=== PATIENT | male | born 1975 ===

== ENCOUNTER → 2020-08-04 13:47 | Outpatient (BNVA) | payer MEDICAID, SELFPAY | PROVIDERS: PCP Emergency Medicine; Visit Provider Student in an Organized Health Care Education/Training Program | DX: M17.11 Unilateral primary osteoarthritis, right knee (principal); M25.562 Pain in left knee; I25.10 Atherosclerotic heart disease of native coronary artery without angina pectoris; I10 Essential (primary) hypertension; Z87.891 Personal history of nicotine dependence; Z91.013 Allergy to seafood | CPT/HCPCS: 20610; 99212 ==

== ENCOUNTER 2020-08-11 16:37 | Inpatient (IN) | payer MEDICAID, SELFPAY ==
[2020-08-11] VITALS (7 sets, daily range): BP systolic 112–140; BP diastolic 76–87; PULSE 79–110; RESP 14–18; TEMP 37.4–39.6; O2SAT 90–96; BMI 29.6; BMI 28.7
--- NOTE | 2020-08-11 16:52 | ECG_ITS ---
Test Reason : CP Blood Pressure : / mmHG Vent. Rate : 108 BPM Atrial Rate : 108 BPM P-R Int : 128 ms QRS Dur : 090 ms QT Int : 304 ms P-R-T Axes : 038 080 012 degrees QTc Int : 407 ms Sinus tachycardia Otherwise normal ECG When compared with ECG of 29-OCT-2019 16:05, No significant change was found Referred By: Marina Angel Electronically Signed By:TERRENCE DAIGLE MD
--- NOTE | 2020-08-11 17:03 | XR_ITS ---
EXAMINATION: XR CHEST CLINICAL INFORMATION: Chest pain COMPARISON: 10/29/2019 TECHNIQUE: Frontal view of the chest was obtained. FINDINGS: No convincing significant abnormality is noted involving the heart, lungs, mediastinum, bony thorax or soft tissues. There is a slight prominence of lung markings seen but I believe this is secondary to technique and positioning. No convincing consolidation is seen. XR/XR chest 1V IMPRESSION: No acute intrathoracic disease
--- NOTE | 2020-08-11 17:09 | ED_ITS ---
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 Chest pain is localized in the left chest wall, no radiation, associated with shortness of breath, pain described as intermittent, when patient have pain pain is moderate /10 and described as pressure on the chest. Related Data Home Medications Medication Instructions Recorded Confirmed amlodipine 2.5 mg tablet 2.5 mg PO DAILY 08/04/20 aspirin 81 mg tablet,delayed 81 mg PO DAILY 08/04/20 release atorvastatin 40 mg tablet 40 mg PO DAILY 08/04/20 fenofibrate micronized 134 mg 134 mg PO DAILY 08/04/20 capsule fenofibrate micronized 67 mg 67 mg PO DAILY 08/04/20 capsule insulin glargine 100 unit/mL (3 10 unit SUBCUT QPM 08/04/20 mL) subcutaneous pen lisinopril 10 mg tablet 10 mg PO DAILY 08/04/20 loratadine 10 mg tablet 10 mg PO DAILY 08/04/20 metformin 500 mg tablet 500 mg PO BID 08/04/20 omega-3 fatty acids 1,000 mg 1,000 mg PO DAILY 08/04/20 capsule omeprazole 40 mg capsule,delayed 40 mg PO DAILY 08/04/20 release Allergies Allergy/AdvReac Type Severity Reaction Status Date / Time Sea Food Allergy Severe Anaphylaxis Uncoded 08/04/20 13:50 SEAFOOD Allergy Severe ANGIOEDEMA Uncoded 08/04/20 13:50 Review of Systems Review of Systems: All other systems are reviewed and are negative Constitutional: Reports as per HPI and Reports no additional constitutional complaints Eyes: Reports as per HPI and Reports no additional eye complaints Reports system reviewed and no additional complaints, except as documented Cardiovascular: Reports as per HPI and Reports no additional cardiovascular complaints Respiratory: Reports as per HPI and Reports no additional respiratory complaints Gastrointestinal: Reports as per HPI and Reports no additional gastrointestinal complaints Genitourinary: Reports no additional female genitourinary complaints Musculoskeletal: Reports no additional musculoskeletal complaints Skin/Breast: Reports system reviewed and no additional complaints, except as docu Psychiatric: Reports no additional psychiatric complaints Endocrine: Reports no additional endocrine complaints Hematologic/Lymphatic: Reports no additional hematologic/lymphatic complaints Allergic/Immunologic: Reports no additional allergic/immunologic complaints Reports system reviewed and no additional complaints, except as documented and Reports Abnormal speech present [facility] Past Medical History Medical History CAD (coronary artery disease) Diabetes HTN (hypertension) Patellofemoral arthralgia of left knee Patellofemoral arthritis of right knee Surgical History History of back surgery History of hand surgery Social History Social History Alcohol intake: current Smoking Status: Former smoker Advance Directives: No Advance Directives Information Provided: Yes Physical Exam Vital Signs: Vital Signs: Last Vital Signs Temp 99.3 F 08/11/20 19:29 Pulse 81 08/11/20 19:29 Resp 18 08/11/20 19:29 BP 116/76 08/11/20 19:29 Pulse Ox 93 08/11/20 19:29 Body Mass Index 29.6 Vital signs have been reviewed as normal and appeared to be correct. Blood pressure normal. Tachycardic. Respiration rate normal. Febrile, Oxygen saturation normal. Appearance: Alert. Oriented X3. No acute distress. Diaphoretic Head: Normal external exam. Normocephalic. Atraumatic. No Bravo signs noted. No raccoon eyes noted Eyes: PERRLA. EOMI. Conjunctiva and sclera normal. Eyelids normal. ENT: EAC normal. TM's Normal. Pharynx normal. Uvula midline. Moist mucous membranes. No trismus noted. No drooling noted. No muffled voice noted. Neck: Normal inspection. Neck supple. FROM. No adenopathy. Thyroid Normal. No meningeal signs. No neck mass noted. CVS: Normal heart rate and rhythm. Heart sound normal. No murmurs noted. Pulses normal throughout. Respiratory: No respiratory distress. Painless inspiration. Breath sounds normal. No wheezes/rales/rhonchi noted. Chest nontender. No accessory muscle usage noted or decreased air movement noted. Abdomen: Soft and nontender. Bowel sounds normal in all 4 quadrants. No distention noted. No organomegaly noted. No visible injury noted. Back: No CVA tenderness. Full range of motion noted. Skin: Skin warm and dry. Normal skin color. Normal skin turgor. No rashes/lesions/lacerations noted. Extremities: No lower extremity edema. Extremities exhibit normal range of motion. Extremities nontender. Neuro: Oriented X 3. No motor deficit. No sensory deficit. Reflexes normal. Course Course Course Narrative: 45-year-old male presented with dry cough, fever, sweating, chest pain. Patient so far is meeting criteria for sepsis but also patient has been having symptoms of viral upper respiratory infection. Will workup for chest pain, workup for sepsis. MDM - Chest Pain MDM Narrative Medical decision making narrative: Assessment and plan. 45 years old male presented with 2 days of flu-like symptoms, fever, chills, left-sided chest pain. Patient initially presented to the emergency department diaphoretic, febrile, tachycardic, slightly hypoxic on room air 89%. 1. Severe hypocalcemia will replete calcium. 2. Acute COVID pneumonia. 3. Chest pain with unremarkable troponin and EKG. Will admit the patient for IV hydration, hypocalcemia, COVID pneumonia supportive treatment. Lab Data Attestation: I reviewed the patient's lab results. Result diagrams: 08/11/20 17:42 08/11/20 17:41 Labs: Lab Results 08/11/20 08/11/20 08/11/20 Range/Units 17:14 17:14 17:14 WBC (4.8-10.8) X10*3/uL RBC (4.60-5.80) X10*6/uL Hgb (14.0-18.0) g/dl Hct (42-52) % MCV (80-98) fL MCH (27.0-33.0) pg MCHC (31.0-36.0) g/dl RDW (11.0-16.0) % Plt Count (160-400) X10*3/uL MPV (9.4-12.4) fL Immature Gran % (Auto) (0.0-0.4) % Neut % (Auto) (45-73) % Lymph % (Auto) (20-40) % [place] % (Auto) (2-11) % Eos % (Auto) (0-4) % Baso % (Auto) (0-2) % Lymph # (Auto) (1.2-4.9) X10*3/uL [place] # (Auto) (0.1-1.2) X10*3/uL Eos # (Auto) (0.0-0.4) X10*3/uL Baso # (Auto) (0.0-0.2) X10*3/uL Abs Immat Gran (auto) (0.00-0.03) X10*3/uL Absolute Neuts (auto) (2.0-8.3) X10*3/uL Absolute Nucleated RBC (0.0-0.012) X10*3/uL Nucleated RBC % (auto) (0.0-0.2) /100WBC Smear Tech's Comments PT (10.8-13.0) SEC INR (0.9-1.1) APTT (24.1-38.0) SEC Hold Blue Top SEE NOTE Sodium (135-145) mmol/L Potassium (3.3-5.1) mmol/l Chloride (96-108) mmol/L Carbon Dioxide (22-29) mmol/L Anion Gap (12-20) BUN (9-16) mg/dL Creatinine (0.5-1.4) mg/dL Estim Creat Clear Calc Estimated GFR Random Glucose (60-115) mg/dL Lactic Acid 3.6 H* (0.5-2.0) mmol/L Calcium (8.4-10.2) mg/dL Total Bilirubin (0.0-1.0) mg/dL Troponin I High Sens (<3.5-35.0) ng/L COVID-19 (JEANNE) Positive A (Negative) COVID-19 Clin Com See Note 08/11/20 08/11/20 08/11/20 Range/Units 17:22 17:41 17:41 WBC (4.8-10.8) X10*3/uL RBC (4.60-5.80) X10*6/uL Hgb (14.0-18.0) g/dl Hct (42-52) % MCV (80-98) fL MCH (27.0-33.0) pg MCHC (31.0-36.0) g/dl RDW (11.0-16.0) % Plt Count (160-400) X10*3/uL MPV (9.4-12.4) fL Immature Gran % (Auto) (0.0-0.4) % Neut % (Auto) (45-73) % Lymph % (Auto) (20-40) % [place] % (Auto) (2-11) % Eos % (Auto) (0-4) % Baso % (Auto) (0-2) % Lymph # (Auto) (1.2-4.9) X10*3/uL [place] # (Auto) (0.1-1.2) X10*3/uL Eos # (Auto) (0.0-0.4) X10*3/uL Baso # (Auto) (0.0-0.2) X10*3/uL Abs Immat Gran (auto) (0.00-0.03) X10*3/uL Absolute Neuts (auto) (2.0-8.3) X10*3/uL Absolute Nucleated RBC (0.0-0.012) X10*3/uL Nucleated RBC % (auto) (0.0-0.2) /100WBC Smear Tech's Comments PT 12.3 (10.8-13.0) SEC INR 1.0 (0.9-1.1) APTT 34.6 (24.1-38.0) SEC Hold Blue Top Sodium 136 (135-145) mmol/L Potassium 3.9 (3.3-5.1) mmol/l Chloride 110 H (96-108) mmol/L Carbon Dioxide 19 L (22-29) mmol/L Anion Gap 11 L (12-20) BUN 13 (9-16) mg/dL Creatinine 0.79 (0.5-1.4) mg/dL Estim Creat Clear Calc 140.8 Estimated GFR > 60 Random Glucose 195 H (60-115) mg/dL Lactic Acid (0.5-2.0) mmol/L Calcium 5.9 L* (8.4-10.2) mg/dL Total Bilirubin 0.4 (0.0-1.0) mg/dL Troponin I High Sens < 3.5 (<3.5-35.0) ng/L COVID-19 (JEANNE) (Negative) COVID-19 Clin Com 08/11/20 08/11/20 08/11/20 Range/Units 17:42 17:42 17:42 WBC 3.2 L (4.8-10.8) X10*3/uL RBC 4.41 L (4.60-5.80) X10*6/uL Hgb 13.4 L (14.0-18.0) g/dl Hct 37.5 L (42-52) % MCV 85.0 (80-98) fL MCH 30.4 (27.0-33.0) pg MCHC 35.7 (31.0-36.0) g/dl RDW 11.9 (11.0-16.0) % Plt Count 138 L (160-400) X10*3/uL MPV 11.0 (9.4-12.4) fL Immature Gran % (Auto) 0.3 (0.0-0.4) % Neut % (Auto) 72.6 (45-73) % Lymph % (Auto) 18.8 L (20-40) % [place] % (Auto) 8.3 (2-11) % Eos % (Auto) 0.0 (0-4) % Baso % (Auto) 0.0 (0-2) % Lymph # (Auto) 0.6 L (1.2-4.9) X10*3/uL [place] # (Auto) 0.3 (0.1-1.2) X10*3/uL Eos # (Auto) 0.0 (0.0-0.4) X10*3/uL Baso # (Auto) 0.0 (0.0-0.2) X10*3/uL Abs Immat Gran (auto) 0.01 (0.00-0.03) X10*3/uL Absolute Neuts (auto) 2.4 (2.0-8.3) X10*3/uL Absolute Nucleated RBC 0.000 (0.0-0.012) X10*3/uL Nucleated RBC % (auto) 0.0 (0.0-0.2) /100WBC Smear Tech's Comments VERIFIED PT (10.8-13.0) SEC INR (0.9-1.1) APTT (24.1-38.0) SEC Hold Blue Top SEE NOTE Sodium (135-145) mmol/L Potassium (3.3-5.1) mmol/l Chloride (96-108) mmol/L Carbon Dioxide (22-29) mmol/L Anion Gap (12-20) BUN (9-16) mg/dL Creatinine (0.5-1.4) mg/dL Estim Creat Clear Calc Estimated GFR Random Glucose (60-115) mg/dL Lactic Acid (0.5-2.0) mmol/L Calcium (8.4-10.2) mg/dL Total Bilirubin (0.0-1.0) mg/dL Troponin I High Sens < 3.5 (<3.5-35.0) ng/L COVID-19 (JEANNE) (Negative) COVID-19 Clin Com Discharge Plan Discharge Clinical Impression: Hypocalcemia, COVID-19 virus infection, Chest pain Patient Disposition: Admitted As Inpatient Prescriptions: No Action omeprazole 40 mg capsule,delayed release(DR/EC) 40 mg PO DAILY RF: 0 aspirin 81 mg tablet,delayed release (DR/EC) 81 mg PO DAILY RF: 0 Basaglfritz Canseco U-100 Insulin 100 unit/mL (3 mL) insulin pen 10 unit subcut QPM RF: 0 metformin 500 mg tablet 500 mg PO BID RF: 0 lisinopril 10 mg tablet 10 mg PO DAILY RF: 0 amlodipine [Norvasc] 2.5 mg tablet 2.5 mg PO DAILY RF: 0 fenofibrate micronized 67 mg capsule 67 mg PO DAILY RF: 0 loratadine 10 mg tablet 10 mg PO DAILY RF: 0 atorvastatin 40 mg tablet 40 mg PO DAILY RF: 0 fenofibrate micronized 134 mg capsule 134 mg PO DAILY RF: 0 omega-3 fatty acids [Fish Oil Concentrate] 1,000 mg capsule 1,000 mg PO DAILY RF: 0
[2020-08-11] MEDS: Acetaminophen 325 MG TABLET 650 MG PO ×2 (17:29→23:19)
[2020-08-11 17:38] LABS: Prothrombin Time 12.3 SEC (10.8-13.0)
[2020-08-11 17:41] LABS: Partial Thromboplastin Time 34.6 SEC (24.1-38.0)
--- NOTE | 2020-08-11 17:44 | PC.NURSE ---
pt complaining of feeling freezing, temp rechecked 101.9 oral. will remove cooling blanket, tolerating po. took ordered tylenol.
[2020-08-11 17:49] LABS: COVID-19 Test Positive (Negative)
[2020-08-11 17:52] LABS: Lactic Acid 3.6 mmol/L (0.5-2.0)
[2020-08-11 18:00] LABS: Hematocrit 37.5 % (42-52); Hemoglobin 13.4 g/dl (14.0-18.0); Imm Gran Abs Auto 0.01 X10*3/uL (0.00-0.03); Imm Gran Pct Auto 0.3 % (0.0-0.4); Lymphocytes Absolute Auto 0.6 X10*3/uL (1.2-4.9); Lymphocytes Percent Auto 18.8 % (20-40); MANUAL DIFF FLAG SCAN; Mean Corpuscular HGB Conc 35.7 g/dl (31.0-36.0); Mean Corpuscular Hemoglobin 30.4 pg (27.0-33.0); Monocytes Absolute Auto 0.3 X10*3/uL (0.1-1.2); Monocytes Percent Auto 8.3 % (2-11); Neutrophils Absolute Auto 2.4 X10*3/uL (2.0-8.3); Neutrophils Percent Auto 72.6 % (45-73); Platelet Count 138 X10*3/uL (160-400); Red Blood Count 4.41 X10*6/uL (4.60-5.80); Red Cell Distribution Width 11.9 % (11.0-16.0); SCAN SMEAR FLAG 1; White Blood Count 3.2 X10*3/uL (4.8-10.8)
[2020-08-11 18:19] LABS: SLIDE REVIEW VERIFIED
[2020-08-11 18:21] LABS: Troponin-I High Sensitivity < 3.5 ng/L (<3.5-35.0)
[2020-08-11 18:21] LABS: Troponin-I High Sensitivity < 3.5 ng/L (<3.5-35.0)
[2020-08-11 18:43] LABS: Anion Gap 11 (12-20); Bilirubin Total 0.4 mg/dL (0.0-1.0); Blood Urea Nitrogen 13 mg/dL (9-16); Calcium 5.9 mg/dL (8.4-10.2); Carbon Dioxide 19 mmol/L (22-29); Chloride 110 mmol/L (96-108); Creatinine Clr Calc Pharmacy 140.8; Estimated Glomerular Filt Rate > 60; Glucose Random 195 mg/dL (60-115); Potassium 3.9 mmol/l (3.3-5.1); Sodium 136 mmol/L (135-145)
[2020-08-11 19:20] LABS: Reflex Lactate? Lactic Acid Added
--- NOTE | 2020-08-11 19:44 | P.HPHOSP_ITS ---
History of Present Illness Date of Service: 08/11/20 Chief Complaint: Chest pain 45-year-old man presenting with complaints of left-sided chest pressure that started today, not relieved with rest or activity, that comes and goes with no radiation or other associated symptoms. He does have a history of coronary ar ayo disease. He denied any shortness of breath, nausea, vomiting, diarrhea. He actually reported that he has had a poor appetite over the last several days. He has also had some body aches. He reported that one of his nephews was positive for coronavirus. chest x-ray was negative for consolidation however , he did have a positive coronavirus PCR. he was also noted to have a fever of 103.2, heart rate 109 and lactic acid of 3.6. His troponin was 3.5 x 2. he he was noted to have calcium of 5.9 and was given a dose of calcium carbonate and calcium gluconate in the ER. It does not appear that in point the patient was hypoxic however due to his history of coronary artery disease and his general feeling of malaise will admit for further management and treatment of COVID-19. Review of Systems Review of Systems: Denies any recent fever chills or decrease in appetite respiratory mild dry cough cardiovascular see HPI gastrointestinal denies any dysphagia abdominal pain nausea vomiting or brandon rrhea genitourinary denies any dysuria frequency or hematuria musculoskeletal denies any joint pain or swelling neuropsych denies any weakness or seizures all other systems reviewed are negative [facility] Medical History CAD (coronary artery disease) Diabetes HTN (hypertension) Patellofemoral arthralgia of left knee Patellofemoral arthritis of right knee Surgical History History of back surgery History of hand surgery Social History Household Members: Family Household Members Other:: , kids Housing: House Do you presently have visiting nurse or other home services: No Alcohol intake: current Smoking Status: Never smoker Use of substances other than those prescribed or required for medical reasons: No Currently Displaying Signs/Symptoms of Drug Intoxication Withdrawal: No Have you been hit, kicked, punched, or otherwise hurt by someone within the past year? If so, by whom?: No Do you feel safe in your current relationship?: Yes Is there a partner from a previous relationship who is making you feel unsafe now?: No Are you made to feel afraid or neglected: No Advance Directives: No Advance Directives Information Provided: Yes Do you have thoughts of harming others: None Do you have a plan to hurt others: No Plan Recently lost weight without trying: No service: No Current occupational status: employed Meds Allergies Allergy/AdvReac Type Severity Reaction Status Date / Time Sea Food Allergy Severe Anaphylaxis Uncoded 08/12/20 00:00 Home Medications Medication Instructions Recorded Confirmed Type amlodipine 2.5 mg tablet 2.5 mg PO DAILY 08/04/20 08/11/20 History aspirin 81 mg tablet,delayed 81 mg PO DAILY 08/04/20 08/11/20 History release atorvastatin 40 mg tablet 40 mg PO DAILY 08/04/20 08/11/20 History fenofibrate micronized 134 mg 134 mg PO DAILY 08/04/20 08/11/20 History capsule insulin glargine 100 unit/mL (3 10 unit SUBCUT QPM 08/04/20 08/11/20 History mL) subcutaneous pen lisinopril 10 mg tablet 10 mg PO DAILY 08/04/20 08/11/20 History loratadine 10 mg tablet 10 mg PO DAILY 08/04/20 08/11/20 History metformin 500 mg tablet 500 mg PO BID 08/04/20 08/11/20 History omega-3 fatty acids 1,000 mg 1,000 mg PO DAILY 08/04/20 08/11/20 History capsule omeprazole 40 mg capsule,delayed 40 mg PO DAILY 08/04/20 08/11/20 History release Physical Exam Vital Signs and Narrative: Vital Signs: Last Vital Signs Temp 99.3 F 08/11/20 19:29 Pulse 81 08/11/20 19:29 Resp 18 08/11/20 19:29 BP 116/76 08/11/20 19:29 Pulse Ox 93 08/11/20 19:29 Body Mass Index 29.6 Appearing in no acute distress head is normocephalic atraumatic eyes pupils are PERRLA sclera is anicteric mouth throat mucous membranes are intact and moist neck is supple no lymphadenopathy, no JVD noted Normal lung expansion heart regular rate rhythm, clear S1, S2 positive bowel sounds, abdomen is soft, nontender neuro patient is alert x3, no focal deficits Results Labs CBC and Chem 7: 08/13/20 05:59 08/13/20 05:59 Labs: Laboratory Results - last 24 hr 08/11/20 08/11/20 08/11/20 17:14 17:14 17:14 MCV MCH MCHC RDW Plt Count MPV Immature Gran % (Auto) Neut % (Auto) Lymph % (Auto) [place] % (Auto) Eos % (Auto) Baso % (Auto) Lymph # (Auto) [place] # (Auto) Eos # (Auto) Baso # (Auto) Abs Immat Gran (auto) Absolute Neuts (auto) Absolute Nucleated RBC Nucleated RBC % (auto) Smear Tech's Comments PT INR APTT Hold Blue Top SEE NOTE Anion Gap Estim Creat Clear Calc Estimated GFR Random Glucose Lactic Acid 3.6 H* Calcium Total Bilirubin Troponin I High Sens COVID-19 (JEANNE) Positive A COVID-19 Clin Com See Note 08/11/20 08/11/20 08/11/20 17:22 17:41 17:41 MCV MCH MCHC RDW Plt Count MPV Immature Gran % (Auto) Neut % (Auto) Lymph % (Auto) [place] % (Auto) Eos % (Auto) Baso % (Auto) Lymph # (Auto) [place] # (Auto) Eos # (Auto) Baso # (Auto) Abs Immat Gran (auto) Absolute Neuts (auto) Absolute Nucleated RBC Nucleated RBC % (auto) Smear Tech's Comments PT 12.3 INR 1.0 APTT 34.6 Hold Blue Top Anion Gap 11 L Estim Creat Clear Calc 140.8 Estimated GFR > 60 Random Glucose 195 H Lactic Acid Calcium 5.9 L* Total Bilirubin 0.4 Troponin I High Sens < 3.5 COVID-19 (JEANNE) COVID-19 Clin Com 08/11/20 08/11/20 08/11/20 17:42 17:42 17:42 MCV 85.0 MCH 30.4 MCHC 35.7 RDW 11.9 Plt Count 138 L MPV 11.0 Immature Gran % (Auto) 0.3 Neut % (Auto) 72.6 Lymph % (Auto) 18.8 L [place] % (Auto) 8.3 Eos % (Auto) 0.0 Baso % (Auto) 0.0 Lymph # (Auto) 0.6 L [place] # (Auto) 0.3 Eos # (Auto) 0.0 Baso # (Auto) 0.0 Abs Immat Gran (auto) 0.01 Absolute Neuts (auto) 2.4 Absolute Nucleated RBC 0.000 Nucleated RBC % (auto) 0.0 Smear Tech's Comments VERIFIED PT INR APTT Hold Blue Top SEE NOTE Anion Gap Estim Creat Clear Calc Estimated GFR Random Glucose Lactic Acid Calcium Total Bilirubin Troponin I High Sens < 3.5 COVID-19 (JEANNE) COVID-19 Clin Com Imaging Radiologist's Impressions: Impressions Chest X-Ray 08/11/20 17:03 IMPRESSION: No acute intrathoracic disease Assessment and Plan (1) COVID-19 virus infection: Problem details: He has minimal if any oxygen requirements Cant get cycle threshold on ID Now Status: Acute (2) Chest pain: Status: Acute 45 year old man admitted with covid-19 and chest pain. Severe sepsis due to viral covid infection. Fever, tachycardia, lactic acidosis. Follow blood cultures. Covid-[address] for pneumonia, id consult, IV Decadron, supplemental oxygen as needed. Chest pain With history of CAD . 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 Hypocalcemia. Repleted in the ER. Follow BMP. Diabetes . Sliding scale, ADA diet, continue Lantus, metformin. Hypertension . Continue amlodipine and lisinopril. GERD . Ppi. Smoker . Nicotine replacement, discussed smoking cessation. DVT prophylaxis with Heparin. Discussed with Dr. Wilson Full code
--- NOTE | 2020-08-11 20:15 | CT_ITS ---
EXAMINATION: CT CHEST WITHOUT CONTRAST CLINICAL INFORMATION: Pneumonia COMPARISON: Chest x-ray 08/11/2020 TECHNIQUE: Multidetector volumetric CT imaging of the chest was done. Axial MIP volume rendering provided. Sagittal and coronal reformatted images were obtained. This CT examination was performed using dose optimization techniques as appropriate, variously including the following: *Automated exposure control *Adjustment of mA and/or kV according to patient size (this includes techniques or standardized protocols for targeted exams where dose is matched to indication/reason for exam; i.e. extremities or head) *Use of iterative reconstruction technique DLP: 348 mGy-cm FINDINGS: LUNGS: Multifocal patchy airspace opacities in the lung bilaterally. All lobes involved. Findings consistent with atypical pneumonia such as Covid 19. MEDIASTINUM: No significant lymphadenopathy. There are a few subcentimeter lymph nodes in the pretracheal retrovascular space, subcarina and AP window. There is no pericardial effusion. PLEURA: There is no pleural effusion. No pleural mass or thickening. AXILLA: No lymphadenopathy. UPPER ABDOMEN: Unremarkable. OSSEOUS STRUCTURES: Unremarkable. CT/CT chest wo con IMPRESSION: Multifocal airspace disease consistent with atypical pneumonia such as Covid 19.
[2020-08-11] MEDS: Calcium + Vitamin D 250 MG TABLET 500 MG PO (20:57)
[2020-08-11] MEDS: Calcium Gluconate/NaCl,Iso-Osm 2 GM/100 ML PLAST..BAG IV (20:57)
[2020-08-11] MEDS: 0.9 % Sodium Chloride 500 ML 1000 ML IV (20:59)
[2020-08-11 22:39] LABS: Glucose, Whole Blood 242 mg/dL (60-115)
[2020-08-11] MEDS: Insulin Lispro 100 UNIT/ML 3 ML VIAL SUBCUT (23:07)
[2020-08-11] MEDS: Heparin Sodium,Porcine 5,000 UNIT/ML VIAL 5000 UNIT SUBCUT (23:08)
[2020-08-11] MEDS: 0.9 % Sodium Chloride Flush 3 ML SYRINGE IVFLUSH (23:08)
[2020-08-11 23:54] LABS: D Dimer 217 NG/ML
[2020-08-12] VITALS (12 sets, daily range): BP systolic 107–149; BP diastolic 66–77; PULSE 84–108; RESP 14–20; TEMP 36.9–39.4; O2SAT 91–95
--- NOTE | 2020-08-12 | US_ITS ---
EXAMINATION: US ABDOMEN LIMITED CLINICAL INFORMATION: Acute right upper quadrant pain.. COMPARISON: None TECHNIQUE: Real-time imaging of the right upper quadrant abdominal viscera. Color Doppler exam used. FINDINGS: PANCREAS: Normal. LIVER: Limited visualization due to overlying bowel gas. There is increased echogenicity of liver parenchyma due to fatty change. The liver contour is normal. No focal hepatic lesion. There is no intrahepatic biliary duct dilatation seen. GALLBLADDER: Normal. The gallbladder is physiologically distended without evidence of stones, sludge, polyps, wall thickening or pericholecystic fluid. COMMON BILE DUCT: Normal in caliber measuring 0.3 cm in diameter. RIGHT KIDNEY: Normal. No hydronephrosis. No renal calculi or suspicious focal parenchymal lesions. The kidney measures 12.6 cm in maximum dimension. There is a cyst in the midpole measuring 4 mm and another measuring 9 mm. FREE FLUID: None. US/US abdomen limited IMPRESSION: 1. No acute abnormality. No gallstone, gallbladder wall thickening or pericholecystic fluid. No bile duct dilatation. 2. Diffuse fatty change of liver.
[2020-08-12 00:08] LABS: ~Lactic Acid-LAB USE ONLY 1.3 mmol/L (0.5-2.0)
[2020-08-12 00:11] LABS: Lactate Dehydrogenase 229 U/L (118-273)
[2020-08-12 00:35] LABS: Ferritin 416 ng/mL (20-250)
[2020-08-12 00:53] LABS: Procalcitonin 0.08 ng/mL
[2020-08-12] MEDS: Acetaminophen 325 MG TABLET 650 MG PO ×3 (05:45→19:39)
[2020-08-12] MEDS: Omeprazole 40 MG CAPSULE.DR PO (05:45)
[2020-08-12 06:31] LABS: MANUAL DIFF FLAG NO
[2020-08-12 06:51] LABS: Basophils Percent Auto 0.3 % (0-2); Hematocrit 42.7 % (42-52); Hemoglobin 15.5 g/dl (14.0-18.0); Imm Gran Abs Auto 0.01 X10*3/uL (0.00-0.03); Imm Gran Pct Auto 0.3 % (0.0-0.4); Lymphocytes Absolute Auto 0.8 X10*3/uL (1.2-4.9); Lymphocytes Percent Auto 22.8 % (20-40); Mean Corpuscular HGB Conc 36.3 g/dl (31.0-36.0); Mean Corpuscular Hemoglobin 30.3 pg (27.0-33.0); Mean Corpuscular Volume 83.6 fL (80-98); Monocytes Absolute Auto 0.2 X10*3/uL (0.1-1.2); Monocytes Percent Auto 5.7 % (2-11); Neutrophils Absolute Auto 2.4 X10*3/uL (2.0-8.3); Neutrophils Percent Auto 70.9 % (45-73); Platelet Count 168 X10*3/uL (160-400); Red Blood Count 5.11 X10*6/uL (4.60-5.80); Red Cell Distribution Width 11.8 % (11.0-16.0); White Blood Count 3.3 X10*3/uL (4.8-10.8)
[2020-08-12 07:18] LABS: Anion Gap 13 (12-20); Blood Urea Nitrogen 12 mg/dL (9-16); Carbon Dioxide 28 mmol/L (22-29); Chloride 96 mmol/L (96-108); Creatinine Clr Calc Pharmacy 97.1; Estimated Glomerular Filt Rate > 60; Glucose Random 210 mg/dL (60-115); Potassium 4.2 mmol/l (3.3-5.1); Sodium 133 mmol/L (135-145)
[2020-08-12 07:50] LABS: Glucose, Whole Blood 279 mg/dL (60-115)
--- NOTE | 2020-08-12 08:39 | MHC.CM.PN ---
Male 45 DX covid + chest pain. HCP on file. 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 He lives with his Family. He is independent all functional mobility. DP home no services, and will provide transportation.
[2020-08-12] MEDS: Insulin Lispro 100 UNIT/ML 3 ML VIAL SUBCUT ×4 (08:52→21:06)
[2020-08-12] MEDS: metFORMIN HCl 500 MG TABLET PO (08:52)
[2020-08-12] MEDS: lisinopriL 10 MG TABLET PO (08:52)
[2020-08-12] MEDS: 0.9 % Sodium Chloride Flush 3 ML SYRINGE IVFLUSH ×3 (08:52→21:06)
[2020-08-12] MEDS: Fenofibrate,Micronized 134 MG CAPSULE PO (08:53)
[2020-08-12] MEDS: amLODIPine Besylate 2.5 MG TABLET PO (08:53)
[2020-08-12] MEDS: Loratadine 10 MG TABLET PO (08:53)
[2020-08-12] MEDS: Atorvastatin Calcium 40 MG TABLET PO (08:53)
[2020-08-12] MEDS: Heparin Sodium,Porcine 5,000 UNIT/ML VIAL 5000 UNIT SUBCUT (08:54)
[2020-08-12] MEDS: Nicotine 7 MG PATCH.TD24 TRANSDERMA (08:54)
[2020-08-12 09:28] LABS: Calcium 8.5 mg/dL (8.4-10.2)
[2020-08-12 09:55] LABS: Alanine Aminotransferase 32 U/L (0-40); Albumin Level 4.1 g/dL (3.5-5.0); Alkaline Phosphatase 65 U/L (39-117); Aspartate Amino Transferase 23 U/L (5-37); Bilirubin Direct 0.3 mg/dL (0.0-0.5); Bilirubin Total 0.6 mg/dL (0.0-1.0); Magnesium 1.6 mg/dL (1.6-2.6); Total Protein 6.7 g/dL (6.5-8.0)
[2020-08-12] MEDS: Aspirin Enteric Coated 81 MG TABLET.DR PO (10:04)
[2020-08-12 11:23] LABS: Glucose, Whole Blood 296 mg/dL (60-115)
[2020-08-12 13:21] LABS: Vitamin D 25-OH Total 40.7 ng/mL (>30)
[2020-08-12] MEDS: Morphine Sulfate 2 MG/ML CARTRIDGE IVPUSH ×2 (13:54→21:05)
--- NOTE | 2020-08-12 15:00 | PC.NURSE ---
Patient reported sudden onset ruq pain. no nausea or vomiting. md notified. new orders for morphine for pain and abd ultrasound. hold dinner tray so ultrasound can be done this evening.
--- NOTE | 2020-08-12 15:07 | HO.PM.IMPN ---
Subjective Subjective Date of Service: 08/12/20 Interval History: Tmax 103.2 yesterday evening Chest pain improved but now c/o severe RUQ pain C/o cough, myalgias Not hypoxic Physical Exam Vital Signs: Vital Signs: Last Vital Signs Temp 98.9 F 08/12/20 11:10 Pulse 100 08/12/20 11:10 Resp 14 08/12/20 14:50 BP 117/74 08/12/20 11:10 Pulse Ox 91 L 08/12/20 11:10 Body Mass Index 28.7 Gen: in no acute distress HEENT: sclera anicteric, moist mucus membranes Neck: supple Lungs: Auscultation deferred due to COVID-19 Heart: regular rate and rhythm, normal peripheral pulses Abd: soft, RUQ tender, no rebound Ext: no edema Skin: warm/well-perfused Neuro: alert and oriented x3, no focal findings Psych: appropriate affect Objective Data Current Medications Generic Name Dose Route Start Last Admin Trade Name Freq PRN Reason Stop Dose Admin Acetaminophen 650 mg 08/11/20 21:55 08/12/20 12:15 Acetaminophen 325 Mg Tablet PO 650 mg Q6H PRN Administration Pain, Mild (Pain Scale 1-3) Amlodipine Besylate 2.5 mg 08/12/20 09:00 08/12/20 08:53 Amlodipine Besylate 2.5 Mg Tablet PO 2.5 mg DAILY BORIS Administration Protocol Aspirin 81 mg 08/12/20 09:00 08/12/20 10:04 Aspirin Enteric Coated 81 Mg Tablet.Dr PO 81 mg DAILY BORIS Administration Atorvastatin Calcium 40 mg 08/12/20 09:00 08/12/20 08:53 Atorvastatin Calcium 40 Mg Tablet PO 40 mg DAILY BORIS Administration Fenofibrate 134 mg 08/12/20 09:00 08/12/20 08:53 Fenofibrate,Micronized 134 Mg Capsule PO 134 mg DAILY [facility] Administration Heparin Sodium (Porcine) 5,000 unit 08/11/20 22:00 08/12/20 08:54 Heparin Sodium,Porcine 5,000 Unit/Ml Vial SUBCUT 5,000 unit Q12H [facility] Administration Insulin Glargine 10 unit 08/12/20 17:00 Insulin Glargine,Hum.Rec.Anlog 100 Unit/Ml 10 Ml Vial SUBCUT DAILY@1700 [facility] Insulin Human Lispro 0 unit 08/11/20 21:55 08/12/20 12:11 Insulin Lispro 100 Unit/Ml 3 Ml Vial SUBCUT 6 unit QIDACHS [facility] Administration Protocol Lisinopril 10 mg 08/12/20 09:00 08/12/20 08:52 Lisinopril 10 Mg Tablet PO 10 mg DAILY BORIS Administration Protocol Loratadine 10 mg 08/12/20 09:00 08/12/20 08:53 Loratadine 10 Mg Tablet PO 10 mg DAILY [facility]ORIS Administration Metformin HCl 500 mg 08/12/20 08:00 08/12/20 08:52 Metformin Hcl 500 Mg Tablet PO 500 mg BIDWM BORIS Administration Morphine Sulfate 2 mg 08/12/20 13:04 08/12/20 13:54 Morphine Sulfate 2 Mg/Ml Cartridge IVPUSH 2 mg Q6H PRN Administration pain,severe Nicotine 7 mg 08/12/20 09:00 08/12/20 08:54 Nicotine 7 Mg Patch.Td24 TRANSDERMA 7 mg DAILY [facility]ORIS Administration Omeprazole 40 mg 08/12/20 06:30 08/12/20 05:45 Omeprazole 40 Mg Capsule. PO 40 mg DAILY@0630 [facility] Administration Ondansetron HCl 4 mg 08/11/20 21:55 Ondansetron Hcl 4 Mg/2 Ml Vial IVPUSH Q8H PRN Nausea and Vomiting Pharmacy Consult 1 each 08/11/20 19:47 Consult Rx Perform Med Rec MISCELLANE ONCE PRN Consult order Sodium Chloride 3 ml 08/12/20 00:00 08/12/20 13:56 0.9 % Sodium Chloride Flush 3 Ml Syringe IVFLUSH 3 ml QSHIFT [facility] Administration Labs CBC & Chem 7: 08/12/20 05:58 08/12/20 05:58 Labs: Laboratory Results - last 24 hr 08/11/20 08/11/20 08/11/20 17:14 17:14 17:14 WBC RBC Hgb Hct MCV MCH MCHC RDW Plt Count MPV Immature Gran % (Auto) Neut % (Auto) Lymph % (Auto) [place] % (Auto) Eos % (Auto) Baso % (Auto) Lymph # (Auto) [place] # (Auto) Eos # (Auto) Baso # (Auto) Abs Immat Gran (auto) Absolute Neuts (auto) Absolute Nucleated RBC Nucleated RBC % (auto) Smear Tech's Comments PT INR APTT D-Dimer Hold Blue Top SEE NOTE Sodium Potassium Chloride Carbon Dioxide Anion Gap BUN Creatinine Estim Creat Clear Calc Estimated GFR POC Glucose Random Glucose Lactic Acid 3.6 H* Lactic Acid Fup @ 2Hr Calcium Phosphorus Magnesium Ferritin Total Bilirubin Direct Bilirubin AST ALT Alkaline Phosphatase Lactate Dehydrogenase Troponin I High Sens Total Protein Albumin 25-OH Vitamin D Total Procalcitonin COVID-19 (JEANNE) Positive A COVID-19 Clin Com See Note 08/11/20 08/11/20 08/11/20 17:22 17:41 17:41 WBC RBC Hgb Hct MCV MCH MCHC RDW Plt Count MPV Immature Gran % (Auto) Neut % (Auto) Lymph % (Auto) [place] % (Auto) Eos % (Auto) Baso % (Auto) Lymph # (Auto) [place] # (Auto) Eos # (Auto) Baso # (Auto) Abs Immat Gran (auto) Absolute Neuts (auto) Absolute Nucleated RBC Nucleated RBC % (auto) Smear Tech's Comments PT 12.3 INR 1.0 APTT 34.6 D-Dimer Hold Blue Top Sodium 136 Potassium 3.9 Chloride 110 H Carbon Dioxide 19 L Anion Gap 11 L BUN 13 Creatinine 0.79 Estim Creat Clear Calc 140.8 Estimated GFR > 60 POC Glucose Random Glucose 195 H Lactic Acid Lactic Acid Fup @ 2Hr Calcium 5.9 L* Phosphorus Magnesium Ferritin Total Bilirubin 0.4 Direct Bilirubin AST ALT Alkaline Phosphatase Lactate Dehydrogenase Troponin I High Sens < 3.5 Total Protein Albumin 25-OH Vitamin D Total Procalcitonin COVID-19 (JEANNE) COVID-19 Clin Com 08/11/20 08/11/20 08/11/20 17:42 17:42 17:42 WBC 3.2 L RBC 4.41 L Hgb 13.4 L Hct 37.5 L MCV 85.0 MCH 30.4 MCHC 35.7 RDW 11.9 Plt Count 138 L MPV 11.0 Immature Gran % (Auto) 0.3 Neut % (Auto) 72.6 Lymph % (Auto) 18.8 L [place] % (Auto) 8.3 Eos % (Auto) 0.0 Baso % (Auto) 0.0 Lymph # (Auto) 0.6 L [place] # (Auto) 0.3 Eos # (Auto) 0.0 Baso # (Auto) 0.0 Abs Immat Gran (auto) 0.01 Absolute Neuts (auto) 2.4 Absolute Nucleated RBC 0.000 Nucleated RBC % (auto) 0.0 Smear Tech's Comments VERIFIED PT INR APTT D-Dimer Hold Blue Top SEE NOTE Sodium Potassium Chloride Carbon Dioxide Anion Gap BUN Creatinine Estim Creat Clear Calc Estimated GFR POC Glucose Random Glucose Lactic Acid Lactic Acid Fup @ 2Hr Calcium Phosphorus Magnesium Ferritin Total Bilirubin Direct Bilirubin AST ALT Alkaline Phosphatase Lactate Dehydrogenase Troponin I High Sens < 3.5 Total Protein Albumin 25-OH Vitamin D Total Procalcitonin COVID-19 (JEANNE) COVID-19 Clin Com 08/11/20 08/11/20 08/11/20 22:32 23:28 23:28 WBC RBC Hgb Hct MCV MCH MCHC RDW Plt Count MPV Immature Gran % (Auto) Neut % (Auto) Lymph % (Auto) [place] % (Auto) Eos % (Auto) Baso % (Auto) Lymph # (Auto) [place] # (Auto) Eos # (Auto) Baso # (Auto) Abs Immat Gran (auto) Absolute Neuts (auto) Absolute Nucleated RBC Nucleated RBC % (auto) Smear Tech's Comments PT INR APTT D-Dimer 217 Hold Blue Top Sodium Potassium Chloride Carbon Dioxide Anion Gap BUN Creatinine Estim Creat Clear Calc Estimated GFR POC Glucose 242 H Random Glucose Lactic Acid Lactic Acid Fup @ 2Hr 1.3 Calcium Phosphorus Magnesium Ferritin Total Bilirubin Direct Bilirubin AST ALT Alkaline Phosphatase Lactate Dehydrogenase Troponin I High Sens Total Protein Albumin 25-OH Vitamin D Total Procalcitonin COVID-19 (JEANNE) COVID-19 Clin Com 08/11/20 08/11/20 08/12/20 23:28 23:28 05:58 WBC 3.3 L RBC 5.11 Hgb 15.5 Hct 42.7 MCV 83.6 MCH 30.3 MCHC 36.3 H RDW 11.8 Plt Count 168 MPV 11.0 Immature Gran % (Auto) 0.3 Neut % (Auto) 70.9 Lymph % (Auto) 22.8 [place] % (Auto) 5.7 Eos % (Auto) 0.0 Baso % (Auto) 0.3 Lymph # (Auto) 0.8 L [place] # (Auto) 0.2 Eos # (Auto) 0.0 Baso # (Auto) 0.0 Abs Immat Gran (auto) 0.01 Absolute Neuts (auto) 2.4 Absolute Nucleated RBC 0.000 Nucleated RBC % (auto) 0.0 Smear Tech's Comments PT INR APTT D-Dimer Hold Blue Top Sodium Potassium Chloride Carbon Dioxide Anion Gap BUN Creatinine Estim Creat Clear Calc Estimated GFR POC Glucose Random Glucose Lactic Acid Lactic Acid Fup @ 2Hr Calcium Phosphorus Magnesium Ferritin 416 H Total Bilirubin Direct Bilirubin AST ALT Alkaline Phosphatase Lactate Dehydrogenase 229 Troponin I High Sens Total Protein Albumin 25-OH Vitamin D Total Procalcitonin 0.08 COVID-19 (JEANNE) COVID-19 Clin Com 08/12/20 08/12/20 08/12/20 05:58 07:35 11:12 WBC RBC Hgb Hct MCV MCH MCHC RDW Plt Count MPV Immature Gran % (Auto) Neut % (Auto) Lymph % (Auto) [place] % (Auto) Eos % (Auto) Baso % (Auto) Lymph # (Auto) [place] # (Auto) Eos # (Auto) Baso # (Auto) Abs Immat Gran (auto) Absolute Neuts (auto) Absolute Nucleated RBC Nucleated RBC % (auto) Smear Tech's Comments PT INR APTT D-Dimer Hold Blue Top Sodium 133 L Potassium 4.2 Chloride 96 Carbon Dioxide 28 Anion Gap 13 BUN 12 Creatinine 1.13 Estim Creat Clear Calc 97.1 Estimated GFR > 60 POC Glucose 279 H 296 H Random Glucose 210 H Lactic Acid Lactic Acid Fup @ 2Hr Calcium 8.5 D Phosphorus 3.0 Magnesium 1.6 Ferritin Total Bilirubin 0.6 Direct Bilirubin 0.3 AST 23 ALT 32 Alkaline Phosphatase 65 Lactate Dehydrogenase Troponin I High Sens Total Protein 6.7 Albumin 4.1 25-OH Vitamin D Total 40.7 Procalcitonin COVID-19 (JEANNE) COVID-19 Clin Com Assessment and Plan (1) COVID-19 virus infection: Status: Acute (2) Hypocalcemia: Status: Acute Assessment and Plan: hospital d#2 45yo M with CAD, HTN, DM2 presented with chest pain and admitted for hypocalcemia and COVID-19 PNA without hypoxia # hypocalcemia - ?etiology. resolved after CaCO3 and Ca gluconate. 25-OH-D normal. iPTH pending. Nephro consult # COVID-19 PNA - not hypoxic- no steroids or remdisivir for now. maintain isolation. recheck inflammatory markers tomorrow. # chest pain - hs-Tn-I x2 <3.5, likely due to COVID-19 # RUQ pain - abd US # CAD - ASA, statin # HTN - amlodipine, lisinopril # DM2 - Lantus, correction-dose Humalog, A1c # GERD - PPI # tobacco abuse - NRT # VTE ppx - LMWH
[2020-08-12 15:46] LABS: Glucose, Whole Blood 194 mg/dL (60-115)
[2020-08-12] MEDS: Enoxaparin Sodium 40 MG/0.4 ML SYRINGE SUBCUT (17:20)
[2020-08-12] MEDS: Insulin Glargine,Hum.rec.anlog 100 UNIT/ML 10 ML VIAL 10 UNIT SUBCUT (17:21)
[2020-08-12 20:14] LABS: Glucose, Whole Blood 316 mg/dL (60-115)
--- NOTE | 2020-08-12 20:35 | P.CONNP_ITS ---
History of Present Illness Reason for Consult Consult date: 08/12/20 Reason for consult: hypocalcemia Chief Complaint Chief complaint: Covid-19, Chest pain History of Present Illness Narrative: COVID positvie patient presented with CP andnted hypoCawhich responded to iV CA. Noted fever and exposure to COVID and now testing positive for COVID. CP resolved. Denies numbing/tngling No H/O low Ca Sero w/u including vit D and PTH pending [facility] Past Medical History Medical History CAD (coronary artery disease) Diabetes HTN (hypertension) Patellofemoral arthralgia of left knee Patellofemoral arthritis of right knee Surgical History Surgical History History of back surgery History of hand surgery Social History Social History Household Members: Family Household Members Other:: , kids Housing: House Do you presently have visiting nurse or other home services: No Alcohol intake: current Smoking Status: Never smoker Use of substances other than those prescribed or required for medical reasons: No Currently Displaying Signs/Symptoms of Drug Intoxication Withdrawal: No Have you been hit, kicked, punched, or otherwise hurt by someone within the past year? If so, by whom?: No Do you feel safe in your current relationship?: Yes Is there a partner from a previous relationship who is making you feel unsafe now?: No Are you made to feel afraid or neglected: No Advance Directives: No Advance Directives Information Provided: Yes Do you have thoughts of harming others: None Do you have a plan to hurt others: No Plan Recently lost weight without trying: No service: No Current occupational status: employed Meds Allergies Allergy/AdvReac Type Severity Reaction Status Date / Time Sea [employer] Allergy Severe Anaphylaxis Uncoded 08/12/20 00:00 Home Medications Medication Instructions Recorded Confirmed Type amlodipine 2.5 mg tablet 2.5 mg PO DAILY 08/04/20 08/11/20 History aspirin 81 mg tablet,delayed 81 mg PO DAILY 08/04/20 08/11/20 History release atorvastatin 40 mg tablet 40 mg PO DAILY 08/04/20 08/11/20 History fenofibrate micronized 134 mg 134 mg PO DAILY 08/04/20 08/11/20 History capsule insulin glargine 100 unit/mL (3 10 unit SUBCUT QPM 08/04/20 08/11/20 History mL) subcutaneous pen lisinopril 10 mg tablet 10 mg PO DAILY 08/04/20 08/11/20 History loratadine 10 mg tablet 10 mg PO DAILY 08/04/20 08/11/20 History metformin 500 mg tablet 500 mg PO BID 08/04/20 08/11/20 History omega-3 fatty acids 1,000 mg 1,000 mg PO DAILY 08/04/20 08/11/20 History capsule omeprazole 40 mg capsule,delayed 40 mg PO DAILY 08/04/20 08/11/20 History release Physical Exam Vital Signs: Last Vital Signs Temp 102.9 F H 08/12/20 19:24 Pulse 108 H 08/12/20 19:24 Resp 20 08/12/20 19:24 BP 118/74 08/12/20 19:24 Pulse Ox 92 08/12/20 19:24 Body Mass Index 28.7 Appearing in no acute distress head is normocephalic atraumatic eyes pupils are PERRLA sclera is anicteric mouth throat mucous membranes are intact and moist neck is supple no lymphadenopathy, no JVD noted Normal lung expansion heart regular rate rhythm, clear S1, S2 positive bowel sounds, abdomen is soft, nontender neuro patient is alert x3, no focal deficits Results Lab Results Result Diagrams: 08/12/20 05:58 08/12/20 05:58 Lab results: Chemistry 08/11/20 08/12/20 17:41 05:58 Sodium 136 133 L Potassium 3.9 4.2 Carbon Dioxide 19 L 28 BUN 13 12 Creatinine 0.79 1.13 Calcium 5.9 L* 8.5 D Phosphorus 3.0 Hematology 08/11/20 08/12/20 17:42 05:58 WBC 3.2 L 3.3 L Hgb 13.4 L 15.5 Plt Count 138 L 168 Assessment and Plan (1) COVID-19 virus infection: Status: Acute (2) Hypocalcemia: Status: Acute Unexpalined HypoCa: ques labs error vs other: r/o pancreatiti which seems unlikely given lack of abd pain; vit D deficieney as well as primay hypopara; no signif hypoMg COVID positive CP espidoe REC: repeat divalents and check amylase/lipase and awaitthe vit D and PTH results Will follow with med team
[2020-08-12 21:32] LABS: Albumin Level 3.9 g/dL (3.5-5.0); Magnesium 1.6 mg/dL (1.6-2.6); Phosphorus 3.1 mg/dL (2.7-4.5)
[2020-08-12 21:34] LABS: Amylase 38 U/L (28-100); Lipase 55 U/L (8-78)
[2020-08-13] VITALS (8 sets, daily range): BP systolic 110–153; BP diastolic 70–80; PULSE 85–112; RESP 18–19; TEMP 35.6–37.1; O2SAT 90–95
[2020-08-13] MEDS: Omeprazole 40 MG CAPSULE.DR PO (06:45)
[2020-08-13 06:59] LABS: MANUAL DIFF FLAG NO
[2020-08-13 07:13] LABS: Hematocrit 41.2 % (42-52); Imm Gran Abs Auto 0.02 X10*3/uL (0.00-0.03); Imm Gran Pct Auto 0.6 % (0.0-0.4); Lymphocytes Percent Auto 28.4 % (20-40); Mean Corpuscular HGB Conc 36.4 g/dl (31.0-36.0); Mean Corpuscular Hemoglobin 30.1 pg (27.0-33.0); Mean Corpuscular Volume 82.7 fL (80-98); Mean Platelet Volume 11.3 fL (9.4-12.4); Monocytes Absolute Auto 0.3 X10*3/uL (0.1-1.2); Monocytes Percent Auto 7.7 % (2-11); Neutrophils Absolute Auto 2.2 X10*3/uL (2.0-8.3); Neutrophils Percent Auto 63.3 % (45-73); Platelet Count 163 X10*3/uL (160-400); Red Blood Count 4.98 X10*6/uL (4.60-5.80); Red Cell Distribution Width 11.9 % (11.0-16.0); White Blood Count 3.5 X10*3/uL (4.8-10.8)
[2020-08-13 07:43] LABS: Albumin Level 4.1 g/dL (3.5-5.0); Anion Gap 14 (12-20); Blood Urea Nitrogen 15 mg/dL (9-16); C Reactive Protein 8.78 mg/dL (< or = 0.50); Calcium 8.4 mg/dL (8.4-10.2); Carbon Dioxide 29 mmol/L (22-29); Chloride 94 mmol/L (96-108); Creatinine Clr Calc Pharmacy 91.4; Estimated Glomerular Filt Rate > 60; Glucose Random 235 mg/dL (60-115); Lactate Dehydrogenase 251 U/L (118-273); Potassium 4.2 mmol/l (3.3-5.1); Sodium 133 mmol/L (135-145)
[2020-08-13 07:49] LABS: Glucose, Whole Blood 227 mg/dL (60-115)
[2020-08-13] MEDS: Loratadine 10 MG TABLET PO (07:54)
[2020-08-13] MEDS: Fenofibrate,Micronized 134 MG CAPSULE PO (07:54)
[2020-08-13] MEDS: 0.9 % Sodium Chloride Flush 3 ML SYRINGE IVFLUSH ×3 (07:54→20:19)
[2020-08-13] MEDS: Insulin Lispro 100 UNIT/ML 3 ML VIAL SUBCUT ×4 (07:54→20:19)
[2020-08-13] MEDS: Aspirin Enteric Coated 81 MG TABLET.DR PO (07:55)
[2020-08-13] MEDS: Atorvastatin Calcium 40 MG TABLET PO (07:55)
[2020-08-13] MEDS: lisinopriL 10 MG TABLET PO (07:55)
[2020-08-13] MEDS: Nicotine 7 MG PATCH.TD24 TRANSDERMA (07:55)
[2020-08-13] MEDS: amLODIPine Besylate 2.5 MG TABLET PO (07:55)
[2020-08-13] MEDS: dexAMETHasone 6 MG TABLET PO (10:35)
[2020-08-13 11:45] LABS: Glucose, Whole Blood 316 mg/dL (60-115)
--- NOTE | 2020-08-13 11:56 | P.PNIM_ITS ---
Subjective Subjective Date of Service: 08/13/20 Interval History: Febrile to 102.9 overnight. RUQ pain + chest pain improved. Continued cough/dyspnea. SaO2 90-92%, placed on 1L O2 via NC. Physical Exam Vital Signs: Vital Signs: Last Vital Signs Temp 98.2 F 08/13/20 07:52 Pulse 99 08/13/20 07:55 Resp 18 08/13/20 07:52 BP 116/76 08/13/20 07:55 Pulse Ox 92 08/13/20 07:52 Body Mass Index 28.7 Gen: in no acute distress HEENT: sclera anicteric, moist mucus membranes Neck: supple Lungs: no respiratory distress, auscultation deferred due to COVID-19 Heart: normal peripheral pulses Abd: soft, non-tender, non-distended Ext: no cyanosis, clubbing, or edema Skin: warm/well-perfused Neuro: alert and oriented x3, no focal findings Psych: appropriate affect Objective Data Current Medications Generic Name Dose Route Start Last Admin Trade Name Adelaida PRN Reason Stop Dose Admin Acetaminophen 650 mg 08/11/20 21:55 08/12/20 19:39 Acetaminophen 325 Mg Tablet PO 650 mg Q6H PRN Administration Pain, Mild (Pain Scale 1-3) Amlodipine Besylate 2.5 mg 08/12/20 09:00 08/13/20 07:55 Amlodipine Besylate 2.5 Mg Tablet PO 2.5 mg DAILY BORIS Administration Protocol Aspirin 81 mg 08/12/20 09:00 08/13/20 07:55 Aspirin Enteric Coated 81 Mg Tablet.Dr PO 81 mg DAILY BORIS Administration Atorvastatin Calcium 40 mg 08/12/20 09:00 08/13/20 07:55 Atorvastatin Calcium 40 Mg Tablet PO 40 mg DAILY BORIS Administration Dexamethasone 6 mg 08/13/20 10:20 08/13/20 10:35 Dexamethasone 6 Mg Tablet PO 08/22/20 09:01 6 mg DAILY BORIS Administration Enoxaparin Sodium 40 mg 08/12/20 16:00 08/12/20 17:20 Enoxaparin Sodium 40 Mg/0.4 Ml Syringe SUBCUT 40 mg Q24H BORIS Administration Fenofibrate 134 mg 08/12/20 09:00 08/13/20 07:54 Fenofibrate,Micronized 134 Mg Capsule PO 134 mg DAILY BORIS Administration Insulin Glargine 10 unit 08/12/20 17:00 08/12/20 17:21 Insulin Glargine,Hum.Rec.Anlog 100 Unit/Ml 10 Ml Vial SUBCUT 10 unit DAILY@1700 [facility] Administration Insulin Human Lispro 0 unit 08/11/20 21:55 08/13/20 11:51 Insulin Lispro 100 Unit/Ml 3 Ml Vial SUBCUT 8 unit QIDACHS [facility] Administration Protocol Lisinopril 10 mg 08/12/20 09:00 08/13/20 07:55 Lisinopril 10 Mg Tablet PO 10 mg DAILY [facility] Administration Protocol Loratadine 10 mg 08/12/20 09:00 08/13/20 07:54 Loratadine 10 Mg Tablet PO 10 mg DAILY [facility] Administration Morphine Sulfate 2 mg 08/12/20 13:04 08/12/20 21:05 Morphine Sulfate 2 Mg/Ml Cartridge IVPUSH 2 mg Q6H PRN Administration pain,severe Nicotine 7 mg 08/12/20 09:00 08/13/20 07:55 Nicotine 7 Mg Patch.Td24 TRANSDERMA 7 mg DAILY [facility] Administration Omeprazole 40 mg 08/12/20 06:30 08/13/20 06:45 Omeprazole 40 Mg Capsule. PO 40 mg DAILY@0630 [facility] Administration Ondansetron HCl 4 mg 08/11/20 21:55 Ondansetron Hcl 4 Mg/2 Ml Vial IVPUSH Q8H PRN Nausea and Vomiting Pharmacy Consult 1 each 08/11/20 19:47 Consult Rx Perform Med Rec MISCELLANE ONCE PRN Consult order Sodium Chloride 3 ml 08/12/20 00:00 08/13/20 07:54 0.9 % Sodium Chloride Flush 3 Ml Syringe IVFLUSH 3 ml QSHIFT [facility] Administration Labs CBC & Chem 7: 08/13/20 05:59 08/13/20 05:59 Labs: Laboratory Results - last 24 hr 08/12/20 08/12/20 08/12/20 05:58 15:39 20:02 WBC RBC Hgb Hct MCV MCH MCHC RDW Plt Count MPV Immature Gran % (Auto) Neut % (Auto) Lymph % (Auto) [place] % (Auto) Eos % (Auto) Baso % (Auto) Lymph # (Auto) [place] # (Auto) Eos # (Auto) Baso # (Auto) Abs Immat Gran (auto) Absolute Neuts (auto) Absolute Nucleated RBC Nucleated RBC % (auto) Sodium Potassium Chloride Carbon Dioxide Anion Gap BUN Creatinine Estim Creat Clear Calc Estimated GFR POC Glucose 194 H 316 H Random Glucose Calcium Phosphorus Magnesium Lactate Dehydrogenase C-Reactive Protein Albumin Amylase Lipase 25-OH Vitamin D Total 40.7 Procalcitonin 08/12/20 08/12/20 08/13/20 20:43 20:43 05:59 WBC 3.5 L RBC 4.98 Hgb 15.0 Hct 41.2 L MCV 82.7 MCH 30.1 MCHC 36.4 H RDW 11.9 Plt Count 163 MPV 11.3 Immature Gran % (Auto) 0.6 H Neut % (Auto) 63.3 Lymph % (Auto) 28.4 [place] % (Auto) 7.7 Eos % (Auto) 0.0 Baso % (Auto) 0.0 Lymph # (Auto) 1.0 L [place] # (Auto) 0.3 Eos # (Auto) 0.0 Baso # (Auto) 0.0 Abs Immat Gran (auto) 0.02 Absolute Neuts (auto) 2.2 Absolute Nucleated RBC 0.000 Nucleated RBC % (auto) 0.0 Sodium Potassium Chloride Carbon Dioxide Anion Gap BUN Creatinine Estim Creat Clear Calc Estimated GFR POC Glucose Random Glucose Calcium 8.0 L Phosphorus 3.1 Magnesium 1.6 Lactate Dehydrogenase C-Reactive Protein Albumin 3.9 Amylase 38 Lipase 55 25-OH Vitamin D Total Procalcitonin 08/13/20 08/13/20 08/13/20 05:59 05:59 07:41 WBC RBC Hgb Hct MCV MCH MCHC RDW Plt Count MPV Immature Gran % (Auto) Neut % (Auto) Lymph % (Auto) [place] % (Auto) Eos % (Auto) Baso % (Auto) Lymph # (Auto) [place] # (Auto) Eos # (Auto) Baso # (Auto) Abs Immat Gran (auto) Absolute Neuts (auto) Absolute Nucleated RBC Nucleated RBC % (auto) Sodium 133 L Potassium 4.2 Chloride 94 L Carbon Dioxide 29 Anion Gap 14 BUN 15 Creatinine 1.20 Estim Creat Clear Calc 91.4 Estimated GFR > 60 POC Glucose 227 H Random Glucose 235 H Calcium 8.4 Phosphorus Magnesium Lactate Dehydrogenase 251 C-Reactive Protein 8.78 H Albumin 4.1 Amylase Lipase 25-OH Vitamin D Total Procalcitonin 0.10 08/13/20 11:29 WBC RBC Hgb Hct MCV MCH MCHC RDW Plt Count MPV Immature Gran % (Auto) Neut % (Auto) Lymph % (Auto) [place] % (Auto) Eos % (Auto) Baso % (Auto) Lymph # (Auto) [place] # (Auto) Eos # (Auto) Baso # (Auto) Abs Immat Gran (auto) Absolute Neuts (auto) Absolute Nucleated RBC Nucleated RBC % (auto) Sodium Potassium Chloride Carbon Dioxide Anion Gap BUN Creatinine Estim Creat Clear Calc Estimated GFR POC Glucose 316 H Random Glucose Calcium Phosphorus Magnesium Lactate Dehydrogenase C-Reactive Protein Albumin Amylase Lipase 25-OH Vitamin D Total Procalcitonin Microbiology Microbiology Results: Microbiology 08/12/20 01:47 Urine clean catch - Clean Catch Midstream Urine Culture - Final No growth. 08/11/20 17:13 Blood - Venous Blood Culture - Preliminary No growth after 24 hours. 08/11/20 17:41 Blood - Venous Blood Culture - Preliminary No growth after 24 hours. Assessment and Plan (1) COVID-19 virus infection: Status: Acute (2) Hypocalcemia: Status: Acute Assessment and Plan: hospital d#3 45yo M with CAD, HTN, DM2 presented with chest pain and admitted for hypocalcemia and COVID-19 PNA with hypoxia # hypocalcemia - ?etiology. ?lab error. resolved after CaCO3 and Ca gluconate. 25-OH-D normal. iPTH pending. Nephro consulted # COVID-19 PNA - start dexamethasone d#10/11. consult ID re remdesivir. trend inflammatory markers. maintain isolation # acute hypoxic respiratory failure - supplemental O2, wean as toerated, encourage self-proning # chest pain - hs-Tn-I x2 <3.5, unlikely ACS, likely due to COVID-19 # RUQ pain - abd US no pathology, suspect due to COVID-19 # CAD - ASA, statin # HTN - amlodipine, lisinopril # DM2 with steroid-associated hyperglycemia - increase Lantus and correction-dose Humalog; A1c pending # GERD - PPI # tobacco abuse - NRT # VTE ppx - LMWH
--- NOTE | 2020-08-13 11:57 | W.PM.IDCN ---
History of Present Illness Data of Consult Service Date: 08/13/20 Requesting physician: Derrek Oconnor Primary Care Provider: Unknown Physician HPI Reason for consult: COVID pneumonia,mild-moderate He present with chest discomfort for 3 hours SSCP radiate to back,04/10 He has no nausea ,vomiting or diarrhea ID Now COVID positive Review of Systems Cardiovascular: Cardiovascular: Reports dyspnea Respiratory: Respiratory: Reports dyspnea PMFSH Past Medical History Medical History CAD (coronary artery disease) Diabetes HTN (hypertension) Patellofemoral arthralgia of left knee Patellofemoral arthritis of right knee Surgical History Surgical History History of back surgery History of hand surgery Social History Social History Household Members: Family Household Members Other:: , kids Housing: House Do you presently have visiting nurse or other home services: No Alcohol intake: current Smoking Status: Never smoker Use of substances other than those prescribed or required for medical reasons: No Currently Displaying Signs/Symptoms of Drug Intoxication Withdrawal: No Have you been hit, kicked, punched, or otherwise hurt by someone within the past year? If so, by whom?: No Do you feel safe in your current relationship?: Yes Is there a partner from a previous relationship who is making you feel unsafe now?: No Are you made to feel afraid or neglected: No Advance Directives: No Advance Directives Information Provided: Yes Do you have thoughts of harming others: None Do you have a plan to hurt others: No Plan Recently lost weight without trying: No service: No Current occupational status: employed Meds Allergies Allergy/AdvReac Type Severity Reaction Status Date / Time Sea [employer] Allergy Severe Anaphylaxis Uncoded 08/12/20 00:00 Home Medications Medication Instructions Recorded Confirmed Type amlodipine 2.5 mg tablet 2.5 mg PO DAILY 08/04/20 08/11/20 History aspirin 81 mg tablet,delayed 81 mg PO DAILY 08/04/20 08/11/20 History release atorvastatin 40 mg tablet 40 mg PO DAILY 08/04/20 08/11/20 History fenofibrate micronized 134 mg 134 mg PO DAILY 08/04/20 08/11/20 History capsule insulin glargine 100 unit/mL (3 10 unit SUBCUT QPM 08/04/20 08/11/20 History mL) subcutaneous pen lisinopril 10 mg tablet 10 mg PO DAILY 08/04/20 08/11/20 History loratadine 10 mg tablet 10 mg PO DAILY 08/04/20 08/11/20 History metformin 500 mg tablet 500 mg PO BID 08/04/20 08/11/20 History omega-3 fatty acids 1,000 mg 1,000 mg PO DAILY 08/04/20 08/11/20 History capsule omeprazole 40 mg capsule,delayed 40 mg PO DAILY 08/04/20 08/11/20 History release Physical Exam Vital Signs: Vital Signs: Last Vital Signs Temp 98.2 F 08/13/20 07:52 Pulse 99 08/13/20 07:55 Resp 18 08/13/20 07:52 BP 116/76 08/13/20 07:55 Pulse Ox 92 08/13/20 07:52 Body Mass Index 28.7 Const: Other: one liter ,sat 93 Resp: Effort & Inspection: normal respiratory effort Cardio: Rate: regular rate Rhythm: regular rhythm GI: Palpation (GI): nontender Skin: General skin exam: no rashes or lesions noted Assessment and Plan (1) COVID-19 virus infection: Status: Acute Nothing further Po Dexamethasone for 10 days Oxygen only if needs (2) Chest pain: Status: Acute Results Labs CBC & Chem 7: 08/14/20 05:59 08/14/20 05:59 Labs: Short CBC 08/13/20 Range/Units 05:59 WBC 3.5 L (4.8-10.8) X10*3/uL Hgb 15.0 (14.0-18.0) g/dl Hct 41.2 L (42-52) % Plt Count 163 (160-400) X10*3/uL BMP 08/12/20 08/13/20 20:43 05:59 Sodium 133 L Potassium 4.2 Chloride 94 L Carbon Dioxide 29 BUN 15 Creatinine 1.20 Calcium 8.0 L 8.4 Liver Function 08/12/20 08/13/20 Range/Units 20:43 05:59 Albumin 3.9 4.1 (3.5-5.0) g/dL Microbiology Microbiology Results: Microbiology 08/12/20 01:47 Urine clean catch - Clean Catch Midstream Urine Culture - Final No growth. 08/11/20 17:13 Blood - Venous Blood Culture - Preliminary No growth after 24 hours. 08/11/20 17:41 Blood - Venous Blood Culture - Preliminary No growth after 24 hours.
[2020-08-13] MEDS: Enoxaparin Sodium 40 MG/0.4 ML SYRINGE SUBCUT (15:14)
[2020-08-13 16:33] LABS: Glucose, Whole Blood 314 mg/dL (60-115)
[2020-08-13] MEDS: Insulin Glargine,Hum.rec.anlog 100 UNIT/ML 10 ML VIAL 12 UNIT SUBCUT (16:40)
[2020-08-13 20:09] LABS: Glucose, Whole Blood 300 mg/dL (60-115)
[2020-08-13] MEDS: Morphine Sulfate 2 MG/ML CARTRIDGE IVPUSH (20:19)
[2020-08-14] VITALS (7 sets, daily range): BP systolic 115–128; BP diastolic 72–81; PULSE 82–100; RESP 18–20; TEMP 36.4–37.4; O2SAT 91–94
[2020-08-14] MEDS: guaiFENesin DM 100/10/5 ML 5 ML SYRUP PO ×3 (05:17→16:43)
[2020-08-14] MEDS: Omeprazole 40 MG CAPSULE.DR PO (05:18)
[2020-08-14 06:39] LABS: MANUAL DIFF FLAG NO
[2020-08-14 06:54] LABS: Basophils Percent Auto 0.2 % (0-2); Hematocrit 41.2 % (42-52); Imm Gran Abs Auto 0.01 X10*3/uL (0.00-0.03); Imm Gran Pct Auto 0.2 % (0.0-0.4); Lymphocytes Absolute Auto 0.9 X10*3/uL (1.2-4.9); Lymphocytes Percent Auto 17.1 % (20-40); Mean Corpuscular HGB Conc 36.4 g/dl (31.0-36.0); Mean Corpuscular Hemoglobin 30.5 pg (27.0-33.0); Mean Corpuscular Volume 83.9 fL (80-98); Mean Platelet Volume 10.9 fL (9.4-12.4); Monocytes Absolute Auto 0.3 X10*3/uL (0.1-1.2); Monocytes Percent Auto 6.4 % (2-11); Neutrophils Absolute Auto 4.1 X10*3/uL (2.0-8.3); Neutrophils Percent Auto 76.1 % (45-73); Platelet Count 198 X10*3/uL (160-400); Red Blood Count 4.91 X10*6/uL (4.60-5.80); Red Cell Distribution Width 11.8 % (11.0-16.0); White Blood Count 5.3 X10*3/uL (4.8-10.8)
[2020-08-14 06:55] LABS: D Dimer 238 NG/ML
[2020-08-14 07:01] LABS: Estimated Average Glucose 243 mg/dL; Hemoglobin A1c % 10.1 %
[2020-08-14 07:13] LABS: Troponin-I High Sensitivity < 3.5 ng/L (<3.5-35.0)
[2020-08-14 07:22] LABS: Alanine Aminotransferase 29 U/L (0-40); Albumin Level 4.2 g/dL (3.5-5.0); Alkaline Phosphatase 57 U/L (39-117); Anion Gap 13 (12-20); Aspartate Amino Transferase 25 U/L (5-37); Bilirubin Total 0.5 mg/dL (0.0-1.0); Blood Urea Nitrogen 18 mg/dL (9-16); Calcium 8.5 mg/dL (8.4-10.2); Carbon Dioxide 29 mmol/L (22-29); Chloride 95 mmol/L (96-108); Estimated Glomerular Filt Rate > 60; Glucose Random 207 mg/dL (60-115); Lactate Dehydrogenase 313 U/L (118-273); Potassium 4.3 mmol/l (3.3-5.1); Sodium 133 mmol/L (135-145); Total Protein 6.8 g/dL (6.5-8.0)
[2020-08-14 07:28] LABS: Ferritin 849 ng/mL (20-250)
[2020-08-14 07:50] LABS: Glucose, Whole Blood 196 mg/dL (60-115)
[2020-08-14] MEDS: Atorvastatin Calcium 40 MG TABLET PO (08:06)
[2020-08-14] MEDS: amLODIPine Besylate 2.5 MG TABLET PO (08:06)
[2020-08-14] MEDS: lisinopriL 10 MG TABLET PO (08:06)
[2020-08-14] MEDS: Loratadine 10 MG TABLET PO (08:06)
[2020-08-14] MEDS: Aspirin Enteric Coated 81 MG TABLET.DR PO (08:06)
[2020-08-14] MEDS: 0.9 % Sodium Chloride Flush 3 ML SYRINGE IVFLUSH ×3 (08:06→21:07)
[2020-08-14] MEDS: Fenofibrate,Micronized 134 MG CAPSULE PO (08:06)
[2020-08-14] MEDS: Insulin Lispro 100 UNIT/ML 3 ML VIAL SUBCUT ×4 (08:06→21:06)
[2020-08-14] MEDS: Nicotine 7 MG PATCH.TD24 TRANSDERMA (08:07)
[2020-08-14] MEDS: Acetaminophen 325 MG TABLET 650 MG PO (08:13)
[2020-08-14] MEDS: dexAMETHasone 6 MG TABLET PO (08:55)
--- NOTE | 2020-08-14 11:07 | P.CDIC_ITS ---
CDI Concurrent Query Service Date: 08/14/20 Documentation Clarification: Please clarify if you are treating a proba ble/suspected/likely or confirmed: Consistency of documentation within the medical record: Severe sepsis due to Covid-19 with acute hypoxic respiratory failure Covid-19 with acute hypoxic respiratory failure Please specify if known Viral sepsis Provider Response: Other Other Diagnosis: viral sepsis PLEASE DO NOT DELETE/MODIFY EXISTING CONTENT Additional information is needed in order to code to the highest accuracy and appropriate Severity of Illness (SOI). Please clarify the information noted below in your progress notes and discharge summary. Risk Factors/Clinical Indicators/Treatments ED: 08/11 - meeting criteria for Sepsis but also pt has been having symptoms of viral upper respiratory infection. H&P: 08/11 - Severe sepsis due to covid infection w temp 103.2 HR 109 LA 3.6 PN: 08/12 - Severe sepsis due to Covid 19, acute hypoxic respiratory failure PN: 08/13 - Covid-19 viral infection ID: 08/[id number] - Covid-19 infection CDS: Yodit Bates CCS, CDIS Contact Number: [phone] Please Review the information above and exercise your independent professional judgment in responding to the query. If you concur, pleas document in the PROGRESS NOTES and DISCHARGE SUMMARY. If you do not agree with the query, please document in the query above. THIS QUERY IS PART OF THE PERMANENT MEDICAL RECORD
--- NOTE | 2020-08-14 11:10 | P.PNIM_ITS ---
Subjective Subjective Date of Service: 08/14/20 Interval History: Feels better though still requiring 1-2L O2 via NC. Chest pain and RUQ pain improved. No further fever. Physical Exam Vital Signs: Vital Signs: Last Vital Signs Temp 99.3 F 08/14/20 08:00 Pulse 96 08/14/20 08:06 Resp 18 08/14/20 08:00 BP 128/75 08/14/20 08:06 Pulse Ox 92 08/14/20 08:00 Body Mass Index 28.7 Gen: in no acute distress HEENT: sclera anicteric, moist mucus membranes Neck: supple Lungs: no respiratory distress, auscultation deferred due to COVID-19 Heart: normal peripheral pulses Abd: soft, non-tender, non-distended Ext: no cyanosis, clubbing, or edema Skin: warm/well-perfused Neuro: alert and oriented x3, no focal findings Psych: appropriate affect Objective Data Current Medications Generic Name Dose Route Start Last Admin Trade Name Freq PRN Reason Stop Dose Admin Acetaminophen 650 mg 08/11/20 21:55 08/14/20 08:13 Acetaminophen 325 Mg Tablet PO 650 mg Q6H PRN Administration Pain, Mild (Pain Scale 1-3) Amlodipine Besylate 2.5 mg 08/12/20 09:00 08/14/20 08:06 Amlodipine Besylate 2.5 Mg Tablet PO 2.5 mg DAILY BORIS Administration Protocol Aspirin 81 mg 08/12/20 09:00 08/14/20 08:06 Aspirin Enteric Coated 81 Mg Tablet.Dr PO 81 mg DAILY BORIS Administration Atorvastatin Calcium 40 mg 08/12/20 09:00 08/14/20 08:06 Atorvastatin Calcium 40 Mg Tablet PO 40 mg DAILY BOR[facility] Administration Dexamethasone 6 mg 08/13/20 10:20 08/14/20 08:55 Dexamethasone 6 Mg Tablet PO 08/22/20 09:01 6 mg DAILY BORIS Administration Enoxaparin Sodium 40 mg 08/12/20 16:00 08/13/20 15:14 Enoxaparin Sodium 40 Mg/0.4 Ml Syringe SUBCUT 40 mg Q24H [facility]ORIS Administration Fenofibrate 134 mg 08/12/20 09:00 08/14/20 08:06 Fenofibrate,Micronized 134 Mg Capsule PO 134 mg DAILY BORIS Administration Guaifenesin/Dextromethorphan 5 ml 08/14/20 05:15 08/14/20 05:17 Guaifenesin Dm 100/10/5 Ml 5 Ml Syrup PO 5 ml Q6H [facility] Administration Insulin Glargine 15 unit 08/14/20 17:00 Insulin Glargine,Hum.Rec.Anlog 100 Unit/Ml 10 Ml Vial SUBCUT DAILY@1700 [facility] Insulin Human Lispro 0 unit 08/11/20 21:55 08/14/20 08:06 Insulin Lispro 100 Unit/Ml 3 Ml Vial SUBCUT 4 unit QIDACHS [facility] Administration Protocol Lisinopril 10 mg 08/12/20 09:00 08/14/20 08:06 Lisinopril 10 Mg Tablet PO 10 mg DAILY [facility] Administration Protocol Loratadine 10 mg 08/12/20 09:00 08/14/20 08:06 Loratadine 10 Mg Tablet PO 10 mg DAILY [facility] Administration Morphine Sulfate 2 mg 08/12/20 13:04 08/13/20 20:19 Morphine Sulfate 2 Mg/Ml Cartridge IVPUSH 2 mg Q6H PRN Administration pain,severe Nicotine 7 mg 08/12/20 09:00 08/14/20 08:07 Nicotine 7 Mg Patch.Td24 TRANSDERMA 7 mg DAILY [facility] Administration Omeprazole 40 mg 08/12/20 06:30 08/14/20 05:18 Omeprazole 40 Mg Capsule.Dr PO 40 mg DAILY@0630 [facility] Administration Ondansetron HCl 4 mg 08/11/20 21:55 Ondansetron Hcl 4 Mg/2 Ml Vial IVPUSH Q8H PRN Nausea and Vomiting Pharmacy Consult 1 each 08/11/20 19:47 Consult Rx Perform Med Rec MISCELLANE ONCE PRN Consult order Sodium Chloride 3 ml 08/12/20 00:00 08/14/20 08:06 0.9 % Sodium Chloride Flush 3 Ml Syringe IVFLUSH 3 ml QSHIFT [facility] Administration Labs CBC & Chem 7: 08/14/20 05:59 08/14/20 05:59 Labs: Laboratory Results - last 24 hr 08/13/20 08/13/20 08/13/20 11:29 16:20 20:02 WBC RBC Hgb Hct MCV MCH MCHC RDW Plt Count MPV Immature Gran % (Auto) Neut % (Auto) Lymph % (Auto) [place] % (Auto) Eos % (Auto) Baso % (Auto) Lymph # (Auto) [place] # (Auto) Eos # (Auto) Baso # (Auto) Abs Immat Gran (auto) Absolute Neuts (auto) Absolute Nucleated RBC Nucleated RBC % (auto) D-Dimer Sodium Potassium Chloride Carbon Dioxide Anion Gap BUN Creatinine Estim Creat Clear Calc Estimated GFR POC Glucose 316 H 314 H 300 H Random Glucose Estimat Average Glucose Hemoglobin A1c % Calcium Ferritin Total Bilirubin AST ALT Alkaline Phosphatase Lactate Dehydrogenase Troponin I High Sens Total Protein Albumin 08/14/20 08/14/20 08/14/20 05:59 05:59 05:59 WBC 5.3 RBC 4.91 Hgb 15.0 Hct 41.2 L MCV 83.9 MCH 30.5 MCHC 36.4 H RDW 11.8 Plt Count 198 MPV 10.9 Immature Gran % (Auto) 0.2 Neut % (Auto) 76.1 H Lymph % (Auto) 17.1 L [place] % (Auto) 6.4 Eos % (Auto) 0.0 Baso % (Auto) 0.2 Lymph # (Auto) 0.9 L [place] # (Auto) 0.3 Eos # (Auto) 0.0 Baso # (Auto) 0.0 Abs Immat Gran (auto) 0.01 Absolute Neuts (auto) 4.1 Absolute Nucleated RBC 0.000 Nucleated RBC % (auto) 0.0 D-Dimer 238 Sodium Potassium Chloride Carbon Dioxide Anion Gap BUN Creatinine Estim Creat Clear Calc Estimated GFR POC Glucose Random Glucose Estimat Average Glucose Hemoglobin A1c % Calcium Ferritin Total Bilirubin AST ALT Alkaline Phosphatase Lactate Dehydrogenase Troponin I High Sens < 3.5 Total Protein Albumin 08/14/20 08/14/20 08/14/20 05:59 05:59 07:34 WBC RBC Hgb Hct MCV MCH MCHC RDW Plt Count MPV Immature Gran % (Auto) Neut % (Auto) Lymph % (Auto) [place] % (Auto) Eos % (Auto) Baso % (Auto) Lymph # (Auto) [place] # (Auto) Eos # (Auto) Baso # (Auto) Abs Immat Gran (auto) Absolute Neuts (auto) Absolute Nucleated RBC Nucleated RBC % (auto) D-Dimer Sodium 133 L Potassium 4.3 Chloride 95 L Carbon Dioxide 29 Anion Gap 13 BUN 18 H Creatinine 1.12 Estim Creat Clear Calc 98.0 Estimated GFR > 60 POC Glucose 196 H Random Glucose 207 H Estimat Average Glucose 243 Hemoglobin A1c % 10.1 Calcium 8.5 Ferritin 849 H Total Bilirubin 0.5 AST 25 ALT 29 Alkaline Phosphatase 57 Lactate Dehydrogenase 313 H Troponin I High Sens Total Protein 6.8 Albumin 4.2 ITS Impressions Chest X-Ray 08/11/20 17:03 IMPRESSION: No acute intrathoracic disease Chest CT 08/11/20 20:15 IMPRESSION: Multifocal airspace disease consistent with atypical pneumonia such as Covid 19. Abdomen Ultrasound 08/12/20 00:00 IMPRESSION: 1. No acute abnormality. No gallstone, gallbladder wall thickening or pericholecystic fluid. No bile duct dilatation. 2. Diffuse fatty change of liver. Microbiology Microbiology Results: Microbiology 08/11/20 17:13 Blood - Venous Blood Culture - Preliminary No growth after 48 hours. 08/11/20 17:41 Blood - Venous Blood Culture - Preliminary No growth after 48 hours. 08/12/20 01:47 Urine clean catch - Clean Catch Midstream Urine Culture - Final No growth. Assessment and Plan (1) COVID-19 virus infection: Status: Acute (2) Hypocalcemia: Status: Acute Assessment and Plan: hospital d#4 45yo M with CAD, HTN, DM2 presented with chest pain admitted for hypocalcemia and COVID-19 PNA with mild hypoxia # hypocalcemia - ?etiology. ?lab error. resolved after CaCO3 and Ca gluconate. 25-OH-D normal. iPTH pending. appreciate Nephro consult # COVID-19 PNA - dexamethasone d#11/11. trend inflammatory markers. maintain isolation # acute hypoxic respiratory failure - supplemental O2, wean as tolerated, encourage self-proning # chest pain - hs-Tn-I x2 <3.5, unlikely ACS, likely due to COVID-19 # RUQ pain - abd US no pathology, suspect due to COVID-19 # CAD - ASA, statin # HTN - amlodipine, lisinopril # DM2 with steroid-associated hyperglycemia, A1c 10.1 - increase Lantus and continue correction-dose Humalog # GERD - PPI # tobacco abuse - NRT # VTE ppx - high risk; continue LMWH
[2020-08-14 11:41] LABS: Glucose, Whole Blood 291 mg/dL (60-115)
[2020-08-14 12:02] LABS: Calcium (PTHI) 8.8 mg/dL (8.6-10.3); PTHI 15 pg/mL (14-64)
--- NOTE | 2020-08-14 12:06 | MHC.CM.PN ---
DP home no services family transport. Anticipate DC 2-3 days.
[2020-08-14] MEDS: Enoxaparin Sodium 40 MG/0.4 ML SYRINGE SUBCUT (16:03)
[2020-08-14 16:32] LABS: Glucose, Whole Blood 316 mg/dL (60-115)
[2020-08-14] MEDS: Insulin Glargine,Hum.rec.anlog 100 UNIT/ML 10 ML VIAL 15 UNIT SUBCUT (16:43)
[2020-08-14 20:40] LABS: Glucose, Whole Blood 339 mg/dL (60-115)
[2020-08-14] MEDS: Zolpidem Tartrate 5 MG TABLET PO (22:10)
[2020-08-15] VITALS (8 sets, daily range): BP systolic 102–132; BP diastolic 56–83; PULSE 60–89; RESP 18; TEMP 36.4–37.3; O2SAT 88–98
[2020-08-15] MEDS: guaiFENesin DM 100/10/5 ML 5 ML SYRUP PO ×5 (00:05→21:45)
[2020-08-15] MEDS: Morphine Sulfate 2 MG/ML CARTRIDGE IVPUSH (00:09)
[2020-08-15] MEDS: Omeprazole 40 MG CAPSULE.DR PO (05:28)
[2020-08-15 07:03] LABS: MANUAL DIFF FLAG NO
[2020-08-15 07:20] LABS: Basophils Percent Auto 0.1 % (0-2); Hematocrit 40.6 % (42-52); Hemoglobin 14.7 g/dl (14.0-18.0); Imm Gran Abs Auto 0.03 X10*3/uL (0.00-0.03); Imm Gran Pct Auto 0.4 % (0.0-0.4); Lymphocytes Absolute Auto 0.8 X10*3/uL (1.2-4.9); Lymphocytes Percent Auto 11.6 % (20-40); Mean Corpuscular HGB Conc 36.2 g/dl (31.0-36.0); Mean Corpuscular Hemoglobin 30.1 pg (27.0-33.0); Mean Corpuscular Volume 83.2 fL (80-98); Mean Platelet Volume 10.9 fL (9.4-12.4); Monocytes Absolute Auto 0.5 X10*3/uL (0.1-1.2); Monocytes Percent Auto 7.3 % (2-11); Neutrophils Absolute Auto 5.5 X10*3/uL (2.0-8.3); Neutrophils Percent Auto 80.6 % (45-73); Platelet Count 247 X10*3/uL (160-400); Red Blood Count 4.88 X10*6/uL (4.60-5.80); Red Cell Distribution Width 11.7 % (11.0-16.0); White Blood Count 6.8 X10*3/uL (4.8-10.8)
[2020-08-15 07:36] LABS: Anion Gap 15 (12-20); Blood Urea Nitrogen 20 mg/dL (9-16); Calcium 8.4 mg/dL (8.4-10.2); Carbon Dioxide 28 mmol/L (22-29); Chloride 93 mmol/L (96-108); Creatinine Clr Calc Pharmacy 96.3; Estimated Glomerular Filt Rate > 60; Glucose Random 198 mg/dL (60-115); Potassium 4.5 mmol/l (3.3-5.1); Sodium 131 mmol/L (135-145)
[2020-08-15 08:09] LABS: Glucose, Whole Blood 229 mg/dL (60-115)
[2020-08-15] MEDS: Fenofibrate,Micronized 134 MG CAPSULE PO (08:49)
[2020-08-15] MEDS: dexAMETHasone 6 MG TABLET PO (08:49)
[2020-08-15] MEDS: Aspirin Enteric Coated 81 MG TABLET.DR PO (08:49)
[2020-08-15] MEDS: 0.9 % Sodium Chloride Flush 3 ML SYRINGE IVFLUSH ×3 (08:49→21:46)
[2020-08-15] MEDS: Insulin Lispro 100 UNIT/ML 3 ML VIAL SUBCUT ×4 (08:49→21:45)
[2020-08-15] MEDS: Loratadine 10 MG TABLET PO (08:50)
[2020-08-15] MEDS: Atorvastatin Calcium 40 MG TABLET PO (08:50)
[2020-08-15] MEDS: amLODIPine Besylate 2.5 MG TABLET PO (08:50)
[2020-08-15] MEDS: lisinopriL 10 MG TABLET PO (08:50)
[2020-08-15 12:11] LABS: Glucose, Whole Blood 319 mg/dL (60-115)
--- NOTE | 2020-08-15 13:13 | P.PNIM_ITS ---
Subjective Subjective Date of Service: 08/15/20 Interval History: Requiring more suppl O2. More short of breath. Denies chest pain. No fever. Physical Exam Vital Signs: Vital Signs: Last Vital Signs Temp 97.5 F 08/15/20 11:37 Pulse 85 08/15/20 11:37 Resp 18 08/15/20 11:37 BP 114/68 08/15/20 11:37 Pulse Ox 88 L 08/15/20 11:37 Body Mass Index 28.7 Gen: in no acute distress HEENT: sclera anicteric, moist mucus membranes Neck: supple Lungs: no respiratory distress, auscultation deferred due to COVID-19 Heart: normal peripheral pulses Abd: soft, non-tender, non-distended Ext: no cyanosis, clubbing, or edema Skin: warm/well-perfused Neuro: alert and oriented x3, no focal findings Psych: appropriate affect Objective Data Current Medications Generic Name Dose Route Start Last Admin Trade Name Freq PRN Reason Stop Dose Admin Acetaminophen 650 mg 08/11/20 21:55 08/14/20 08:13 Acetaminophen 325 Mg Tablet PO 650 mg Q6H PRN Administration Pain, Mild (Pain Scale 1-3) Amlodipine Besylate 2.5 mg 08/12/20 09:00 08/15/20 08:50 Amlodipine Besylate 2.5 Mg Tablet PO 2.5 mg DAILY BORIS Administration Protocol Aspirin 81 mg 08/12/20 09:00 08/15/20 08:49 Aspirin Enteric Coated 81 Mg Tablet.Dr PO 81 mg DAILY [facility]ORIS Administration Atorvastatin Calcium 40 mg 08/12/20 09:00 08/15/20 08:50 Atorvastatin Calcium 40 Mg Tablet PO 40 mg DAILY [facility] Administration Dexamethasone 6 mg 08/13/20 10:20 08/15/20 08:49 Dexamethasone 6 Mg Tablet PO 08/22/20 09:01 6 mg DAILY [facility]ORIS Administration Enoxaparin Sodium 40 mg 08/12/20 16:00 08/14/20 16:03 Enoxaparin Sodium 40 Mg/0.4 Ml Syringe SUBCUT 40 mg Q24H [facility] Administration Fenofibrate 134 mg 08/12/20 09:00 08/15/20 08:49 Fenofibrate,Micronized 134 Mg Capsule PO 134 mg DAILY [facility] Administration Guaifenesin/Dextromethorphan 5 ml 08/14/20 05:15 08/15/20 12:31 Guaifenesin Dm 100/10/5 Ml 5 Ml Syrup PO 5 ml Q6H [facility] Administration Insulin Glargine 15 unit 08/14/20 17:00 08/14/20 16:43 Insulin Glargine,Hum.Rec.Anlog 100 Unit/Ml 10 Ml Vial SUBCUT 15 unit DAILY@1700 [facility] Administration Insulin Human Lispro 0 unit 08/11/20 21:55 08/15/20 12:31 Insulin Lispro 100 Unit/Ml 3 Ml Vial SUBCUT 10 unit QIDACHS [facility] Administration Protocol Lisinopril 10 mg 08/12/20 09:00 08/15/20 08:50 Lisinopril 10 Mg Tablet PO 10 mg DAILY [facility] Administration Protocol Loratadine 10 mg 08/12/20 09:00 08/15/20 08:50 Loratadine 10 Mg Tablet PO 10 mg DAILY [facility] Administration Morphine Sulfate 2 mg 08/12/20 13:04 08/15/20 00:09 Morphine Sulfate 2 Mg/Ml Cartridge IVPUSH 2 mg Q6H PRN Administration pain,severe Nicotine 7 mg 08/12/20 09:00 08/15/20 09:00 Nicotine 7 Mg Patch.Td24 TRANSDERMA Not Given DAILY [facility] Omeprazole 40 mg 08/12/20 06:30 08/15/20 05:28 Omeprazole 40 Mg Capsule.Dr PO 40 mg DAILY@0630 [facility] Administration Ondansetron HCl 4 mg 08/11/20 21:55 Ondansetron Hcl 4 Mg/2 Ml Vial IVPUSH Q8H PRN Nausea and Vomiting Pharmacy Consult 1 each 08/11/20 19:47 Consult Rx Perform Med Rec MISCELLANE ONCE PRN Consult order Sodium Chloride 3 ml 08/12/20 00:00 08/15/20 08:49 0.9 % Sodium Chloride Flush 3 Ml Syringe IVFLUSH 3 ml QSHIFT [facility] Administration Zolpidem Tartrate 5 mg 08/14/20 21:39 08/14/20 22:10 Zolpidem Tartrate 5 Mg Tablet PO 5 mg BEDTIME PRN Administration Insomnia Labs CBC & Chem 7: 08/15/20 06:40 08/15/20 06:40 Labs: Laboratory Results - last 24 hr 08/14/20 08/14/20 08/15/20 16:27 20:31 06:40 WBC 6.8 RBC 4.88 Hgb 14.7 Hct 40.6 L MCV 83.2 MCH 30.1 MCHC 36.2 H RDW 11.7 Plt Count 247 MPV 10.9 Immature Gran % (Auto) 0.4 Neut % (Auto) 80.6 H Lymph % (Auto) 11.6 L [place] % (Auto) 7.3 Eos % (Auto) 0.0 Baso % (Auto) 0.1 Lymph # (Auto) 0.8 L [place] # (Auto) 0.5 Eos # (Auto) 0.0 Baso # (Auto) 0.0 Abs Immat Gran (auto) 0.03 Absolute Neuts (auto) 5.5 Absolute Nucleated RBC 0.000 Nucleated RBC % (auto) 0.0 Sodium Potassium Chloride Carbon Dioxide Anion Gap BUN Creatinine Estim Creat Clear Calc Estimated GFR POC Glucose 316 H 339 H Random Glucose Calcium 08/15/20 08/15/20 08/15/20 06:40 08:02 11:39 WBC RBC Hgb Hct MCV MCH MCHC RDW Plt Count MPV Immature Gran % (Auto) Neut % (Auto) Lymph % (Auto) [place] % (Auto) Eos % (Auto) Baso % (Auto) Lymph # (Auto) [place] # (Auto) Eos # (Auto) Baso # (Auto) Abs Immat Gran (auto) Absolute Neuts (auto) Absolute Nucleated RBC Nucleated RBC % (auto) Sodium 131 L Potassium 4.5 Chloride 93 L Carbon Dioxide 28 Anion Gap 15 BUN 20 H Creatinine 1.14 Estim Creat Clear Calc 96.3 Estimated GFR > 60 POC Glucose 229 H 319 H Random Glucose 198 H Calcium 8.4 Microbiology Microbiology Results: Microbiology 08/11/20 17:13 Blood - Venous Blood Culture - Preliminary No growth after 48 hours. 08/11/20 17:41 Blood - Venous Blood Culture - Preliminary No growth after 48 hours. 08/12/20 01:47 Urine clean catch - Clean Catch Midstream Urine Culture - Final No growth. Assessment and Plan (1) COVID-19 virus infection: Status: Acute (2) Hypocalcemia: Status: Acute Assessment and Plan: hospital d#5 45yo M with CAD, HTN, DM2 presented with chest pain admitted for hypocalcemia and COVID-19 PNA with mild hypoxia # hypocalcemia - ?etiology. ?lab error. resolved after CaCO3 and Ca gluconate. 25-OH-D + iPTH normal; appreciate Nephro consult # COVID-19 PNA - dexamethasone d#12/09. trend inflammatory markers. maintain isolation # acute hypoxic respiratory failure - supplemental O2, wean as tolerated, encourage self-proning # chest pain - hs-Tn-I x2 <3.5, unlikely ACS, likely due to COVID-19 # RUQ pain - abd US no pathology, suspect due to COVID-19 # CAD - ASA, statin # HTN - amlodipine, lisinopril # DM2 with steroid-associated hyperglycemia, A1c 10.1 - increase Lantus and continue correction-dose Humalog # GERD - PPI # tobacco abuse - NRT # VTE ppx - high risk; continue LMWH
[2020-08-15 16:35] LABS: Glucose, Whole Blood 307 mg/dL (60-115)
[2020-08-15] MEDS: Enoxaparin Sodium 40 MG/0.4 ML SYRINGE SUBCUT (17:58)
[2020-08-15] MEDS: Insulin Glargine,Hum.rec.anlog 100 UNIT/ML 10 ML VIAL 18 UNIT SUBCUT (17:58)
[2020-08-15 21:35] LABS: Glucose, Whole Blood 411 mg/dL (60-115)
[2020-08-15] MEDS: Acetaminophen 325 MG TABLET 650 MG PO (21:45)
[2020-08-15] MEDS: Zolpidem Tartrate 5 MG TABLET PO (21:46)
[2020-08-15 22:17] LABS: Glucose, Whole Blood 400 mg/dL (60-115)
[2020-08-16] VITALS (9 sets, daily range): BP systolic 112–128; BP diastolic 70–84; PULSE 65–98; RESP 18–19; TEMP 35.6–36.9; O2SAT 87–97
[2020-08-16] MEDS: guaiFENesin DM 100/10/5 ML 5 ML SYRUP PO ×4 (05:38→23:10)
[2020-08-16] MEDS: Omeprazole 40 MG CAPSULE.DR PO (05:38)
[2020-08-16 07:23] LABS: MANUAL DIFF FLAG NO
[2020-08-16 07:36] LABS: Glucose, Whole Blood 208 mg/dL (60-115)
[2020-08-16 07:38] LABS: D Dimer 285 NG/ML
[2020-08-16 07:40] LABS: Basophils Percent Auto 0.2 % (0-2); Eosinophils Percent Auto 0.2 % (0-4); Hemoglobin 14.1 g/dl (14.0-18.0); Imm Gran Abs Auto 0.04 X10*3/uL (0.00-0.03); Imm Gran Pct Auto 0.6 % (0.0-0.4); Lymphocytes Absolute Auto 0.8 X10*3/uL (1.2-4.9); Mean Corpuscular HGB Conc 36.2 g/dl (31.0-36.0); Mean Corpuscular Hemoglobin 30.1 pg (27.0-33.0); Mean Corpuscular Volume 83.2 fL (80-98); Mean Platelet Volume 10.4 fL (9.4-12.4); Monocytes Absolute Auto 0.5 X10*3/uL (0.1-1.2); Monocytes Percent Auto 8.2 % (2-11); Neutrophils Absolute Auto 4.9 X10*3/uL (2.0-8.3); Neutrophils Percent Auto 77.8 % (45-73); Platelet Count 286 X10*3/uL (160-400); Red Blood Count 4.69 X10*6/uL (4.60-5.80); Red Cell Distribution Width 11.8 % (11.0-16.0); White Blood Count 6.3 X10*3/uL (4.8-10.8)
[2020-08-16 08:11] LABS: Alanine Aminotransferase 35 U/L (0-40); Albumin Level 3.8 g/dL (3.5-5.0); Alkaline Phosphatase 61 U/L (39-117); Anion Gap 12 (12-20); Aspartate Amino Transferase 18 U/L (5-37); Bilirubin Total 0.7 mg/dL (0.0-1.0); Blood Urea Nitrogen 21 mg/dL (9-16); C Reactive Protein 6.83 mg/dL (< or = 0.50); Calcium 8.5 mg/dL (8.4-10.2); Carbon Dioxide 31 mmol/L (22-29); Chloride 95 mmol/L (96-108); Creatinine Clr Calc Pharmacy 99.8; Estimated Glomerular Filt Rate > 60; Glucose Random 223 mg/dL (60-115); Lactate Dehydrogenase 271 U/L (118-273); Potassium 4.8 mmol/l (3.3-5.1); Sodium 133 mmol/L (135-145); Total Protein 6.3 g/dL (6.5-8.0)
[2020-08-16 08:18] LABS: Ferritin 576 ng/mL (20-250)
[2020-08-16] MEDS: Aspirin Enteric Coated 81 MG TABLET.DR PO (08:50)
[2020-08-16] MEDS: Insulin Lispro 100 UNIT/ML 3 ML VIAL SUBCUT ×4 (08:50→20:16)
[2020-08-16] MEDS: Loratadine 10 MG TABLET PO (08:51)
[2020-08-16] MEDS: Fenofibrate,Micronized 134 MG CAPSULE PO (08:51)
[2020-08-16] MEDS: lisinopriL 10 MG TABLET PO (08:51)
[2020-08-16] MEDS: amLODIPine Besylate 2.5 MG TABLET PO (08:51)
[2020-08-16] MEDS: Atorvastatin Calcium 40 MG TABLET PO (08:51)
[2020-08-16] MEDS: dexAMETHasone 6 MG TABLET PO (08:51)
[2020-08-16] MEDS: 0.9 % Sodium Chloride Flush 3 ML SYRINGE IVFLUSH ×3 (08:52→20:15)
[2020-08-16 11:53] LABS: Glucose, Whole Blood 267 mg/dL (60-115)
--- NOTE | 2020-08-16 12:02 | P.PNIM_ITS ---
Subjective Subjective Date of Service: 08/16/20 Interval History: Yesterday required more O2 up to 6 Lpm but now maintaining normal SaO2 on 2L NC. Chest pain + LUQ pain resolved and no further fevers. Physical Exam Vital Signs: Vital Signs: Last Vital Signs Temp 98.5 F 08/16/20 08:00 Pulse 73 08/16/20 08:51 Resp 18 08/16/20 08:00 BP 120/79 08/16/20 08:51 Pulse Ox 97 08/16/20 08:00 Body Mass Index 28.7 Gen: in no acute distress HEENT: sclera anicteric, moist mucus membranes Neck: supple Lungs: no respiratory distress, auscultation deferred due to COVID-19 Heart: normal peripheral pulses Abd: soft, non-tender, non-distended Ext: no cyanosis, clubbing, or edema Skin: warm/well-perfused Neuro: alert and oriented x3, no focal findings Psych: appropriate affect Objective Data Current Medications Generic Name Dose Route Start Last Admin Trade Name Shivamq PRN Reason Stop Dose Admin Acetaminophen 650 mg 08/11/20 21:55 08/15/20 21:45 Acetaminophen 325 Mg Tablet PO 650 mg Q6H PRN Administration Pain, Mild (Pain Scale 1-3) Amlodipine Besylate 2.5 mg 08/12/20 09:00 08/16/20 08:51 Amlodipine Besylate 2.5 Mg Tablet PO 2.5 mg DAILY BORIS Administration Protocol Aspirin 81 mg 08/12/20 09:00 08/16/20 08:50 Aspirin Enteric Coated 81 Mg Tablet.Dr PO 81 mg DAILY BORIS Administration Atorvastatin Calcium 40 mg 08/12/20 09:00 08/16/20 08:51 Atorvastatin Calcium 40 Mg Tablet PO 40 mg DAILY BORIS Administration Dexamethasone 6 mg 08/13/20 10:20 08/16/20 08:51 Dexamethasone 6 Mg Tablet PO 08/22/20 09:01 6 mg DAILY BORIS Administration Enoxaparin Sodium 40 mg 08/12/20 16:00 08/15/20 17:58 Enoxaparin Sodium 40 Mg/0.4 Ml Syringe SUBCUT 40 mg Q24H BORIS Administration Fenofibrate 134 mg 08/12/20 09:00 08/16/20 08:51 Fenofibrate,Micronized 134 Mg Capsule PO 134 mg DAILY BORIS Administration Guaifenesin/Dextromethorphan 5 ml 08/14/20 05:15 08/16/20 05:38 Guaifenesin Dm 100/10/5 Ml 5 Ml Syrup PO 5 ml Q6H [facility] Administration Insulin Glargine 20 unit 08/16/20 17:00 Insulin Glargine,Hum.Rec.Anlog 100 Unit/Ml 10 Ml Vial SUBCUT DAILY@1700 [facility] Insulin Human Lispro 0 unit 08/11/20 21:55 08/16/20 08:50 Insulin Lispro 100 Unit/Ml 3 Ml Vial SUBCUT 7 unit QIDACHS [facility] [place] Administration Protocol Lisinopril 10 mg 08/12/20 09:00 08/16/20 08:51 Lisinopril 10 Mg Tablet PO 10 mg DAILY [facility] [place] Administration Protocol Loratadine 10 mg 08/12/20 09:00 08/16/20 08:51 Loratadine 10 Mg Tablet PO 10 mg DAILY [facility] [place] Administration Morphine Sulfate 2 mg 08/12/20 13:04 08/15/20 00:09 Morphine Sulfate 2 Mg/Ml Cartridge IVPUSH 2 mg Q6H PRN Administration pain,severe Omeprazole 40 mg 08/12/20 06:30 08/16/20 05:38 Omeprazole 40 Mg Capsule.Dr PO 40 mg DAILY@0630 [facility] [place] Administration Ondansetron HCl 4 mg 08/11/20 21:55 Ondansetron Hcl 4 Mg/2 Ml Vial IVPUSH Q8H PRN Nausea and Vomiting Pharmacy Consult 1 each 08/11/20 19:47 Consult Rx Perform Med Rec MISCELLANE ONCE PRN Consult order Sodium Chloride 3 ml 08/12/20 00:00 08/16/20 08:52 0.9 % Sodium Chloride Flush 3 Ml Syringe IVFLUSH 3 ml QSHIFT [facility] Administration Zolpidem Tartrate 5 mg 08/14/20 21:39 08/15/20 21:46 Zolpidem Tartrate 5 Mg Tablet PO 5 mg BEDTIME PRN Administration Insomnia Labs CBC & Chem 7: 08/16/20 06:47 08/16/20 06:47 Labs: Laboratory Results - last 24 hr 08/15/20 08/15/20 08/15/20 11:39 16:28 21:28 WBC RBC Hgb Hct MCV MCH MCHC RDW Plt Count MPV Immature Gran % (Auto) Neut % (Auto) Lymph % (Auto) [place] % (Auto) Eos % (Auto) Baso % (Auto) Lymph # (Auto) [place] # (Auto) Eos # (Auto) Baso # (Auto) Abs Immat Gran (auto) Absolute Neuts (auto) Absolute Nucleated RBC Nucleated RBC % (auto) D-Dimer Sodium Potassium Chloride Carbon Dioxide Anion Gap BUN Creatinine Estim Creat Clear Calc Estimated GFR POC Glucose 319 H 307 H 411 H* Random Glucose Calcium Ferritin Total Bilirubin AST ALT Alkaline Phosphatase Lactate Dehydrogenase C-Reactive Protein Total Protein Albumin 08/15/20 08/16/20 08/16/20 22:13 06:47 06:47 WBC 6.3 RBC 4.69 Hgb 14.1 Hct 39.0 L MCV 83.2 MCH 30.1 MCHC 36.2 H RDW 11.8 Plt Count 286 MPV 10.4 Immature Gran % (Auto) 0.6 H Neut % (Auto) 77.8 H Lymph % (Auto) 13.0 L [place] % (Auto) 8.2 Eos % (Auto) 0.2 Baso % (Auto) 0.2 Lymph # (Auto) 0.8 L [place] # (Auto) 0.5 Eos # (Auto) 0.0 Baso # (Auto) 0.0 Abs Immat Gran (auto) 0.04 H Absolute Neuts (auto) 4.9 Absolute Nucleated RBC 0.000 Nucleated RBC % (auto) 0.0 D-Dimer 285 Sodium Potassium Chloride Carbon Dioxide Anion Gap BUN Creatinine Estim Creat Clear Calc Estimated GFR POC Glucose 400 H* Random Glucose Calcium Ferritin Total Bilirubin AST ALT Alkaline Phosphatase Lactate Dehydrogenase C-Reactive Protein Total Protein Albumin 08/16/20 08/16/20 08/16/20 06:47 07:30 11:44 WBC RBC Hgb Hct MCV MCH MCHC RDW Plt Count MPV Immature Gran % (Auto) Neut % (Auto) Lymph % (Auto) [place] % (Auto) Eos % (Auto) Baso % (Auto) Lymph # (Auto) [place] # (Auto) Eos # (Auto) Baso # (Auto) Abs Immat Gran (auto) Absolute Neuts (auto) Absolute Nucleated RBC Nucleated RBC % (auto) D-Dimer Sodium 133 L Potassium 4.8 Chloride 95 L Carbon Dioxide 31 H Anion Gap 12 BUN 21 H Creatinine 1.10 Estim Creat Clear Calc 99.8 Estimated GFR > 60 POC Glucose 208 H 267 H Random Glucose 223 H Calcium 8.5 Ferritin 576 H Total Bilirubin 0.7 AST 18 ALT 35 Alkaline Phosphatase 61 Lactate Dehydrogenase 271 C-Reactive Protein 6.83 H Total Protein 6.3 L Albumin 3.8 Microbiology Microbiology Results: Microbiology 08/11/20 17:13 Blood - Venous Blood Culture - Preliminary No growth after 48 hours. 08/11/20 17:41 Blood - Venous Blood Culture - Preliminary No growth after 48 hours. 08/12/20 01:47 Urine clean catch - Clean Catch Midstream Urine Culture - Final No growth. Assessment and Plan (1) COVID-19 virus infection: Status: Acute (2) Hypocalcemia: Status: Acute Assessment and Plan: hospital d#6 45yo M with CAD, HTN, DM2 presented with chest pain admitted for hypocalcemia and COVID-19 PNA with hypoxia # acute hypoxic respiratory failure - supplemental O2, wean as tolerated, encourage self-proning - may require home O2 # COVID-19 PNA - dexamethasone d#01/09. inflammatory markers reassuring. maintain isolation # hypocalcemia - ?etiology. ?lab error. resolved after CaCO3 and Ca gluconate. 25-OH-D + iPTH normal; appreciate Nephro consult # chest pain - hs-Tn-I x2 <3.5, unlikely ACS, likely due to COVID-19 # RUQ pain - abd US no pathology, suspect due to COVID-19 # CAD - ASA, statin # HTN - amlodipine, lisinopril # DM2 with steroid-associated hyperglycemia, A1c 10.1 - increase Lantus + Humalog doses further # GERD - PPI # VTE ppx - high risk; continue LMWH # dispo - possibly home tomorrow and may require home O2
[2020-08-16] MEDS: Morphine Sulfate 2 MG/ML CARTRIDGE IVPUSH (16:00)
[2020-08-16] MEDS: Enoxaparin Sodium 40 MG/0.4 ML SYRINGE SUBCUT (16:01)
[2020-08-16] MEDS: Throat Lozenge, Medicated LOZENGE 1 LOZENGE MUCOUS MEM (16:01)
[2020-08-16 16:08] LABS: Glucose, Whole Blood 282 mg/dL (60-115)
[2020-08-16] MEDS: Insulin Glargine,Hum.rec.anlog 100 UNIT/ML 10 ML VIAL 20 UNIT SUBCUT (17:18)
[2020-08-16 19:56] LABS: Glucose, Whole Blood 277 mg/dL (60-115)
[2020-08-17 04:04] VITALS: BP 142/56; PULSE 67; RESP 18; TEMP 36.4; O2SAT 96
[2020-08-17] MEDS: Omeprazole 40 MG CAPSULE.DR PO (05:21)
[2020-08-17] MEDS: guaiFENesin DM 100/10/5 ML 5 ML SYRUP PO ×2 (05:21→12:32)
[2020-08-17 07:48] LABS: Glucose, Whole Blood 171 mg/dL (60-115)
[2020-08-17 07:53] VITALS: BP 110/76; PULSE 68; RESP 18; TEMP 37.1; O2SAT 93
[2020-08-17] MEDS: dexAMETHasone 6 MG TABLET PO (08:54)
[2020-08-17] MEDS: amLODIPine Besylate 2.5 MG TABLET PO (08:54)
[2020-08-17] MEDS: lisinopriL 10 MG TABLET PO (08:54)
[2020-08-17] MEDS: Aspirin Enteric Coated 81 MG TABLET.DR PO (08:54)
[2020-08-17] MEDS: Fenofibrate,Micronized 134 MG CAPSULE PO (08:54)
[2020-08-17] MEDS: Loratadine 10 MG TABLET PO (08:54)
[2020-08-17] MEDS: Atorvastatin Calcium 40 MG TABLET PO (08:54)
[2020-08-17] MEDS: 0.9 % Sodium Chloride Flush 3 ML SYRINGE IVFLUSH ×2 (08:55→12:33)
[2020-08-17] MEDS: Insulin Lispro 100 UNIT/ML 3 ML VIAL SUBCUT ×2 (08:55→12:32)
--- NOTE | 2020-08-17 10:02 | MHC.CM.PN ---
DP home no services family transport. Possible home o2 eval and DC per md note.
[2020-08-17 11:22] VITALS: BP 113/71; PULSE 72; RESP 18; TEMP 36.8; O2SAT 95
[2020-08-17 11:28] LABS: Glucose, Whole Blood 285 mg/dL (60-115)
[2020-08-17 13:30] VITALS: PULSE 90; O2SAT 92
--- NOTE | 2020-08-17 13:46 | P.DS_ITS ---
DS: Providers Provider Date of admission: 08/11/20 20:09 Primary care physician: Unknown Physician Consults: 08/12/20 08:45 Consult to Nephrology Routine Consulting Provider: Tito Angulo Reason for consultation: hypoCa ?etiology, labs pending 08/13/20 09:10 Consult to Infectious Diseases Routine Consulting Provider: Sandy Serrano Reason for consultation: COVID-19, persistently febrile, borderline hypoxia - > steroid/remdesivr? DS: Diagnosis Discharge Diagnosis (1) COVID-19 virus infection: Status: Acute (2) Hypocalcemia: Status: Acute DS: Medications Discharge Medications Home Medications: Home Medications Medication Instructions Recorded Confirmed amlodipine 2.5 mg tablet 2.5 mg PO DAILY 08/04/20 08/11/20 aspirin 81 mg tablet,delayed 81 mg PO DAILY 08/04/20 08/11/20 release atorvastatin 40 mg tablet 40 mg PO DAILY 08/04/20 08/11/20 fenofibrate micronized 134 mg 134 mg PO DAILY 08/04/20 08/11/20 capsule insulin glargine 100 unit/mL (3 10 unit SUBCUT QPM 08/04/20 08/11/20 mL) subcutaneous pen lisinopril 10 mg tablet 10 mg PO DAILY 08/04/20 08/11/20 loratadine 10 mg tablet 10 mg PO DAILY 08/04/20 08/11/20 metformin 500 mg tablet 500 mg PO BID 08/04/20 08/11/20 omega-3 fatty acids 1,000 mg 1,000 mg PO DAILY 08/04/20 08/11/20 capsule omeprazole 40 mg capsule,delayed 40 mg PO DAILY 08/04/20 08/11/20 release Previous Rx's Medication Instructions Recorded dexamethasone 6 mg PO DAILY #5 tab 08/17/20 DS: Summary Hospital Course Hospital Course: 45-year-old male admitted with COVID pneumonia and acute hypoxic respiratory failure, patient was started on oxygen supplementation and IV antibiotic, blood cultures remain negative, patient received remedesivir and dexamethasone, hypoxia resolved, patient was evaluated for home oxygen, patient did not qu alify for home oxygen, patient was stable discharged home with p.o. dexamethasone for 5 more days, patient will follow-up with primary doctor as outpatient, Time Spent with Patient Time attestation: Total time spent providing and/or coordinating discharge services: Physical Exam Vital Signs: Vital Signs: Last Vital Signs Temp 98.2 F 08/17/20 11:22 Pulse 72 08/17/20 11:22 Resp 18 08/17/20 11:22 BP 113/71 08/17/20 11:22 Pulse Ox 95 08/17/20 11:22 Body Mass Index 28.7 DS: Data Data Completed and Pending Labs on day of discharge: 08/11/20 Breakfast Diabetic Diet 08/11/20 16:52 ECG 12 lead EKG Stat IV insert/maintain ONCE 08/11/20 16:53 EKG Documentation DIRECTED 08/11/20 17:03 Vital Signs Q30M XR chest 1V Stat 0.9 % Sodium Chloride [Ns] 2,970 ml IVCONT 2,970 mls/hr Urine Culture Stat 08/11/20 17:13 Blood Culture X2 [BC] Stat 08/11/20 17:14 COVID-19 ID NOW ([place]) Stat Hold Lt Blue - Possible Coag Stat Lactic Acid Stat 08/11/20 17:16 Acetaminophen [Tylenol] 650 mg PO ONCE ONE 08/11/20 17:22 Partial Thromboplastin Time Stat Prothrombin Time INR Stat 08/11/20 17:41 Basic Metabolic Panel Stat Bilirubin Total Stat Troponin-I High Sensitivity Stat 08/11/20 17:42 Complete Blood Count Auto Diff Stat Hold Lt Blue - Possible Coag Stat SLIDE REVIEW Stat Troponin-I High Sensitivity Stat 08/11/20 19:19 Calcium + Vitamin D [[place] Ca 250 mg-Vit D 125] 500 mg PO ONCE ONE Calcium Gluconate/NaCl,Iso-Osm [Calcium Gluconate] 2 gm in 100 ml IV ONCE 08/11/20 19:30 0.9 % Sodium Chloride [Ns] 500 ml IV 1,000 mls/hr 08/11/20 20:04 Transfer Order Routine 08/11/20 20:15 CT chest wo con Stat 08/11/20 21:55 Intake and Output QSHIFTE 08/11/20 22:00 Heparin Sodium,Porcine 5,000 unit SUBCUT Q12H 08/11/20 22:32 Glucose, Whole Blood Routine 08/11/20 23:28 D Dimer Stat Ferritin Stat Lactate Dehydrogenase Stat Procalcitonin Stat ~Lactic Acid-LAB USE ONLY Stat 08/12/20 US abdomen limited Routine 08/12/20 05:58 Basic Metabolic Panel DAILY@0600 Complete Blood Count Auto Diff DAILY@0600 Liver Panel Routine Magnesium Routine Phosphorus Routine Vitamin D 25-OH Total Routine 08/12/20 07:35 Glucose, Whole Blood Routine 08/12/20 08:00 metFORMIN HCl [Glucophage] 500 mg PO BIDWM 08/12/20 09:00 Nicotine [Nicoderm] 7 mg TRANSDERMA DAILY dexAMETHasone sod phosphate [Decadron] 6 mg 0.9 % Sodium Chloride [Ns] 50 ml IV DAILY omega-3 fatty acids [Fish Oil Concentrate] 1,000 mg PO DAILY 08/12/20 09:40 Add Laboratory Test Routine 08/12/20 10:14 PTHI Routine 08/12/20 11:12 Glucose, Whole Blood Routine 08/12/20 13:04 Morphine Sulfate 2 mg IVPUSH Q6H PRN 08/12/20 15:39 Glucose, Whole Blood Routine 08/12/20 17:00 Insulin Glargine,Hum.rec.anlog [Lantus] 10 unit SUBCUT DAILY@1700 08/12/20 20:02 Glucose, Whole Blood Routine 08/12/20 20:43 Albumin Level Stat Amylase Stat Calcium Stat Lipase Stat Magnesium Stat Phosphorus Stat 08/13/20 05:59 Albumin Level Routine Basic Metabolic Panel Routine C Reactive Protein Routine Complete Blood Count Auto Diff Routine Lactate Dehydrogenase Routine Procalcitonin Routine 08/13/20 07:41 Glucose, Whole Blood Routine 08/13/20 11:29 Glucose, Whole Blood Routine 08/13/20 16:20 Glucose, Whole Blood Routine 08/13/20 17:00 Insulin Glargine,Hum.rec.anlog [Lantus] 12 unit SUBCUT DAILY@1700 08/13/20 20:02 Glucose, Whole Blood Routine 08/14/20 05:59 Complete Blood Count Auto Diff Routine Comprehensive Met. Panel Routine D Dimer Routine Ferritin Routine Hemoglobin A1c Routine Lactate Dehydrogenase Routine Troponin-I High Sensitivity Routine 08/14/20 07:34 Glucose, Whole Blood Routine 08/14/20 11:35 Glucose, Whole Blood Routine 08/14/20 16:27 Glucose, Whole Blood Routine 08/14/20 17:00 Insulin Glargine,Hum.rec.anlog [Lantus] 15 unit SUBCUT DAILY@1700 08/14/20 20:31 Glucose, Whole Blood Routine 08/15/20 06:40 Basic Metabolic Panel Routine Complete Blood Count Auto Diff Routine 08/15/20 08:02 Glucose, Whole Blood Routine 08/15/20 11:39 Glucose, Whole Blood Routine 08/15/20 16:28 Glucose, Whole Blood Routine 08/15/20 17:00 Insulin Glargine,Hum.rec.anlog [Lantus] 18 unit SUBCUT DAILY@1700 08/15/20 21:28 Glucose, Whole Blood Routine 08/15/20 22:13 Glucose, Whole Blood Routine 08/16/20 06:47 C Reactive Protein Routine Complete Blood Count Auto Diff Routine Comprehensive Met. Panel Routine D Dimer Routine Ferritin Routine Lactate Dehydrogenase Routine 08/16/20 07:30 Glucose, Whole Blood Routine 08/16/20 11:44 Glucose, Whole Blood Routine 08/16/20 16:03 Glucose, Whole Blood Routine 08/16/20 19:50 Glucose, Whole Blood Routine 08/17/20 07:45 Glucose, Whole Blood Routine 08/17/20 11:24 Glucose, Whole Blood Routine Laboratory Last Values WBC 6.3 X10*3/uL (4.8-10.8) 08/16/20 06:47 RBC 4.69 X10*6/uL (4.60-5.80) 08/16/20 06:47 Hgb 14.1 g/dl (14.0-18.0) 08/16/20 06:47 Hct 39.0 % (42-52) L 08/16/20 06:47 MCV 83.2 fL (80-98) 08/16/20 06:47 MCH 30.1 pg (27.0-33.0) 08/16/20 06:47 MCHC 36.2 g/dl (31.0-36.0) H 08/16/20 06:47 RDW 11.8 % (11.0-16.0) 08/16/20 06:47 Plt Count 286 X10*3/uL (160-400) 08/16/20 06:47 MPV 10.4 fL (9.4-12.4) 08/16/20 06:47 Immature Gran % (Auto) 0.6 % (0.0-0.4) H 08/16/20 06:47 Neut % (Auto) 77.8 % (45-73) H 08/16/20 06:47 Lymph % (Auto) 13.0 % (20-40) L 08/16/20 06:47 [place] % (Auto) 8.2 % (2-11) 08/16/20 06:47 Eos % (Auto) 0.2 % (0-4) 08/16/20 06:47 Baso % (Auto) 0.2 % (0-2) 08/16/20 06:47 Lymph # (Auto) 0.8 X10*3/uL (1.2-4.9) L 08/16/20 06:47 [place] # (Auto) 0.5 X10*3/uL (0.1-1.2) 08/16/20 06:47 Eos # (Auto) 0.0 X10*3/uL (0.0-0.4) 08/16/20 06:47 Baso # (Auto) 0.0 X10*3/uL (0.0-0.2) 08/16/20 06:47 Abs Immat Gran (auto) 0.04 X10*3/uL (0.00-0.03) H 08/16/20 06:47 Absolute Neuts (auto) 4.9 X10*3/uL (2.0-8.3) 08/16/20 06:47 Absolute Nucleated RBC 0.000 X10*3/uL (0.0-0.012) 08/16/20 06:47 Nucleated RBC % (auto) 0.0 /100WBC (0.0-0.2) 08/16/20 06:47 Smear Tech's Comments VERIFIED 08/11/20 17:42 PT 12.3 SEC (10.8-13.0) 08/11/20 17:22 INR 1.0 (0.9-1.1) 08/11/20 17:22 APTT 34.6 SEC (24.1-38.0) 08/11/20 17:22 D-Dimer 285 NG/ML 08/16/20 06:47 Hold Blue Top SEE NOTE 08/11/20 17:42 Sodium 133 mmol/L (135-145) L 08/16/20 06:47 Potassium 4.8 mmol/l (3.3-5.1) 08/16/20 06:47 Chloride 95 mmol/L (96-108) L 08/16/20 06:47 Carbon Dioxide 31 mmol/L (22-29) H 08/16/20 06:47 Anion Gap 12 (12-20) 08/16/20 06:47 BUN 21 mg/dL (9-16) H 08/16/20 06:47 Creatinine 1.10 mg/dL (0.5-1.4) 08/16/20 06:47 Estim Creat Clear Calc 99.8 08/16/20 06:47 Estimated GFR > 60 08/16/20 06:47 POC Glucose 285 mg/dL (60-115) H 08/17/20 11:24 Random Glucose 223 mg/dL (60-115) H 08/16/20 06:47 Estimat Average Glucose 243 mg/dL 08/14/20 05:59 Hemoglobin A1c % 10.1 % 08/14/20 05:59 Lactic Acid 3.6 mmol/L (0.5-2.0) H* 08/11/20 17:14 Lactic Acid Fup @ 2Hr 1.3 mmol/L (0.5-2.0) 08/11/20 23:28 Calcium 8.5 mg/dL (8.4-10.2) 08/16/20 06:47 Phosphorus 3.1 mg/dL (2.7-4.5) 08/12/20 20:43 Magnesium 1.6 mg/dL (1.6-2.6) 08/12/20 20:43 Ferritin 576 ng/mL (20-250) H 08/16/20 06:47 Total Bilirubin 0.7 mg/dL (0.0-1.0) 08/16/20 06:47 Direct Bilirubin 0.3 mg/dL (0.0-0.5) 08/12/20 05:58 AST 18 U/L (5-37) 08/16/20 06:47 ALT 35 U/L (0-40) 08/16/20 06:47 Alkaline Phosphatase 61 U/L (39-117) 08/16/20 06:47 Lactate Dehydrogenase 271 U/L (118-273) 08/16/20 06:47 Troponin I High Sens < 3.5 ng/L (<3.5-35.0) 08/14/20 05:59 C-Reactive Protein 6.83 mg/dL (< or = 0.50) H 08/16/20 06:47 Total Protein 6.3 g/dL (6.5-8.0) L 08/16/20 06:47 Albumin 3.8 g/dL (3.5-5.0) 08/16/20 06:47 Amylase 38 U/L (28-100) 08/12/20 20:43 Lipase 55 U/L (8-78) 08/12/20 20:43 25-OH Vitamin D Total 40.7 ng/mL (>30) 08/12/20 05:58 Procalcitonin 0.10 ng/mL 08/13/20 05:59 PTH Intact 15 pg/mL (14-64) 08/12/20 10:14 Calcium (PTH Intact) 8.8 mg/dL (8.6-10.3) 08/12/20 10:14 COVID-19 (JEANNE) Positive (Negative) A 08/11/20 17:14 COVID-19 Clin Com See Note 08/11/20 17:14 Discharge Plan Discharge Anticipated Discharge Date/Time: 08/17/20 13:33 Patient Disposition: Home, Self-Care Referrals: Physician,Unknown [Primary Care Provider] - Discharge Medications: New dexamethasone 6 mg tablet 6 mg PO DAILY Qty: 5 RF: 0 Continued omeprazole 40 mg capsule,delayed release(DR/EC) 40 mg PO DAILY RF: 0 aspirin 81 mg tablet,delayed release (DR/EC) 81 mg PO DAILY RF: 0 Basaglar KwikPen U-100 Insulin 100 unit/mL (3 mL) insulin pen 10 unit subcut QPM RF: 0 metformin 500 mg tablet 500 mg PO BID RF: 0 lisinopril 10 mg tablet 10 mg PO DAILY RF: 0 amlodipine [Norvasc] 2.5 mg tablet 2.5 mg PO DAILY RF: 0 loratadine 10 mg tablet 10 mg PO DAILY RF: 0 atorvastatin 40 mg tablet 40 mg PO DAILY RF: 0 fenofibrate micronized 134 mg capsule 134 mg PO DAILY RF: 0 omega-3 fatty acids [Fish Oil Concentrate] 1,000 mg capsule 1,000 mg PO DAILY RF: 0 Discharge Orders: Discharge Order (Routine); Ordered 08/17/20 Ordered By: Jose Murillo Activity on Discharge: As tolerated Discharge Date/Time: 08/17/20 16:29 Visit Report Forms: Patient Portal Discharge page Care Plan Goals: treat covid Health Concerns: covid pneumonia
--- NOTE | 2020-08-17 14:59 | MHC.CM.PN ---
DC to home. No Home O2 required. Resp Home O2 eval completed. Result of Eval no need for Home Oxygen. Family transportation.
== END 2020-08-17 16:29 | disposition home or self-care (01) | DRG 720 ==
LOC: HO.ED 19:36 → HO.IMC 20:49
PROVIDERS: Family Medicine; Internal Medicine Nephrology; Nurse Practitioner Acute Care; Admitting Provider Internal Medicine; Emergency Provider Emergency Medicine; Visit Provider Internal Medicine
DX: A41.89 Other specified sepsis (principal); U07.1 COVID-19; J96.01 Acute respiratory failure with hypoxia; E11.65 Type 2 diabetes mellitus with hyperglycemia; J12.89 Other viral pneumonia; R65.20 Severe sepsis without septic shock; E83.51 Hypocalcemia; I25.10 Atherosclerotic heart disease of native coronary artery without angina pectoris; I10 Essential (primary) hypertension; K21.9 Gastro-esophageal reflux disease without esophagitis; T38.0X5A Adverse effect of glucocorticoids and synthetic analogues, initial encounter; Y92.239 Unspecified place in hospital as the place of occurrence of the external cause; Z79.4 Long term (current) use of insulin; Z79.82 Long term (current) use of aspirin; Z79.899 Other long term (current) drug therapy
CPT/HCPCS: 36415; 71045; 71250; 76705; 80048; 80053; 80076; 82040; 82150; 82247; 82306; 82310; 82728; 82947; 83036; 83605; 83615; 83690; 83735; 83970; 84100; 84145; 84484; 85025; 85379; 85610; 85730; 86140; 87040; 87086; 87635; 93005; 96361; 96365; 96366; 99285; J0610; J1650; J2270; J8540

== ENCOUNTER → 2020-12-17 13:48 | Outpatient (BNVA) | payer MEDICAID, SELFPAY | PROVIDERS: PCP Emergency Medicine; Visit Provider Internal Medicine Cardiovascular Disease | DX: R07.89 Other chest pain (principal); I25.10 Atherosclerotic heart disease of native coronary artery without angina pectoris; I10 Essential (primary) hypertension; Z79.899 Other long term (current) drug therapy | CPT/HCPCS: 93005; 99212 ==

== ENCOUNTER → 2020-12-30 14:14 | Outpatient (BNVA) | payer MEDICAID, SELFPAY | PROVIDERS: PCP Registered Nurse; Visit Provider Student in an Organized Health Care Education/Training Program | DX: M17.11 Unilateral primary osteoarthritis, right knee (principal); M25.562 Pain in left knee | CPT/HCPCS: 20610; 99212 ==

== ENCOUNTER → 2021-01-29 07:47 | Outpatient (REF) | payer MEDICAID, SELFPAY ==
--- NOTE | 2021-01-29 07:52 | CA_ITS ---
Acquisition Time: 2021-01-29 08:18:39 Total Exercise Time: 00:09:37 Test Indications: Screening for CAD Medications: SEE CHART Protocol: HUGH Max HR: 144 BPM 83% of Pred: 173 BPM Max BP: 148/080 mmHG Max Work Load: 11.1 METS Exercise stress test with exercise 9 min 37 sec of Hugh protocol achieving 83% of MPHR, with report of 3-4/10 Left chest discomfort and request to stop, without arrythmia, with normotensive response to exercise, without EKG changes of ischemia at acheived workload. Chest discomfort gradually improved and resolved in recovery. Test reviewed with Dr Santos. Will order exercise nuclear stress test for further evaluation. Referred By: Miguel Santos Overread By: SIMRAN MOULTON
== END ==
LOC: HO.CARD 07:47
PROVIDERS: Visit Provider Internal Medicine Cardiovascular Disease
DX: R07.89 Other chest pain (principal)
CPT/HCPCS: 93016; 93017; 93018

== ENCOUNTER 2021-04-01 09:05 | Emergency (ER) | payer MEDICAID, SELFPAY ==
--- NOTE | ~2021-04-01 | CT_ITS ---
EXAMINATION: CT angio head neck CLINICAL INFORMATION: Right-sided headache. Right upper extremity numbness and tingling. COMPARISON: CT scan of the head 10/12/2019. TECHNIQUE: Film Examiner images were obtained. A CT angiogram of the head and neck was performed in the arterial phase after the intravenous administration of 70 mL Omnipaque 350. Pre and delayed postcontrast images of the head were also obtained. MIP reconstructions were generated in multiple orientations at the acquisition workstation. Multiple three-dimensional surface rendered images and maximum intensity projection images were generated on a dedicated 3-D lab workstation. Arterial stenoses are measured in accordance with NASCET criteria or similar method if applicable. This CT examination was performed using dose optimization techniques as appropriate, including one or more of the following: Automated exposure control, iterative reconstruction, and adjustment of technique factors (mA and/or kVp) according to patient size (this includes techniques or standardized protocols for targeted exams where dose is matched to indication/reason for exam). Total exam dose-length product 2534 mGy-cm FINDINGS: Head: There is no acute intracranial hemorrhage. Delayed postcontrast images reveal no abnormal mass or enhancement within the intracranial compartment. No intracranial mass effect or midline shift. Lateral and third ventricles are normal. No hydrocephalus. Knott-white matter differentiation is preserved and there is no evidence of acute territorial infarct. The calvarium and skull base are intact. Mastoid air cells and middle ear cavities are well aerated. No active paranasal sinus disease. CT angiogram neck: The aortic arch apex is normal. Origins of the major aortic branches are widely patent. Common carotid arteries and carotid bifurcations are normal. No stenosis of the extracranial internal carotid arteries. The cervical segments of the vertebral arteries as well as their origins are patent. CT angiogram head: Intracranial internal carotid arteries are normal. The intradural vertebral artery segments and basilar artery are normal. Anterior, middle, and posterior cerebral complexes are normal. No intracranial large vessel occlusion. Other: Soft tissues of the neck including the thyroid gland are normal. Grossly no pathologically enlarged cervical lymph nodes. Lung apices are clear. No acute osseous finding. CT/CT angio head neck IMPRESSION: Normal CT angiogram of the head and neck.
--- NOTE | ~2021-04-01 | XR_ITS ---
EXAMINATION: XR CHEST CLINICAL INFORMATION: Right arm tingling COMPARISON: Chest 08/11/2020. TECHNIQUE: Frontal view of the chest was obtained. FINDINGS: The lungs are hyperexpanded but clear of acute process. Heart size and pulmonary vascularity is normal. No gross bony abnormality seen. XR/XR chest 1V IMPRESSION: Unremarkable chest exam.
[2021-04-01 09:13] VITALS: BP 154/107; PULSE 75; RESP 18; TEMP 36.8; O2SAT 99; BMI 29.8
[2021-04-01 11:05] LABS: Glucose, Whole Blood 354 mg/dL (60-115)
--- NOTE | 2021-04-01 11:59 | ECG_ITS ---
Test Reason : DIZZINESS Blood Pressure : / mmHG Vent. Rate : 074 BPM Atrial Rate : 074 BPM P-R Int : 136 ms QRS Dur : 092 ms QT Int : 364 ms P-R-T Axes : 020 056 012 degrees QTc Int : 404 ms Normal sinus rhythm Normal ECG When compared to the previous EKG of No significant changes seen Referred By: Thalia Arambula Electronically Signed By:ANDREW HUTCHISON MD
[2021-04-01 12:32] VITALS: BP 120/86; PULSE 75; RESP 17; O2SAT 95
[2021-04-01 12:35] LABS: MANUAL DIFF FLAG NO
[2021-04-01] MEDS: 0.9 % Sodium Chloride 1,000 ML 999 ML IVCONT (12:35)
[2021-04-01 12:40] LABS: Basophils Absolute Auto 0.1 X10*3/uL (0.0-0.2); Basophils Percent Auto 1.5 % (0-2); Eosinophils Absolute Auto 0.1 X10*3/uL (0.0-0.4); Eosinophils Percent Auto 1.2 % (0-4); Hematocrit 45.4 % (42-52); Hemoglobin 16.7 g/dl (14.0-18.0); Imm Gran Abs Auto 0.03 X10*3/uL (0.00-0.03); Imm Gran Pct Auto 0.5 % (0.0-0.4); Lymphocytes Absolute Auto 1.5 X10*3/uL (1.2-4.9); Lymphocytes Percent Auto 25.7 % (20-40); Mean Corpuscular HGB Conc 36.8 g/dl (31.0-36.0); Mean Corpuscular Hemoglobin 30.4 pg (27.0-33.0); Mean Corpuscular Volume 82.5 fL (80-98); Mean Platelet Volume 11.3 fL (9.4-12.4); Monocytes Absolute Auto 0.4 X10*3/uL (0.1-1.2); Monocytes Percent Auto 7.2 % (2-11); Neutrophils Absolute Auto 3.8 X10*3/uL (2.0-8.3); Neutrophils Percent Auto 63.9 % (45-73); Platelet Count 272 X10*3/uL (160-400); Red Cell Distribution Width 11.7 % (11.0-16.0)
[2021-04-01 12:46] LABS: VBG Base Excess 0.8 mmol/L; VBG HCO3 27 mmol/L (22-26); VBG pCO2 47 mmHg; VBG pH 7.35 (7.32-7.43); VBG pO2 41 mmHg
[2021-04-01 12:47] LABS: INTERNATIONAL NORM RATIO 0.9 (0.9-1.1); Prothrombin Time 11.1 SEC (10.8-13.0)
[2021-04-01 12:50] LABS: Partial Thromboplastin Time 36.6 SEC (24.1-38.0)
[2021-04-01 12:54] LABS: Acetone, serum QL Negative (Negative)
[2021-04-01 12:55] LABS: Magnesium 1.9 mg/dL (1.6-2.6)
[2021-04-01 12:57] LABS: Alanine Aminotransferase 46 U/L (0-40); Albumin Level 4.9 g/dL (3.5-5.0); Alkaline Phosphatase 112 U/L (39-117); Anion Gap 13 (12-20); Aspartate Amino Transferase 24 U/L (5-37); Bilirubin Direct 0.3 mg/dL (0.0-0.5); Bilirubin Total 0.8 mg/dL (0.0-1.0); Blood Urea Nitrogen 15 mg/dL (9-16); Calcium 10.1 mg/dL (8.4-10.2); Carbon Dioxide 28 mmol/L (22-29); Chloride 98 mmol/L (96-108); Creatinine Clr Calc Pharmacy 97.1; Estimated Glomerular Filt Rate > 60; Glucose Random 283 mg/dL (60-115); Potassium 4.9 mmol/L (3.3-5.1); Sodium 134 mmol/L (135-145); Total Protein 7.8 g/dL (6.5-8.0)
[2021-04-01 13:00] LABS: Troponin-I High Sensitivity < 3.5 ng/L (<3.5-35.0)
[2021-04-01] MEDS: diphenhydrAMINE HCL 50 MG/ML VIAL 12.5 MG IVPUSH (13:48)
[2021-04-01] MEDS: Acetaminophen 325 MG TABLET 650 MG PO (13:48)
[2021-04-01] MEDS: Metoclopramide HCl 10 MG/2 ML VIAL IVPUSH (13:48)
[2021-04-01] MEDS: iohexoL 350 MG/ML 100 ML INFUS..BTL 70 ML IV (13:51)
--- NOTE | 2021-04-01 15:18 | ED_ITS ---
HPI - Headache General Chief Complaint: Headache Stated Complaint: HEADACHE NUMBNESS Time Seen by Provider: 04/01/21 11:32 Source: patient Mode of arrival: ambulatory History of Present Illness HPI Narrative: 45-year-old male with a past medical history of CAD, diabetes, hypertension on ASA, presenting to the ED complaining of right-sided headache beginning at 9:00 a.m. with radiation down right arm with right arm tingling. Admits headache quickly increased in intensity, lasting about 1 hour and then slowly started to subside. denies weakness, visual change/loss, CP/SOB, N/V, abdominal pain MD elicited complaint: headache Related Data Home Medications Medication Instructions Recorded Confirmed aspirin 81 mg tablet,delayed 81 mg PO DAILY 08/04/20 12/30/20 release atorvastatin 40 mg tablet 40 mg PO DAILY 08/04/20 12/30/20 fenofibrate micronized 134 mg 134 mg PO DAILY 08/04/20 12/30/20 capsule insulin glargine 100 unit/mL (3 10 unit SUBCUT QPM 08/04/20 12/30/20 mL) subcutaneous pen lisinopril 10 mg tablet 10 mg PO DAILY 08/04/20 12/30/20 loratadine 10 mg tablet 10 mg PO DAILY 08/04/20 12/30/20 metformin 500 mg tablet 500 mg PO BID 08/04/20 12/30/20 omega-3 fatty acids 1,000 mg 1,000 mg PO DAILY 08/04/20 12/30/20 capsule omeprazole 40 mg capsule,delayed 40 mg PO DAILY 08/04/20 12/30/20 release Previous Rx's Medication Instructions Recorded amlodipine 2.5 mg tablet 2.5 mg PO DAILY 90 Days #90 tab 08/20/20 Allergies Allergy/AdvReac Type Severity Reaction Status Date / Time Sea Food Allergy Severe Anaphylaxis Uncoded 08/12/20 00:00 Review of Systems Review of Systems: Constitutional: No Fever, No Chills ENT/Mouth: No sore throat, No Rhinorrhea, No Swallowing Difficulty Eyes: No Eye Pain, No Vision Changes Cardiovascular: No Chest Pain, No SOB, No Palpitations Respiratory: No Cough, No Dyspnea Gastrointestinal: No Nausea, No Vomiting Genitourinary: No Dysuria, No Urinary Frequency, No Hematuria Musculoskeletal: No joint pain, No Myalgias Skin: No Skin Lesions, No rash Neuro: No Weakness, + Numbness, + Paresthesias, No Loss of Consciousness, No Dizziness, + Headache Yes all other systems are reviewed and are negative Neurologic: Denies Abnormal speech present and Denies Sensory deficit (Neuro) [facility] Past Medical History Attestation statement: The following information was validated with the patient. Medical History CAD (coronary artery disease) Diabetes HTN (hypertension) Patellofemoral arthralgia of left knee Patellofemoral arthritis of right knee Surgical History History of back surgery History of hand surgery Social History Social History Household Members: Family Household Members Other:: , kids Housing: House Do you presently have visiting nurse or other home services: No Alcohol intake: current Advance Directives: No Advance Directives Information Provided: No service: No Current occupational status: employed Physical Exam Vital Signs: Vital Signs: Last Vital Signs Temp 98.3 F 04/01/21 09:13 Pulse 75 04/01/21 12:32 Resp 17 04/01/21 12:32 BP 120/86 04/01/21 12:32 Pulse Ox 95 04/01/21 12:32 Body Mass Index 29.8 Const: General: cooperative, healthy appearing and no acute distress Orientation/consciousness: patient oriented x3 Limitations: no limitations HENMT: Head: Yes normal to inspection and Yes atraumatic Ears: hearing grossly normal bilaterally General nose exam: Normal external nose present Face and sinus: Yes normal facial exam Throat: Yes posterior oropharynx normal, Yes tonsils normal and Yes uvula midline Eyes: General: appearance normal, both eyes and all related structures Pupils: Equal, round and reactive pupils present EOM: EOMs intact bilaterally Neck: Neck: Yes normal visual inspection Resp: Effort & Inspection: normal respiratory effort and not labored Cardio: Rate: regular rate Peripheral pulses: dorsalis pedis present GI: Inspection: Yes normal to inspection Palpation (GI): Soft to palpation, nontender, no guarding and not rigid Skin: Rashes: no rashes Wounds: no wounds Neuro: General: patient oriented x3, gait normal, tone normal, moves all extremities, no focal motor deficits and CN's II-XI intact bilaterally Cranial nerves: Yes Equal, round and reactive pupils present Cognition (Neuro): normal cognition Speech: No Abnormal speech present Gait exam (Neuro): Normal gait present Motor exam (neuro): 5/5 motor strength present throughout, Pronator motor function not present and no tremor noted Sensory Exam: No Sensory deficit (Neuro) Coordination: [id number] test normal Romberg Test: Negative Extrem: General: Yes normal to inspection and Yes no pedal edema Course Course Course Narrative: - no leukocytosis, H&H stable, initial POC 354 - no anion gap, acetone negative, ALT chronically elevated, troponin negative XR chest 1V IMPRESSION: Unremarkable chest exam. - dry CT head unremarkable, no bleed CT angio head neck IMPRESSION: Normal CT angiogram of the head and neck. >> results discussed with patient, he reports symptomatic improvement in the ED. Discussed worrisome signs and symptoms and strict return precautions. He verbalized understanding and feels safe for discharge home to follow-up with PCP/neurology - repeat POC prior [facility] MDM - Headache MDM Narrative Medical decision making narrative: 45-year-old male with a past medical history of CAD, diabetes, hypertension on ASA, presenting to the ED complaining of right-sided headache beginning at 9:00 a.m. with radiation down right arm with right arm tingling. on exam initially hypertensive, NAD/ nontoxic appearing, no focal neuro deficits. Concern for SAH vs atypical migraine headache. Patients symptoms again less than 6 hours ago should see on CT head. symptoms atypical for ACS / PE. Will rule out metabolic abnormalities. Plan: EKG, labs, head CT, CTA head /neck, CXR, symptomatic treatment/reassess Differential Diagnosis Differential diagnosis: Likely migraine, subarachnoid hemorrhage and headache Medical Records Attestation: I reviewed the patient's medical records. Lab Data Attestation: I reviewed the patient's lab results. Result diagrams: 04/01/21 12:29 04/01/21 12:29 Labs: Lab Results 04/01/21 04/01/21 04/01/21 Range/Units 11:01 12:29 12:29 WBC 6.0 (4.8-10.8) X10*3/uL RBC 5.50 (4.60-5.80) X10*6/uL Hgb 16.7 (14.0-18.0) g/dl Hct 45.4 (42-52) % MCV 82.5 (80-98) fL MCH 30.4 (27.0-33.0) pg MCHC 36.8 H (31.0-36.0) g/dl RDW 11.7 (11.0-16.0) % Plt Count 272 (160-400) X10*3/uL MPV 11.3 (9.4-12.4) fL Immature Gran % (Auto) 0.5 H (0.0-0.4) % Neut % (Auto) 63.9 (45-73) % Lymph % (Auto) 25.7 (20-40) % [place] % (Auto) 7.2 (2-11) % Eos % (Auto) 1.2 (0-4) % Baso % (Auto) 1.5 (0-2) % Lymph # (Auto) 1.5 (1.2-4.9) X10*3/uL [place] # (Auto) 0.4 (0.1-1.2) X10*3/uL Eos # (Auto) 0.1 (0.0-0.4) X10*3/uL Baso # (Auto) 0.1 (0.0-0.2) X10*3/uL Abs Immat Gran (auto) 0.03 (0.00-0.03) X10*3/uL Absolute Neuts (auto) 3.8 (2.0-8.3) X10*3/uL Absolute Nucleated RBC 0.000 (0.0-0.012) X10*3/uL Nucleated RBC % (auto) 0.0 (0.0-0.2) /100WBC PT (10.8-13.0) SEC INR (0.9-1.1) APTT (24.1-38.0) SEC VBG pH (7.32-7.43) VBG pCO2 mmHg VBG pO2 mmHg VBG HCO3 (22-26) mmol/L VBG O2 Saturation % VBG Base Excess mmol/L Sodium 134 L (135-145) mmol/L Potassium 4.9 (3.3-5.1) mmol/L Chloride 98 (96-108) mmol/L Carbon Dioxide 28 (22-29) mmol/L Anion Gap 13 (12-20) BUN 15 (9-16) mg/dL Creatinine 1.15 (0.5-1.4) mg/dL Estim Creat Clear Calc 97.1 Estimated GFR > 60 POC Glucose 354 H* (60-115) mg/dL Random Glucose 283 H (60-115) mg/dL Calcium 10.1 D (8.4-10.2) mg/dL Magnesium (1.6-2.6) mg/dL Total Bilirubin 0.8 (0.0-1.0) mg/dL Direct Bilirubin 0.3 (0.0-0.5) mg/dL AST 24 (5-37) U/L ALT 46 H (0-40) U/L Alkaline Phosphatase 112 D (39-117) U/L Troponin I High Sens (<3.5-35.0) ng/L Total Protein 7.8 D (6.5-8.0) g/dL Albumin 4.9 D (3.5-5.0) g/dL Acetone, Qual Negative (Negative) 04/01/21 04/01/21 04/01/21 Range/Units 12:29 12:29 12:29 WBC (4.8-10.8) X10*3/uL RBC (4.60-5.80) X10*6/uL Hgb (14.0-18.0) g/dl Hct (42-52) % MCV (80-98) fL MCH (27.0-33.0) pg MCHC (31.0-36.0) g/dl RDW (11.0-16.0) % Plt Count (160-400) X10*3/uL MPV (9.4-12.4) fL Immature Gran % (Auto) (0.0-0.4) % Neut % (Auto) (45-73) % Lymph % (Auto) (20-40) % [place] % (Auto) (2-11) % Eos % (Auto) (0-4) % Baso % (Auto) (0-2) % Lymph # (Auto) (1.2-4.9) X10*3/uL [place] # (Auto) (0.1-1.2) X10*3/uL Eos # (Auto) (0.0-0.4) X10*3/uL Baso # (Auto) (0.0-0.2) X10*3/uL Abs Immat Gran (auto) (0.00-0.03) X10*3/uL Absolute Neuts (auto) (2.0-8.3) X10*3/uL Absolute Nucleated RBC (0.0-0.012) X10*3/uL Nucleated RBC % (auto) (0.0-0.2) /100WBC PT 11.1 (10.8-13.0) SEC INR 0.9 (0.9-1.1) APTT 36.6 (24.1-38.0) SEC VBG pH (7.32-7.43) VBG pCO2 mmHg VBG pO2 mmHg VBG HCO3 (22-26) mmol/L VBG O2 Saturation % VBG Base Excess mmol/L Sodium (135-145) mmol/L Potassium (3.3-5.1) mmol/L Chloride (96-108) mmol/L Carbon Dioxide (22-29) mmol/L Anion Gap (12-20) BUN (9-16) mg/dL Creatinine (0.5-1.4) mg/dL Estim Creat Clear Calc Estimated GFR POC Glucose (60-115) mg/dL Random Glucose (60-115) mg/dL Calcium (8.4-10.2) mg/dL Magnesium 1.9 (1.6-2.6) mg/dL Total Bilirubin (0.0-1.0) mg/dL Direct Bilirubin (0.0-0.5) mg/dL AST (5-37) U/L ALT (0-40) U/L Alkaline Phosphatase (39-117) U/L Troponin I High Sens < 3.5 (<3.5-35.0) ng/L Total Protein (6.5-8.0) g/dL Albumin (3.5-5.0) g/dL Acetone, Qual (Negative) 04/01/21 04/01/21 Range/Units 12:39 15:58 WBC (4.8-10.8) X10*3/uL RBC (4.60-5.80) X10*6/uL Hgb (14.0-18.0) g/dl Hct (42-52) % MCV (80-98) fL MCH (27.0-33.0) pg MCHC (31.0-36.0) g/dl RDW (11.0-16.0) % Plt Count (160-400) X10*3/uL MPV (9.4-12.4) fL Immature Gran % (Auto) (0.0-0.4) % Neut % (Auto) (45-73) % Lymph % (Auto) (20-40) % [place] % (Auto) (2-11) % Eos % (Auto) (0-4) % Baso % (Auto) (0-2) % Lymph # (Auto) (1.2-4.9) X10*3/uL [place] # (Auto) (0.1-1.2) X10*3/uL Eos # (Auto) (0.0-0.4) X10*3/uL Baso # (Auto) (0.0-0.2) X10*3/uL Abs Immat Gran (auto) (0.00-0.03) X10*3/uL Absolute Neuts (auto) (2.0-8.3) X10*3/uL Absolute Nucleated RBC (0.0-0.012) X10*3/uL Nucleated RBC % (auto) (0.0-0.2) /100WBC PT (10.8-13.0) SEC INR (0.9-1.1) APTT (24.1-38.0) SEC VBG pH 7.35 (7.32-7.43) VBG pCO2 47 mmHg VBG pO2 41 mmHg VBG HCO3 27 H (22-26) mmol/L VBG O2 Saturation 64.0 % VBG Base Excess 0.8 mmol/L Sodium (135-145) mmol/L Potassium (3.3-5.1) mmol/L Chloride (96-108) mmol/L Carbon Dioxide (22-29) mmol/L Anion Gap (12-20) BUN (9-16) mg/dL Creatinine (0.5-1.4) mg/dL Estim Creat Clear Calc Estimated GFR POC Glucose 200 H (60-115) mg/dL Random Glucose (60-115) mg/dL Calcium (8.4-10.2) mg/dL Magnesium (1.6-2.6) mg/dL Total Bilirubin (0.0-1.0) mg/dL Direct Bilirubin (0.0-0.5) mg/dL AST (5-37) U/L ALT (0-40) U/L Alkaline Phosphatase (39-117) U/L Troponin I High Sens (<3.5-35.0) ng/L Total Protein (6.5-8.0) g/dL Albumin (3.5-5.0) g/dL Acetone, Qual (Negative) Discharge Plan Discharge Clinical Impression: Headache Patient Disposition: Home, Self-Care Instructions: Acute Headache (ED) Additional Instructions: your blood work and imaging studies were reassuring today in the emergency department. It is very important that he follow up with her primary care doctor and your neurologist. If her symptoms persist or worsen, or headache becomes mo re severe, constant persistent, you have nausea/vomiting, chest pain, or shortness of breath, develops any weakness please return to the ED immediately elizabeth an?lisis de kulwant y estudios de im?genes fueron reconfortantes hoy en el departamento de emergencias. Es muy importante que ron un seguimiento con garcia m?dico de atenci?n primaria y con garcia neur?logo. Si elizabeth s?ntomas persisten o empeoran, o el dolor de yudelka se vuelve m?s terrence, persistente y hal, tiene n?useas / v?mitos, dolor en el pecho o dificultad para respirar, desarrolla alguna debilidad, regrese al servicio de urgencias inmediatamente. Prescriptions: No Action amlodipine [Norvasc] 2.5 mg tablet 2.5 mg PO DAILY 90 Days Qty: 90 RF: 0 omeprazole 40 mg capsule,delayed release(DR/EC) 40 mg PO DAILY RF: 0 aspirin 81 mg tablet,delayed release (DR/EC) 81 mg PO DAILY RF: 0 Basaglar HannaPen U-100 Insulin 100 unit/mL (3 mL) insulin pen 10 unit subcut QPM RF: 0 metformin 500 mg tablet 500 mg PO BID RF: 0 lisinopril 10 mg tablet 10 mg PO DAILY RF: 0 loratadine 10 mg tablet 10 mg PO DAILY RF: 0 atorvastatin 40 mg tablet 40 mg PO DAILY RF: 0 fenofibrate micronized 134 mg capsule 134 mg PO DAILY RF: 0 omega-3 fatty acids [Fish Oil Concentrate] 1,000 mg capsule 1,000 mg PO DAILY RF: 0 Referrals: Izzy Nguyen NP [Primary Care Provider] - 2 days Interventions: ED Discharge Assessment Last Done: 04/01/21 16:11 Discharge Date/Time: 04/01/21 16:11 Print Language: Georgian
[2021-04-01 16:02] LABS: Glucose, Whole Blood 200 mg/dL (60-115)
== END 2021-04-01 16:11 | disposition home or self-care (01) ==
PROVIDERS: Physician Assistant; Emergency Provider Emergency Medicine Emergency Medical Services; PCP Registered Nurse
DX: R51.9 Headache, unspecified (principal); I10 Essential (primary) hypertension; E11.9 Type 2 diabetes mellitus without complications; Z79.82 Long term (current) use of aspirin; Z79.84 Long term (current) use of oral hypoglycemic drugs; Z79.899 Other long term (current) drug therapy
CPT/HCPCS: 36415; 70496; 70498; 71045; 80048; 80076; 82009; 82947; 83735; 84484; 85025; 85610; 85730; 93005; 96361; 96374; 96375; 99284; 99285; J1200; J2765; Q9967

== ENCOUNTER 2021-07-16 12:39 | Outpatient (REF) | payer MEDICAID, SELFPAY ==
--- NOTE | ~2021-07-16 | XR_ITS ---
EXAMINATION: XR BOTH KNEES AP STANDING XR RIGHT KNEE, 2 VIEWS XR LEFT KNEE, 2 VIEWS CLINICAL INFORMATION: Right and left knee pain. COMPARISON: Bilateral knee radiographs dated 09/20/2018. TECHNIQUE: Standing AP view of both knees and lateral and sunrise views of the right and left knee. FINDINGS: Right Knee: No acute fracture or dislocation. No significant joint space narrowing. Tiny patellofemoral marginal osteophytes. Minimal lateral compartment chondrocalcinosis. No joint effusion. Left Knee: No acute fracture or dislocation. No significant joint space narrowing or marginal osteophytes. Minimal lateral compartment chondrocalcinosis. No joint effusion. XR/XR knee RT 2V IMPRESSION: Right Knee: Minimal patellofemoral arthrosis. Lateral compartment chondrocalcinosis, new when compared to prior examination. Left Knee: Lateral compartment chondrocalcinosis, new when compared to the prior examination.
--- NOTE | ~2021-07-16 | XR_ITS ---
EXAMINATION: XR BOTH KNEES AP STANDING XR RIGHT KNEE, 2 VIEWS XR LEFT KNEE, 2 VIEWS CLINICAL INFORMATION: Right and left knee pain. COMPARISON: Bilateral knee radiographs dated 09/20/2018. TECHNIQUE: Standing AP view of both knees and lateral and sunrise views of the right and left knee. FINDINGS: Right Knee: No acute fracture or dislocation. No significant joint space narrowing. Tiny patellofemoral marginal osteophytes. Minimal lateral compartment chondrocalcinosis. No joint effusion. Left Knee: No acute fracture or dislocation. No significant joint space narrowing or marginal osteophytes. Minimal lateral compartment chondrocalcinosis. No joint effusion. XR/XR knee standing BI IMPRESSION: Right Knee: Minimal patellofemoral arthrosis. Lateral compartment chondrocalcinosis, new when compared to prior examination. Left Knee: Lateral compartment chondrocalcinosis, new when compared to the prior examination.
--- NOTE | ~2021-07-16 | XR_ITS ---
EXAMINATION: XR BOTH KNEES AP STANDING XR RIGHT KNEE, 2 VIEWS XR LEFT KNEE, 2 VIEWS CLINICAL INFORMATION: Right and left knee pain. COMPARISON: Bilateral knee radiographs dated 09/20/2018. TECHNIQUE: Standing AP view of both knees and lateral and sunrise views of the right and left knee. FINDINGS: Right Knee: No acute fracture or dislocation. No significant joint space narrowing. Tiny patellofemoral marginal osteophytes. Minimal lateral compartment chondrocalcinosis. No joint effusion. Left Knee: No acute fracture or dislocation. No significant joint space narrowing or marginal osteophytes. Minimal lateral compartment chondrocalcinosis. No joint effusion. XR/XR knee LT 2V IMPRESSION: Right Knee: Minimal patellofemoral arthrosis. Lateral compartment chondrocalcinosis, new when compared to prior examination. Left Knee: Lateral compartment chondrocalcinosis, new when compared to the prior examination.
== END 2021-07-16 12:40 | disposition home or self-care (01) ==
LOC: HO.HOSX 12:39
PROVIDERS: Visit Provider Physician Assistant
DX: M25.561 Pain in right knee (principal); M17.12 Unilateral primary osteoarthritis, left knee
CPT/HCPCS: 20610; 73560; 73565; 99202; J1020

== ENCOUNTER 2021-08-13 10:02 | Emergency (ER) | payer MEDICAID, SELFPAY ==
[2021-08-13 10:07] VITALS: BP 132/95; PULSE 97; RESP 16; TEMP 36.7; O2SAT 99; BMI 29.8
--- NOTE | 2021-08-13 10:32 | ED.WOUNDLAC ---
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 Reports that he is up-to-date with tetanus vaccine received it 3 years ago. Denies any thoughts of foreign bodies. Denies any paresthesias. Denies any other injury complaints or concerns at this time. Denies any paresthesias. Onset (ago): minute(s) (Prior to arrival) Extremity Location: left: hand (Index finger at the distal aspect of the nail) Place: home Patient tetanus UTD: Yes (Received 3 years ago) Context: accidental Associated symptoms: pain Treatments prior to arrival: tourniquet Related Data Home Medications Medication Instructions Recorded Confirmed aspirin 81 mg tablet,delayed 81 mg PO DAILY 08/04/20 12/30/20 release atorvastatin 40 mg tablet 40 mg PO DAILY 08/04/20 12/30/20 fenofibrate micronized 134 mg 134 mg PO DAILY 08/04/20 12/30/20 capsule insulin glargine 100 unit/mL (3 10 unit SUBCUT QPM 08/04/20 12/30/20 mL) subcutaneous pen (Basaglar KwikPen U-100 Insulin) lisinopril 10 mg tablet 10 mg PO DAILY 08/04/20 12/30/20 loratadine 10 mg tablet 10 mg PO DAILY 08/04/20 12/30/20 metformin 500 mg tablet 500 mg PO BID 08/04/20 12/30/20 omega-3 fatty acids 1,000 mg 1,000 mg PO DAILY 08/04/20 12/30/20 capsule (Fish Oil Concentrate) omeprazole 40 mg capsule,delayed 40 mg PO DAILY 08/04/20 12/30/20 release Previous Rx's Medication Instructions Recorded amlodipine 2.5 mg tablet (Norvasc) 2.5 mg PO DAILY 90 Days #90 tab 08/20/20 cephalexin 500 mg capsule 500 mg PO Q6H 10 Days #40 cap 08/13/21 ibuprofen 800 mg tablet 800 mg PO Q8H PRN #14 tab 08/13/21 Allergies Allergy/AdvReac Type Severity Reaction Status Date / Time Sea Food Allergy Mild Anaphylaxis Uncoded 07/16/21 13:03 Review of Systems Review of Systems: Constitutional : No Fever, No Chills, Cardiovascular : No Chest Pain, No SOB Respiratory : No Dyspnea Gastrointestinal : No abdominal pain Musculoskeletal : No Joint Swelling Skin : positive skin laceration, No Foreign bodies, No rash, No surrounding erythema Neuro : No Weakness, No Numbness/tingling Psych : No SI/HI/thoughts of self injury Yes all other systems are reviewed and are negative [facility] Past Medical History Attestation statement: The following information was validated with the patient. Medical History CAD (coronary artery disease) Diabetes HTN (hypertension) Patellofemoral arthralgia of left knee Patellofemoral arthritis of right knee Surgical History History of back surgery History of hand surgery Social History Social History Household Members: Family Household Members Other:: , kids Housing: House Do you presently have visiting nurse or other home services: No Alcohol intake: current Advance Directives: No service: No Current occupational status: employed Current occupation: rt handed/[employer] Physical Exam Vital Signs: Vital Signs: Last Vital Signs Temp 98.0 F 08/13/21 10:07 Pulse 97 08/13/21 10:07 Resp 16 08/13/21 10:07 BP 132/95 H 08/13/21 10:07 Pulse Ox 99 08/13/21 10:07 Body Mass Index 29.8 vital signs have been reviewed as normal and appeared to be correct. Blood pressure normal Heart rate normal. Respiration rate normal. Temperature normal. Oxygen saturation normal. Appearance: Alert. Oriented X3. No acute distress. Head: Normal external exam. Normocephalic. Atraumatic. Eyes: PERRLA. EOMI. Conjunctiva and sclera normal. Eyelids normal. ENT: Pharynx normal. Uvula midline. Moist mucous membranes. Neck: Normal inspection. Neck supple. FROM. CVS: Normal heart rate and rhythm. Respiratory: No respiratory distress. Painless inspiration. Skin: Skin warm and dry. Normal skin color. Normal skin turgor. No rashes/lesions/lacerations noted. Extremities: To the left hand index finger at the distal aspect of the nail radial aspect patient has superficial laceration that does not involve the nail bed and the nail has not avulsed. No active bleeding noted. No foreign bodies noted. Patient has full range of motion no obvious ligamentous or tendon injury. No signs of infection or purulent drainage noted. Patient has full range of motion of the left hand/wrist/fingers. Otherwise all other Extremities exhibit normal range of motion nontender. Neuro: Oriented X 3. No motor deficit. No sensory deficit. Reflexes normal. Normal steady gait. No focal neuro deficits noted. Vascular: + radial pulses/+ 2 distal pedal pulses/+2 dorsalis pedis b/l. Normal cap refill. No cyanosis noted to upper extremity nails and lower extremity toes nails. Course Course Course Narrative: Patient has a superficial laceration will not place any stitches I used Dermabond will DC home with symptomatic treatment instructions return if any new or worsening symptoms and a 10 day course of Keflex and instructions to follow-up with primary care provider. I did offer an x-ray although patient denies any bony tenderness and has full range of motion he declined the x-ray. Patient and family at bedside understand and agree this plan. MDM - Wound/Laceration Medical Records Attestation: I reviewed the patient's medical records. Discharge Plan Discharge Clinical Impression: Laceration Patient Disposition: Home, Self-Care Instructions: Skin Adhesive Care (ED), Laceration Without Closure (ED) Prescriptions: New cephalexin 500 mg capsule 500 mg PO Q6H 10 Days Qty: 40 RF: 0 ibuprofen 800 mg tablet 800 mg PO Q8H PRN (Reason: pain) Qty: 14 RF: 0 No Action amlodipine [Norvasc] 2.5 mg tablet 2.5 mg PO DAILY 90 Days Qty: 90 RF: 0 omeprazole 40 mg capsule,delayed release(DR/EC) 40 mg PO DAILY RF: 0 aspirin 81 mg tablet,delayed release (DR/EC) 81 mg PO DAILY RF: 0 Basaglfritz Canseco U-100 Insulin 100 unit/mL (3 mL) insulin pen 10 unit subcut QPM RF: 0 metformin 500 mg tablet 500 mg PO BID RF: 0 lisinopril 10 mg tablet 10 mg PO DAILY RF: 0 loratadine 10 mg tablet 10 mg PO DAILY RF: 0 atorvastatin 40 mg tablet 40 mg PO DAILY RF: 0 fenofibrate micronized 134 mg capsule 134 mg PO DAILY RF: 0 omega-3 fatty acids [Fish Oil Concentrate] 1,000 mg capsule 1,000 mg PO DAILY RF: 0 Referrals: Odilia Cota NP [Primary Care Provider] - 2 days Print Language: Kazakh
== END 2021-08-13 10:55 | disposition home or self-care (01) ==
PROVIDERS: Emergency Provider Emergency Medicine; PCP Nurse Practitioner Primary Care
DX: S61.311A Laceration without foreign body of left index finger with damage to nail, initial encounter (principal); I10 Essential (primary) hypertension; E11.9 Type 2 diabetes mellitus without complications; I25.10 Atherosclerotic heart disease of native coronary artery without angina pectoris; W26.8XXA Contact with other sharp object(s), not elsewhere classified, initial encounter; Y93.9 Activity, unspecified; Y92.009 Unspecified place in unspecified non-institutional (private) residence as the place of occurrence of the external cause; Y99.9 Unspecified external cause status
CPT/HCPCS: 12001; 99283

== ENCOUNTER 2023-07-13 09:18 | Emergency (ER) | payer MEDICAID, SELFPAY ==
[2023-07-13 09:56] VITALS: BP 160/100; PULSE 100; RESP 18; TEMP 36.1; O2SAT 97; BMI 28.5
--- NOTE | 2023-07-13 10:03 | ED.GENADULT ---
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 Reports pain radiates to left leg. Denies any numbness or tingling to lower extremities. Denies any fall or other trauma. States that this is the 1st time his pain has worsened since receiving his injections several years ago. 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 Denies any fevers. Denies any saddle anesthesia or bowel or bladder incontinence. MD complaint: back pain Onset (ago): day(s) Location: back Radiation: distal Severity: severe Quality: aching Pain Consistency: constant Relieving factors: rest Exacerbating factors: movement Associated symptoms: denies other symptoms Treatments prior to arrival: NSAID Related Data Home Medications Medication Instructions Recorded Confirmed aspirin 81 mg tablet,delayed 81 mg PO DAILY 08/04/20 12/30/20 release atorvastatin 40 mg tablet 40 mg PO DAILY 08/04/20 12/30/20 fenofibrate micronized 134 mg 134 mg PO DAILY 08/04/20 12/30/20 capsule insulin glargine 100 unit/mL (3 10 unit subcut QPM 08/04/20 12/30/20 mL) subcutaneous pen (Basaglar KwikPen U-100 Insulin) lisinopril 10 mg tablet 10 mg PO DAILY 08/04/20 12/30/20 loratadine 10 mg tablet 10 mg PO DAILY 08/04/20 12/30/20 metformin 500 mg tablet 500 mg PO BID 08/04/20 12/30/20 omega-3 fatty acids 1,000 mg 1,000 mg PO DAILY 08/04/20 12/30/20 capsule (Fish Oil Concentrate) omeprazole 40 mg capsule,delayed 40 mg PO DAILY 08/04/20 12/30/20 release Previous Rx's Medication Instructions Recorded amlodipine 2.5 mg tablet (Norvasc) 2.5 mg PO DAILY 90 days #90 tabs 08/20/20 cephalexin 500 mg capsule 500 mg PO Q6H 10 days #40 caps 08/13/21 ibuprofen 800 mg tablet 800 mg PO Q8H PRN pain #14 tabs 08/13/21 cyclobenzaprine 5 mg tablet 5 mg PO TID PRN muscle spasm #10 07/13/23 tabs lidocaine 5 % topical patch 1 patch topical DAILY #15 ea 07/13/23 naproxen 500 mg tablet 500 mg PO BID #14 tabs 07/13/23 Allergies Allergy/AdvReac Type Severity Reaction Status Date / Time Sea Food Allergy Mild Anaphylaxis Uncoded 07/13/23 09:58 Review of Systems Review of Systems: As per HPI Yes all other systems are reviewed and are negative Constitutional: Constitutional: Reports as per HPI PMFSH Past Medical History Medical History CAD (coronary artery disease) Diabetes HTN (hypertension) Patellofemoral arthralgia of left knee Patellofemoral arthritis of right knee Surgical History History of back surgery History of hand surgery Social History Social History Household Members: Family Household Members Other:: , kids Housing: House Do you presently have visiting nurse or other home services: No Alcohol intake: current Advance Directives: No service: No Current occupational status: employed 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 Blood pressure elevated. Heart rate normal. Respiratory rate normal. Temperature normal. Oxygen saturation normal. Const General: cooperative, healthy appearing and no acute distress Orientation/consciousness: oriented to person, oriented to place, oriented to time and patient oriented x3 Limitations: no limitations HENMT Head: Yes normocephalic and Yes atraumatic Ears: external ears normal General nose exam: Normal external nose present Face and sinus: Yes face symmetric Mouth: oropharynx normal and moist mucous membranes Throat: Yes uvula midline Eyes Pupils: Equal, round and reactive pupils present Neck Neck: Yes normal visual inspection and Yes supple Resp Effort & Inspection: normal respiratory effort and able to speak in complete sentences Auscultation: clear to auscultation bilaterally Cardio Rate: regular rate Rhythm: regular rhythm Heart sounds: S1 normal heart sound present and S2 normal heart sound present GI Palpation (GI): Soft to palpation and nontender Auscultation: normoactive bowel sounds General: Yes no CVA tenderness Back/Spine/Pelvis Back: no CVA tenderness Thoracic/Lumbar Spine: Thoracic/lumbar spine scar(s), thoraco-lumbar ROM normal, straight leg raise negative bilaterally, pain with thoraco-lumbar ROM, paraspinal muscle tenderness on the left in the upper thoracic and in the mid lumbar, thoraco-lumbar spasm on the left in the upper lumbar and in the mid lumbar, No thoracic spinal tenderness and No lumbar spinal tenderness Pelvis: no pain with anterior-posterior compression and no pain with lateral compression Skin General skin exam: elasticity normal and turgor normal Neuro General: oriented to person, oriented to place, oriented to time, patient oriented x3, gait normal, tone normal, moves all extremities, Normal light touch and pain sensation, no focal motor deficits, CN's II-XI intact bilaterally and deep tendon reflexes 2+ bilaterally Cranial nerves: Yes Equal, round and reactive pupils present Cognition (Neuro): normal cognition Motor exam (neuro): 5/5 motor strength present throughout Sensory Exam: Normal double simultaneous stimulation for sensation Extrem General: Yes full ROM, Yes no pedal edema and Yes no calf tenderness Psych Mental Status: mental status grossly normal Affect: normal affect Thought process: Normal thought process present Medications Administered Discontinued Medications Generic Name Dose Route Start Last Admin Trade Name Adelaida PRN Reason Stop Dose Admin Cyclobenzaprine HCl 10 mg 07/13/23 10:12 07/13/23 10:19 Cyclobenzaprine Hcl 10 Mg Tablet PO 07/13/23 10:13 10 mg ONCE ONE Administration Ketorolac Tromethamine 30 mg 07/13/23 10:12 07/13/23 10:20 Ketorolac Tromethamine 30 Mg/Ml Vial IM 07/13/23 10:13 30 mg ONCE ONE Administration Medical Decision Making Medical Decision Making [facility] Narrative: Patient is a 47-year-old male with history of HTN, CAD, prior back surgery and injections presenting to the emergency department with left lower back pain for 2 days. On exam patient is awake, A+Ox3, BP elevated likely secondary to pain, VS otherwise WNL, afebrile, normal neurological exam without focal deficits, physical exam findings as above. Given reported symptoms and physical exam findings, initial differential includes lumbar strain, lumbar radiculopathy. Do not suspect fracture as patient denies trauma. Discussed risk versus benefit of x-ray with patient and patient declining imaging at this time. Will medicate with Toradol and Flexeril in the emergency department as patient states he is not driving home. Will discharge home with prescriptions for Flexeril, lidocaine patches, naproxen. Instructed patient to follow-up with primary care provider. Return precautions discussed at bedside. Patient verbalized understanding of and agreement with plan. Differential Diagnosis Differential Diagnoses: The differential diagnosis associated with the presentation includes As per MDM. External Record Review External record reviewed: Inpatient record, Office record and Outpatient record Prescription Management I considered prescription management with: Pain Medication and Other Discharge Plan Discharge Clinical Impression: Lumbar strain Qualifiers: Encounter type: initial encounter Qualified Code(s): S39.012A - Strain of muscle, fascia and tendon of lower back, initial encounter Patient Disposition: Home, Self-Care Instructions: Muscle Strain (ED), Low Back Strain (ED), Acute Low Back Pain (ED) Additional Instructions: You were evaluated in the emergency department today for back pain. Your evaluation did not show signs of medical conditions requiring emergent intervention at this time. You have been prescribed a muscle relaxer which you may take every 8 hours as needed for spasms. You have been prescribed 5% topical lidocaine patches which you can wear for up to 12 hours in a 24 hour period. Do not apply heat directly over the patches. You are being prescribed naproxen which you should take twice daily as prescribed. Please schedule an appointment for follow-up with your primary care physician this week for further evaluation of your symptoms. Return to the emergency department if you experience worsening back pain, difficulty walking, fevers, numbness, tingling, incontinence, groin numbness or tingling, or any other concerning symptoms. Prescriptions: New naproxen 500 mg tablet 500 mg PO BID Qty: 14 0RF cyclobenzaprine 5 mg tablet 5 mg PO TID PRN (Reason: muscle spasm) Qty: 10 0RF lidocaine 5 % adhesive patch,medicated 1 patch topical DAILY Qty: 15 0RF Rx Instructions: leave on most painful area for up to 12 hrs No Action amlodipine [Norvasc] 2.5 mg tablet 2.5 mg PO DAILY 90 Days Qty: 90 0RF Rx Instructions: Needs cardiology appnt before more refills cephalexin 500 mg capsule 500 mg PO Q6H 10 Days Qty: 40 0RF ibuprofen 800 mg tablet 800 mg PO Q8H PRN (Reason: pain) Qty: 14 0RF omeprazole 40 mg capsule,delayed release(DR/EC) 40 mg PO DAILY aspirin 81 mg tablet,delayed release (DR/EC) 81 mg PO DAILY Deloris Canseco U-100 Insulin 100 unit/mL (3 mL) insulin pen 10 unit subcut QPM Patient Comments: 50 units metformin 500 mg tablet 500 mg PO BID lisinopril 10 mg tablet 10 mg PO DAILY loratadine 10 mg tablet 10 mg PO DAILY atorvastatin 40 mg tablet 40 mg PO DAILY fenofibrate micronized 134 mg capsule 134 mg PO DAILY omega-3 fatty acids [Fish Oil Concentrate] 1,000 mg capsule 1,000 mg PO DAILY Print Language: Iranian
[2023-07-13] MEDS: Cyclobenzaprine HCl 10 MG TABLET PO (10:19)
[2023-07-13] MEDS: Ketorolac Tromethamine 30 MG/ML VIAL IM (10:20)
--- NOTE | 2023-07-13 11:07 | PC.NURSE ---
aox4. ambulatory. n [facility]. +VS. pt left stating his ride was going to leave w/o waiting for papers. rn explained verbally.
== END 2023-07-13 11:00 | disposition home or self-care (01) ==
PROVIDERS: Emergency Provider Emergency Medicine; PCP Nurse Practitioner Primary Care
DX: S39.012A Strain of muscle, fascia and tendon of lower back, initial encounter (principal); X50.0XXA Overexertion from strenuous movement or load, initial encounter; E11.9 Type 2 diabetes mellitus without complications; I10 Essential (primary) hypertension; Z79.82 Long term (current) use of aspirin; Z79.4 Long term (current) use of insulin; Z79.899 Other long term (current) drug therapy; Y93.F9 Activity, other caregiving; Y92.9 Unspecified place or not applicable; Y99.9 Unspecified external cause status
CPT/HCPCS: 96372; 99284; J1885

== ENCOUNTER 2023-07-26 12:43 | Outpatient (AMB) | payer MEDICAID, SELFPAY ==
[2023-07-26 12:56] VITALS: BMI 28.5
--- NOTE | 2023-07-26 12:56 | A.OFFVIS_ITS ---
Intake Vital Signs 07/26/23 12:56 Height 6 ft Weight 210 lb BMI 28.5 Intake Visit Reasons: ov- Chronic pain of both knees Intake Note: Yudelka 47 year old male who presents today for a follow up for his bilateral knee pain, last left knee injection 07/16/21. Patient reports last injection to left knee provided him relief for about 5-6 months. He states left knee is the worse and is requesting to have bilateral knee injections. 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 He states he has bilateral knee pain which is worse in his left knee. He had his last left knee injection which provided him relief for about 5-6 months. He would like to repeat the injection. He has a history of diabetes. His HbA1c is 7.7 today. 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 Retropatellar tenderness present. Full ROM with crepitus. Negative Maya?s. No ligamentous laxity. NVI. Office Procedures Joint Injection/Drain Joint Injection/Drain Primary Site: right knee Secondary Site: left knee Prep: site was prepped using aseptic technique, ethochloride spray was applied and injection warnings given Injected: 80 mg of, DepoMedrol, with 8 mL of, 1% plain lidocaine and in the joint Approach Used: anterolateral Procedure: The patient tolerated the procedure well and there was some relief with the local anesthesia Coding 75576 - Glenohumeral/Tronchanteric Bursa/Intraarticular Procedure code (CPT) selection complete Results Reviewed Results Reviewed: 07/26/23 13:12 Lidocaine HCl 2 % MPF [Xylocaine 2 % MPF] 5 ml .ROUTE .STK-MED ONE methylPREDNISolone acetate [DEPO-MedroL] 40 mg .ROUTE .STK-MED ONE Xrays were obtained in the office today and personally reviewed by me of bilat knee show PF oa Assessment & Plan Assessment & Plan (1) Patellofemoral arthritis of left knee: Code(s): M17.12 - Unilateral primary osteoarthritis, left knee (2) Patellofemoral arthritis of right knee: Code(s): M17.11 - Unilateral primary osteoarthritis, right knee Plan We discussed options today which include steroid injection. They did consent to move forward with the injection, which was tolerated well. I recommended rest, ice and elevation and OTC anti-inflammatories PRN for discomfort. We also discussed their diabetes and the effect the steroid can have on their blood glucose levels; therefore, they will continue to monitor these very closely over the next 72 hours. If there are any concerns, they should report to the ED immediately. Orders: Orders XR knee standing BI Today M25.561 - Pain in right knee, M25.562 - Pain in left knee XR knee LT 2V Today M25.562 - Pain in left knee XR knee RT 2V Today M25.569 - Pain in unspecified knee Patient Instructions: Scribed for Donny Garcia PA-C, by Justice Maldonado medical office manager, on 07/26/2023 at 12:45 PM EST. Donny Miner PA-C, have personally reviewed and agree with the information entered by the scribe. Coding Level of Care Code Est Pt Level 3 (15880) Diagnoses Patellofemoral arthritis of left knee M17.12 Patellofemoral arthritis of right knee M17.11 CPT Codes Coding - Joint 7: 40841 - Glenohumeral/Tronchanteric Bursa/Intraarticular ([id number])
== END 2023-07-26 13:39 | disposition home or self-care (01) ==
PROVIDERS: PCP Nurse Practitioner Primary Care; Visit Provider Physician Assistant
DX: M17.0 Bilateral primary osteoarthritis of knee (principal)
CPT/HCPCS: 20610; 99213

== ENCOUNTER 2023-07-26 12:58 | Outpatient (REF) | payer MEDICAID, SELFPAY ==
--- NOTE | ~2023-07-26 | XR_ITS ---
EXAMINATION: XR KNEE STANDING, BILATERAL XR KNEE, RIGHT XR KNEE, LEFT CLINICAL INFORMATION: Bilateral knee pain. COMPARISON: 07/16/2021. TECHNIQUE: Single standing views of both knees with lateral and sunrise views of both the right and left knee. FINDINGS: RIGHT KNEE: Again seen is chondrocalcinosis involving the lateral meniscus. There is some minimal narrowing of the joint space medially. No joint effusion is present. No fractures or bony destructive lesions. LEFT KNEE: There is very faint chondrocalcinosis seen in the medial meniscus. There is some mild narrowing seen. No joint effusion is present. No fractures or bony destructive lesions. Overall, when comparison is made to the 07/16/2021 study, there has been no significant interval change. XR/XR knee standing BI IMPRESSION: Chondrocalcinosis involving the lateral meniscus bilaterally with mild narrowing of the joint space medially.
--- NOTE | ~2023-07-26 | XR_ITS ---
EXAMINATION: XR KNEE STANDING, BILATERAL XR KNEE, RIGHT XR KNEE, LEFT CLINICAL INFORMATION: Bilateral knee pain. COMPARISON: 07/16/2021. TECHNIQUE: Single standing views of both knees with lateral and sunrise views of both the right and left knee. FINDINGS: RIGHT KNEE: Again seen is chondrocalcinosis involving the lateral meniscus. There is some minimal narrowing of the joint space medially. No joint effusion is present. No fractures or bony destructive lesions. LEFT KNEE: There is very faint chondrocalcinosis seen in the medial meniscus. There is some mild narrowing seen. No joint effusion is present. No fractures or bony destructive lesions. Overall, when comparison is made to the 07/16/2021 study, there has been no significant interval change. XR/XR knee RT 2V IMPRESSION: Chondrocalcinosis involving the lateral meniscus bilaterally with mild narrowing of the joint space medially.
--- NOTE | ~2023-07-26 | XR_ITS ---
EXAMINATION: XR KNEE STANDING, BILATERAL XR KNEE, RIGHT XR KNEE, LEFT CLINICAL INFORMATION: Bilateral knee pain. COMPARISON: 07/16/2021. TECHNIQUE: Single standing views of both knees with lateral and sunrise views of both the right and left knee. FINDINGS: RIGHT KNEE: Again seen is chondrocalcinosis involving the lateral meniscus. There is some minimal narrowing of the joint space medially. No joint effusion is present. No fractures or bony destructive lesions. LEFT KNEE: There is very faint chondrocalcinosis seen in the medial meniscus. There is some mild narrowing seen. No joint effusion is present. No fractures or bony destructive lesions. Overall, when comparison is made to the 07/16/2021 study, there has been no significant interval change. XR/XR knee LT 2V IMPRESSION: Chondrocalcinosis involving the lateral meniscus bilaterally with mild narrowing of the joint space medially.
== END 2023-07-26 12:59 | disposition home or self-care (01) ==
LOC: HO.HOSX 12:58
PROVIDERS: Visit Provider Physician Assistant
DX: M17.0 Bilateral primary osteoarthritis of knee (principal)
CPT/HCPCS: 20610; 73560; 73565; 99212; J1020

== ENCOUNTER 2024-02-23 13:26 | Outpatient (AMB) | payer MEDICAID, SELFPAY ==
--- NOTE | 2024-02-23 13:50 | A.OFFVIS_ITS ---
Vital Signs 02/23/24 13:58 Height 6 ft Weight 210 lb BMI 28.5 Intake Visit Reasons: OV - left knee OA, last inj 07/26/23 Intake Note: Yudelka 48 year old male who presents today for a follow up of bilateral knees, last injection on 07/26/23. Patient reports last injections provided him with relief for about 4-5 months, his pain returned about 2 months ago. States his pa in increases in the mornings. Finds no relief with ibuprofen. He would like to discuss his treatment options. Allergies Sea Food Allergy (Mild, Uncoded 02/23/24 13:58) Anaphylaxis HPI HPI OV - left knee OA, last inj 07/26/23: Details: 48-year-old male who returns to the office today with an quality systems engineer for a follow-up of left knee pain. He had his last injection on 07/26/23 that provided him relief for about 5 months. He reports his pain returned about 2 months ago and he states he has pain in his left knee that is aggravated in the morning. He finds no relief with ibuprofen. He would like to discuss his treatment options. [facility] Medical History CAD (coronary artery disease) Diabetes HTN (hypertension) Patellofemoral arthralgia of left knee Patellofemoral arthritis of right knee Surgical History History of back surgery History of hand surgery Social History Household Members: Family Household Members Other:: , kids Housing: House Do you presently have visiting nurse or other home services: No Alcohol intake: current Comment: temp had come down slightly service: No Current occupational status: employed Current occupation: rt handed/[employer] Review of Systems Const All systems reviewed & are unremarkable except as noted in HPI and below Physical Exam Vital Signs: BMI result Body Mass Index 28.5 Extrem Other: Bilateral knee: Skin intact, no erythema or joint effusion. Retropatellar tenderness present. Full ROM with crepitus. Negative Maya?s. No ligamentous laxity. NVI. Office Procedures Joint Injection/Drain Joint Injection/Drain Primary Site: right knee Prep: site was prepped using aseptic technique, ethochloride spray was applied and injection warnings given Injected: 40 mg of Approach Used: anterolateral Procedure: The patient tolerated the procedure well and there was some relief with the local anesthesia Coding 63868 - Glenohumeral/Tronchanteric Bursa/Intraarticular Procedure code (CPT) selection complete Assessment & Plan Assessment & Plan (1) Patellofemoral arthritis of left knee: Code(s): M17.12 - Unilateral primary osteoarthritis, left knee Category: Medical (2) Patellofemoral arthritis of right knee: Code(s): M17.11 - Unilateral primary osteoarthritis, right knee Category: Medical Plan We discussed options today which include steroid injection. They did consent to move forward with the left knee injection, which was tolerated well. I recommended rest, ice and elevation and OTC anti-inflammatories PRN for discomfort. If symptoms persist or worsens over the next 6-8 weeks, patient will contact the office, otherwise follow-up as needed. ? Orders: Referrals Pain Management Referral M17.11 - Unilateral primary osteoarthritis, right knee, M17.12 - Unilateral primary osteoarthritis, left knee Patient Instructions: Scribed for Donny Garcia PA-C, by Justice Maldonado medical lab director, on 02/23/2024 at 1:45 PM EST.? I, Donny Garcia PA-C, have personally reviewed and agree with the information entered by the scribe. Coding Level of Care Code Est Pt Level 3 (90180) Diagnoses Patellofemoral arthritis of left knee M17.12 Patellofemoral arthritis of right knee M17.11 CPT Codes Coding - Joint 7: 45951 - Glenohumeral/Tronchanteric Bursa/Intraarticular ([id number])
[2024-02-23 13:58] VITALS: BMI 28.5
== END 2024-02-23 14:33 | disposition home or self-care (01) ==
PROVIDERS: PCP Nurse Practitioner Primary Care; Visit Provider Physician Assistant
DX: M17.0 Bilateral primary osteoarthritis of knee (principal)
CPT/HCPCS: 20610; 99213

== ENCOUNTER → 2024-02-23 13:26 | Outpatient (BNVA) | payer MEDICAID, SELFPAY | PROVIDERS: PCP Nurse Practitioner Primary Care; Visit Provider Physician Assistant | DX: M17.0 Bilateral primary osteoarthritis of knee (principal) | CPT/HCPCS: 20610; 99212; J1010 ==

== ENCOUNTER 2024-03-20 09:17 | Outpatient (AMB) | payer MEDICAID, SELFPAY ==
--- NOTE | 2024-03-20 09:25 | MHC.OFFVIS ---
Vital Signs 03/20/24 09:33 Height 6 ft Weight 210 lb BMI 28.5 Intake Visit Reasons: left knee injection (40) Intake Note: Yudelka 48 year old male who presents today for a left knee cortisone injection. Last left knee injection on 07/26/23 and a right knee injection on 02/23/24. Allergies Sea Food Allergy (Mild, Uncoded 03/20/24 09:32) Anaphylaxis HPI HPI left knee injection (40): Details: 48-year-old male who returns to the office today for a follow-up of left knee pain. He had his last left knee injection on 07/26/23 and right knee injection on 02/23/24. He would like to repeat the injection. [facility], [facility] Medical History CAD (coronary artery disease) Diabetes HTN (hypertension) Patellofemoral arthralgia of left knee Patellofemoral arthritis of right knee Surgical History History of back surgery History of hand surgery Social History Household Members: Family Household Members Other:: , kids Housing: House Do you presently have visiting nurse or other home services: No Alcohol intake: current Comment: temp had come down slightly service: No Current occupational status: employed Current occupation: rt handed/[employer] Review of Systems Const All systems reviewed & are unremarkable except as noted in HPI and below Physical Exam Vital Signs: BMI result Body Mass Index 28.5 Extrem Other: Left knee: Skin intact, no erythema or joint effusion. Retropatellar tenderness present. Full ROM with crepitus. Negative Maya?s. No ligamentous laxity. NVI. Office Procedures Joint Injection/Drain Joint Injection/Drain Primary Site: left knee Prep: site was prepped using aseptic technique, ethochloride spray was applied and injection warnings given Injected: 40 mg of, DepoMedrol, with 8 mL of, 1% plain lidocaine and in the joint Approach Used: anterolateral Procedure: The patient tolerated the procedure well and there was some relief with the local anesthesia Coding 64800 - Glenohumeral/Tronchanteric Bursa/Intraarticular Procedure code (CPT) selection complete Assessment & Plan Assessment & Plan (1) Patellofemoral arthritis of left knee: Code(s): M17.12 - Unilateral primary osteoarthritis, left knee Category: Medical (2) Patellofemoral arthritis of right knee: Code(s): M17.11 - Unilateral primary osteoarthritis, right knee Category: Medical Plan We discussed options today, which include steroid injection. The patient did consent to move forward with the left knee injection, which was tolerated well. I recommended rest, ice, and elevation and OTC anti-inflammatories as needed for discomfort. We also discussed diabetes and the effect the steroid injection can have on their blood glucose levels; therefore, they will continue to monitor these very closely over the next 72 hours. If there are concerns, they should report to the ED immediately. Patient Instructions: Scribed for Donny Garcia PA-C, by Justice Maldonado medical insurance claims processor, on 03/20/2024 at 9:30 AM EST.? I, Donny Garcia PA-C, have personally reviewed and agree with the information entered by the scribe. Coding Level of Care Code Est Pt Level 3 (00766) Diagnoses Patellofemoral arthritis of left knee M17.12 Patellofemoral arthritis of right knee M17.11 CPT Codes Coding - Joint 7: 54551 - Glenohumeral/Tronchanteric Bursa/Intraarticular ([id number])
[2024-03-20 09:33] VITALS: BMI 28.5
== END 2024-03-20 10:13 | disposition home or self-care (01) ==
PROVIDERS: PCP Nurse Practitioner Primary Care; Visit Provider Physician Assistant
DX: M17.0 Bilateral primary osteoarthritis of knee (principal)
CPT/HCPCS: 20610; 99213

== ENCOUNTER → 2024-03-20 09:17 | Outpatient (BNVA) | payer MEDICAID, SELFPAY | PROVIDERS: PCP Nurse Practitioner Primary Care; Visit Provider Physician Assistant | DX: M17.0 Bilateral primary osteoarthritis of knee (principal) | CPT/HCPCS: 20610; 99212; J1010 ==

== ENCOUNTER 2024-11-19 09:16 | Outpatient (REF) | payer MEDICAID, SELFPAY ==
--- NOTE | 2024-11-19 09:19 | EMG_ITS ---
Bilateral tibial and peroneal motor studies were performed. Bilateral superficial peroneal and sural sensory studies were performed tibial H reflexes were obtained and paraspinal muscles were tested with a needle. 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 MD PRETTY Montano/ANA / [id number]
--- OUTSIDE RECORDS SUMMARY | 2024-11-19 09:55 | XMS_ITS | Encounter Summary ---
Author Organization [employer] Address [address] [place] [address] Care Team Providers Care Aluminum Shingle Roofer Name Role Phone Odilia Cota MELISSA Primary Care Provider [phone] Jakub Cheney PharmD Unavailable [phone] Encounter Details Date Type Department Care Team (Latest Contact Info) Description 10/23/2024 Travel Social History Tobacco Use Types Packs/Day Years Used Date Smoking Tobacco: Former Cigarettes Passive Smoke Exposure: Past Smokeless Tobacco: Never Alcohol Use Standard Drinks/Week Comments Yes 0 (1 standard drink = 0.6 oz pur e alcohol) Socially Housing Stability Answer Date Recorded What is your housing situation today? I have charlette watters 07/30/[address] you li ve. Do you have problems with any of the following? None of the above 07/30/2024 Food Insecurity Answer Date Recorded Within the past 12 months, y ou worried that your food would run out before you got money to buy more: Never True 07/30/2024 Within the past 12 months,th e food you bought just didn't last and you didn't have enough money to get more: Never True Transportation Answer Date Recorded In the past 12 months, has l ack of transportation kept you from medical appts, meetings, work or from getting things needed for daily living? No 07/30/2024 Utilities Answer Date Recorded In the past 12 months, has t he electric, gas, oil or water company threatened to shut off services in your home? No 07/30/2024 Depression Answer Date Recorded Patient Health Questionnaire-2 Score 0 09/14/2023 Internet Access Answer Date Recorded Internet Access Q1 Yes 07/30/2024 Internet Access Q2 Not on file 07/30/2024 Sex and Gender Information Value Date Recorded Sex Assigned at Male 08/01/2022 10:16 AM EDT Legal Sex Male 10:16 AM EDT Gender Identity Male 08/01/2022 10:16 AM EDT Sexual Orientation Choose not to disclose 2021 10:16 AM EDT documented as of this encounter Plan of Treatment Upcoming Encounters Date Type Department Care Team (Late st Contact Info) Description 01/17/2025 10:00 AM EDT Office Visit [facility] [address] [place] [address] Audrey Hale, OD [address] [place] [address] documented as of this encounter Goals Goal Patient Goal Type Associated Problems Recent Progress Patient-Stated? Author Blood Pressure < 140/90 Blood Pressure 114/80(2024 11:20 AM EST) No Jakub Cheney PharmD Hemoglobin A1c < 7 Result Component 8.4( 11:33 AM EST) No Jakub Cheney PharmD documented as of this encounter Visit Diagnoses Not on filedocumented in this encounter Care Teams Aluminum Shingle Roofer Relationship Specialty Start Date End Date Odilia Cota ANP [address] [place] [address] PCP - General Family Medicine 05/24/21 Jakub Cheney PharmD [address] [place] [address] Pharmacist Internal Medicine 01/23/24 documented as of this encounter
--- OUTSIDE RECORDS SUMMARY | 2024-11-19 09:55 | XMS_ITS | Encounter Summary ---
Author Organization [employer] Address [address] [place] [address] Care Team Providers Care Clothing Trades Workers Name Role Phone Beata Odilia TORRES Primary Care Provider [phone] Jakub Cheney PharmD Unavailable [phone] Encounter Details Date Type Department Care Team (Late st Contact Info) Description 10/23/2024 9:00 AM EST Office Visit [facility] [address] [place] [address] Geoffrye, Megan, OD [address] [place] [address] Presbyopia of both eyes (Primary Dx) Social History Tobacco Use Types Packs/Day Years [...] AM EDT documented as of this encounter Progress Notes * Audrey Hale OD - 10/23/2024 9:00 AM EST MH glasses were dispensed. documented in this encounter Plan of Treatment Upcoming Encounters Date Type Department Care Team (Late st Contact Info) Description 01/17/2025 10:00 AM EDT Office Visit [facility] [address] [place] [address] Audrey Hale, VIET [address] [place] [address] documented as of this encounter Goals Goal Patient Goal Type Associated Problems Recent Progress Patient-Stated? Author Blood Pressure < 140/90 Blood Pressure 114/80(2024 11:20 AM EST) No Jakub Cheney PharmD Hemoglobin A1c < 7 Result Component 8.4( 11:33 AM EST) No Jakub Cheney PharmD documented as of this encounter Visit Diagnoses Diagnosis Presbyopia of both eyes- Primary documented in this encounter Care Teams Clothing Trades Workers Relationship Specialty Start Date End Date Odilia Cota ANP [address] [place] [address] PCP - General Family Medicine 05/24/21 Jakub Cheney PharmD [address] [place] [address] [phone] Pharmacist Internal Medicine 01/23/24 documented as of this encounter
--- OUTSIDE RECORDS SUMMARY | 2024-11-19 09:55 | XMS_ITS | Clinical Summary ---
Author Organization [employer] Address [address] [facility] [address] [place] [address] Care Team Providers [employer] Name Role Phone Odilia Cota MELISSA Primary Care Provider [phone] Jakub Cheney PharmD Unavailable [phone] Allergies Active Allergy Reactions Criticality Noted Date Comments Shellfish-Derived Products Unknown 3 Medications * This document contains information received from the source organization and may not represent a complete record from that organization. Alcohol Swabs (SM Alcohol Prep) 70 % pads 100 Swab by Other route in the morning, at noon, and at bedtime. Use before injecting to clean site Active Diclofenac Sodium 1 % gelIndications:Pa in of lower extremity, unspecified laterality APPLY 2 GRAMS TOPICALLY TO AFFECTED AREA(S) THREE TIMES DAILY 100 g 3 023 Active SUMAtriptan (Imitrex) 50 MG tablet TAKE 1 TABLET BY MOUTH AT ONSET OF MIGRAINE. MAY REPEAT ONCE AFTER 2 HOURS IF NEEDED. NO MORE THAN 4 TABLETS PER DAY 10 tablet 1 023 Active Blood Pressure kitIndications:Hy pertension associated with diabetes (CMS/HCC) (CMS/HCC) 1 kit in the morning. 1 kit 024 Active glucose blood (FreeStyle Precision Mihai Test) test strip Use to test blood sugar four times daily as directed 100 each 2024 Active omega-3 (Fish Oil) 1000 MG capsule TAKE 1 CAPSULE BY MOUTH TWICE DAILY IN THE MORNING AND IN THE EVENING 180 capsule 3 Active fenofibrate micronized (LoFibra) 134 MG capsule TAKE 1 CAPSULE BY MOUTH EVERY EVENING WITH FOOD 90 capsule 024 Active cholecalciferol (D3 Super Strength) 50 MCG (2000 UT) capsule Take 1 capsule (50 mcg) by mouth in the morning. 90 capsule Active lisinopril 20 MG tabletIndications :Essential (primary) hypertension Take 1 tablet (20 mg) by mouth in the morning. 90 tablet Active propranolol (Inderal) 20 MG tabletIndications :Migraine without aura, not intractable, without status migrainosus TAKE 1 TABLET BY MOUTH TWICE DAILY IN THE MORNING AND IN THE EVENING 180 tablet Active fluticasone furoate (Arnuity Ellipta) 100 MCG/ACT inhalerIndication s:Mild persistent asthma without complication INHALE 1 PUFF BY MOUTH EVERY DAY AT THE SAME TIME 1 each Active UltiCare Short Pen [place] 31G X 8 MM mis USE DIRECTED FOUR TIMES DAILY 100 each Active topiramate 50 MG tabletIndications :Migraine without aura, not refractory TAKE 1 TABLET BY MOUTH EVERY DAY 90 tablet Active TRUEplus Lancets 33G miscIndications:T ype 2 diabetes mellitus with hyperlipidemia (CMS/HCC) ([facility]) TEST BLOOD SUGAR TWICE DAILY 100 each Active metFORMIN XR (Glucophage-XR) 500 MG 24 hr tablet TAKE 2 TABLETS BY MOUTH TWICE DAILY IN THE MORNING AND EVENING WITH MEALS 360 tablet Active atorvastatin (Lipitor) 40 MG tablet TAKE 1 TABLET BY MOUTH AT BEDTIME 90 tablet Active omeprazole (PriLOSEC) [address] capsule TAKE 1 CAPSULE BY MOUTH EVERY MORNING BEFORE A MEAL 90 capsule Active aspirin (Aspirin Low Dose) 81 MG EC tablet TAKE 1 TABLET BY MOUTH AT BEDTIME 90 tablet Active amLODIPine (Norvasc) 5 MG tabletIndications :Essential hypertension TAKE 1 TABLET BY MOUTH EVERY MORNING 90 tablet Active Ventolin HFA 108 (90 Base) MCG/ACT inhalerIndication s:Mild persistent asthma without complication INHALE 2 PUFFS BY MOUTH EVERY 6 HOURS NEEDED FOR WHEEZING 18 g Active Tirzepatide (Mounjaro) 7.5 MG/0.5ML solution auto-injectorIndi cations:Type 2 diabetes mellitus with hyperlipidemia (CMS/HCC) ([facility]) Inject 7.5 mg under the skin every 7 (seven) days. 2 mL 11 024 Active tiZANidine (Zanaflex) 2 MG tabletIndications :Low back pain at multiple sites Take 2 tablets (4 mg) by mouth every 6 (six) hours if needed for muscle spasms for up to 10 days. 30 tablet 024 Active lidocaine (Lidoderm) 5 % patchIndications: Low back pain at multiple sites Apply 1 patch topically Once per day. Remove & discard patch within 12 hours or as directed by MD. 28 patch 5 024 Active acetaminophen (Tylenol 8 Hour) 650 MG ER tabletIndications :Low back pain at multiple sites 1-2 tabs as needed for pain up to TID. Do not crush, chew, or split. 180 tablet Active Tresiba FlexTouch 100 UNIT/ML injectionIndicati ons:Type 2 diabetes mellitus with hyperlipidemia (CMS/HCC) ([facility]) INJECT 60 UNITS SUBCUTANEOUSLY EVERY MORNING DIRECTED 15 mL 5 025 Active Continuous Glucose Sensor (FreeStyle Senia 3 Plus Sensor) miscIndications:T ype 2 diabetes mellitus with hyperlipidemia (CMS/HCC) ([facility]) 1 each every 14 (fourteen) days. 2 each 025 Active Continuous Glucose Relay Telegrapher (FreeStyle Senia 3 [place]) deviceIndications :Type 2 diabetes mellitus with hyperlipidemia (CMS/HCC) ([facility]) 1 each every 14 (fourteen) days. 2 each 025 Active Continuous Blood Gluc Relay Telegrapher (FreeStyle Senia 2 [place]) deviceIndications :Type 2 diabetes mellitus with hyperlipidemia (CMS/HCC) ([facility]) 1 each 5 (five) times a day. 1 each 023 2024 Discontinued Continuous Blood Gluc Sensor (FreeStyle Senia 2 Sensor) miscIndications:T ype 2 diabetes mellitus with hyperlipidemia (CMS/HCC) ([facility]) 1 each every 14 (fourteen) days. 6 each 3 023 2024 Discontinued Active Problems Problem Noted Date Diagnosed Date Chronic pain of both knees 11/08/2024 Healthcare maintenance 06/13/2023 Type 2 diabetes mellitus wit h both eyes affected by mild nonproliferative retinopathy without macular edema, without long-term current use of insulin 01/13/2023 Migraine without aura, not refractory 09/02/2022 History of fracture 09/02/2022 Overview (09/02/2022): H/O fracture of wrist per previus EHR Noncompliance with medication regimen 09/02/2022 Hypertriglyceridemia 03/07/2013 Hyperlipidemia 12/24/2012 Atherosclerosis of coronary artery 11/06/2012 Cubital tunnel syndrome 11/06/2012 Numbness and tingling of both legs 10/25/2012 Pain in lower limb 10/25/2012 Low back pain 09/18/2012 Type 2 diabetes mellitus with hyperlipidemia (CM S/HCC) 09/18/2012 Assessment & Plan (09/12/2022 12:44 PM EST): Last A1c 11/2021 10.1, today 09/12/22 improved to 9.3 Remains above goal </= 7.0% Cont lifestyle/nutrition changes DM/DM - related meds include: Tresiba 60 units daily Humalog 10 units w/ Meals Trulicity 1.5mg per wk Glipizide 10mg tabs, 2 tabs bfast & dinner (TDD 40mg, today will decrease as below d/t evidence of minimally increased efficacy >20mg/d) Metformin 1000mgER BID Atorvastatin 40mg Lisinopril 20mg ASA 81mg New machine rx'd today RN call in 1 week for BG #'s Plan will be to increase Trulicity to 3mg wkly if BGs are regularly elevated & no hypoglycemic events. Will decrease glipizide to 10mg BID d/t reason above, called pharmacy to let them know - will happen w/ next medbox as pt *just* picked up. Update routine labs RV 1 mo Hypertension 09/18/2012 Assessment & Plan (09/12/2022 12:40 PM EST): BMP & microalbumin update ordered 09/12/22 Cont amlodipine 5mg every day plus lisinopril 20mg every day Low salt diet, regular exercise Encounters * This document contains information received from the source organization and may not represent a complete record from that organization. Date Type Department Care Team Description 11/18/[address] 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, without long-term current use of insulin ([facility]) 11/15/2024 Travel 11/12/[address] [address] Odilia Cota ANP Durable Medical Equipment (Diabetic shoes) 11/11/[address] [address] Gilda Danielson RNbrusher 11/08/2024 11:15 AM EST Office Visit [address] [address] Odilia Cota ANP Type 2 diabetes mellitus with hyperlipidemia ([facility]/HCC) ([facility]) (Primary Dx); Chronic pain of both knees; Anxiety; Neuropathic pain; Numbness and tingling of both legs 11/08/2024 Travel 11/07/[address] [address] Maxine Ramirez MA chart prep 10/28/2024 Patient Outreach [address] [address] Odilia Cota ANP Pre-visit Planning (Pre visit planning unable to complete. ) 10/23/2024 9:00 AM EST Office Visit [facility] OPTOMET[facility] [address] [place] [address] Geoffrey, Audrey, OD Presbyopia of both eyes (Primary Dx) 10/23/2024 Travel 10/04/[address] [facility] [address] [place] [address] Odilia Cota ANP Type 2 diabetes mellitus with hyperlipidemia ([facility]/HCC) ([facility]/HCC) 09/26/[address] [facility] [address] [place], [place] [phone] Tyron Moya, ARRON November recall 09/02/[address] [facility] [address] [place] [address] Odilia Cota ANP from Last 3 Months Immunizations Name Administration Dates Next Due Hep A, Adult 03/01/2024,03/07/2013 Hep B, adult 10/16/2002,06/05/2002,03/15/2002 Influenza Injectable Quadriv alant Preservative Free IIV4 MDCK 07/30/2020 Influenza injectable quadriv alent IIV4 with preservative 2018,06/19/2017 Influenza injectable quadriv alent preservative free 06/13/2023,08/22/2022,06/25/2021,07/17 Influenza, IIV3, injectable 08/10/2016, 1 Influenza, Split (incl. blake fied surface antigen) 08/16/2013 Influenza, seasonal, injecta ble, preservative free 07/30/2024,08/10/2016 Moderna Covid-19 Vaccine 12+ 12/24/2021,12/12/19 21,11/13/2020 Pfizer Covid-19 Vaccine 12+ 08/12/2024 Pneumococcal Conjugate PCV 20 06/13/2023 Pneumococcal Polysaccharide PPSV23 01/09/2019,,02/26/2008 TD (adult), 2 Lf tetanus tox oid, preservative free, adsorbed 01/10/2007 Tdap 03/01/2024,03/07/2013 Zoster, Recombinant 08/12/2024,04/10/2024 Social History Tobacco Use Types Packs/Day Years Used Date Smoking Tobacco: Former Cigarettes Passive Smoke Exposure: Past Smokeless Tobacco: Never Tobacco Cessation:Counseling Given: Not Answered Alcohol Use Standard Drinks/Week Comments Yes 0 (1 standard drink = 0.6 oz pur e alcohol) Socially Depression Answer Date Recorded Patient Health Questionnaire-9 Score 0 11/08/2024 Patient Health Questionnaire-9 Score 0 11/08/2024 Last PHQ-9: Questionnaire Data Not on file 0 11/08/2024 Housing Stability Answer Date Recorded What is [...] Date Recorded Patient Health Questionnaire-2 Score 0 11/08/2024 Internet Access Answer Date Recorded Internet Access Q1 Yes 07/30/2024 Internet Access Q2 Not on file 07/30/2024 Sex and Gender Information Value Date Recorded Sex Assigned at Male 08/01/2022 10:16 AM EDT Legal Sex Male 10:16 AM EDT Gender Identity Male 08/01/2022 10:16 AM EDT Sexual Orientation Choose not to disclose 2021 10:16 AM EDT Last Filed Vital Signs Vital Sign Reading Time Taken Comments Blood Pressure 114/80 11/08/2024 11:20 AM EST Pulse 82 11/08/2024 11:15 AM EST Temperature 36.3 ??C (97.3 ??F) 11/08/2024 11:[address] Respiratory Rate 20 11/08/2024 11:15 AM EST Oxygen Saturation 98% 11/08/2024 11:15 AM EST Inhaled Oxygen Concentration - - Weight 94.4 kg (208 lb 3.2 oz) 11/08/2024 11:15 AM EST Height 182.9 cm (6') 07/30/2024 9:22 AM EDT Body Mass Index 28.24 07/30/2024 9:22 AM EDT Plan of Treatment Upcoming Encounters Date Type Department Care Team (Late st Contact Info) Description 01/17/2025 10:00 AM EDT Office Visit [facility] OPTOMET[facility] [address] [place] [address] Audrey Hale, OD [address] [place] [address] Health Maintenance Due Date Last Done Comments CT Colonography 1973 Colonoscopy 1973 Colorectal Cancer Screening 1973 FIT DNA/Cologuard 1973 FIT 1973 FOBT 1973 HIV Screening 1973 Sigmoidoscopy 1973 Family Planning (PISQ) 1988 Hepatitis C Screening 1991 Diabetes: Urine Protein Screening 06/25/2021 06/25/2020, 10/11/2019 Lipid Panel 12/04/2021 12/04/2020 Diabetes: Foot Exam 01/14/2024 01/13/2023, 01/13/2023, 01/13/2023 Eye Exam 01/16/2025 01/17/2024, 12/31, 01/17/2024, Additional history exists Diabetes: Hemoglobin A1C 02/05/2025 025, 07/30/2024, 04/23/2024, Additional history exists Alcohol/Substance Use Screening 07/30/2025 07/30/2024 SDOH Screening 07/30/2025 07/30/2024 Depression Screening 11/08/2025 11/08/2024, 11/08/19 25 Tobacco Screening 11/08/2025 11/08/2024 DTaP/Tdap/Td Vaccines (3 - Td or Tdap) 03/01/2034 03/01/2024, 03/07/2013, 01/10/2007 RSV Patients and Patients Aged 60 years or older (1 - 1-dose 75+ series) 2048 Hepatitis B Vaccines Completed 10/16/2002, 06/05/2002, 03/15/2002 Pneumococcal Vaccine: 50+ Years Completed 06/13/2023, 01/09/2019, 09/13/2011, Additional history exists Hepatitis A Vaccines Aged Out 03/01/2024, 03/07/20 13 No longer eligible based on patient's age to complete this topic Influenza Vaccine Completed 07/30/2024, , 08/22/2022, Additional history exists COVID-19 Vaccine Completed 08/12/2024, , 12/11/2020, Additional history exists Zoster Vaccines Completed 08/12/2024, 04/10/2024 HIB Vaccines Aged Out No longer eligi ble based on patient's age to complete this topic HPV Vaccines Aged Out No longer eligi ble based on patient's age to complete this topic IPV Vaccines Aged Out No longer eligi ble based on patient's age to complete this topic Meningococcal Vaccine Aged Out No walker beata eligible based on patient's age to complete this topic RSV under 20 months Aged Out No longe r eligible based on patient's age to complete this topic Rotavirus Vaccines Aged Out No longer eligible based on patient's age to complete this topic Goals Goal Patient Goal Type Associated Problems Recent Progress Patient-Stated? Author Blood Pressure < 140/90 Blood Pressure 114/80(2024 11:20 AM EST) No Jakub Cheney PharmD Hemoglobin A1c < 7 Result Component 8.4( 11:33 AM EST) No Jakub Cheney PharmD Procedures Procedure Name Priority Date/Time Associated Diagnosis Comments POCT GLYCATED HEMOGLOBIN, TOTAL Routine 11/08/2024 11:33 AM EST Type 2 diabetes mellitus with hyperlipidemia (CMS/HCC) (CMS/HCC) POCT GLUCOSE Routine 11/08/2024 11:32 AM EST Type 2 diabetes mellitus with hyperlipidemia (CMS/HCC) (CMS/HCC) LIPID PANEL, STANDARD Routine 12/04/2020 8:28 AM EST ALBUMIN, RANDOM URINE W/CREATININE Routine 06/25/2020 10:45 AM EDT from Last 3 Months or Most Recently Relevant to Health Maintenance Results * (ABNORMAL) POCT HGB A1C (11/08/2024 11:33 AM EST) Hemoglobin A1C 8.4(A) 4.0 - 6.0 % QC Media Lot # [id number] Lot# Expiration Date Blood 11/08/2024 11:3 3 AM EST [facility] POINT OF CARE TEST ENTER/EDIT OR DERABLES Final Result * (ABNORMAL) POCT Glucose (11/08/2024 11:32 AM EST) Pathologist [facility] Glucose Blood, POC 217(A) 60 - 200 mg/dL QC Media Lot # [id number] Lot# Expiration Date Blood Capillary blood specimen / Unknown 11/08/2024 11:32 AM EST [facility] POINT OF CARE TEST ENTER/EDIT OR DERABLES Final Result * (ABNORMAL) LIPID PANEL, STANDARD (12/04/2020 8:28 AM EST) Chol/HDLC Ratio 5.1(H) <5.0 (calc) [facility] Cholesterol, Total 149 <200 mg/dL [facility] HDL Cholesterol 29(L) > OR = 40 mg/dL [facility] LDL Cholesterol SEE COMMENT mg/dL (calc) [facility] Comment: ?? LDL cholesterol not calculated. Triglyceride levels greater than 400 mg/dL invalidate calculated LDL results. ?? Reference range: <100 ?? Desirable range <100 mg/dL for primary prevention; ?? <70 mg/dL for patients with CHD or diabetic patients ?? with > or = 2 CHD risk factors. ?? LDL-C is now calculated using the Nikos ?? calculation, which is a validated novel method providing ?? better accuracy than the Friedewald equation in the ?? estimation of LDL-C. ?? Duglas MCLEOD et al. KENNETH. 2013;310(19): 1843-4157 ?? (http://education.[employer]DoubleRecall/faq/CMQ330) Non-HDL Cholesterol 120 <130 mg/dL (calc) [facility] Comment: For patients with diabetes plus 1 major ASCVD risk ?? factor, treating to a non-HDL-C goal of <100 mg/dL ?? (LDL-C of <70 mg/dL) is considered a therapeutic ?? option. Triglycerides 439(H) <150 mg/dL [facility] Comment: ?? If a non-fasting specimen was collected, consider repeat triglyceride testing on a fasting specimen if clinically indicated. ?? Minal et al. J. of Clin. Lipidol. 2015;9:129-169. ?? 12/04/2020 8:28 AM EST Historical Provider MD LAB BLOOD ORDERABLES Bailee zepeda Result Performing Organization Address [facility] de Phone Number [facility] [address] * ALBUMIN, RANDOM URINE W/CREATININE (06/25/2020 10:45 AM EDT) Microalbumin Urine 0.9 See Note: mg/dL [facility] Comment: Reference Range: ?? Reference Range Not established Microalb/Creat Ratio 9 <30 mcg/mg creat [facility] Comment: ?? The ADA defines abnormalities in albumin excretion as follows: ?? Category ? Result (mcg/mg creatinine) ?? Normal ?<30 Microalbuminuria ? 30-299 ?? Clinical albuminuria ?? > OR = 300 ?? The ADA recommends that at least two of three specimens collected within a 3-6 month period be abnormal before considering a patient to be within a diagnostic category. Creatinine, Urine 96 20 - 320 mg/dL [facility] 06/25/2020 10:4 5 AM EDT Historical Provider MD LAB URINE ORDERABLES Bailee zepeda Result Performing Organization Address [facility] de Phone Number [facility] [address] from Last 3 Months or Most Recently Relevant to Health Maintenance Insurance [facility] STANDARD Care Teams Shop [employer] Relationship Specialty Start Date End Date Odilia Cota ANP [address] [place] [address] PCP - General Family Medicine 05/24/21 Jakub Cheney PharmD [address] [place] [address] Pharmacist Internal Medicine 01/23/24
--- OUTSIDE RECORDS SUMMARY | 2024-11-19 09:55 | XMS_ITS | Encounter Summary ---
Author Organization [employer] Address [address] [facility] 7[address] [place] [address] Care Team Providers Care Sequins Spooler Name Role Phone Odilia Cota MELISSA Primary Care Provider [phone] Jakub Cheney PharmD Unavailable [phone] Reason for Visit * Reason Comments CGM initial visit Encounter Details Date Type Department Care Team (Latest Contact Info) Description 11/15/2024 9:30 AM EST Clinical Support [facility] MEDICINE [address] [place] [address] Gilda Danielson RN Type 2 diabetes mellitus with both eyes affected by mild nonproliferative retinopathy without macular edema, without long-term current use of insulin ([facility]) Social History Tobacco Use Types Packs/Day Years [...] as of this encounter Progress Notes * Glida Danielson RN - 11/15/2024 9:30 AM EST SUBJECTIVE: Clem Kathleen is a 49 y.o. year old male who presented for No chief complaint on file. Preferred language for medical information: Mortar Mixer needed: Yes. Luxembourgish translation by BRIAN Casanova CGM device: CGM DEVICE: [email or web address] Senia 3 Clem Kathleen brought in CGM device to today's visit OBJECTIVE: Lab Results Component Value Date ALT 36 06/25/2020 LDLCHOL SEE COMMENT 12/04/2020 K 4.9 04/01/2021 NA 134 (L) 04/01/2021 CREATININE 1.15 04/01/2021 EGFR >60 04/01/2021 HGBA1C 8.4 (A) 11/08/2024 HGBA1C 7.8 (A) 07/30/2024 HGBA1C 7.6 04/23/2024 BP Readings from Last 4 Encounters: 11/08/24 114/80 08/12/24 128/70 07/30/24 110/90 04/23/24 (!) 147/92 Pulse Readings from Last 4 Encounters: 11/08/24 82 08/12/24 91 07/30/24 80 04/23/24 80 EDUCATION: The following was reviewed with Clem Kathleen and they confirmed understanding- Select site on back of upper arm. Do not use other sites as these are not approved and may result in inaccurate glucose readings. Note avoid scars, moles, stretch moura, lumps, and insulin injection sites. The sensor should be changed every 15 days and site rotated between applications. Advised pt to scan at least every 24 hours with Senia 3, though more frequently is recommended Clean site with alcohol wipe. Allow site to dry before proceeding. Peel lid completely off sensor pack. Unscrew cap from sensor applicator. Caution sensor codes must match on sensor pack and sensor applicator or glucose readings will be incorrect. Line up dark angelica on sensor applicator with dark angelica on sensor pack. On a hard surface, press downfirmly on sensor applicator until it comes to a stop. Lift sensor applicator out of sensor pack. Sensor applicator is ready to apply sensor. Caution sensor applicator now contains a needle. Do nottouch inside sensor applicator or put back into sensor pack. Place sensor applicator over site and push down firmly to apply sensor. Caution do not push down onsensor applicator until placed over prepared site to prevent unintended results or injury. Gently pull sensor applicator away from your body. Make sure sensor is secure. Discard used sensor applicator and sensor pack according to local regulations. Allow 60 minute warm-up time from 1st scan to get readings. If sensor falls off, do not re-apply, apply 2nd sensor. Can apply patch to help keep sensor in place Products available to help adhesion to skin: Simpatch, available on [employer], Torbat Skin Tac, Skin-Prep Protective Barrier Wipe, Tegaderm I.V. Mastisol Liquid Adhesive available over the counter. Can get wet up to 3ft of water for 30 minutes. Remove sensor for MRI, CT scan or high frequency electrical treatment- this may damage sensor and possibly injure the patient. Do not ignore low/high symptoms- if sensor readings don't match with symptoms, use BG meter to confirm readings. Use only the electrical equipment provided by the referral and information aide. Do not use if you are on dialysis or critically ill- it has not been approved. Aspirin may falsely lower readings at doses greater than 650mg. Vitamin C at doses greater than 500mg may falsely raise readings. GOALS: Clem Kathleen will utilize CGM device at least 70% of the time Clem Kathleen will recognize hypoglycemic signs and symptoms and treatment Pt will be able to wear Senia 3 for full 15 days without it falling off, discussed methods to increase device adherence ASSESSMENT/PLAN: Clem Kathleen left wearing 1st sensor Advised will reach out to Pharmacy staff to determine plan for data review. Pt verbalized understanding Gilda Danielson RN documented in this encounter Plan of Treatment Upcoming Encounters Date Type Department Care Team (Late st Contact Info) Description 01/17/2025 10:00 AM EDT Office Visit [facility] OPTOMETRY [address] [place] [address] Geoffrey, Audrey, OD [address] [place] [address] documented as of this encounter Goals Goal Patient Goal Type Associated Problems Recent Progress Patient-Stated? Author Blood Pressure < 140/90 Blood Pressure 114/80(2024 11:20 AM EST) No Jakub Cheney PharmD Hemoglobin A1c < 7 Result Component 8.4( 11:33 AM EST) No Jakub Cheney PharmD documented as of this encounter Visit Diagnoses Diagnosis Type 2 diabetes mellitus with both eyes affected by mild nonproliferative retinopathy without macular edema, without long-term current use of insulin ([facility]) documented in this encounter Additional Health Concerns Assessment Noted Time PHQ-9 Depression Total Score: 0 11/08/19 25 11:31 AM EST documented as of this encounter Care Teams Sequins Spooler Relationship Specialty Start Date End Date Odilia Cota ANP [address] [place] [address] PCP - General Family Medicine 05/24/21 Jakub Cheney PharmD [address] [place], [place] [id number] Pharmacist Internal Medicine 01/23/24 documented as of this encounter
--- OUTSIDE RECORDS SUMMARY | 2024-11-19 09:55 | XMS_ITS | Encounter Summary ---
Author Organization [employer] Address [address] [facility] 7t [place] [address] Care Team Providers Care Rn Vascular Name Role Phone Odilia Cota Primary Care Provider [phone] Jakub Cheney PharmD Unavailable [phone] Reason for Visit * Reason Comments Pre-visit Planning Pre visit planning u nable to complete. Encounter Details Date Type Department Care Team ([facility] st Contact Info) Description 10/28/2024 Patient Outreach [facility] MEDICINE [address] [place] [address] Odilia Cota ANP [address] [place] [address] Pre-visit Planning (Pre visit planning unable to complete. ) Social History Tobacco Use Types Packs/Day Years [...] as of this encounter Progress Notes * Lauri Lan - 10/28/2024 10:25 AM EST CC Lauri Flowers placed successful outbound call to patient for pre-visit planning. Patient name and confirmed. Patient confirms appt date and time, and has transportation arrangements. Biggest concern for appointment at this time is no concerns. Patient advised to bring to appointment a photo id and insurance card. Appropriate screenings completed in anticipation of appointment. documented in this encounter Plan of Treatment Upcoming Encounters Date Type Department Care Team (Late st Contact Info) Description 01/17/2025 10:00 AM EDT Office Visit [facility] OPTOMETRY [address] [place] [address] Audrey Hale, OD [address] [place] [address] documented as of this encounter Goals Goal Patient Goal Type Associated Problems Recent Progress Patient-Stated? Author Blood Pressure < 140/90 Blood Pressure 114/80(2024 11:20 AM EST) No Jakub Cheney, PharmAspen Hemoglobin A1c < 7 Result Component 8.4( 11:33 AM EST) No Jakub Cheney PharmAspen documented as of this encounter Visit Diagnoses Not on filedocumented in this encounter Care Teams Rn Vascular Relationship Specialty Start Date End Date Odilia Cota, MELISSA [address] [place] [address] PCP - General Family Medicine 05/24/21 Jakub Cheney, Maria EugeniaD [address] [place] [address] Pharmacist Internal Medicine 01/23/24 documented as of this encounter
--- OUTSIDE RECORDS SUMMARY | 2024-11-19 09:55 | XMS_ITS | Encounter Summary ---
Author Organization [employer] Address [address] [place] [address] Care Team Providers Care Fabric Cutter Name Role Phone Odilia Cota MELISSA Primary Care Provider [phone] Jakub Cheney PharmD Unavailable [phone] Encounter Details Date Type Department Care Team (Latest Contact Info) Description 11/15/2024 Travel Social History Tobacco Use Types Packs/Day [...] Description 01/17/2025 10:00 AM EDT Office Visit [facility] OPTOMETRY [address] [place], [place] [phone] Audrey Hale, OD [address] [place] [address] documented as of this encounter Goals Goal Patient Goal Type Associated Problems Recent Progress Patient-Stated? Author Blood Pressure < 140/90 Blood Pressure 114/80(2024 11:20 AM EST) No Jakub Cheney PharmD Hemoglobin A1c < 7 Result Component 8.4( 11:33 AM EST) No Jakub Cheney PharmD documented as of this encounter Visit Diagnoses Not on filedocumented in this encounter Additional Health Concerns Assessment Noted Time PHQ-9 Depression Total Score: 0 11/08/19 25 11:31 AM EST documented as of this encounter Care Teams Fabric Cutter Relationship Specialty Start Date End Date Odilia Cota ANP [address] [place] [address] PCP - General Family Medicine 05/24/21 Jaukb Cheney PharmD [address] [place], [place] [phone] Pharmacist Internal Medicine 01/23/24 documented as of this encounter
--- OUTSIDE RECORDS SUMMARY | 2024-11-19 09:56 | XMS_ITS | Encounter Summary ---
Author Organization [employer] Address [address] [facility] [address] [place] [address] Care Team Providers Care Pocket And Pulley Machine Operator Name Role Phone Odilia Cota MELISSA Primary Care Provider [phone] Jakub Cheney PharmD Unavailable [phone] Encounter Details Date Type Department Care Team ([facility] Contact Info) Description 02/28/2023 Orders Only [facility] MEDICINE [address] [place] [address] Vianney Nevarez LPN Social History Tobacco Use Types Packs/Day Years Used Date Smoking Tobacco: Former Cigarettes Passive Smoke Exposure: Never Smokeless Tobacco: Never Alcohol Use Standard Drinks/Week Comments Yes 0 (1 standard drink = 0.6 oz pur e alcohol) Socially Depression Answer Date Recorded Patient Health Questionnaire-2 Score 0 09/12/2022 Sex and Gender Information Value Date Recorded Sex Assigned at Male 08/01/2022 10:16 AM EDT Legal Sex Male 10:16 AM EDT Gender Identity Male 08/01/2022 10:16 AM EDT Sexual Orientation Choose not to disclose 2021 10:16 AM EDT COVID-19 Exposure Response Date Recorded In the last 10 days, have yo u been in contact with someone who was confirmed or suspected to have Coronavirus/COVID-19? No / Unsure 02/07/2023 1:16 PM EDT documented as of this encounter Plan of Treatment Upcoming Encounters Date Type Department Care Team ([facility] Contact Info) Description 01/17/2025 10:00 AM EDT Office Visit [facility] OPTOMETRY [address] [place] [address] Audrey Hale, OD [address] [place] [address] documented as of this encounter Visit Diagnoses Not on filedocumented in this encounter Care Teams Pocket And Pulley Machine Operator Relationship Specialty Start Date End Date Odilia Cota ANP [address] [place] [address] PCP - General Family Medicine 05/24/21 Jakub Cheney PharmD [address] [place] [address] Pharmacist Internal Medicine 01/23/24 documented as of this encounter
--- OUTSIDE RECORDS SUMMARY | 2024-11-19 09:56 | XMS_ITS | Encounter Summary ---
Author Organization [employer] Address [address] [facility] 7t [place] [address] Care Team Providers Care Engine Installer Name Role Phone Odilia Cota Primary Care Provider [phone] Jakub Cheney PharmD Unavailable [phone] Reason for Visit * Reason Onset Date Comments Durable Medical Equipment 11/12/2024 Diabet ic shoes Encounter Details Date Type Department Care Team (Late st Contact Info) Description 11/12/2024 Telephone [facility] MEDICINE [address] [place] [address] Odilia Cota ANP [address] [place] [address] Durable Medical Equipment (Diabetic shoes) Social History Tobacco Use Types Packs/Day Years [...] AM EDT documented as of this encounter Miscellaneous Notes * Telephone Encounter - Kailyn Murray - 11/19/2024 9:52 AM EST RX for diabetic shoes signed and faxed to [facility] on 11/15/2024. Confirmation received and sent to scan. If patient calls to check status on above, please advise them to contact [facility] at [phone]. * Telephone Encounter - Kailyn Murray - 11/12/2024 10:15 AM EST DME RX for diabetic shoes generated and placed on providers desk for signature. * Telephone Encounter - Kailyn Murray - 11/12/2024 10:15 AM EST ----- Message from Odilia Cota sent at 11/08/2024 4:30 PM EST ----- Please generate RX for DM shoes - will need MD or DO signature. documented in this encounter Plan of Treatment Upcoming Encounters Date Type Department Care Team (Late st Contact Info) Description 01/17/2025 10:00 AM EDT Office Visit [facility] OPTOMETRY [address] [place] [address] Audrey Hale OD [address] [place] [address] documented as of this encounter Goals Goal [...] documented as of this encounter Care Teams Engine Installer Relationship Specialty Start Date End Date Odilia Cota ANP [address] [place] [address] PCP - General Family Medicine 05/24/21 Jakub Cheney, Alan [address] [place] [address] Pharmacist Internal Medicine 01/23/24 documented as of this encounter
--- OUTSIDE RECORDS SUMMARY | 2024-11-19 09:56 | XMS_ITS | Encounter Summary ---
Author Organization [employer] Address [address] [facility] [address] [place] [address] Care Team Providers Care Clinic Nurse Name Role Phone Odilia Cota Primary Care Provider Jakub Cheney PharmD Unavailable [phone] Reason for Visit * Reason Comments Med Refill Encounter Details Date Type Department Care Team ([facility] st Contact Info) Description 11/18/2024 Refill [facility] MEDICINE [address] [place] [address] Odilia Cota ANP [address] [place] [address] Type 2 diabetes mellitus with hyperlipidemia ([facility]/HCC) ([facility]); Essential hypertension Social History Tobacco Use Types Packs/Day Years [...] Description 01/17/2025 10:00 AM EDT Office Visit [facility] OPTOMETRY [address] [place] [address] GeoffreyAudrey, OD [address] [place] [address] documented as of this encounter Goals Goal Patient Goal Type Associated Problems Recent Progress Patient-Stated? Author Blood Pressure < 140/90 Blood Pressure 114/80(2024 11:20 AM EST) No Jakub Cheney, PharmAspen Hemoglobin A1c < 7 Result Component 8.4( 11:33 AM EST) No Jakub Cheney, PharmD documented as of this encounter Visit Diagnoses Diagnosis Type 2 diabetes mellitus with hyperlipidemia (CMS/HCC) ([facility]) Essential hypertension Unspecified essential hypertension documented in this encounter Additional Health Concerns Assessment Noted Time PHQ-9 Depression Total Score: 0 11/08/19 25 11:31 AM EST documented as of this encounter Care Teams Clinic Nurse Relationship Specialty Start Date End Date Odilia Cota ANP [address] [place] [address] PCP - General Family Medicine 05/24/21 Jakub Cheney, PharmD [address] [place] [address] Pharmacist Internal Medicine 01/23/24 documented as of this encounter
--- OUTSIDE RECORDS SUMMARY | 2024-11-19 09:56 | XMS_ITS | Encounter Summary ---
Author Organization [employer] Address [address] [facility] [address]t [place] [address] Care Team Providers Care Curriculum Designer Name Role Phone Beata Odilia TORRES Primary Care Provider [phone] Jakub Cheney PharmD Unavailable [phone] Reason for Visit * Reason Onset Date Comments Prior Authorization 11/11/2024 Encounter Details Date Type Department Care Team (Late st Contact Info) Description 11/11/2024 Telephone [facility] MEDICINE [address] [place] [address] Gilda Danielson RNchainstitch pants outseamer Social History Tobacco Use Types Packs/Day Years [...] encounter Miscellaneous Notes * Telephone Encounter - Sangeeta Cartwright RN - 11/14/2024 1:18 PM EST Telephone call placed to pt. Booked for sonja 3 CGM teaching tomorrow morning. Advised to garbage pick up worker supplies from pharmacy prior to coming to appt tomorrow. Pt verbalized understanding and denied having any further questions or concerns at this time. Telephone call placed to pharmacy who states will get Sonja 3 ready for garbage pick up worker now. * Telephone Encounter - Kailyn Murray - 11/14/2024 10:23 AM EST PA approvals received for [employer] ABe 3 reader and sensor. Scanned into media. * Telephone Encounter - Sangeeta Cartwright RN - 11/11/2024 4:03 PM EST Faxed signed PA packet to as below * Telephone Encounter - MELISSA Henderson - 11/11/2024 11:25 AM EST Oh cool - thanks! * Telephone Encounter - Gilda Danielson RN - 11/11/2024 11:00 AM EST Gerneated prior authorization packet for CGM [employer] Sonja 3. Placed on PCP desk for signature. -- Odilia Cota NP Please request prior authorization for sonja 3plus sensors and sonja 3 reader. Patient is using sonja 2 and the device keeps falling off regardless of using extra adhesive on top and preparing the site well. documented in this encounter Plan of Treatment Upcoming Encounters Date Type Department Care Team (Late st Contact Info) Description 01/17/2025 10:00 AM EDT Office Visit [facility] OPTOMETRY [address] [place], [place] [phone] Geoffrey, Megan, OD [address] [place] [address] documented as of this encounter Goals Goal [...] documented as of this encounter Care Teams Curriculum Designer Relationship Specialty Start Date End Date Odilia Cota ANP [address] [place] [address] PCP - General Family Medicine 05/24/21 Jakub Cheney PharmD [address] [place] [address] Pharmacist Internal Medicine 01/23/24 documented as of this encounter
--- OUTSIDE RECORDS SUMMARY | 2024-11-19 09:56 | XMS_ITS | Encounter Summary ---
Author Organization [employer] Address [address] [place] [address] Care Team Providers Care Roving Machine Operator Name Role Phone Odilia Cota Primary Care Provider [phone] Jakub Cheney PharmD Unavailable [phone] Reason for Visit * Reason Comments Med Refill Encounter Details Date Type Department Care Team ([facility] st Contact Info) Description 11/25/2023 Refill [facility] MEDICINE [address] [place] [address] Odilia Cota ANP [address] [place] [address] Shortness of breath Social History Tobacco Use Types Packs/Day Years Used Date Smoking Tobacco: Former Cigarettes Passive Smoke Exposure: Never Smokeless Tobacco: Never Alcohol Use Standard Drinks/Week Comments Yes 0 (1 standard drink = 0.6 oz pur e alcohol) Socially Housing Stability Answer Date Recorded What is your housing situation today? I have charlette watters 07/17/[address] you li ve. Do you have problems with any of the following? None of the above 07/17/2023 Food Insecurity Answer Date Recorded Within the past 12 months, y ou worried that your food would run out before you got money to buy more: Never True 07/17/2023 Within the past 12 months,th e food you bought just didn't last and you didn't have enough money to get more: Never True Transportation Answer Date Recorded In the past 12 months, has l ack of transportation kept you from medical appts, meetings, work or from getting things needed for daily living? No 07/17/2023 Utilities Answer Date Recorded In the past 12 months, has t he electric, gas, oil or water [employer] Me threatened to shut off services in your home? No 07/17/2023 Depression Answer Date Recorded Patient Health Questionnaire-2 Score 0 09/14/2023 Sex and Gender Information Value Date Recorded [...] Description 01/17/2025 10:00 AM EDT Office Visit [facility] OPTOMETRY [address] [place] [address] Audrey Hale, VIET [address] [place] [address] documented as of this encounter Visit Diagnoses Diagnosis Shortness of breath documented in this encounter Care Teams Roving Machine Operator Relationship Specialty Start Date End Date Odilia Cota ANP [address] [place] [address] PCP - General Family Medicine 05/24/21 Jakub Cheney, Alan [address] [place] [address] Pharmacist Internal Medicine 01/23/24 documented as of this encounter
--- OUTSIDE RECORDS SUMMARY | 2024-11-19 09:56 | XMS_ITS | Clinical Summary ---
Author Organization [facility] Address [address] [place] [address] Care Team Providers Care Narrow Gauge Engineer Name Role Phone Unavailable Primary Care Provider Unavailabl e Social History Tobacco Use Types Packs/Day Years Used Date Smoking Tobacco: Never Assessed Sex and Gender Information Value Date Recorded Sex Assigned at Not on file Gender Identity Not on file Sexual Orientation Not on file Plan of Treatment Not on file
--- OUTSIDE RECORDS SUMMARY | 2024-11-19 09:56 | XMS_ITS | Encounter Summary ---
Author Organization [employer] Address [address] [facility] [address] [place] [address] Care Team Providers Care Sports Physician Name Role Phone Odilia Cota MELISSA Primary Care Provider [phone] Jakub Cheney PharmD Unavailable [phone] Encounter Details Date Type Department Care Team ([facility] Contact Info) Description 01/20/2023 Orders Only [facility]S [address] [place], [place] [phone] Melia Owen LPN Social History Tobacco Use Types Packs/Day Years Used Date Smoking Tobacco: Never Passive Smoke Exposure: Never Smokeless Tobacco: Never [...] suspected to have Coronavirus/COVID-19? No / Unsure 01/13/2023 8:39 AM EDT documented as of this encounter Plan of Treatment Upcoming Encounters Date Type Department Care Team ([facility] Contact Info) Description 01/17/2025 10:00 AM EDT Office Visit [facility] OPTOMETRY [address] [place] [address] Audrey Hale, OD [address] [place] [address] documented as of this encounter Visit Diagnoses Not on filedocumented in this encounter Care Teams Sports Physician Relationship Specialty Start Date End Date Odilia Cota ANP [address] [place] [address] PCP - General Family Medicine 05/24/21 Jakub Cheney PharmD [address] [place] [address] Pharmacist Internal Medicine 01/23/24 documented as of this encounter
--- OUTSIDE RECORDS SUMMARY | 2024-11-19 09:56 | XMS_ITS | Encounter Summary ---
Author Organization [employer] Address [address] [facility] [address] [place] [address] Care Team Providers Care Roll Operator Name Role Phone Odilia Cota Primary Care Provider [phone] Jakub Cheney PharmD Unavailable [phone] Reason for Referral * Consultation (Routine) - Authorized Specialty Diagnoses / Procedures Referred By Perlita boston Referred To Contact Podiatry Diagnoses Type 2 diabetes mellitus with hyperlipidemia (CMS/HCC) ([facility]/HCC) Neuropathic pain Odilia Cota ANP [address] [place] [address] Phone: tel: fax: Javier Desai DPM [address] [facility] [address] [place] [address] Phone: tel: fax: Referral ID Status Reason Start Date Expiration Date Visits Requested Visits Authorized [id number] Authorized Specialty Services Required 11/12/2024 11/12/2025 6 6 * Consultation (Routine) - Closed Specialty Diagnoses / Procedures Referred By Contluis t Referred To Contact Behavioral Health Diagnoses Anxiety Odilia Cota ANP [address] [place] [address] Phone: tel: fax: Referral ID Status Reason Start Date Expiration Date V isits Requested Visits Authorized [id number] Closed Specialty Services Required 11/08/2024 11/08/2025 1 1 * Neurology (Routine) - Authorized Specialty Diagnoses / Procedures Referred By Contac t Referred To Contact Diagnoses Neuropathic pain Procedures EMG Odilia Cota ANP [address] [place] [address] Phone: tel: fax: [address] Phone: tel: fax: Referral ID Status Reason Start Date Expiration Date V isits Requested Visits Authorized [id number] Authorized 11/08/2024 11/08/2025 1 1 * Consultation (Urgent) - Authorized Specialty Diagnoses / Procedures Referred By Perlita boston Referred To Contact Orthopaedic Surgery Diagnoses Chronic pain of both knees Odilia Cota ANP [address] [place] [address] Phone: tel: fax: [facility] Orth[facility] [address] [place] [address] Phone: tel: Referral ID Status Reason Start Date Expiration Date Visits Requested Visits Authorized [id number] Authorized Specialty Services Required 11/08/2024 11/08/2025 6 6 Reason for Visit * Reason Comments Follow-up A1C Encounter Details Date Type Department Care Team (Latest Contact Info) Description 11/08/2024 11:15 AM EST Office Visit [facility] MEDICINE [address] [place] [address] Odilia Cota ANP [address] [place] [phone] Type 2 diabetes mellitus with hyperlipidemia (CMS/HCC) ([facility]/HCC) (Primary Dx); Chronic pain of both knees; Anxiety; Neuropathic pain; Numbness and tingling of both legs Social History Tobacco Use Types Packs/Day Years [...] AM EDT documented as of this encounter Last Filed Vital Signs Vital Sign Reading [...] 3.2 oz) 11/08/2024 11:15 AM EST Height - - Body Mass Index 28.24 07/30/2024 9:22 AM EDT documented in this encounter Progress Notes * MELISSA Henderson - 11/08/2024 11:15 AM EST SUBJECTIVE: Clem Kathleen is a 49 y.o. year old male who presents for chronic disease management. Denies recent illness, injury, or hospitalization. PMH HTN, T2DM w/ HLD, high TG, migraine, mild nonprolif retinopathy, CAD, cubital tunnel syndrome Non-smoker [employer] utilized for Uzbek interpretation #[id number] Acute Concerns: DM - following w/ CDTM, last visit 08/12/24. He would like to see them again. A1c has gone up - he has been eating stuff he shouldn't be - he has been not working and getting very anxious. He says he often has a lot of anxiety. initially today he doesn't want to see anyone but does agree to phone call for behavioral health consultation. His knees are really hurting a lot. He has not been able to work d/t pain and disability. 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 He also has nerve pain in bilateral lower extremities worse in the lower part of the legs. He has not had a nerve conduction study done for this Lab Results Component Value Date HGBA1C 8.4 (A) 11/08/2024 HGBA1C 7.8 (A) 07/30/2024 HGBA1C 7.6 04/23/2024 HGBA1C 9.0 (A) 01/23/2024 Former-smoker Social History Social History Narrative Not on file Patient Active Problem List Diagnosis Atherosclerosis of coronary artery Low back pain Cubital tunnel syndrome Type 2 diabetes mellitus with hyperlipidemia ([facility]/HCC) ([facility]) Hyperlipidemia Hypertension Hypertriglyceridemia Migraine without aura, not refractory Numbness and tingling of both legs Pain in lower limb History of fracture Noncompliance with medication regimen Type 2 diabetes mellitus with both eyes affected by mild nonproliferative retinopathy without macular edema, without long-term current use of insulin ([facility]) Healthcare maintenance Chronic pain of both knees Past Surgical History: Procedure Laterality Date CARDIAC CATHETERIZATION Left 08/25/2010 single vessel nonobstructive (40%) LAD Disease CARPAL TUNNEL RELEASE Left 04/20/2011 ULNAR TUNNEL RELEASE Left 04/20/2011 No family history on file. Review of Systems Constitutional: Negative for fatigue, fever and unexpected weight change. HENT: Negative for sore throat. Respiratory: Negative for chest tightness, shortness of breath and wheezing. Gastrointestinal: Negative for constipation. Endocrine: Negative for polydipsia, polyphagia and polyuria. Genitourinary: Negative for difficulty urinating and dysuria. Musculoskeletal: Negative for back pain. Skin: Negative for rash. Neurological: Negative for headaches. Psychiatric/Behavioral: The patient is nervous/anxious. OBJECTIVE: Vitals: 11/08/24 1115 11/08/24 1120 BP: (!) 142/92 114/80 BP Location: Left arm Right arm Patient Position: Sitting Sitting BP Cuff Size: Adult Large adult Pulse: 82 Resp: 20 Temp: 97.3 ??F (36.3 ??C) TempSrc: Temporal SpO2: 98% Weight: 208 lb 3.2 oz (94.4 kg) Physical Exam Vitals reviewed. Constitutional: General: He is not in acute distress. Appearance: Normal appearance. He is not ill-appearing. HENT: Head: Normocephalic and atraumatic. Eyes: General: No scleral icterus. Extraocular Movements: Extraocular movements intact. Pupils: Pupils are equal, round, and reactive to light. Cardiovascular: Rate and Rhythm: Normal rate and regular rhythm. Pulmonary: Effort: Pulmonary effort is normal. No accessory muscle usage or respiratory distress. Musculoskeletal: Right lower leg: No edema. Left lower leg: No edema. Skin: General: Skin is warm and dry. Neurological: Mental Status: He is alert and oriented to person, place, and time. Comments: Mildly antalgic gait Psychiatric: Mood and Affect: Mood normal. Behavior: Behavior normal. ASSESSMENT/PLAN Clem was seen today for follow-up. Diagnoses and all orders for this visit: Type 2 diabetes mellitus with hyperlipidemia (CMS/HCC) ([facility]) (Primary) Lab Results Component Value Date HGBA1C 8.4 (A) 11/08/2024 HGBA1C 7.8 (A) 07/30/2024 HGBA1C 7.6 04/23/2024 HGBA1C 9.0 (A) 01/23/2024 Would like to resume seeing Jakub Jasso for CDTM. I have messaged Jakub to assist with follow-up. A1c above goal </= 7.0, likely due to dietary indiscretions Continue Tresiba 60 units daily, Mounjaro 7.5 weekly, metformin 1 g twice daily Patient would like to continue using continuous glucose monitor however it keeps falling off even if he uses appropriate bandages and even if he shaves the skin to prepare it, we will try to get the senia 3+ approved as this is thought to have better adhesive qualities and smaller surface area which will hopefully help stick to the skin. He also needs new diabetic shoes. Please see note below regarding medical necessity for this. - POCT Glucose - POCT HGB A1C Chronic pain of both knees - Referral to Orthopaedic Surgery; Future Anxiety - Referral to Behavioral Health; Future Neuropathic pain - EMG; Future Numbness and tingling of both legs Comments: EMG ordered 11/08/2024 Follow Up: 3 mo DM Diabetic Statement I am treating this patient under a comprehensive plan of care for his diabetes. This patient needs special shoes (depth or custom-molded shoes) because of his diabetes. Date late seen for diabetic exam: 11/08/24 he has h/o abnormal monofilament exam bilateral feet. EMG update pending. I certify that this patient has diabetes mellitus. I am the pt's PCP but [facility] an MD or DO is required to co-sign on a diabetic shoe prescription. As such, the physician below agrees with the plan of care. Statement of Certifying Physician for Therapeutic Shoes This patient has one or more of the following conditions: - history of partial or complete amputation of the foot - history of previous foot ulceration. - history of pre-ulcerative callus. X peripheral neuropathy with evidence of callus formation. - foot deformity - poor circulation. Diabetic shoes are medically necessary for this patient. MD/DO signature MD/DO name printed MD/DO NPI# Current Outpatient Medications on File Prior to Visit Medication Sig Dispense Refill acetaminophen (Tylenol 8 Hour) 650 MG ER tablet 1-2 tabs as needed for pain up to TID. Do not crush, chew, or split. 180 tablet 0 Alcohol Swabs (SM Alcohol Prep) 70 % pads 100 Swab by Other route in the morning, at noon, and at bedtime. Use before injecting to clean site amLODIPine (Norvasc) 5 MG tablet TAKE 1 TABLET BY MOUTH EVERY MORNING 90 tablet 1 aspirin (Aspirin Low Dose) 81 MG EC tablet TAKE 1 TABLET BY MOUTH AT BEDTIME 90 tablet 1 atorvastatin (Lipitor) 40 MG tablet TAKE 1 TABLET BY MOUTH AT BEDTIME 90 tablet 1 Blood Pressure kit 1 kit in the morning. 1 kit 0 cholecalciferol (D3 Super Strength) 50 MCG (2000 UT) capsule Take 1 capsule (50 mcg) by mouth in the morning. 90 capsule 3 Continuous Blood Gluc Social Media Community Manager (FreeStyle Senia 2 [place]) device 1 each 5 (five) times a day. 1 each 0 Continuous Blood Gluc Sensor (FreeStyle Senia 2 Sensor) misc 1 each every 14 (fourteen) days. 6 each 3 Diclofenac Sodium 1 % gel APPLY 2 GRAMS TOPICALLY TO AFFECTED AREA(S) THREE TIMES DAILY 100 g 3 fenofibrate micronized (LoFibra) 134 MG capsule TAKE 1 CAPSULE BY MOUTH EVERY EVENING WITH FOOD 90 capsule 3 fluticasone furoate (Arnuity Ellipta) 100 MCG/ACT inhaler INHALE 1 PUFF BY MOUTH EVERY DAY AT THE SAME TIME 1 each 11 glucose blood (FreeStyle Precision Mihai Test) test strip Use to test blood sugar four times daily asdirected 100 each 11 lidocaine (Lidoderm) 5 % patch Apply 1 patch topically Once per day. Remove & discard patch within 12 hours or as directed by . 28 patch 5 lisinopril 20 MG tablet Take 1 tablet (20 mg) by mouth in the morning. 90 tablet 3 metFORMIN XR (Glucophage-XR) 500 MG 24 hr tablet TAKE 2 TABLETS BY MOUTH TWICE DAILY IN THE MORNINGAND EVENING WITH MEALS 360 tablet 1 omega-3 (Fish Oil) 1000 MG capsule TAKE 1 CAPSULE BY MOUTH TWICE DAILY IN THE MORNING AND IN THE EVENING 180 capsule 3 omeprazole (PriLOSEC) [address] capsule TAKE 1 CAPSULE BY MOUTH EVERY MORNING BEFORE A MEAL 90 capsule 1 propranolol (Inderal) 20 MG tablet TAKE 1 TABLET BY MOUTH TWICE DAILY IN THE MORNING AND IN THE EVENING 180 tablet 3 SUMAtriptan (Imitrex) 50 MG tablet TAKE 1 TABLET BY MOUTH AT ONSET OF MIGRAINE. MAY REPEAT ONCE AFTER 2 HOURS IF NEEDED. NO MORE THAN 4 TABLETS PER DAY 10 tablet 1 Tirzepatide (Mounjaro) 7.5 MG/0.5ML solution auto-injector Inject 7.5 mg under the skin every 7 (seven) days. 2 mL 11 tiZANidine (Zanaflex) 2 MG tablet Take 2 tablets (4 mg) by mouth every 6 (six) hours if needed for muscle spasms for up to 10 days. 30 tablet 0 topiramate 50 MG tablet TAKE 1 TABLET BY MOUTH EVERY DAY 90 tablet 1 Tresiba FlexTouch 100 UNIT/ML injection INJECT 60 UNITS SUBCUTANEOUSLY EVERY MORNING DIRECTED 15mL 5 TRUEplus Lancets 33G misc TEST BLOOD SUGAR TWICE DAILY 100 each 11 UltiCare Short Pen [place] 31G X 8 MM misc USE DIRECTED FOUR TIMES DAILY 100 each 11 Ventolin HFA 108 (90 Base) MCG/ACT inhaler INHALE 2 PUFFS BY MOUTH EVERY 6 HOURS NEEDED FOR WHEEZING 18 g 1 No current facility-administered medications on file prior to visit. documented in this encounter Plan of Treatment Upcoming Encounters Date Type Department Care Team (Late st Contact Info) Description 01/17/2025 10:00 AM EDT Office Visit [facility] OPTOMETRY [address] [place] [address] Geoffrey, Audrey, OD [address] [place] [address] Scheduled Orders Name Type Priority Associated Diagnoses Orde r Schedule EMG Neurology Routine Neuropathic pain Expected: 11/08/2024, Expires: 05/08/2025 Scheduled Referrals Name Type Priority Associated Diagnoses Orde r Schedule Referral to Orthopaedic Surgery Outpatient Referral Urgent Chronic pain of both knees Expected: 11/08/2024 (Approximate), Expires: 11/08/2025 Referral to Behavioral Health Outpatient Referral Routine Anxiety Expected: 11/08/2024 (Approximate), Expires: 11/08/2025 Referral to Podiatry Outpatient Referral Routine Type 2 diabetes mellitus with hyperlipidemia (CMS/HCC) ([facility]) Neuropathic pain Expected: 11/08/2024 (Approximate), Expires: 11/08/2025 documented as of this encounter Goals Goal Patient Goal Type Associated Problems Recent Progress Patient-Stated? Author Blood Pressure < 140/90 Blood Pressure 114/80(2024 11:20 AM EST) No Jakub Cheney, Alan Hemoglobin A1c < 7 Result Component 8.4( 11:33 AM EST) No Jakub Cheney PharmD documented as of this encounter Procedures Procedure Name Priority Date/Time Associated Diagnosis Comments POCT GLYCATED HEMOGLOBIN, TOTAL Routine 11/08/2024 11:33 AM EST Type 2 diabetes mellitus with hyperlipidemia ([facility]/HCC) ([facility]) POCT GLUCOSE Routine 11/08/2024 11:32 AM EST Type 2 diabetes mellitus with hyperlipidemia ([facility]/HCC) ([facility]) documented in this encounter Results * (ABNORMAL) POCT HGB A1C (11/08/2024 11:33 AM EST) Hemoglobin A1C 8.4(A) 4.0 - 6.0 % QC Media Lot # [id number] Lot# Expiration Date Blood 11/08/2024 11:3 3 AM EST us Odilia TORRES POINT OF CARE TEST ENTER/EDIT OR DERABLES Final Result * (ABNORMAL) POCT Glucose (11/08/2024 11:32 AM EST) Glucose Blood, POC 217(A) 60 - 200 mg/dL QC Media Lot # [id number] Lot# Expiration Date [id number] Blood Capillary blood specimen / Unknown 11/08/2024 11:32 AM EST us Odilia Cota ANP POINT OF CARE TEST ENTER/EDIT OR DERABLES Final Result documented in this encounter Visit Diagnoses Diagnosis Type 2 diabetes mellitus with hyperlipidemia ([facility]/HCC) ([facility])- Primary Chronic pain of both knees Anxiety Anxiety state, unspecified Neuropathic pain Numbness and tingling of both legs Disturbance of skin sensation documented in this encounter Additional Health Concerns Assessment Noted Time PHQ-9 Depression Total Score: 0 11/08/19 25 11:31 AM EST documented as of this encounter Care Teams Roll Operator Relationship Specialty Start Date End Date Odilia Cota ANP [address] [place] [address] PCP - General Family Medicine 05/24/21 Jakub Cheney PharmD [address] [place] [address] Pharmacist Internal Medicine 01/23/24 documented as of this encounter
--- OUTSIDE RECORDS SUMMARY | 2024-11-19 09:56 | XMS_ITS | Encounter Summary ---
Author Organization [employer] Address [address] [place] [address] Care Team Providers Care Financial Recording Clerk Name Role Phone Beata Odilia TORRES Primary Care Provider [phone] Jakub Cheney PharmD Unavailable [phone] Reason for Visit * Reason Onset Date Comments chart prep 11/07/2024 Encounter Details Date Type Department Care Team (Late st Contact Info) Description 11/07/2024 Telephone [facility] MEDICINE [address] [place] [address] Maxine Ramirez MA chart prep Social History Tobacco Use Types Packs/Day Years [...] encounter Miscellaneous Notes * Telephone Encounter - Maxine Ramirez MA - 11/07/2024 2:34 PM EST Chart Prep Labs: done Images: done Vaccines due: no updates Referrals: autho Screenings: colonoscopy , Foot Exam Overdue care gaps: A1C, Glucose, PHQ-9 documented in this encounter Plan of Treatment Upcoming Encounters Date Type Department Care Team (Late st Contact Info) Description 01/17/2025 10:00 AM EDT Office Visit [facility] OPTOMETRY [address] [place] [address] Geoffrey, Audrey, OD [address] [place] [address] documented as of this encounter Goals Goal Patient Goal Type Associated Problems Recent Progress Patient-Stated? Author Blood Pressure < 140/90 Blood Pressure 114/80(2024 11:20 AM EST) No Jakub Cheney, PharmAspen Hemoglobin A1c < 7 Result Component 8.4( 11:33 AM EST) No Jakub Cheney PharmD documented as of this encounter Visit Diagnoses Not on filedocumented in this encounter Care Teams Financial Recording Clerk Relationship Specialty Start Date End Date Odilia Cota ANP [address] [place] [address] PCP - General Family Medicine 05/24/21 Jakub Cheney, PharmD [address] [place] [address] Pharmacist Internal Medicine 01/23/24 documented as of this encounter
--- OUTSIDE RECORDS SUMMARY | 2024-11-19 09:56 | XMS_ITS | Encounter Summary ---
Author Organization [employer] Address [address] [facility] [address] [facility] [address] [place] [address] Care Team Providers Care Leak Patcher Name Role Phone Odilia Cota MELISSA Primary Care Provider [phone] Jakub Cheney PharmD Unavailable [phone] Reason for Visit * Reason Comments Med Refill Encounter Details Date Type Department Care Team ([facility] Contact Info) Description 01/20/2023 Refill [facility] MEDICINE [address] [place], [place] [phone] Theresa Tony FNP [address] [place] [address] Social History Tobacco Use Types Packs/Day Years [...] Upcoming Encounters Date Type Department Care Team ([facility] Contact Info) Description 01/17/2025 10:00 AM EDT Office Visit [facility] OPTOMETRY [address] [place], [place] [phone] GeoffreyEvelion, OD [address] [place] [address] documented as of this encounter Visit Diagnoses Not on filedocumented in this encounter Care Teams Leak Patcher Relationship Specialty Start Date End Date Odilia Cota ANP [address] [place], [place] [phone] PCP - General Family Medicine 05/24/21 Jakub Cheney, Maria EugeniaD [address] [place] [address] Pharmacist Internal Medicine 01/23/24 documented as of this encounter
--- OUTSIDE RECORDS SUMMARY | 2024-11-19 09:56 | XMS_ITS | Encounter Summary ---
Author Organization [employer] Address [address] [facility] [address] [place] [address] Care Team Providers Care Surface Hydrologist Name Role Phone Odilia Cota Primary Care Provider [phone] Jakub Cheney PharmD Unavailable [phone] Encounter Details Date Type Department Care Team (Late Contact Info) Description 12/27/2022 Orders Only [facility] [address] [place] [address] Melia Owen LPN Social History Tobacco Use [...] Description 01/17/2025 10:00 AM EDT Office Visit [facility] OPTOMETRY [address] [place] [address] Audrey Hale, OD [address] [place] [address] documented as of this encounter Visit Diagnoses Not on filedocumented in this encounter Care Teams Surface Hydrologist Relationship Specialty Start Date End Date Odilia Cota ANP [address] [place] [address] PCP - General Family Medicine 05/24/21 Jakub Cheney, Alan [address] [place] [address] Pharmacist Internal Medicine 01/23/24 documented as of this encounter
--- OUTSIDE RECORDS SUMMARY | 2024-11-19 09:56 | XMS_ITS | Encounter Summary ---
Author Organization [employer] Address [address] [facility] [address] [place] [address] Care Team Providers Care Soundscriber Mechanic Name Role Phone Odilia Cota MELISSA Primary Care Provider [phone] Jakub Cheney PharmD Unavailable Reason for Visit * Reason Comments Med Refill Encounter Details Date Type Department Care Team ([facility] st Contact Info) Description 11/18/2024 Refill [facility] MED & PEDS [address] [place] [address] Twila Velez MD [address] [place] [address] Migraine without aura, not refractory Social History Tobacco Use Types Packs/Day Years [...] Description 01/17/2025 10:00 AM EDT Office Visit [facility] OPTOMETRY [address] [place] [address] Geoffrey, Megan, OD [address] [place] [address] documented as of this encounter Goals Goal Patient Goal Type Associated Problems Recent Progress Patient-Stated? Author Blood Pressure < 140/90 Blood Pressure 114/80(2024 11:20 AM EST) No Jakub Cheney PharmD Hemoglobin A1c < 7 Result Component 8.4( 11:33 AM EST) No Jakub Cheney PharmD documented as of this encounter Visit Diagnoses Diagnosis Migraine without aura, not refractory documented in this encounter Additional Health Concerns Assessment Noted Time PHQ-9 Depression Total Score: 0 11/08/19 25 11:31 AM EST documented as of this encounter Care Teams Soundscriber Mechanic Relationship Specialty Start Date End Date Odilia Cota ANP [address] [place] [address] PCP - General Family Medicine 05/24/21 Jakub Cheney PharmD [address] [place] [address] Pharmacist Internal Medicine 01/23/24 documented as of this encounter
--- OUTSIDE RECORDS SUMMARY | 2024-11-19 09:56 | XMS_ITS | Encounter Summary ---
Author Organization [employer] Address [address] [place] [address] Care Team Providers Care Financial Investment Manager Name Role Phone Odilia Cota MELISSA Primary Care Provider [phone] Jakub Cheney PharmD Unavailable [phone] Encounter Details Date Type Department Care Team (Latest Contact Info) Description 11/08/2024 Travel Social History Tobacco Use Types Packs/Day [...] Description 01/17/2025 10:00 AM EDT Office Visit [facility] OPTOMETRY [address] [place], [place] [phone] Audrey Hale, OD [address] [place] [address] documented as of this encounter Goals Goal [...] documented as of this encounter Care Teams Financial Investment Manager Relationship Specialty Start Date End Date Odilia Cota ANP [address] [place] [address] PCP - General Family Medicine 05/24/21 Jakub Cheney PharmD [address] [place], [place] [phone] Pharmacist Internal Medicine 01/23/24 documented as of this encounter
--- OUTSIDE RECORDS SUMMARY | 2024-11-19 09:56 | XMS_ITS | Encounter Summary ---
Author Organization [employer] Address [address] [facility] [address] [place] [address] Care Team Providers Care Roll Bucker Name Role Phone Odilia Cota Primary Care Provider [phone] Jakub Cheney PharmD Unavailable [phone] Encounter Details Date Type Department Care Team (Late Contact Info) Description 04/14/2023 Orders Only [facility] MED [facility]EDS [address] [place], [place] [phone] Melia Owen LPN Social History Tobacco Use [...] Encounters Date Type Department Care Team (Late Contact Info) Description 01/17/2025 10:00 AM EDT Office Visit [facility] OPTOMETRY [address] [place] [address] Audrey Hale, OD [address] [place] [address] documented as of this encounter Visit Diagnoses Not on filedocumented in this encounter Care Teams Roll Bucker Relationship Specialty Start Date End Date Odilia Cota ANP [address] [place] [address] PCP - General Family Medicine 05/24/21 Jakub Cheney, Maria EugeniaD [address] [place] [address] Pharmacist Internal Medicine 01/23/24 documented as of this encounter
--- OUTSIDE RECORDS SUMMARY | 2024-11-19 09:56 | XMS_ITS | Encounter Summary ---
Author Organization [employer] Address 75 [facility] [address] [address] Care Team Providers Care Masonry Instructor Name Role Phone Odilia Cota MELISSA Primary Care Provider [phone] Jakub Cheney PharmD Unavailable [phone] Encounter Details Date Type Department Care Team (Late Contact Info) Description 09/12/2022 Abstract [facility] MEDICINE [address] [place] [address] Provider, MD Idris Social History Tobacco Use Types Packs/Day Years [...] suspected to have Coronavirus/COVID-19? No / Unsure 09/12/2022 10:46 AM EST documented as of this encounter Plan of Treatment Upcoming Encounters Date Type Department Care Team (Late Contact Info) Description 01/17/2025 10:00 AM EDT Office Visit [facility] OPTOMETRY [address] [place] [address] Geoffrey, Audrey, OD [address] [place] [address] documented as of this encounter Visit Diagnoses Not on filedocumented in this encounter Care Teams Masonry Instructor Relationship Specialty Start Date End Date Odilia Cota ANP [address] [place] [address] PCP - General Family Medicine 05/24/21 Jakub Cheney PharmD [address] [place] [address] Pharmacist Internal Medicine 01/23/24 documented as of this encounter
--- OUTSIDE RECORDS SUMMARY | 2024-11-19 09:56 | XMS_ITS | Encounter Summary ---
Author Organization [employer] Address [address] [facility] [address] 7t [place] [address] Care Team Providers Care Clubhouse Attendant Name Role Phone Odilia Cota Primary Care Provider Jakub Cheney PharmD Unavailable [phone] Encounter Details Date Type Department Care Team (Late Contact Info) Description 09/12/2022 Orders Only [facility] CH[facility] MED & PEDS [address] [place], [place] [phone] Odilia Cota ANP 230 [place] [address] Social History Tobacco Use Types Packs/Day Years [...] Upcoming Encounters Date Type Department Care Team ([facility] Contact Info) Description 01/17/2025 10:00 AM EDT Office Visit [facility] OPTOMETRY [address] [place] [address] Audrey Hale, OD [address] [place] [address] documented as of this encounter Visit Diagnoses Not on filedocumented in this encounter Care Teams Clubhouse Attendant Relationship Specialty Start Date End Date Odilia Cota ANP 230 [place] [address] PCP - General Family Medicine 05/24/21 Jakub Cheney, Alan [address] [place] [address] Pharmacist Internal Medicine 01/23/24 documented as of this encounter
--- OUTSIDE RECORDS SUMMARY | 2024-11-19 09:56 | XMS_ITS | Encounter Summary ---
Author Organization [employer] Address 75 [facility] [address] [place] [address] Care Team Providers Care Life Enrichment Manager Name Role Phone Odilia Cota Primary Care Provider [phone] Jakub Cheney PharmD Unavailable [phone] Encounter Details Date Type Department Care Team (Late Contact Info) Description 11/22/2022 Orders Only [facility] CHC MED & PEDS [address] [place], [place] [phone] Melia Owen LPN Social History Tobacco Use [...] Description 01/17/2025 10:00 AM EDT Office Visit [facility] OPTOMETRY [address] [place] [address] Audrey Hale, OD 230 [place] [address] documented as of this encounter Visit Diagnoses Not on filedocumented in this encounter Care Teams Life Enrichment Manager Relationship Specialty Start Date End Date Odilia Cota ANP 230 [place] [address] PCP - General Family Medicine 05/24/21 Jakub Cheney, Alan [address] [place] [address] Pharmacist Internal Medicine 01/23/24 documented as of this encounter
== END 2024-11-19 09:17 | disposition home or self-care (01) ==
LOC: HO.NEURO 09:16
PROVIDERS: PCP Nurse Practitioner Primary Care; Visit Provider Nurse Practitioner Primary Care
DX: M79.2 Neuralgia and neuritis, unspecified (principal)
CPT/HCPCS: 95886; 95911

== ENCOUNTER 2024-12-02 10:23 | Outpatient (REF) | payer MEDICAID, SELFPAY ==
--- NOTE | ~2024-12-02 | XR_ITS ---
EXAMINATION: XR FINGERS LEFT HISTORY: FB? COMPARISON: Comparison is made with the prior examination of the left hand dated 09/20/2017. FINDINGS: Four views of the left thumb are submitted. Osseous mineralization is normal. There is no fracture or dislocation. The joint spaces are preserved. The soft tissues are unremarkable. No radiopaque foreign body is identified. XR/XR finger LT min 2V IMPRESSION: No radiopaque foreign body is identified. Electronically signed by: Warren Colón MD 12/02/2024 10:54 AM STU
--- OUTSIDE RECORDS SUMMARY | 2024-12-02 12:03 | XMS_ITS | Encounter Summary ---
Author Organization [employer] Address 75 [facility] 7t [place] [address] Care Team Providers Care Finger Cobbler Name Role Phone Odilia Cota Primary Care Provider [phone] Jakub Cheney PharmD Unavailable [phone] Encounter Details Date Type Department Care Team (Late Contact Info) Description 12/27/2022 Orders Only [facility] CHC MED & PEDS [address] [place], [place] [phone] Melia Owen LPN Social History Tobacco Use [...] Care Team (Late st Contact Info) Description 12/09/2024 10:00 AM EDT Medication Management [facility] MEDICINE [address] [place], [place] [phone] Jakub Cheney, PharmD 230 [place] [address] 01/17/2025 10:00 AM EDT Office Visit [facility] OPTOMETRY [address] [place], [place] [phone] Audrey Hale, OD [address] [place], [place] [phone] 02/06/2025 11:00 AM EDT Office Visit [facility] MEDICINE [address] [place], [place] [phone] Odilia Cota ANP [address] [place] [address] documented as of this encounter Visit Diagnoses Not on filedocumented in this encounter Care Teams Finger Cobbler Relationship Specialty Start Date End Date Odilia Cota ANP [address] [place] [address] [phone] PCP - General Family Medicine 05/24/21 Jakub Cheney, Maria EugeniaD [address] [place] [address] [phone] Pharmacist Internal Medicine 01/23/24 documented as of this encounter
--- OUTSIDE RECORDS SUMMARY | 2024-12-02 12:03 | XMS_ITS | Encounter Summary ---
Author Organization [employer] Address 75 [facility] 7t [place] [address] Care Team Providers Care Chief Security And Safety Officer Name Role Phone Odilia Cota MELISSA Primary Care Provider [phone] Jakub Cheney PharmD Unavailable [phone] Reason for Visit * Reason Comments Med Refill Encounter Details Date Type Department Care Team ([facility] Contact Info) Description 01/20/2023 Refill [facility] MEDICINE [address] [place], [place] [phone] Theresa Tony FNP [address] [place] [address] Social History Tobacco Use Types Packs/Day Years [...] Upcoming Encounters Date Type Department Care Team ([facility] Contact Info) Description 12/09/2024 10:00 AM EDT Medication Management [facility] MEDICINE [address] [place] [address] Jakub Cheney, PharmD [address] [place] [address] 01/17/2025 10:00 AM EDT Office Visit [facility] OPTOMETRY [address] [place] [address] Audrey Hale, OD [address] [place] [address] 02/06/2025 11:00 AM EDT Office Visit [facility] MEDICINE [address] [place] [address] Odilia Cota ANP [address] [place] [address] documented as of this encounter Visit Diagnoses Not on filedocumented in this encounter Care Teams Chief Security And Safety Officer Relationship Specialty Start Date End Date Odilia Cota ANP [address] [place] [address] PCP - General Family Medicine 05/24/21 Jakub Cheney, Maria EugeniaD [address] [place] [address] Pharmacist Internal Medicine 01/23/24 documented as of this encounter
--- OUTSIDE RECORDS SUMMARY | 2024-12-02 12:03 | XMS_ITS | Encounter Summary ---
Author Organization [employer] Address [address] [facility] [address] [place] [address] Care Team Providers Care Oceanographer Assistant Name Role Phone Odilia Cota Primary Care Provider [phone] Jakub Cheney PharmD Unavailable Reason for Visit * Reason Comments Med Refill Encounter Details Date Type Department Care Team ([facility] st Contact Info) Description 11/25/2023 Refill [facility] MEDICINE [address] [place] [address] Odilia Cota ANP [address] [place] [address] Shortness of breath Social History Tobacco Use [...] t he electric, gas, oil or water [employer] [place] threatened to shut off services in your [...] Description 12/09/2024 10:00 AM EDT Medication Management [facility] MEDICINE [address] [place] [address] Jakub Cheney, Alan [address] [place] [address] 01/17/2025 10:00 AM EDT Office Visit [facility] OPTOMETRY [address] [place] [address] GeoffreyAudrey granados, OD [address] [place] [address] 02/06/2025 11:00 AM EDT Office Visit [facility] MEDICINE [address] [place] [address] Odilia Cota ANP [address] [place] [address] documented as of this encounter Visit Diagnoses Diagnosis Shortness of breath documented in this encounter Care Teams Oceanographer Assistant Relationship Specialty Start Date End Date Odilia Cota ANP [address] [place] [address] PCP - General Family Medicine 05/24/21 Jakub Cheney, Maria EugeniaD [address] [place] [address] Pharmacist Internal Medicine 01/23/24 documented as of this encounter
--- OUTSIDE RECORDS SUMMARY | 2024-12-02 12:03 | XMS_ITS | Encounter Summary ---
Author Organization [employer] Address 75 [facility] 7t [place] [address] Care Team Providers Care Lieutenant Ballistics Name Role Phone Odilia Cota MELISSA Primary Care Provider [phone] Jakub Cheney PharmD Unavailable [phone] Reason for Visit * Reason Comments CGM initial visit Encounter Details Date Type Department Care Team (Latest Contact Info) Description 11/15/2024 9:30 AM EST Clinical Support [facility] MEDICINE [address] [place] [address] Gilda Danielson RN Type 2 diabetes mellitus with both eyes affected by mild nonproliferative retinopathy without macular edema, without long-term current use of insulin ([facility]) Social History Tobacco Use Types Packs/Day Years [...] as of this encounter Progress Notes * Gilda Danielson RN - 11/15/2024 9:30 AM EST SUBJECTIVE: Clem Kathleen is a 49 y.o. year old male who presented for No chief complaint on file. Preferred language for medical information: Cashier Office needed: Yes. Gibraltarian translation by BRIAN Casanova CGM device: CGM DEVICE: Jangl SMS Senia 3 Clem Kathleen brought in CGM [...] readings will be incorrect. Line up dark nagelica on sensor applicator with dark angelica on [...] help adhesion to skin: Simpatch, available on Backpack, Torbat Skin Tac, Skin-Prep Protective Barrier Wipe, [...] only the electrical equipment provided by the medical record consultant. Do not use if you are on [...] Description 12/09/2024 10:00 AM EDT Medication Management [facility] MEDICINE [address] [place] [address] Jakub Cheney PharmD 230 [place] [address] 01/17/2025 10:00 AM EDT Office Visit [facility] OPTOMETRY [address] [place] [address] Geoffrey, Audrey, OD [address] [place] [address] 02/06/2025 11:00 AM EDT Office Visit [facility] MEDICINE [address] [place] [address] Odilia Cota ANP [address] [place] [address] documented as of this encounter Goals Goal Patient Goal Type Associated Problems Recent Progress Patient-Stated? Author Blood Pressure < 140/90 Blood Pressure 151/106(12/02 9:29 AM EST) No Jakub Cheney PharmD Hemoglobin A1c < 7 Result Component 8.4( 11:33 AM EST) No Jakub Cheney PharmD documented as of this encounter Visit Diagnoses Diagnosis Type 2 diabetes mellitus with both eyes affected by mild nonproliferative retinopathy without macular edema, without long-term current use of insulin ([facility]) documented in this encounter Additional Health Concerns Assessment Noted Time PHQ-9 Depression Total Score: 0 11/08/19 25 11:31 AM EST documented as of this encounter Care Teams Lieutenant Ballistics Relationship Specialty Start Date End Date Odilia Cota, ANP [address] [place] [address] PCP - General Family Medicine 05/24/21 Jakub Cheney, Maria EugeniaD [address] [place] [address] Pharmacist Internal Medicine 01/23/24 documented as of this encounter
--- OUTSIDE RECORDS SUMMARY | 2024-12-02 12:03 | XMS_ITS | Encounter Summary ---
Author Organization [employer] Address 75 [facility] 7[address] [place] [address] Care Team Providers Care Electrification Adviser Name Role Phone Odilia Cota Primary Care Provider [phone] Jakub Cheney PharmD Unavailable [phone] Reason for Referral * Consultation (Routine) - Authorized Specialty Diagnoses / Procedures Referred By Perlita t Referred To Contact Podiatry Diagnoses Type 2 diabetes mellitus with hyperlipidemia (CMS/HCC) ([facility]/HCC) Neuropathic pain Odilia Cota ANP [address] [place] [address] Phone: tel: fax: Javier Desai DPM [address] [facility] [address] [place] [address] Phone: tel: fax: Referral ID Status Reason Start Date Expiration Date Visits Requested Visits Authorized [id number] Authorized Specialty Services Required 11/12/2024 11/12/2025 6 6 * Consultation (Routine) - Closed Specialty Diagnoses / Procedures Referred By Contluis t Referred To Contact Behavioral Health Diagnoses Anxiety Odilia Cota ANP [address] [place] [address] Phone: tel: fax: Referral ID Status Reason Start Date Expiration Date V isits Requested Visits Authorized [id number] Closed Specialty Services Required 11/08/2024 11/08/2025 1 1 * Neurology (Routine) - Closed Specialty Diagnoses / Procedures Referred By Contac t Referred To Contact Diagnoses Neuropathic pain Procedures EMG Odilia Cota ANP [address] [place] [address] Phone: tel: fax: [address] Phone: tel: fax: Referral ID Status Reason Start Date Expiration Date Visits Re quested Visits Authorized [id number] Closed 11/08/2024 11/08/2025 1 1 * Consultation (Urgent) - Authorized Specialty Diagnoses / Procedures Referred By Perlita boston Referred To Contact Orthopaedic Surgery Diagnoses Chronic pain of both knees Odilia Cota ANP [address] [place] [address] Phone: tel: fax: [facility] [address] [place] [address] Phone: tel: Referral ID Status Reason Start Date Expiration Date Visits Requested Visits Authorized [id number] Authorized Specialty Services Required 11/08/2024 11/08/2025 6 6 Reason for Visit * Reason Comments Follow-up A1C Encounter Details Date Type Department Care Team (Latest Contact Info) Description 11/08/2024 11:15 AM EST Office Visit [facility] MEDICINE [address] [place] [address] Odilia Cota ANP [address] [place] [phone] Type 2 diabetes mellitus with hyperlipidemia (CMS/HCC) ([facility]/HCC) (Primary Dx); Chronic pain of both [...] nonprolif retinopathy, CAD, cubital tunnel syndrome Non-smoker Photo [employer]pre[employer] utilized for Ethiopian interpretation #[id number] Acute Concerns: DM - following w/ CD[facility], last visit 08/12/24. He would like to see them again. A1c has gone up - he has been eating stuff he shouldn't be - he has been not working and getting very anxious. He says heoften has a lot of anxiety. initially today [...] syndrome Type 2 diabetes mellitus with hyperlipidemia ([facility]) ([facility]) Hyperlipidemia Hypertension Hypertriglyceridemia Migraine without aura, not refractory Numbness and tingling of both legs Pain in lower limb History of fracture Noncompliance with medication regimen Type 2 diabetes mellitus with both eyes affected by mild nonproliferative retinopathy without macular edema, without long-term current use of insulin ([facility]) Healthcare maintenance Chronic pain of both knees [...] Type 2 diabetes mellitus with hyperlipidemia (CMS/HCC) ([facility]) (Primary) Lab Results Component Value Date HGBA1C [...] pt's PCP but [facility] an MD or DO is required to [...] morning. 90 capsule 3 Continuous Blood Gluc Clock Maker (FreeStyle Senia 2 [place]) device 1 each 5 (five) times a [...] DAILY 100 each 11 UltiCare Short Pen [facility] 31G X 8 MM misc USE DIRECTED [...] Description 12/09/2024 10:00 AM EDT Medication Management [facility] MEDICINE [address] [place] [address] Jakub Cheney, PharmD [address] [place] [address] 01/17/2025 10:00 AM EDT Office Visit [facility] OPTOMETRY [address] [place] [address] Audrey Hale, OD [address] [place] [address] 02/06/2025 11:00 AM EDT Office Visit [facility] MEDICINE [address] [place] [address] Odilia Cota ANP [address] [place] [address] Scheduled Orders Name Type Priority Associated Diagnoses [...] Routine Type 2 diabetes mellitus with hyperlipidemia ([facility]/HCC) ([facility]) Neuropathic pain Expected: 11/08/2024 (Approximate), Expires: 11/08/2025 documented as of this encounter Goals Goal Patient Goal Type Associated Problems Recent Progress Patient-Stated? Author Blood Pressure < 140/90 Blood Pressure 151/106(12/02 9:29 AM EST) No Jakub Cheney, Alan Hemoglobin A1c < 7 Result Component 8.4( 11:33 AM EST) No Jakub Cheney PharmD documented as of this encounter Procedures Procedure Name Priority Date/Time Associated Diagnosis Comments POCT GLYCATED HEMOGLOBIN, TOTAL Routine 11/08/2024 11:33 AM EST Type 2 diabetes mellitus with hyperlipidemia (CMS/HCC) ([facility]) POCT GLUCOSE Routine 11/08/2024 11:32 AM EST Type 2 diabetes mellitus with hyperlipidemia (CMS/HCC) ([facility]) documented in this encounter Results * (ABNORMAL) POCT HGB A1C (11/08/2024 11:33 AM EST) Hemoglobin A1C 8.4(A) 4.0 - 6.0 % QC Media Lot # [id number] Lot# Expiration Date Blood 11/08/2024 11:3 3 AM EST [facility] POINT OF CARE TEST ENTER/EDIT OR DERABLES Final Result * (ABNORMAL) POCT Glucose (11/08/2024 11:32 AM EST) Glucose Blood, POC 217(A) 60 - 200 mg/dL QC Media Lot # [id number] Lot# Expiration Date 884 Blood Capillary blood specimen / Unknown 11/08/2024 11:32 AM EST Odilia TORRES POINT OF CARE TEST ENTER/EDIT OR DERABLES Final Result documented in this encounter Visit Diagnoses Diagnosis Type 2 diabetes mellitus with hyperlipidemia (CMS/HCC) ([facility])- Primary Chronic pain of both knees Anxiety Anxiety state, unspecified Neuropathic pain Numbness and tingling of both legs Disturbance of skin sensation documented in this encounter Additional Health Concerns Assessment Noted Time PHQ-9 Depression Total Score: 0 11/08/19 25 11:31 AM EST documented as of this encounter Care Teams Electrification Adviser Relationship Specialty Start Date End Date Odilia Cota ANP [address] [place] [address] PCP - General Family Medicine 05/24/21 Jakub Cheney, Maria EugeniaD [address] [place] [address] Pharmacist Internal Medicine 01/23/24 documented as of this encounter
--- OUTSIDE RECORDS SUMMARY | 2024-12-02 12:03 | XMS_ITS | Encounter Summary ---
Author Organization [employer] Address [address] [facility] 7 [place] [address] Care Team Providers Care Diploma Medical Assistant Name Role Phone Odilia Cota MELISSA Primary Care Provider [phone] Jakub Cheney PharmD Unavailable [phone] Reason for Visit * Reason Comments Med Refill Encounter Details Date Type Department Care Team ([facility] st Contact Info) Description 11/18/2024 Refill [facility] CHC MED & PEDS [address] [place] [address] Twila Velez MD [address] [place] [address] Migraine without aura, not refractory Social History [...] Description 12/09/2024 10:00 AM EDT Medication Management [facility] MEDICINE [address] [place] [address] Jakub Cheney, PharmD 230 [place] [address] 01/17/2025 10:00 AM EDT Office Visit [facility] OPTOMETRY [address] [place] [address] Geoffrey, Audrey, OD 230 [place] [address] 02/06/2025 11:00 AM EDT Office Visit [facility] MEDICINE [address] [place] [address] Odilia Cota, ANP 230 [place] [address] documented as of this encounter Goals Goal Patient Goal Type Associated Problems Recent Progress Patient-Stated? Author Blood Pressure < 140/90 Blood Pressure 151/106(12/02 9:29 AM EST) No Jakub Cheney, PharmAspen Hemoglobin A1c < 7 Result Component 8.4(02/07/202 5 11:33 AM EST) No Jakub Cheney, PharmD documented as of this encounter Visit Diagnoses Diagnosis Migraine without aura, not refractory documented in this encounter Additional Health Concerns Assessment Noted Time PHQ-9 Depression Total Score: 0 11/08/19 25 11:31 AM EST documented as of this encounter Care Teams Diploma Medical Assistant Relationship Specialty Start Date End Date Odilia Cota ANP [address] [place] [address] PCP - General Family Medicine 05/24/21 Jakub Cheney, PharmD [address] [place] [address] Pharmacist Internal Medicine 01/23/24 documented as of this encounter
--- OUTSIDE RECORDS SUMMARY | 2024-12-02 12:03 | XMS_ITS | Encounter Summary ---
Author Organization [employer] Address [address] [facility] 7t [place] [address] Care Team Providers Care Ups Driver Name Role Phone Odilia Cota Primary Care Provider [phone] Jakub Cheney PharmD Unavailable [phone] Reason for Visit * Reason Onset Date Comments Durable Medical Equipment 11/12/2024 Diabet ic shoes Encounter Details Date Type Department Care Team (Late st Contact Info) Description 11/12/2024 Telephone [facility] MEDICINE [address] [place] [address] Odilia Cota ANP [address] [place] [address] Durable Medical Equipment (Diabetic shoes) Social History [...] them to contact Prost[facility] Orth[facility] at [phone]. * Telephone Encounter - Kailyn Murray - [...] Description 12/09/2024 10:00 AM EDT Medication Management [facility] MEDICINE [address] [place] [address] Jakub Cheney PharmD [address] [place] [address] 01/17/2025 10:00 AM EDT Office Visit [facility] OPTOMETRY [address] [place] [address] Geoffrey, Audrey, OD 230 [place] [address] 02/06/2025 11:00 AM EDT Office Visit [facility] MEDICINE [address] [place] [address] Odilia Cota ANP [address] [place], [place] documented as of this encounter Goals Goal [...] documented as of this encounter Care Teams Ups Driver Relationship Specialty Start Date End Date Odilia Cota ANP [address] [place] [address] PCP - General Family Medicine 05/24/21 Jakub Cheney PharmD [address] [place] [address] Pharmacist Internal Medicine 01/23/24 documented as of this encounter
--- OUTSIDE RECORDS SUMMARY | 2024-12-02 12:03 | XMS_ITS | Encounter Summary ---
Author Organization [employer] Address [address] [facility] 7t [place] [address] Care Team Providers Care Executive Vp Name Role Phone Beata Odilia TORRES Primary Care Provider [phone] Jakub Cheney PharmD Unavailable [phone] Reason for Visit * Reason Onset Date Comments Prior Authorization 11/11/2024 Encounter Details Date Type Department Care Team (Late st Contact Info) Description 11/11/2024 Telephone [facility] MEDICINE 230 [place] [address] Gilda Danielson RNwinch runner Social History Tobacco Use Types Packs/Day Years [...] 3 CGM teaching tomorrow morning. Advised to orange picking supervisor supplies from pharmacy prior to coming to appt tomorrow. Pt verbalized understanding and denied having any further questions or concerns at this time. Telephone call placed to pharmacy who states will get Sonja 3 ready for orange picking supervisor now. * Telephone Encounter - Kailyn Murray - 11/14/2024 10:23 AM EST PA approvals received for [employer] 3 reader and sensor. Scanned into media. [...] Description 12/09/2024 10:00 AM EDT Medication Management [facility] MEDICINE [address] [place] [address] Jakub Cheney, Alan 230 [place] [address] 01/17/2025 10:00 AM EDT Office Visit [facility] OPTOMETRY [address] [place] [address] Geoffrey, Audrey, OD 230 [place] [address] 02/06/2025 11:00 AM EDT Office Visit [facility] MEDICINE [address] [place] [address] Odilia Cota ANP [address] [place] [address] documented as of this encounter Goals Goal [...] documented as of this encounter Care Teams Executive Vp Relationship Specialty Start Date End Date Odilia Cota ANP 230 [place] [address] PCP - General Family Medicine 05/24/21 Jakub Cheney, Maria EugeniaD 230 [place] [address] Pharmacist Internal Medicine 01/23/24 documented as of this encounter
--- OUTSIDE RECORDS SUMMARY | 2024-12-02 12:03 | XMS_ITS | Encounter Summary ---
Author Organization [employer] Address [address] [facility] 7t [place] [address] Care Team Providers Care Lead Performance Support Analyst Name Role Phone Odilia Cota MELISSA Primary Care Provider [phone] Jakub Cheney PharmD Unavailable [phone] Reason for Visit * Reason Comments Med Refill Encounter Details Date Type Department Care Team ([facility] st Contact Info) Description 11/19/2024 Refill [facility] CHC MED & PEDS [address] [place] [address] Ramon Calhoun MD 230 [place] [address] Migraine without aura, not refractory Social History [...] 10:00 AM EDT Medication Management [facility] MEDICINE [address] [place] [address] Jakub Cheney, PharmD 230 [place] [address] 01/17/2025 10:00 AM EDT Office Visit [facility] OPTOMETRY [address] [place] [address] Geoffrey, Audrey, OD 230 [place] [address] 02/06/2025 11:00 AM EDT Office Visit [facility] MEDICINE [address] [place] [address] Odilia Cota, ANP [address] [place] [address] documented as of this encounter Goals Goal Patient Goal Type Associated Problems Recent Progress Patient-Stated? Author Blood Pressure < 140/90 Blood Pressure 151/106(12/02 9:29 AM EST) No Jakub Cheney, PharmAspen Hemoglobin A1c < 7 Result Component 8.4(02/07/202 5 11:33 AM EST) No Jakub Cheney, Maria EugeniaD documented as of this encounter Visit Diagnoses Diagnosis Migraine without aura, not refractory documented in this encounter Additional Health Concerns Assessment Noted Time PHQ-9 Depression Total Score: 0 11/08/19 25 11:31 AM EST documented as of this encounter Care Teams Lead Performance Support Analyst Relationship Specialty Start Date End Date Odilia Cota ANP 230 [place] [address] PCP - General Family Medicine 05/24/21 Jakub Cheney, PharmD [address] [place] [address] Pharmacist Internal Medicine 01/23/24 documented as of this encounter
--- OUTSIDE RECORDS SUMMARY | 2024-12-02 12:03 | XMS_ITS | Encounter Summary ---
Author Organization [employer] Address [address] [facility] 7t [place] [address] Care Team Providers Care Tea Bag Machine Tender Name Role Phone Odilia Cota MELISSA Primary Care Provider [phone] Jakub Cheney PharmD Unavailable [phone] Encounter Details Date Type Department Care Team ([facility] Contact Info) Description 02/28/2023 Orders Only [facility] MEDICINE [address] [place] [address] Vianney Nevarez LPN Social History Tobacco Use [...] Upcoming Encounters Date Type Department Care Team ([facility] Contact Info) Description 12/09/2024 10:00 AM EDT Medication Management [facility] MEDICINE [address] [place] [address] Jakub Cheney, PharmD 230 [place], [place] [phone] 01/17/2025 10:00 AM EDT Office Visit [facility] OPTOMETRY [address] [place] [address] Audrey Hale, OD 230 [place] [address] 02/06/2025 11:00 AM EDT Office Visit [facility] MEDICINE [address] [place] [address] Odilia Cota ANP [address] [place] [address] documented as of this encounter Visit Diagnoses Not on filedocumented in this encounter Care Teams Tea Bag Machine Tender Relationship Specialty Start Date End Date Odilia Cota ANP [address] [place] [address] PCP - General Family Medicine 05/24/21 Jakub Cheney, Maria EugeniaD [address] [place] [address] Pharmacist Internal Medicine 01/23/24 documented as of this encounter
--- OUTSIDE RECORDS SUMMARY | 2024-12-02 12:03 | XMS_ITS | Encounter Summary ---
Author Organization [employer] Address 75 [facility] 7t [place] [address] Care Team Providers Care Plastic Frame Inserter Name Role Phone Odilia Cota Primary Care Provider [phone] Jakub Cheney PharmD Unavailable [phone] Encounter Details Date Type Department Care Team (Late Contact Info) Description 11/22/2022 Orders Only [facility] CHC MED & PEDS [address] [place], [place] [phone] Melia Owen LPN Social History Tobacco Use [...] Department Care Team (Late Contact Info) Description 12/09/2024 10:00 AM EDT Medication Management [facility] MEDICINE [address] [place], [place] [phone] Jakub Cheney, PharmD 230 [place] [address] 01/17/2025 10:00 AM EDT Office Visit [facility] OPTOMETRY [address] [place], [place] [phone] Audrey Hale, OD 230 [place], [place] [phone] 02/06/2025 11:00 AM EDT Office Visit [facility] MEDICINE [address] [place], [place] [phone] Odilia Cota ANP [address] [place] [address] documented as of this encounter Visit Diagnoses Not on filedocumented in this encounter Care Teams Plastic Frame Inserter Relationship Specialty Start Date End Date Odilia Cota ANP [address] [place] [phone] PCP - General Family Medicine 05/24/21 Jakub Cheney, Maria EugeniaD [address] [place] [address] [phone] Pharmacist Internal Medicine 01/23/24 documented as of this encounter
--- OUTSIDE RECORDS SUMMARY | 2024-12-02 12:03 | XMS_ITS | Encounter Summary ---
Author Organization [employer] Address [address] [facility] [address] [place] [address] Care Team Providers Care Assembly Department Supervisor Name Role Phone Odilia Cota MELISSA Primary Care Provider [phone] Jakub Cheney PharmD Unavailable [phone] Encounter Details Date Type Department Care Team (Late Contact Info) Description 09/12/2022 Abstract [facility] MEDICINE [address] [place] [address] Provider, MD Idris Social History Tobacco Use [...] Description 12/09/2024 10:00 AM EDT Medication Management [facility] MEDICINE [address] [place] [address] Jakub Cheney, PharmD 230 [place], [place] [phone] 01/17/2025 10:00 AM EDT Office Visit [facility] OPTOMETRY [address] [place] [address] Audrey Hale, VIET 230 [place] [address] 02/06/2025 11:00 AM EDT Office Visit [facility] MEDICINE 230 [place] [address] Odilia Cota ANP 230 [place] [address] documented as of this encounter Visit Diagnoses Not on filedocumented in this encounter Care Teams Assembly Department Supervisor Relationship Specialty Start Date End Date Odilia Cota ANP [address] [place] [address] PCP - General Family Medicine 05/24/21 Jakub Cheney, Maria EugeniaD [address] [place] [address] Pharmacist Internal Medicine 01/23/24 documented as of this encounter
--- OUTSIDE RECORDS SUMMARY | 2024-12-02 12:03 | XMS_ITS | Encounter Summary ---
Author Organization [employer] Address [address] [facility] 7t [place] [address] Care Team Providers Care Joint Setter Name Role Phone Odilia Cota MELISSA Primary Care Provider [phone] Jakub Cheney PharmD Unavailable [phone] Encounter Details Date Type Department Care Team ([facility] Contact Info) Description 01/20/2023 Orders Only [facility] CHC MED & PEDS [address] [place], [place] [phone] Melia Owen LPN Social History Tobacco Use [...] Upcoming Encounters Date Type Department Care Team ([facility] Contact Info) Description 12/09/2024 10:00 AM EDT Medication Management [facility] MEDICINE [address] [place] [address] Jakub Cheney, PharmD 230 [place], [place] [phone] 01/17/2025 10:00 AM EDT Office Visit [facility] OPTOMETRY [address] [place] [address] Audrey Hale, OD [address] [place] [address] 02/06/2025 11:00 AM EDT Office Visit [facility] MEDICINE [address] [place] [address] Odilia Cota ANP [address] [place] [address] documented as of this encounter Visit Diagnoses Not on filedocumented in this encounter Care Teams Joint Setter Relationship Specialty Start Date End Date Odilia Cota ANP [address] [place] [address] PCP - General Family Medicine 05/24/21 Jakub Cheney, Maria EugeniaD [address] [place] [address] Pharmacist Internal Medicine 01/23/24 documented as of this encounter
--- OUTSIDE RECORDS SUMMARY | 2024-12-02 12:03 | XMS_ITS | Encounter Summary ---
Author Organization [employer] Address [address] [facility] 7t [place] [address] Care Team Providers Care Matchbook Assembler Name Role Phone Odilia Cota ANP Primary Care Provider [phone] Jakub Cheney PharmD Unavailable [phone] Encounter Details Date Type Department Care Team (Late Contact Info) Description 09/12/2022 Orders Only [facility] CHC MED & PEDS [address] [place] [address] Odilia Cota ANP [address] [place] [address] Social History Tobacco Use Types Packs/Day Years [...] Upcoming Encounters Date Type Department Care Team ([facility] Contact Info) Description 12/09/2024 10:00 AM EDT Medication Management [facility] MEDICINE [address] [place] [address] Jakub Cheney PharmD [address] [place] [address] 01/17/2025 10:00 AM EDT Office Visit [facility] OPTOMETRY [address] [place] [address] Geoffrey, Audrey, OD [address] [place] [address] 02/06/2025 11:00 AM EDT Office Visit [facility] MEDICINE [address] [place] [address] Odilia Cota ANP [address] [place] [address] documented as of this encounter Visit Diagnoses Not on filedocumented in this encounter Care Teams Matchbook Assembler Relationship Specialty Start Date End Date Odilia Cota ANP [address] [place] [address] PCP - General Family Medicine 05/24/21 Jakub Cheney, PharmD [address] [place] [address] Pharmacist Internal Medicine 01/23/24 documented as of this encounter
--- OUTSIDE RECORDS SUMMARY | 2024-12-02 12:03 | XMS_ITS | Encounter Summary ---
Author Organization [employer] Address [address] [facility] [address] 7t [place] [address] Care Team Providers Care Cereal Maker Name Role Phone Beata Odilia TORRES Primary Care Provider [phone] Jakub Cheney PharmD Unavailable [phone] Reason for Visit * Reason Onset Date Comments chart prep 11/07/2024 Encounter Details Date Type Department Care Team (Late st Contact Info) Description 11/07/2024 Telephone [facility] MEDICINE [address] [place] [address] Maxine Ramirez MA chart prep Social History [...] Description 12/09/2024 10:00 AM EDT Medication Management [facility] MEDICINE [address] [place] [address] Jakub Cheney, PharmD 230 [place] [address] 01/17/2025 10:00 AM EDT Office Visit [facility] OPTOMETRY [address] [place] [address] Audrey Hale, OD [address] [place] [address] 02/06/2025 11:00 AM EDT Office Visit [facility] MEDICINE [address] [place] [address] Odilia Cota, ANP [address] [place] [address] documented as of this encounter Goals Goal Patient Goal Type Associated Problems Recent Progress Patient-Stated? Author Blood Pressure < 140/90 Blood Pressure 151/106(12/02 9:29 AM EST) No Jakub Cheney PharmD Hemoglobin A1c < 7 Result Component 8.4( 11:33 AM EST) No Jakub Cheney PharmD documented as of this encounter Visit Diagnoses Not on filedocumented in this encounter Care Teams Cereal Maker Relationship Specialty Start Date End Date Odilia Cota ANP [address] [place] [address] PCP - General Family Medicine 05/24/21 Jakub Cheney PharmD [address] [place] [address] Pharmacist Internal Medicine 01/23/24 documented as of this encounter
--- OUTSIDE RECORDS SUMMARY | 2024-12-02 12:03 | XMS_ITS | Encounter Summary ---
Author Organization [employer] Address [address] [facility] 7[address] [place] [address] Care Team Providers Care Scrap Metal Collector Name Role Phone Odilia Cota MELISSA Primary Care Provider [phone] Jakub Cheney PharmD Unavailable [phone] Reason for Referral * Consultation (STAT) - Authorized Specialty Diagnoses / Procedures Referred By Contac t Referred To Contact General Surgery Diagnoses Post-traumatic wound infection Musa Abdalla MD [address] [place] [phone] Phone: tel: fax: Perry Rodriguez MD [address] [place] [phone] Phone: tel: fax: Referral ID Status Reason Start Date Expiration Date Visits Requested Visits Authorized [id number] Authorized Specialty Services Required 12/02/2024 12/02/2025 6 6 Reason for Visit * Reason Comments finger infection Encounter Details Date Type Department Care Team (Late st Contact Info) Description 12/02/2024 9:40 AM EST Office Visit [facility] [address] [place] [address] Musa Abdalla MD [address] [place] [address] Post-traumatic wound infection (Primary Dx); Hypertension, unspecified type Social History Tobacco Use Types Packs/Day Years [...] Sign Reading Time Taken Comments Blood Pressure 151/106 12/02/2024 9:29 AM EST Pulse 90 12/02/2024 9:29 AM EST Temperature 36.2 ??C (97.1 ??F) 12/02/2024 9:29 AM ES T Respiratory Rate 18 12/02/2024 9:29 AM EST Oxygen Saturation 98% 12/02/2024 9:29 AM EST Inhaled Oxygen Concentration - - Weight 94.4 kg (208 lb 3.2 oz) 12/02/2024 9:29 A M EST Height - - Body Mass Index 28.24 07/30/2024 9:22 AM EDT documented in this encounter Plan of Treatment Upcoming Encounters Date Type Department Care Team (Late st Contact Info) Description 12/09/2024 10:00 AM EDT Medication Management [facility] MEDICINE [address] [place] [address] Jakub Cheney PharmD [address] [place] [address] 01/17/2025 10:00 AM EDT Office Visit [facility] OPTOMETRY [address] [place] [address] Geoffrey, Audrey, OD 230 [place] [address] 02/06/2025 11:00 AM EDT Office Visit [facility] MEDICINE [address] [place] [address] Odilia Cota, ANP [address] [place] [address] Scheduled Referrals Name Type Priority Associated Diagnoses Orde r Schedule Referral to General Surgery Outpatient Referral STAT Post-traumatic wound infection Expected: 12/02/2024 (Approximate), Expires: 12/02/2025 documented as of this encounter Goals Goal Patient Goal Type Associated Problems Recent Progress Patient-Stated? Author Blood Pressure < 140/90 Blood Pressure 151/106(12/02 9:29 AM EST) No Jakub Cheney PharmD Hemoglobin A1c < 7 Result Component 8.4( 11:33 AM EST) No Jakub Cheney PharmD documented as of this encounter Procedures Procedure Name Priority Date/Time Associated Diagnosis Comments XR FINGERS 2+ VIEWS LEFT Routine 12/02/2024 10:25 AM EST Post-traumatic wound infection documented in this encounter Results * XR Fingers 2+ Views Left (12/02/2024 10:25 AM EST) Anatomical Region Laterality Modality Upper Extremities, Fingers Left Radio graphic Imaging 12/02/2024 10:2 5 AM EST Narrative 12/02/2024 10:57 AM EST ?[facility] ?[address] ?[place] [address] ?XRay Report ? Signed ? Patient: Ramirez Kathleen,Roe ?MR#: [id number] ?? [id number] ? : 1975 ?Acct:[id number] ? Age/Sex: 49 / M ?ADM Date: 12/02/24 ? Loc: HO.HHCX ? Attending Dr: Musa Abdalla MD ? Ordering Physician: MUSA ABDALLA MD ?? Date of Service: 12/02/24 ?? Procedure(s): XR finger LT min 2V ?? Accession Number(s): [id number] ? cc: MUSA ABDALLA MD ? EXAMINATION: ??XR FINGERS LEFT ? HISTORY: FB? COMPARISON: Comparison is made with the prior examination of the left ?? hand dated 09/20/2017. ? FINDINGS: ? Four views of the left thumb are submitted. ??Osseous mineralization is ?? normal. ??There is no fracture or dislocation. ??The joint spaces are ?? preserved. ??The soft tissues are unremarkable. No radiopaque foreign ?? body is identified. ? XR/XR finger LT min 2V ?? IMPRESSION: ? No radiopaque foreign body is identified. ? Electronically signed by: ??Warren Colón MD ??12/02/2024 10:54 AM EST ?? RP ? Dictated By: ?Warren Colón MD ? Signed By: ?<Electronically signed by Warren Colón MD in OV> ?12/02/24 1054 ? DD/ 1025 ? TD/TT: 12/02/24 1048 ? Finish Saw Operator: ? Procedure Note Marce, Image - 12/02/[address] [address] XRay Report Signed Patient: Clem Crockett LMR#: [id number] : 1975Acct:[id number] Age/Sex: 49 / MADM Date: 12/02/24 Loc: HO.HHCX Attending Dr: Musa Abdalla MD Ordering Physician: MUSA ABDALLA MD Date of Service: 12/02/24 Procedure(s): XR finger LT min 2V Accession Number(s): [id number] cc: MUSA ABDALLA MD EXAMINATION: XR FINGERS LEFT HISTORY: FB? COMPARISON: Comparison is made with the prior examination of the left hand dated 09/20/2017. FINDINGS: Four views of the left thumb are submitted. Osseous mineralization is normal. There is no fracture or dislocation. The joint spaces are preserved. The soft tissues are unremarkable. No radiopaque foreign body is identified. XR/XR finger LT min 2V IMPRESSION: No radiopaque foreign body is identified. Electronically signed by: Warren Colón MD 12/02/2024 10:54 AM EST RP Dictated By: Warren Colón MD Signed By: <Electronically signed by Warren Colón MD in OV> 12/02/24 1054 DD/ 1025 TD/TT: 12/02/24 1048 Finish Saw Operator: Musa Abdalla MD IMG XR PROCEDURES Final Result documented in this encounter Visit Diagnoses Diagnosis Post-traumatic wound infection- Primary Hypertension, unspecified type documented in this encounter Additional Health Concerns Assessment Noted Time PHQ-9 Depression Total Score: 0 11/08/19 25 11:31 AM EST documented as of this encounter Care Teams Scrap Metal Collector Relationship Specialty Start Date End Date Odilia Cota ANP [address] [place] [address] PCP - General Family Medicine 05/24/21 Jakub Cheney PharmD [address] [place] [address] Pharmacist Internal Medicine 01/23/24 documented as of this encounter
--- OUTSIDE RECORDS SUMMARY | 2024-12-02 12:03 | XMS_ITS | Encounter Summary ---
Author Organization [email or web address] Address [address] 7t [place] [address] Care Team Providers Care Rod Welder Name Role Phone Odilia Cota ANP Primary Care Provider [phone] Jakub Cheney PharmD Unavailable [phone] Encounter Details Date Type Department Care Team (Late st Contact Info) Description 11/20/2024 Refill [facility] MED[facility] [address] [place] [address] Odilia Cota ANP 230 [place] [address] Migraine without aura, not refractory Social History [...] encounter Miscellaneous Notes * Telephone Encounter - MELISSA Henderson - 11/25/2024 5:14 PM EST duplicate * Telephone Encounter - Musa Burk PharmD - 11/20/2024 11:18 AM EST - documented in this encounter Plan of Treatment Upcoming Encounters Date Type Department Care Team (Late st Contact Info) Description 12/09/2024 10:00 AM EDT Medication Management [facility] MEDICINE [address] [place] [address] Jakub Cheney, PharmD 230 [place] [address] 01/17/2025 10:00 AM EDT Office Visit [facility] OPTOMETRY [address] [place] [address] Audrey Hale, OD 230 [place] [address] 02/06/2025 11:00 AM EDT Office Visit [facility] MEDICINE [address] [place] [address] Odilia Cota ANP [address] [place] [address] documented as of this encounter Goals Goal [...] documented as of this encounter Care Teams Rod Welder Relationship Specialty Start Date End Date Odilia Cota ANP [address] [place] [address] PCP - General Family Medicine 05/24/21 Jakub Cheney PharmD [address] [place] [address] Pharmacist Internal Medicine 01/23/24 documented as of this encounter
--- OUTSIDE RECORDS SUMMARY | 2024-12-02 12:03 | XMS_ITS | Encounter Summary ---
Author Organization [employer] Address [address] [facility] 7t [place] [address] Care Team Providers Care Collet Making Machine Operator Name Role Phone Odilia Cota Primary Care Provider [phone] Jakub Cheney PharmD Unavailable [phone] Reason for Visit * Reason Comments Med Refill Encounter Details Date Type Department Care Team ([facility] st Contact Info) Description 11/18/2024 Refill [facility] MEDICINE 230 [place] [address] Odilia Cota ANP 230 [place] [address] Type 2 diabetes mellitus with hyperlipidemia ([facility]/HCC) ([facility]/HCC); Essential hypertension Social History Tobacco Use Types [...] Description 12/09/2024 10:00 AM EDT Medication Management [facility] MEDICINE [address] [place] [address] Jakub Cheney, PharmD 230 [place] [address] 01/17/2025 10:00 AM EDT Office Visit [facility] OPTOMETRY [address] [place] [address] Geoffrey, Audrey, OD 230 [place] [address] 02/06/2025 11:00 AM EDT Office Visit [facility] MEDICINE 230 [place] [address] Odilia Cota, ANP 230 [place] [address] documented as of this encounter Goals Goal Patient Goal Type Associated Problems Recent Progress Patient-Stated? Author Blood Pressure < 140/90 Blood Pressure 151/106(12/02 9:29 AM EST) No Jakub Cheney, PharmD Hemoglobin A1c < 7 Result Component 8.4(02/07/202 5 11:33 AM EST) No Jakub Cheney, PharmD documented as of this encounter Visit Diagnoses Diagnosis Type 2 diabetes mellitus with hyperlipidemia (CMS/[facility]) (CMS/[facility]) Essential hypertension Unspecified essential hypertension documented in this encounter Additional Health Concerns Assessment Noted Time PHQ-9 Depression Total Score: 0 11/08/19 25 11:31 AM EST documented as of this encounter Care Teams Collet Making Machine Operator Relationship Specialty Start Date End Date Odilia Cota ANP 230 [place] [address] PCP - General Family Medicine 05/24/21 Jakub Cheney, PharmD 230 [place] [address] Pharmacist Internal Medicine 01/23/24 documented as of this encounter
--- OUTSIDE RECORDS SUMMARY | 2024-12-02 12:03 | XMS_ITS | Encounter Summary ---
Author Organization [employer] Address [address] 7t [place] [address] Care Team Providers Care Equipment Oiler Name Role Phone Odilia Cota MELISSA Primary Care Provider [phone] Jakub Cheney PharmD Unavailable [phone] Encounter Details Date Type Department Care Team [...] Description 12/09/2024 10:00 AM EDT Medication Management [facility] MEDICINE [address] [place] [address] Jakub Cheney PharmD 230 [place] [address] 01/17/2025 10:00 AM EDT Office Visit [facility] OPTOMETRY [address] [place] [address] Geoffrey, Audrey, OD 230 [place] [address] 02/06/2025 11:00 AM EDT Office Visit [facility] MEDICINE [address] [place] [address] Odilia Cota ANP 230 [place] [address] documented as of this encounter Goals Goal [...] documented as of this encounter Care Teams Equipment Oiler Relationship Specialty Start Date End Date Odilia Cota ANP [address] [place] [address] PCP - General Family Medicine 05/24/21 Jakub Cheney, Maria EugeniaD [address] [place] [address] Pharmacist Internal Medicine 01/23/24 documented as of this encounter
--- OUTSIDE RECORDS SUMMARY | 2024-12-02 12:03 | XMS_ITS | Clinical Summary ---
Author Organization [email or web address] Address [address] [facility] 7t [place] [address] Care Team Providers Care Warehouse Order Picker Name Role Phone Odilia Cota MELISSA Primary Care Provider [phone] Jakub Cheney PharmD Unavailable [phone] Allergies Active Allergy Reactions Criticality Noted Date [...] TIME 1 each Active UltiCare Short Pen [place] 31G X 8 MM misc USE DIRECTED FOUR TIMES DAILY 100 each Active TRUEplus Lancets 33G miscIndications:T ype 2 diabetes mellitus with hyperlipidemia ([facility]/HCC) ([facility]) TEST BLOOD SUGAR TWICE DAILY 100 each Active Ventolin HFA 108 (90 Base) MCG/ACT inhalerIndication s:Mild persistent asthma without complication INHALE 2 PUFFS BY MOUTH EVERY 6 HOURS NEEDED FOR WHEEZING 18 g 1 Active Tirzepatide (Mounjaro) 7.5 MG/0.5ML solution auto-injectorIndi cations:Type 2 diabetes mellitus with hyperlipidemia (CMS/HCC) ([facility]) Inject 7.5 mg under the skin every 7 (seven) days. 2 mL Active tiZANidine (Zanaflex) 2 MG tabletIndications :Low back pain at multiple sites Take 2 tablets (4 mg) by mouth every 6 (six) hours if needed for muscle spasms for up to 10 days. 30 tablet Active lidocaine (Lidoderm) 5 % patchIndications: Low back pain at multiple sites Apply 1 patch topically Once per day. Remove & discard patch within 12 hours or as directed by . 28 patch 5 Active acetaminophen (Tylenol 8 Hour) 650 MG ER tabletIndications :Low back pain at multiple sites 1-2 tabs as needed for pain up to TID. Do not crush, chew, or split. 180 tablet 024 Active Tresiba FlexTouch 100 UNIT/ML injectionIndicati ons:Type 2 diabetes mellitus with hyperlipidemia (CMS/HCC) ([facility]) INJECT 60 UNITS SUBCUTANEOUSLY EVERY MORNING DIRECTED 15 mL 5 025 Active Continuous Glucose Sensor (FreeStyle Senia 3 Plus Sensor) miscIndications:T ype 2 diabetes mellitus with hyperlipidemia (CMS/HCC) ([facility]) 1 each every 14 (fourteen) days. 2 each 025 Active Continuous Glucose Gas Brazer (FreeStyle Senia 3 Kirwin) deviceIndications :Type 2 diabetes mellitus with hyperlipidemia (CMS/HCC) ([facility]) 1 each every 14 (fourteen) days. 2 each 025 Active metFORMIN XR (Glucophage-XR) 500 MG 24 hr tablet TAKE 2 TABLETS BY MOUTH TWICE DAILY IN THE MORNING AND EVENING WITH FOOD 360 tablet 025 Active aspirin (Aspirin Adult Low Strength) 81 MG EC tablet TAKE 1 TABLET BY MOUTH AT BEDTIME 90 tablet 1 025 Active amLODIPine (Norvasc) 5 MG tabletIndications :Essential hypertension TAKE 1 TABLET BY MOUTH EVERY MORNING 90 tablet 1 025 Active atorvastatin (Lipitor) 40 MG tablet TAKE 1 TABLET BY MOUTH AT BEDTIME 90 tablet 025 Active omeprazole (PriLOSEC) [address] capsule TAKE 1 CAPSULE BY MOUTH EVERY MORNING BEFORE MEALS 90 capsule 025 Active topiramate 50 MG tabletIndications :Migraine without aura, not refractory TAKE 1 TABLET BY MOUTH EVERY DAY 90 tablet 1 025 Active cefadroxil (Duricef) 500 MG capsule Take 1 capsule (500 mg) by mouth 2 times daily for 7 days. 14 capsule 025 2024 Active doxycycline (Vibramycin) 100 MG capsule Take 1 capsule (100 mg) by mouth 2 times daily for 7 days. Take with at least 8 ounces (large glass) of water, do not lie down for 30 minutes after 14 capsule 025 2024 Active Continuous Blood Gluc Gas Brazer (FreeStyle Senia 2 Kirwin) deviceIndications :Type 2 diabetes mellitus with hyperlipidemia (CMS/HCC) ([facility]) 1 each 5 (five) times a day. 1 each 023 2024 Discontinued Continuous Blood Gluc Sensor (FreeStyle Senia 2 Sensor) miscIndications:T ype 2 diabetes mellitus with hyperlipidemia (CMS/HCC) ([facility]) 1 each every 14 (fourteen) days. 6 each 3 023 2024 Discontinued topiramate 50 MG tabletIndications :Migraine without aura, not refractory TAKE 1 TABLET BY MOUTH EVERY DAY 90 tablet 1 024 2024 Discontinued metFORMIN XR (Glucophage-XR) 500 MG 24 hr tablet TAKE 2 TABLETS BY MOUTH TWICE DAILY IN THE MORNING AND EVENING WITH MEALS 360 tablet 1 024 2024 Discontinued atorvastatin (Lipitor) 40 MG tablet TAKE 1 TABLET BY MOUTH AT BEDTIME 90 tablet 1 024 2024 Discontinued omeprazole (PriLOSEC) [address] capsule TAKE 1 CAPSULE BY MOUTH EVERY MORNING BEFORE A MEAL 90 capsule 1 024 2024 Discontinued aspirin (Aspirin Low Dose) 81 MG EC tablet TAKE 1 TABLET BY MOUTH AT BEDTIME 90 tablet 1 024 2024 Discontinued amLODIPine (Norvasc) 5 MG tabletIndications :Essential hypertension TAKE 1 TABLET BY MOUTH EVERY MORNING 90 tablet 1 024 2024 Discontinued Active Problems Problem Noted Date [...] organization. Date Type Department Care Team Description 12/02/2024 9:40 AM EST Office Visit [facility] [address] [place] [address] Musa Felton MD Post-traumatic wound infection (Primary Dx); Hypertension, unspecified type 11/20/2024 Refill [facility] MEDICINE [address] [place] [address] Odilia Cota ANP Migraine without aura, not refractory 11/19/2024 Refill [facility] MED & PEDS [address] [place] [address] Ramon Calhoun MD Migraine without aura, not refractory 11/19/2024 Refill [facility] MEDICINE [address] [place] [address] Odilia Cota ANP Migraine without aura, not refractory; Essential hypertension 11/18/2024 Refill [facility] [address] [place] [address] Twila Velez MD Migraine without aura, not refractory 11/18/2024 Refill [facility] MED[facility] [address] [place] [address] Odilia Cota ANP Type 2 diabetes mellitus with hyperlipidemia ([facility]/HCC) ([facility]); Essential hypertension 11/15/2024 9:30 AM EST Clinical Support [address] [address] Gilda Danielson RN Type 2 diabetes mellitus with both eyes affected by mild nonproliferative retinopathy without macular edema, without long-term current use of insulin ([facility]) 11/15/2024 Travel 11/12/[address] [address] Odilia Cota ANP Durable Medical Equipment (Diabetic shoes) 11/11/[address] [address] Gilda Danielson RNbody bumper 11/08/2024 11:15 AM EST Office Visit [address] [address] Odilia Cota ANP Type 2 diabetes mellitus with hyperlipidemia ([facility]/HCC) ([facility]) (Primary Dx); Chronic pain of both knees; Anxiety; Neuropathic pain; Numbness and tingling of both legs 11/08/2024 Travel 11/07/[address] [address] Maxine Ramirez [place] chart prep 10/28/2024 Patient Outreach [address] [address] Odilia Cota ANP Pre-visit Planning (Pre visit planning unable to complete. ) 10/23/2024 9:00 AM EST Office Visit [facility] OPTOMETRY [address] [place] [address] Audrey Hale, OD Presbyopia of both eyes (Primary Dx) 10/23/2024 Travel 10/04/2024 Refill [facility] MEDICINE [address] [place], [place] [phone] Odilia Cota ANP Type 2 diabetes mellitus with hyperlipidemia ([facility]/HCC) ([facility]) 09/26/2024 Telephone [facility] [address] [place], [place] [phone] yTron Moya [place] November recall from Last 3 Months Immunizations Name Administration [...] oz) 12/02/2024 9:29 A M EST Height 182.9 cm (6') 07/30/2024 9:22 AM EDT Body Mass Index 28.24 07/30/2024 9:22 AM EDT Plan of Treatment Upcoming Encounters Date Type Department Care Team (Late st Contact Info) Description 12/09/2024 10:00 AM EDT Medication Management [facility] MEDICINE [address] [place] [address] Jakub Cheney, PharmD [address] [place] [address] 01/17/2025 10:00 AM EDT Office Visit [facility] OPTOMETRY [address] [place] [address] Geoffrey, Audrey, OD [address] [place] [address] 02/06/2025 11:00 AM EDT Office Visit [facility] MEDICINE [address] [place] [address] Odilia Cota, ANP [address] [place] [address] Health Maintenance Due Date Last Done Comments [...] Screening 11/08/2025 11/08/2024, 11/08/19 25 Tobacco Screening 12/02/2025 12/02/2024 DTaP/Tdap/Td Vaccines (3 - Td or Tdap) [...] 8.4( 11:33 AM EST) No Jakub Cheney, Alan Procedures Procedure Name Priority Date/Time Associated Diagnosis Comments XR FINGERS 2+ VIEWS LEFT Routine 12/02/2024 10:25 AM EST Post-traumatic wound infection POCT GLYCATED HEMOGLOBIN, TOTAL Routine 11/08/2024 11:33 AM EST Type 2 diabetes mellitus with hyperlipidemia (CMS/HCC) (CMS/HCC) POCT GLUCOSE Routine 11/08/2024 11:32 AM EST Type 2 diabetes mellitus with hyperlipidemia (CMS/HCC) (CMS/HCC) LIPID PANEL, STANDARD Routine 12/04/2020 8:28 AM EST ALBUMIN, RANDOM URINE W/CREATININE Routine 06/25/2020 10:45 AM EDT from Last 3 Months or Most Recently Relevant to Health Maintenance Results * XR Fingers 2+ Views Left (12/02/2024 10:25 AM EST) Anatomical Region Laterality Modality Upper Extremities, Fingers Left Radio graphic Imaging 12/02/2024 10:2 5 AM EST Narrative 12/02/2024 10:57 AM EST ?[facility] ?[address] ?[place] [address] ?XRay Report ? Signed ? Patient: Clem [place] ?MR#: [id number] ?? [id number] ? : 1975 ?Acct:[id number] ? Age/Sex: 49 / M ?ADM Date: 12/02/24 ? Loc: HO.HHCX ? Attending Dr: Musa Felton MD ? Ordering Physician: MUSA FELTON MD ?? Date of Service: 12/02/24 ?? Procedure(s): XR finger LT min 2V ?? Accession Number(s): [id number] ? cc: MUSA FELTON MD ? EXAMINATION: ??XR FINGERS LEFT ? [...] DD/ 1025 ? TD/TT: 12/02/24 1048 ? Patient Account Representative: ? Procedure Note Donotrickeyinterpreter, Image - 12/02/2024 [facility] [address] [place] [address] XRay Report Signed Patient: Clem Cro[place] LMR#: [id number] : 1975Acct:[id number] Age/Sex: 49 / MADM Date: 12/02/24 Loc: HO.HHCX Attending Dr: Musa Felton MD Ordering Physician: MUSA FELTON MD Date of Service: 12/02/24 Procedure(s): XR finger LT min 2V Accession Number(s): [id number] cc: MUSA FELTON MD EXAMINATION: XR FINGERS LEFT HISTORY: FB? [...] Warren Colón MD 12/02/2024 10:54 AM EST Dictated By: Warren Colón MD Signed By: <Electronically signed by Warren Colón MD in OV> 12/02/24 1054 DD/ 1025 TD/TT: 12/02/24 1048 Patient Account Representative: Musa Felton MD IMG XR PROCEDURES Final Result * (ABNORMAL) POCT HGB A1C (11/08/2024 11:33 AM EST) Hemoglobin A1C 8.4(A) 4.0 - 6.0 % QC Media Lot # [id number] Lot# Expiration Date Blood 11/08/2024 11:3 3 AM EST [facility] MELISSA POINT OF CARE TEST ENTER/EDIT OR DERABLES Final Result * (ABNORMAL) POCT Glucose (11/08/2024 11:32 AM EST) Pathologist [facility] Glucose Blood, POC 217(A) 60 - 200 mg/dL QC Media Lot # [id number] Lot# Expiration Date 025 Blood Capillary blood specimen / Unknown 11/08/2024 11:32 AM EST [facility] Cota ANP POINT OF CARE TEST ENTER/EDIT OR DERABLES Final Result * (ABNORMAL) LIPID PANEL, STANDARD (12/04/2020 8:28 AM EST) [facility] Chol/HDLC Ratio 5.1(H) <5.0 (calc) [facility] [...] ?? Duglas MCLEOD et al. KENNETH. 2013;310(19): 5374-9321 ?? (http://education.[employer]/faq/YEY765) Non-HDL Cholesterol 120 <130 mg/dL (calc) [facility] [...] Historical Provider MD LAB BLOOD ORDERABLES Bailee l Result Performing Organization Address [facility] de Phone Number [facility] [address] * ALBUMIN, RANDOM URINE W/CREATININE (06/25/2020 [...] 06/25/2020 10:4 5 AM EDT Historical Provider LAB URINE ORDERABLES Bailee l Result Performing Organization Address [facility] de Phone Number [facility] [address] from Last 3 Months or Most Recently Relevant to Health Maintenance Insurance [facility] Care Teams Warehouse Order Picker Relationship Specialty Start Date End Date Odilia Cota ANP [address] [place], [place] PCP - General Family Medicine 05/24/21 Jakub Cheney PharmD [address] [place], [place] Pharmacist Internal Medicine 01/23/24
--- OUTSIDE RECORDS SUMMARY | 2024-12-02 12:03 | XMS_ITS | Encounter Summary ---
Author Organization [employer] Address [address] [facility] 7t [place] [address] Care Team Providers Care White Sidewall Tire Buffer Name Role Phone Odilia Cota Primary Care Provider Jakub Cheney PharmD Unavailable [phone] Encounter Details Date Type Department Care Team (Late Contact Info) Description 04/14/2023 Orders Only [facility] MED & PEDS [address] [place], [place] [phone] Melia Owen LPN Social History Tobacco Use [...] Management [facility] MEDICINE [address] [place], [place] [phone] Jakub Cheney, PharmD [address] [place] [address] 01/17/2025 10:00 AM EDT Office Visit [facility] OPTOMETRY [address] [place], [place] [phone] Audrey Hale, OD 230 [place] [address] 02/06/2025 11:00 AM EDT Office Visit [facility] MEDICINE [address] [place], [place] [phone] Odilia Cota ANP [address] [place], [place] [phone] documented as of this encounter Visit Diagnoses Not on filedocumented in this encounter Care Teams White Sidewall Tire Buffer Relationship Specialty Start Date End Date Odilia Cota ANP [address] [place] [address] [phone] PCP - General Family Medicine 05/24/21 Jakub Cheney, Maria EugeniaD [address] [place] [address] [phone] Pharmacist Internal Medicine 01/23/24 documented as of this encounter
--- OUTSIDE RECORDS SUMMARY | 2024-12-02 12:03 | XMS_ITS | Encounter Summary ---
Author Organization [email or web address] Address [address] [facility] [address] 7t [place] [address] Care Team Providers Care Instrumental Teacher Name Role Phone Odilia Cota Primary Care Provider [phone] Jakub Cheney PharmD Unavailable [phone] Encounter Details Date Type Department Care Team (Late st Contact Info) Description 11/19/2024 Refill [facility] MEDICINE [address] [place] [address] Odilia Cota ANP [address] [place] [address] Migraine without aura, not refractory; Essential hypertension Social History Tobacco Use Types [...] Telephone Encounter - MELISSA Henderson - 11/25/2024 5:15 PM EST duplicate documented in this encounter Plan of Treatment Upcoming Encounters Date Type Department Care Team (Late st Contact Info) Description 12/09/2024 10:00 AM EDT Medication Management [facility] MEDICINE [address] [place] [address] Jakub Cheney, PharmD [address] [place] [address] 01/17/2025 10:00 AM EDT Office Visit [facility] OPTOMETRY [address] [place] [address] Audrey Hale, OD 230 [place] [address] 02/06/2025 11:00 AM EDT Office Visit [facility] MEDICINE [address] [place] [address] Odilia Cota ANP [address] [place] [address] documented as of this encounter Goals Goal Patient Goal Type Associated Problems Recent Progress Patient-Stated? Author Blood Pressure < 140/90 Blood Pressure 151/106(12/02 9:29 AM EST) No Jakub Cheney PharmD Hemoglobin A1c < 7 Result Component 8.4( 11:33 AM EST) No Jakub Cheney PharmD documented as of this encounter Visit Diagnoses Diagnosis Migraine without aura, not refractory Essential hypertension Unspecified essential hypertension documented in this encounter Additional Health Concerns Assessment Noted Time PHQ-9 Depression Total Score: 0 11/08/19 25 11:31 AM EST documented as of this encounter Care Teams Instrumental Teacher Relationship Specialty Start Date End Date Odilia Cota ANP [address] [place] [address] PCP - General Family Medicine 05/24/21 Jakub Cheney, Alan [address] [place] [address] Pharmacist Internal Medicine 01/23/24 documented as of this encounter
--- OUTSIDE RECORDS SUMMARY | 2024-12-02 12:03 | XMS_ITS | Encounter Summary ---
Author Organization [email or web address] Address [address] 7t [place] [address] Care Team Providers Care Special Education Teaching Assistant Name Role Phone Odilia Cota MELISSA Primary Care Provider [phone] Jakub Cheney PharmD Unavailable [phone] Encounter Details Date Type Department Care Team [...] Description 12/09/2024 10:00 AM EDT Medication Management [facility] MEDICINE [address] [place] [address] Jakub Cheney PharmD [address] [place] [address] 01/17/2025 10:00 AM EDT Office Visit [facility] OPTOMETRY [address] [place] [address] Geoffrey, Audrey, OD 230 [place] [address] 02/06/2025 11:00 AM EDT Office Visit [facility] MEDICINE [address] [place] [address] Odilia Cota ANP [address] [place] [address] documented as of this encounter Goals Goal [...] documented as of this encounter Care Teams Special Education Teaching Assistant Relationship Specialty Start Date End Date Odilia Cota ANP [address] [place] [address] PCP - General Family Medicine 05/24/21 Jakub Cheney, Maria EugeniaD [address] [place] [address] Pharmacist Internal Medicine 01/23/24 documented as of this encounter
--- OUTSIDE RECORDS SUMMARY | 2024-12-02 12:03 | XMS_ITS | Clinical Summary ---
Author Organization [facility] Address [address] [place] [address] Care Team Providers Care Casino Floor Runner Name Role Phone Unavailable Primary Care Provider Unavailabl e Social History Tobacco Use Types Packs/Day Years Used Date Smoking Tobacco: Never Assessed Sex and Gender Information Value Date Recorded Sex Assigned at Not on file Gender Identity Not on file Sexual Orientation Not on file Plan of Treatment Not on file
== END 2024-12-02 10:24 | disposition home or self-care (01) ==
LOC: HO.HHCX 10:23
PROVIDERS: Visit Provider Emergency Medicine
DX: T14.8XXA Other injury of unspecified body region, initial encounter (principal); L08.9 Local infection of the skin and subcutaneous tissue, unspecified; L02.512 Cutaneous abscess of left hand
CPT/HCPCS: 73140

== ENCOUNTER → 2024-12-02 10:25 | Outpatient (BNV) | payer MEDICAID, SELFPAY | PROVIDERS: Visit Provider Radiology Diagnostic Radiology | DX: M79.642 Pain in left hand (principal) | CPT/HCPCS: 73140 ==

== ENCOUNTER 2024-12-02 10:59 | Outpatient (AMB) | payer MEDICAID, SELFPAY ==
--- NOTE | 2024-12-02 11:02 | A.OFFVIS_ITS ---
Vital Signs 12/02/24 11:06 Height 6 ft Weight 208 lb BMI 28.2 BP 166/101 H Blood Pressure Location Rt brachial Position Sitting Pulse 86 Intake Visit Reasons: IND left thumb, splinter/infected? Intake Note: Patient pcp at [facility] called to schedule today's appointment for possible abscess I&D on Lt thumb. Hx of wood splinter on Monday. Patient c/o: pain, redness, inflammation. Due to pick 2 abx rx's later on today. Note: Reports blood pressure was higher when seen by pcp this morning. Reports forgot to take HTN medication, drank like 3cups of coffee. Evaluator Required: No Accompanied by: Spouse Allergies Sea Food Allergy (Mild, Uncoded 12/02/24 11:22) Anaphylaxis Medication List - Last Reviewed 12/02/24 by BRIAN Stokes albuterol sulfate 90 mcg/actuation (Ventolin HFA) 2 puffs inhalation Q6H PRN amlodipine (Norvasc) 2.5 mg PO DAILY 90 days aspirin 81 mg PO DAILY atorvastatin 40 mg PO DAILY cyclobenzaprine 5 mg PO TID PRN dulaglutide (Trulicity) mg subcut QWEEK fenofibrate micronized 134 mg PO DAILY ibuprofen 800 mg PO Q8H PRN insulin degludec (Tresiba FlexTouch U-100 insulin) 50 units subcut QAM insulin glargine (Basaglar KwikPen U-100 Insulin) 10 units subcut QPM insulin lispro 10 units subcut TID lidocaine 5% 1 patch topical DAILY lisinopril 10 mg PO DAILY lisinopril 20 mg PO QAM loratadine 10 mg PO DAILY metformin 500 mg PO BID metformin ER 1,000 mg PO naproxen 500 mg PO BID omega 1-aqa-mln-fish oil 300 mg (120 mg- 180mg)-1,000 mg 1 cap PO omeprazole 40 mg PO DAILY HPI Comments Details: Patient was for evaluation of a left thumb infection/abscess. He sustained a wooden splinter in this area a few days ago. He was seen in walk-in clinic and now presents here for further evaluation. X-ray results of the digit is unavailable because it was performed at an outside facility. In the meantime, patient was had some pain and swelling and redness of the area and presents here for further evaluation. 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 Office Procedures I&D Drain Details: Risks, benefits, alternatives of I&D of left thumb abscess were reviewed with the patient and included but not limited to bleeding recurrence, numbness, pain, scarring the patient wished to proceed. Patient was appropriately positioned underwent 1% lidocaine and Betadine prep and uneventful incision drainage of left thumb complex abscess was performed. Loculations broken down. Area was explored with no evidence of any retained foreign body demonstrated. Bacitracin and dressing applied. Patient tolerated procedure well. 69959-Nencwmlx of Skin Abscess, complex All charges added?: Procedure code (CPT) selection complete Office Meds lidocaine 1 %-epinephrine 1:100,000 injection solution Performing Provider: Perry Rodriguez MD Performing Location: [facility] Administered by: Perry Rodriguez MD on 12/02/24 11:23 Dose Route Admin Location Dispensed Lot Number Expiration Date [facility] Surveillance Systems Engineer 10 mL Infiltration 10 mL Assessment & Plan Assessment & Plan (1) Abscess of thumb, left: Code(s): L02.512 - Cutaneous abscess of left hand Category: Surgical Plan: Patient was to fill the script provided to him by the [place] walk-in. He has been given local instructions including bacitracin each day with a dressing. He will see me in a few days' time for follow-up. All questions answered. Orders: Orders AMB Incision & Drainage Today L02.512 - Cutaneous abscess of left hand Medications: New lidocaine-epinephrine 1 %-1:100,000 10 mL Infiltration ONCE 10 mL 0RF L02.512 - Cutaneous abscess of left hand Coding Level of Care Code New Pt Level 5 (95167) Diagnoses Abscess of thumb, left L02.512 CPT Codes I&D Drain - Drain 2: 83523-Earfebjs of Skin Abscess, complex ([id number])
[2024-12-02 11:06] VITALS: BP 166/101; PULSE 86; BMI 28.2
--- OUTSIDE RECORDS SUMMARY | 2024-12-02 13:00 | XMS_ITS | Encounter Summary ---
Author Organization [employer] Address [address] [facility] [address] [place] [address] Care Team Providers Care Ultrasound Technol Name Role Phone Odilia Cota MELISSA Primary Care Provider Jakub Cheney PharmD Unavailable [phone] Encounter Details Date Type Department Care Team (Late Contact Info) Description 09/12/2022 Abstract [facility] MEDICINE [address] [place] [phone] Provider, MD Idris Social History Tobacco Use [...] Description 12/09/2024 10:00 AM EDT Medication Management [facility] MEDICINE [address] [place] [address] Jakub Cheney, PharmD [address] [place], [place] [phone] 01/17/2025 10:00 AM EDT Office Visit [facility] OPTOMETRY [address] [place] [address] Audrey Hale, VIET 230 [place] [address] 02/06/2025 11:00 AM EDT Office Visit [facility] MEDICINE 230 [place] [address] Odilia Cota ANP [address] [place] [address] documented as of this encounter Visit Diagnoses Not on filedocumented in this encounter Care Teams Ultrasound Technol Relationship Specialty Start Date End Date Odilia Cota ANP [address] [place] [address] PCP - General Family Medicine 05/24/21 Jakub Cheney, Maria EugeniaD [address] [place] [address] Pharmacist Internal Medicine 01/23/24 documented as of this encounter
--- OUTSIDE RECORDS SUMMARY | 2024-12-02 13:00 | XMS_ITS | Encounter Summary ---
Author Organization [employer] Address [address] [facility] 7t [place] [address] Care Team Providers Care Puncher Name Role Phone Odilia Cota ANP Primary Care Provider [phone] Jakub Cheney PharmD Unavailable [phone] Encounter Details Date Type Department Care Team (Late Contact Info) Description 09/12/2022 Orders Only [facility] CHC MED & PEDS 505 [place] [address] Odilia Cota ANP 230 [place] [address] Social History Tobacco Use Types Packs/Day Years [...] Upcoming Encounters Date Type Department Care Team ([facility] Contact Info) Description 12/09/2024 10:00 AM EDT Medication Management [facility] MEDICINE [address] [place] [address] Jakub Cheney PharmD 230 [place] [address] 01/17/2025 10:00 AM EDT Office Visit [facility] OPTOMETRY [address] [place] [address] Geoffrey, Audrey, OD 230 [place] [address] 02/06/2025 11:00 AM EDT Office Visit [facility] MEDICINE 230 [place] [address] Odilia Cota ANP 230 [place] [address] documented as of this encounter Visit Diagnoses Not on filedocumented in this encounter Care Teams Puncher Relationship Specialty Start Date End Date Odilia Cota ANP 230 [place] [address] PCP - General Family Medicine 05/24/21 Jakub Cheney, PharmD [address] [place] [address] Pharmacist Internal Medicine 01/23/24 documented as of this encounter
--- OUTSIDE RECORDS SUMMARY | 2024-12-02 13:00 | XMS_ITS | Encounter Summary ---
Author Organization [employer] Address 75 [facility] [address] [place] [address] Care Team Providers Care Sheet Metal Duct Installer Name Role Phone Odilia Cota MELISSA Primary Care Provider [phone] Jakub Cheney PharmD Unavailable [phone] Encounter Details Date Type Department Care Team ([facility] Contact Info) Description 02/28/2023 Orders Only [facility] MEDICINE [address] [place] [address] Vianney Nevarez LPN Social History Tobacco Use [...] Upcoming Encounters Date Type Department Care Team ([facility] Contact Info) Description 12/09/2024 10:00 AM EDT Medication Management [facility] MEDICINE 230 [place] [address] Jakub Cheney, PharmD 230 [place], [place] [phone] 01/17/2025 10:00 AM EDT Office Visit [facility] OPTOMETRY [address] [place] [address] Audrey Hale, OD 230 [place] [address] 02/06/2025 11:00 AM EDT Office Visit [facility] MEDICINE 230 [place] [address] Odilia Cota ANP 230 [place] [address] documented as of this encounter Visit Diagnoses Not on filedocumented in this encounter Care Teams Sheet Metal Duct Installer Relationship Specialty Start Date End Date Odilia Cota ANP [address] [place] [address] PCP - General Family Medicine 05/24/21 Jakub Cheney, Maria EugeniaD [address] [place] [address] Pharmacist Internal Medicine 01/23/24 documented as of this encounter
--- OUTSIDE RECORDS SUMMARY | 2024-12-02 13:00 | XMS_ITS | Encounter Summary ---
Author Organization [employer] Address [address] [facility] [address] [place] [address] Care Team Providers Care Drafter Geological Name Role Phone Odilia Cota Primary Care Provider [phone] Jakub Cheney PharmD Unavailable [phone] Encounter Details Date Type Department Care Team (Late st Contact Info) Description 11/19/2024 Refill [facility] MEDICINE [address] [place] [address] Odilia Cota ANP 230 [place] [address] Migraine without aura, not refractory; Essential hypertension [...] 10:00 AM EDT Medication Management [facility] MEDICINE [address] [place] [address] Jakub Cheney, PharmD 230 [place] [address] 01/17/2025 10:00 AM EDT Office Visit [facility] OPTOMETRY [address] [place] [address] Audrey Hale, OD 230 [place] [address] 02/06/2025 11:00 AM EDT Office Visit [facility] MEDICINE [address] [place] [address] Odilia Cota ANP 230 [place] [address] documented as of this encounter Goals Goal [...] documented as of this encounter Care Teams Drafter Geological Relationship Specialty Start Date End Date Odilia Cota ANP 230 [place] [address] PCP - General Family Medicine 05/24/21 Jakub Cheney, Alan 230 [place] [address] Pharmacist Internal Medicine 01/23/24 documented as of this encounter
--- OUTSIDE RECORDS SUMMARY | 2024-12-02 13:00 | XMS_ITS | Encounter Summary ---
Author Organization [employer] Address 75 [facility] 7t [place] [address] Care Team Providers Care Kit Planner Name Role Phone Odilia Cota Primary Care Provider Jakub Cheney PharmD Unavailable [phone] Encounter Details Date Type Department Care Team (Late Contact Info) Description 04/14/2023 Orders Only [facility] CHC MED & PEDS 505 [place], [place] [phone] Melia Owen LPN Social History Tobacco Use [...] 10:00 AM EDT Medication Management [facility] MEDICINE 230 [place], [place] [phone] Jakub Cheney, PharmD 230 [place] [address] 01/17/2025 10:00 AM EDT Office Visit [facility] OPTOMETRY [address] [place], [place] [phone] Audrey Hale, OD 230 [place] [address] 02/06/2025 11:00 AM EDT Office Visit [facility] MEDICINE 230 [place], [place] [phone] Odilia Cota ANP [address] [place], [place] [phone] documented as of this encounter Visit Diagnoses Not on filedocumented in this encounter Care Teams Kit Planner Relationship Specialty Start Date End Date Odilia Cota ANP [address] [place] [address] [phone] PCP - General Family Medicine 05/24/21 Jakub Cheney, Maria EugeniaD [address] [place] [address] [phone] Pharmacist Internal Medicine 01/23/24 documented as of this encounter
--- OUTSIDE RECORDS SUMMARY | 2024-12-02 13:00 | XMS_ITS | Encounter Summary ---
Author Organization [email or web address] Address [address] [facility] [address] 7[address] [place] [address] Care Team Providers Care Trigonometry Teacher Name Role Phone Odilia Cota ANP Primary Care Provider [phone] Jakub Cheney PharmD Unavailable [phone] Encounter Details Date Type Department Care Team (Late st Contact Info) Description 11/20/2024 Refill [facility] MEDICINE 230 [place] [address] Odilia Cota ANP 230 [place] [address] Migraine without aura, not refractory Social History [...] Description 12/09/2024 10:00 AM EDT Medication Management [facility] MEDICINE [address] [place] [address] Jakub Cheney, PharmD 230 [place] [address] 01/17/2025 10:00 AM EDT Office Visit [facility] OPTOMETRY [address] [place] [address] Audrey Hale, OD 230 [place] [address] 02/06/2025 11:00 AM EDT Office Visit [facility] MEDICINE 230 [place] [address] Odilia Cota ANP [address] [place] [address] documented as of this encounter Goals Goal [...] documented as of this encounter Care Teams Trigonometry Teacher Relationship Specialty Start Date End Date Odilia Cota ANP [address] [place] [address] PCP - General Family Medicine 05/24/21 Jakub Cheney PharmD [address] [place] [address] Pharmacist Internal Medicine 01/23/24 documented as of this encounter
--- OUTSIDE RECORDS SUMMARY | 2024-12-02 13:00 | XMS_ITS | Encounter Summary ---
Author Organization [employer] Address [address] [facility] 7t [place] [address] Care Team Providers Care Sleeve Machine Tender Name Role Phone Odilia Cota MELISSA Primary Care Provider [phone] Jakub Cheney PharmD Unavailable [phone] Reason for Visit * Reason Comments Med Refill Encounter Details Date Type Department Care Team ([facility] Contact Info) Description 01/20/2023 Refill [facility] MEDICINE 230 [place], [place] [phone] Theresa Tony FNP 505 [place] [address] Social History Tobacco Use Types Packs/Day Years [...] Upcoming Encounters Date Type Department Care Team ([facility] Contact Info) Description 12/09/2024 10:00 AM EDT Medication Management [facility] MEDICINE 230 [place] [address] Jakub Cheney, PharmD 230 [place] [address] 01/17/2025 10:00 AM EDT Office Visit [facility] OPTOMETRY [address] [place] [address] Audrey Hale, OD 230 [place] [address] 02/06/2025 11:00 AM EDT Office Visit [facility] MEDICINE 230 [place] [address] Odilia Cota ANP 230 [place] [address] documented as of this encounter Visit Diagnoses Not on filedocumented in this encounter Care Teams Sleeve Machine Tender Relationship Specialty Start Date End Date Odilia Cota ANP [address] [place] [address] PCP - General Family Medicine 05/24/21 Jakub Cheney, Maria EugeniaD [address] [place] [address] Pharmacist Internal Medicine 01/23/24 documented as of this encounter
--- OUTSIDE RECORDS SUMMARY | 2024-12-02 13:00 | XMS_ITS | Encounter Summary ---
Author Organization [employer] Address [address] [facility] 7 [place] [address] Care Team Providers Care President [employer] Name Role Phone Odilia Cota MELISSA Primary Care Provider [phone] Jakub Cheney PharmD Unavailable [phone] Reason for Visit * Reason Comments Med Refill Encounter Details Date Type Department Care Team ([facility] st Contact Info) Description 11/18/2024 Refill [facility] CHC MED & PEDS 505 [place] [address] Twila Velez MD 230 [place] [address] Migraine without aura, not refractory Social History [...] 10:00 AM EDT Medication Management [facility] MEDICINE [address] [place] [address] Jakub Cheney, PharmD 230 [place] [address] 01/17/2025 10:00 AM EDT Office Visit [facility] OPTOMETRY 267 [place] [address] Geoffrey, Audrey, OD 230 [place] [address] 02/06/2025 11:00 AM EDT Office Visit [facility] MEDICINE 230 [place] [address] Odilia Cota, ANP 230 [place] [address] documented as of this encounter Goals Goal [...] documented as of this encounter Care Teams President [employer] Relationship Specialty Start Date End Date Odilia Cota ANP 230 [place] [address] PCP - General Family Medicine 05/24/21 Jakub Cheney, PharmD 230 [place] [address] Pharmacist Internal Medicine 01/23/24 documented as of this encounter
--- OUTSIDE RECORDS SUMMARY | 2024-12-02 13:00 | XMS_ITS | Encounter Summary ---
Author Organization [employer] Address [address] [facility] [address] 7[address] [place] [address] Care Team Providers Care Fold Skiver Name Role Phone Odilia Cota Primary Care Provider [phone] Jakub Cheney PharmD Unavailable Reason for Visit * Reason Comments Med Refill Encounter Details Date Type Department Care Team ([facility] st Contact Info) Description 11/25/2023 Refill [facility] MEDICINE 230 [place] [address] Odilia Cota ANP 230 [place] [address] Shortness of breath Social History Tobacco Use [...] t he electric, gas, oil or water [employer] threatened to shut off services in your [...] Medication Management [facility] MEDICINE 230 [place] [address] Jakub Cheney, Alan 230 [place] [address] 01/17/2025 10:00 AM EDT Office Visit [facility] OPTOMETRY 267 [place] [address] GeoffreyAudrey granados, OD 230 [place] [address] 02/06/2025 11:00 AM EDT Office Visit [facility] MEDICINE 230 [place] [address] Odilia Cota ANP 230 [place] [address] documented as of this encounter Visit Diagnoses Diagnosis Shortness of breath documented in this encounter Care Teams Fold Skiver Relationship Specialty Start Date End Date Odilia Cota ANP [address] [place] [address] PCP - General Family Medicine 05/24/21 Jakub Cheney, Maria EugeniaD [address] [place] [address] Pharmacist Internal Medicine 01/23/24 documented as of this encounter
--- OUTSIDE RECORDS SUMMARY | 2024-12-02 13:00 | XMS_ITS | Encounter Summary ---
Author Organization [employer] Address [address] [facility] 7t [place] [address] Care Team Providers Care Sand Cleaning Machine Operator Name Role Phone Odilia Cota MELISSA Primary Care Provider [phone] Jakub Cheney PharmD Unavailable [phone] Reason for Visit * Reason Comments Med Refill Encounter Details Date Type Department Care Team ([facility] st Contact Info) Description 11/19/2024 Refill [facility] CHC MED & PEDS 505 [place] [address] Ramon Calhoun MD 230 [place] [address] Migraine without aura, not refractory Social History [...] Description 12/09/2024 10:00 AM EDT Medication Management [facility] MEDICINE [address] [place] [address] Jakub Cheney, PharmD 230 [place] [address] 01/17/2025 10:00 AM EDT Office Visit [facility] OPTOMETRY 267 [place] [address] Geoffrey, Audrey, OD 230 [place] [address] 02/06/2025 11:00 AM EDT Office Visit [facility] MEDICINE 230 [place] [address] Odilia Cota, ANP 230 [place] [address] documented as of this encounter Goals Goal [...] documented as of this encounter Care Teams Sand Cleaning Machine Operator Relationship Specialty Start Date End Date Odilia Cota ANP 230 [place] [address] PCP - General Family Medicine 05/24/21 Jakub Cheney, PharmD 230 [place] [address] Pharmacist Internal Medicine 01/23/24 documented as of this encounter
--- OUTSIDE RECORDS SUMMARY | 2024-12-02 13:00 | XMS_ITS | Encounter Summary ---
Author Organization [employer] Address [address] [facility] 7t [place] [address] Care Team Providers Care Customs And Border Protection Officer Name Role Phone Odilia Cota MELISSA Primary Care Provider [phone] Jakub Cheney PharmD Unavailable [phone] Reason for Visit * Reason Comments CGM initial visit Encounter Details Date Type Department Care Team (Latest Contact Info) Description 11/15/2024 9:30 AM EST Clinical Support [facility] MEDICINE 230 [place] [address] Gilda Danielson RN Type 2 diabetes mellitus with both eyes affected by mild nonproliferative retinopathy without macular edema, without long-term current use of insulin ([facility]) Social History Tobacco Use Types Packs/Day Years [...] on file. Preferred language for medical information: Dredge Pipeman needed: Yes. Turkish translation by BRIAN Casanova CGM device: CGM DEVICE: [employer] Senia 3 Clem Kathleen brought in CGM [...] help adhesion to skin: Simpatch, available on [employer], Torbat Skin Tac, Skin-Prep Protective Barrier Wipe, [...] only the electrical equipment provided by the security site supervisor. Do not use if you are on [...] 10:00 AM EDT Medication Management [facility] MEDICINE 230 [place] [address] Jakub Cheney PharmD 230 [place] [address] 01/17/2025 10:00 AM EDT Office Visit [facility] OPTOMETRY [address] [place] [address] Geoffrey, Audrey, OD 230 [place] [address] 02/06/2025 11:00 AM EDT Office Visit [facility] MEDICINE 230 [place] [address] Odilia Cota ANP 230 [place] [address] documented as of this encounter Goals Goal [...] edema, without long-term current use of insulin ([facility]) documented in this encounter Additional Health Concerns Assessment Noted Time PHQ-9 Depression Total Score: 0 11/08/19 25 11:31 AM EST documented as of this encounter Care Teams Customs And Border Protection Officer Relationship Specialty Start Date End Date Odilia Cota, ANP [address] [place] [address] PCP - General Family Medicine 05/24/21 Jakub Cheney, Maria EugeniaD [address] [place] [address] Pharmacist Internal Medicine 01/23/24 documented as of this encounter
--- OUTSIDE RECORDS SUMMARY | 2024-12-02 13:00 | XMS_ITS | Encounter Summary ---
Author Organization [employer] Address 75 [facility] 7t [place] [address] Care Team Providers Care Insurance Inspector Name Role Phone Odilia Cota Primary Care Provider [phone] Jakub Cheney PharmD Unavailable [phone] Reason for Visit * Reason Comments Med Refill Encounter Details Date Type Department Care Team ([facility] st Contact Info) Description 11/18/2024 Refill [facility] MEDICINE 230 [place] [address] Odilia Cota ANP 230 [place] [address] Type 2 diabetes mellitus with hyperlipidemia ([facility]) ([facility]); Essential hypertension Social History Tobacco Use [...] Description 12/09/2024 10:00 AM EDT Medication Management [facility] MEDICINE [address] [place] [address] Jakub Cheney, PharmD 230 [place] [address] 01/17/2025 10:00 AM EDT Office Visit [facility] OPTOMETRY [address] [place] [address] Geoffrey, Audrey, OD 230 [place] [address] 02/06/2025 11:00 AM EDT Office Visit [facility] MEDICINE 230 [place] [address] Odilia Cota, ANP 230 [place] [address] documented as of this encounter Goals Goal Patient Goal Type Associated Problems Recent Progress Patient-Stated? Author Blood Pressure < 140/90 Blood Pressure 151/106(12/02 9:29 AM EST) No Jakub Cheney, PharmD Hemoglobin A1c < 7 Result Component 8.4(02/07/202 5 11:33 AM EST) No Jakub Cheney, PharmD documented as of this encounter Visit Diagnoses Diagnosis Type 2 diabetes mellitus with hyperlipidemia ([facility]) ([facility]) Essential hypertension Unspecified essential hypertension documented in this encounter Additional Health Concerns Assessment Noted Time PHQ-9 Depression Total Score: 0 11/08/19 25 11:31 AM EST documented as of this encounter Care Teams Insurance Inspector Relationship Specialty Start Date End Date Odilia Cota ANP [address] [place] [address] PCP - General Family Medicine 05/24/21 Jakub Cheney, PharmD [address] [place] [address] Pharmacist Internal Medicine 01/23/24 documented as of this encounter
--- OUTSIDE RECORDS SUMMARY | 2024-12-02 13:00 | XMS_ITS | Clinical Summary ---
Author Organization [facility] Address [address] [place] [address] Care Team Providers Care Motor Express Clerk Name Role Phone Unavailable Primary Care Provider Unavailabl e Social History Tobacco Use Types Packs/Day Years Used Date Smoking Tobacco: Never Assessed Sex and Gender Information Value Date Recorded Sex Assigned at Not on file Gender Identity Not on file Sexual Orientation Not on file Plan of Treatment Not on file
--- OUTSIDE RECORDS SUMMARY | 2024-12-02 13:00 | XMS_ITS | Encounter Summary ---
Author Organization [employer] Address 75 [facility] 7t [place] [address] Care Team Providers Care Rolled Oats Mill Operator Name Role Phone Odilia Cota Primary Care Provider [phone] Jakub Cheney PharmD Unavailable [phone] Encounter Details Date Type Department Care Team (Late Contact Info) Description 12/27/2022 Orders Only [facility] CHC MED & PEDS [address] [place], [place] [phone] Melia Owen LPN Social History Tobacco Use [...] 10:00 AM EDT Medication Management [facility] MEDICINE 230 [place], [place] [phone] Jakub Cheney, PharmD 230 [place] [address] 01/17/2025 10:00 AM EDT Office Visit [facility] OPTOMETRY [address] [place], [place] [phone] Audrey Hale, OD 230 [place], [place] [phone] 02/06/2025 11:00 AM EDT Office Visit [facility] MEDICINE 230 [place], [place] [phone] Odilia Cota ANP 230 [place] [address] documented as of this encounter Visit Diagnoses Not on filedocumented in this encounter Care Teams Rolled Oats Mill Operator Relationship Specialty Start Date End Date Odilia Cota ANP [address] [place] [address] [phone] PCP - General Family Medicine 05/24/21 Jakub Cheney, Maria EugeniaD [address] [place] [address] [phone] Pharmacist Internal Medicine 01/23/24 documented as of this encounter
--- OUTSIDE RECORDS SUMMARY | 2024-12-02 13:00 | XMS_ITS | Encounter Summary ---
Author Organization [employer] Address [address] [facility] [address] [place] [address] Care Team Providers Care Gun Barrel Finisher Name Role Phone Odilia Cota Primary Care Provider [phone] Jakub Cheney PharmD Unavailable [phone] Reason for Referral * Consultation (Routine) - Authorized Specialty Diagnoses / Procedures Referred By Perlita t Referred To Contact Podiatry Diagnoses Type 2 diabetes mellitus with hyperlipidemia (CMS/HCC) ([facility]/HCC) Neuropathic pain Odilia Cota ANP [address] [place] [address] Phone: tel: fax: Javier Desai DPM [address] [facility] [address] [place] [address] Phone: tel: fax: Referral ID Status Reason Start Date Expiration Date Visits Requested Visits Authorized [id number] Authorized Specialty Services Required 11/12/2024 11/12/2025 6 6 * Consultation (Routine) - Closed Specialty Diagnoses / Procedures Referred By Contluis t Referred To Contact Behavioral Health Diagnoses Anxiety Odilia Cota ANP [address] [place] [address] Phone: tel: fax: Referral ID Status Reason Start Date Expiration Date V isits Requested Visits Authorized [id number] Closed Specialty Services Required 11/08/2024 11/08/2025 1 1 * Neurology (Routine) - Closed Specialty Diagnoses / Procedures Referred By Contac t Referred To Contact Diagnoses Neuropathic pain Procedures EMG Odilia Cota ANP [address] [place] [address] Phone: tel: fax: [address] Phone: tel: fax: Referral ID Status Reason Start Date Expiration Date Visits Re quested Visits Authorized [id number] Closed 11/08/2024 11/08/2025 1 1 * Consultation (Urgent) - Authorized Specialty Diagnoses / Procedures Referred By Perlita boston Referred To Contact Orthopaedic Surgery Diagnoses Chronic pain of both knees Odilia Cota ANP [address] [place] [address] Phone: tel: fax: [facility] [address] [place] [address] Phone: tel: Referral ID Status Reason Start Date Expiration Date Visits Requested Visits Authorized [id number] Authorized Specialty Services Required 11/08/2024 11/08/2025 6 6 Reason for Visit * Reason Comments Follow-up A1C Encounter Details Date Type Department Care Team (Latest Contact Info) Description 11/08/2024 11:15 AM EST Office Visit [facility] MEDICINE [address] [place] [address] Odilia Cota ANP [address] [place] [phone] Type 2 diabetes mellitus with hyperlipidemia (CMS/HCC) ([facility]/HCC) (Primary Dx); Chronic pain of both knees; [...] nonprolif retinopathy, CAD, cubital tunnel syndrome Non-smoker [employer] utilized for [place] interpretation #[id number] Acute Concerns: DM - following w/ CDTM, [...] syndrome Type 2 diabetes mellitus with hyperlipidemia ([facility]) ([facility]) Hyperlipidemia Hypertension Hypertriglyceridemia Migraine without aura, not refractory Numbness and tingling of both legs Pain in lower limb History of fracture Noncompliance with medication regimen Type 2 diabetes mellitus with both eyes affected by mild nonproliferative retinopathy without macular edema, without long-term current use of insulin ([facility]) Healthcare maintenance Chronic pain of both [...] Type 2 diabetes mellitus with hyperlipidemia (CMS/HCC) ([facility]) (Primary) Lab Results Component Value Date [...] pt's PCP but [facility], an MD or DO is required to [...] morning. 90 capsule 3 Continuous Blood Gluc Hedis Specialist (FreeStyle Senia 2 [place]) device 1 each 5 (five) times a [...] DAILY 100 each 11 [employer] Short Pen [place] 31G X 8 MM misc USE DIRECTED [...] 10:00 AM EDT Medication Management [facility] MEDICINE [address] [place] [address] Jakub Cheney, PharmD [address] [place] [address] 01/17/2025 10:00 AM EDT Office Visit [facility] OPTOMETRY [address] [place] [address] Audrey Hale, OD [address] [place] [address] 02/06/2025 11:00 AM EDT Office Visit [facility] MEDICINE [address] [place] [address] Odilia Cota ANP [address] [place] [address] Scheduled Orders Name Type Priority Associated Diagnoses [...] Routine Type 2 diabetes mellitus with hyperlipidemia ([facility]/HCC) ([facility]) Neuropathic pain Expected: 11/08/2024 (Approximate), Expires: [...] Type 2 diabetes mellitus with hyperlipidemia (CMS/HCC) ([facility]) POCT GLUCOSE Routine 11/08/2024 11:32 AM EST Type 2 diabetes mellitus with hyperlipidemia (CMS/HCC) ([facility]) documented in this encounter Results * (ABNORMAL) POCT HGB A1C (11/08/2024 11:33 AM EST) Hemoglobin A1C 8.4(A) 4.0 - 6.0 % QC Media Lot # [id number] Lot# Expiration Date Blood 11/08/2024 11:3 3 AM EST [facility] POINT OF CARE TEST ENTER/EDIT OR DERABLES Final Result * (ABNORMAL) POCT Glucose (11/08/2024 11:32 AM EST) Glucose Blood, POC 217(A) 60 - 200 mg/dL QC Media Lot # [id number] Lot# Expiration Date 846 Blood Capillary blood specimen / Unknown 11/08/2024 11:32 AM EST Odilia TORRES POINT OF CARE TEST ENTER/EDIT OR DERABLES Final Result documented in this encounter Visit Diagnoses Diagnosis Type 2 diabetes mellitus with hyperlipidemia (CMS/HCC) ([facility])- Primary Chronic pain of both knees Anxiety Anxiety state, unspecified Neuropathic pain Numbness and tingling of both legs Disturbance of skin sensation documented in this encounter Additional Health Concerns Assessment Noted Time PHQ-9 Depression Total Score: 0 11/08/19 25 11:31 AM EST documented as of this encounter Care Teams Gun Barrel Finisher Relationship Specialty Start Date End Date Odilia Cota ANP [address] [place] [address] PCP - General Family Medicine 05/24/21 Jakub Cheney, Maria EugeniaD [address] [place] [address] Pharmacist Internal Medicine 01/23/24 documented as of this encounter
--- OUTSIDE RECORDS SUMMARY | 2024-12-02 13:00 | XMS_ITS | Encounter Summary ---
Author Organization [employer] Address [address] [facility] [address] [place] [address] Care Team Providers Care School Manager Name Role Phone Odilia Cota MELISSA Primary Care Provider [phone] Jakub Cheney PharmD Unavailable [phone] Encounter Details Date Type Department Care Team ([facility] Contact Info) Description 01/20/2023 Orders Only [facility] MED [facility] PEDS [address] [place], [place] [phone] Melia Owen LPN Social History Tobacco Use [...] Upcoming Encounters Date Type Department Care Team ([facility] Contact Info) Description 12/09/2024 10:00 AM EDT Medication Management [facility] MEDICINE [address] [place] [address] Jakub Cheney, PharmD [address] [place], [place] [phone] 01/17/2025 10:00 AM EDT Office Visit [facility] OPTOMETRY [address] [place] [address] Audrey Hale, OD [address] [place] [address] 02/06/2025 11:00 AM EDT Office Visit [facility] MEDICINE [address] [place] [address] Odilia Cota ANP [address] [place] [address] documented as of this encounter Visit Diagnoses Not on filedocumented in this encounter Care Teams School Manager Relationship Specialty Start Date End Date Odilia Cota ANP [address] [place] [address] PCP - General Family Medicine 05/24/21 Jakub Cheney, Maria EugeniaD [address] [place] [address] Pharmacist Internal Medicine 01/23/24 documented as of this encounter
--- OUTSIDE RECORDS SUMMARY | 2024-12-02 13:00 | XMS_ITS | Encounter Summary ---
Author Organization [employer] Address [address] [facility] [address] 7[address] [place] [address] Care Team Providers Care Chef De Cuisine Name Role Phone Beata Odilia TORRES Primary Care Provider [phone] Jakub Cheney PharmD Unavailable [phone] Reason for Visit * Reason Onset Date Comments chart prep 11/07/2024 Encounter Details Date Type Department Care Team (Late st Contact Info) Description 11/07/2024 Telephone [facility] MEDICINE [address] [place] [address] Maxine Ramirez MA chart prep Social History [...] Description 12/09/2024 10:00 AM EDT Medication Management [facility] MEDICINE [address] [place] [address] Jakub Cheney, PharmD [address] [place] [address] 01/17/2025 10:00 AM EDT Office Visit [facility] OPTOMETRY [address] [place] [address] Audrey Hale, OD [address] [place] [address] 02/06/2025 11:00 AM EDT Office Visit [facility] MEDICINE [address] [place] [address] Odilia Cota, ANP [address] [place] [address] documented as of this encounter Goals Goal Patient Goal Type Associated Problems Recent Progress Patient-Stated? Author Blood Pressure < 140/90 Blood Pressure 151/106(12/02 9:29 AM EST) No Jakub Cheney PharmD Hemoglobin A1c < 7 Result Component 8.4( 11:33 AM EST) No Jakub Cheney PharmD documented as of this encounter Visit Diagnoses Not on filedocumented in this encounter Care Teams Chef De Cuisine Relationship Specialty Start Date End Date Odilia Cota ANP [address] [place] [address] PCP - General Family Medicine 05/24/21 Jakub Cheney PharmD [address] [place] [address] Pharmacist Internal Medicine 01/23/24 documented as of this encounter
--- OUTSIDE RECORDS SUMMARY | 2024-12-02 13:00 | XMS_ITS | Encounter Summary ---
Author Organization [employer] Address [address] [facility] [address] [place] [address] Care Team Providers Care Culinary Instructor Name Role Phone Odilia Cota MELISSA Primary Care Provider [phone] Jakub Cheney PharmD Unavailable [phone] Encounter Details Date Type Department Care Team [...] Description 12/09/2024 10:00 AM EDT Medication Management [facility] MEDICINE [address] [place] [address] Jakub Cheney PharmD [address] [place] [address] 01/17/2025 10:00 AM EDT Office Visit [facility] OPTOMETRY [address] [place] [address] Geoffrey, Audrey, OD [address] [place] [address] 02/06/2025 11:00 AM EDT Office Visit [facility] MEDICINE [address] [place] [address] Odilia Cota ANP [address] [place] [address] documented as of this encounter Goals Goal [...] documented as of this encounter Care Teams Culinary Instructor Relationship Specialty Start Date End Date Odilia Cota ANP [address] [place] [address] PCP - General Family Medicine 05/24/21 Jakub Cheney, Maria EugeniaD [address] [place] [address] Pharmacist Internal Medicine 01/23/24 documented as of this encounter
--- OUTSIDE RECORDS SUMMARY | 2024-12-02 13:00 | XMS_ITS | Encounter Summary ---
Author Organization [employer] Address [address] [facility] 7t [place] [address] Care Team Providers Care Office Machine Inspector Name Role Phone Odilia Cota Primary Care Provider [phone] Jakub Cheney PharmD Unavailable [phone] Reason for Visit * Reason Onset Date Comments Durable Medical Equipment 11/12/2024 Diabet ic shoes Encounter Details Date Type Department Care Team (Late st Contact Info) Description 11/12/2024 Telephone [facility] MEDICINE [address] [place] [address] Odilia Cota ANP [address] [place] [address] Durable Medical Equipment (Diabetic shoes) Social History [...] them to contact Prosthetics and Orthotics at [phone]. * Telephone Encounter - Kailyn Murray - [...] [facility] [address] [place] [address] Jakub Cheney PharmD [address] [place] [address] 01/17/2025 10:00 AM EDT Office Visit [facility] OPTOMETRY [address] [place] [address] Geoffrey, Audrey, OD [address] [place] [address] 02/06/2025 11:00 AM EDT Office Visit [facility] MEDICINE [address] [place] [address] Odilia Cota ANP [address] [place], [place] documented as of this encounter Goals [...] documented as of this encounter Care Teams Office Machine Inspector Relationship Specialty Start Date End Date Odilia Cota ANP [address] [place] [address] PCP - General Family Medicine 05/24/21 Jakub Cheney PharmD [address] [place] [address] Pharmacist Internal Medicine 01/23/24 documented as of this encounter
--- OUTSIDE RECORDS SUMMARY | 2024-12-02 13:00 | XMS_ITS | Encounter Summary ---
Author Organization [employer] Address [address] [facility] 7t [place] [address] Care Team Providers Care Accounts Payable Administrator Name Role Phone Beata Odilia TORRES Primary Care Provider [phone] Jakub Cheney PharmD Unavailable [phone] Reason for Visit * Reason Onset Date Comments Prior Authorization 11/11/2024 Encounter Details Date Type Department Care Team (Late st Contact Info) Description 11/11/2024 Telephone [facility] MEDICINE [address] [place] [address] Gilda Danielson RNkettle worker Social History Tobacco Use Types Packs/Day Years [...] 3 CGM teaching tomorrow morning. Advised to pickling solution maker supplies from pharmacy prior to coming to appt tomorrow. Pt verbalized understanding and denied having any further questions or concerns at this time. Telephone call placed to pharmacy who states will get Sonja 3 ready for pickling solution maker now. * Telephone Encounter - Kailyn Murray - 11/14/2024 10:23 AM EST PA approvals received for [id number] 3 reader and sensor. Scanned into media. [...] Description 12/09/2024 10:00 AM EDT Medication Management [facility] MEDICINE [address] [place] [address] Jakub Cheney, Alan [address] [place] [address] 01/17/2025 10:00 AM EDT Office Visit [facility] OPTOMETRY [address] [place] [address] Geoffrey, Audrey, OD [address] [place] [address] 02/06/2025 11:00 AM EDT Office Visit [facility] MEDICINE [address] [place] [address] Odilia Cota ANP [address] [place] [address] documented as of this encounter Goals Goal [...] documented as of this encounter Care Teams Accounts Payable Administrator Relationship Specialty Start Date End Date Odilia Cota ANP [address] [place] [address] PCP - General Family Medicine 05/24/21 Jakub Cheney, Maria EugeniaD [address] [place] [address] Pharmacist Internal Medicine 01/23/24 documented as of this encounter
--- OUTSIDE RECORDS SUMMARY | 2024-12-02 13:00 | XMS_ITS | Encounter Summary ---
Author Organization [employer] Address [address] [facility] [address] [address] Care Team Providers Care Unit Technician Name Role Phone Odilia Cota MELISSA Primary Care Provider [phone] Jakub Cheney PharmD Unavailable [phone] Reason for Referral * Consultation (STAT) - Authorized Specialty Diagnoses / Procedures Referred By Contac t Referred To Contact General Surgery Diagnoses Post-traumatic wound infection Musa Abdalla MD [address] [place] [address] Phone: tel: fax: Perry Rodriguez MD [address] [place] [address] Phone: tel: fax: Referral ID Status Reason Start Date Expiration Date Visits Requested Visits Authorized [id number] Authorized Specialty Services Required 12/02/2024 12/02/2025 6 6 Reason for Visit * Reason Comments finger infection Encounter Details Date Type Department Care Team (Late st Contact Info) Description 12/02/2024 9:40 AM EST Office Visit [facility] [address] [place] [address] Musa Abdalla MD [address] [place] [address] Post-traumatic wound infection (Primary Dx); Hypertension, unspecified [...] Description 12/09/2024 10:00 AM EDT Medication Management [facility] [address] [place] [address] Jakub Cheney PharmD [address] [place] [address] 01/17/2025 10:00 AM EDT Office Visit [facility] OPTOMETRY [address] [place] [address] Geoffrey, Audrey, OD [address] [place] [address] 02/06/2025 11:00 AM EDT Office Visit [facility] MEDICINE [address] [place] [address] Odilia Cota, ANP [address] [place] [address] Scheduled Referrals Name Type Priority Associated Diagnoses [...] AM EST Narrative 12/02/2024 10:57 AM EST ?[facility] ?[address] ?[place] [address] ?XRay Report ? Signed ? Patient: Ramirez Kathleen,Roe ?MR#: [id number] ?? [id number] ? : 1975 ?Acct:[id number] ? Age/Sex: 49 / M ?ADM Date: 12/02/24 ? Loc: HO.HHCX ? Attending Dr: Musa Abdalla MD ? Ordering Physician: MUSA ABDALLA MD ?? Date of Service: 12/02/24 ?? Procedure(s): XR finger LT min 2V ?? Accession Number(s): [id number] ? cc: MUSA ABDALLA MD ? EXAMINATION: [...] DD/ 1025 ? TD/TT: 12/02/24 1048 ? Manager Of Medical: ? Procedure Note Marce, Image - 12/02/[address] [address] XRay Report Signed Patient: Clem Crockett LMR#: [id number] : 1975Acct:[id number] Age/Sex: 49 / MADM Date: 12/02/24 Loc: HO.HHCX Attending Dr: Musa Abdalla MD Ordering Physician: MUSA ABDALLA MD Date of Service: 12/02/24 Procedure(s): XR finger LT min 2V Accession Number(s): [id number] cc: MUSA ABDALLA MD EXAMINATION: XR FINGERS [...] 12/02/24 1054 DD/ 1025 TD/TT: 12/02/24 1048 Manager Of Medical: Musa Abdalla MD IMG XR PROCEDURES Final Result documented in this encounter Visit Diagnoses Diagnosis Post-traumatic wound infection- Primary Hypertension, unspecified type documented in this encounter Additional Health Concerns Assessment Noted Time PHQ-9 Depression Total Score: 0 11/08/19 25 11:31 AM EST documented as of this encounter Care Teams Unit Technician Relationship Specialty Start Date End Date Odilia Cota ANP [address] [place] [address] PCP - General Family Medicine 05/24/21 Jakub Cheney PharmD [address] [place] [address] Pharmacist Internal Medicine 01/23/24 documented as of this encounter
--- OUTSIDE RECORDS SUMMARY | 2024-12-02 13:00 | XMS_ITS | Clinical Summary ---
Author Organization [employer] Address 75 [facility] 7t [place] [address] Care Team Providers Care Hosiery Mender Name Role Phone Odilia Cota MELISSA Primary Care Provider [phone] Jakub Cheney PharmD Unavailable [phone] Allergies Active Allergy Reactions Criticality Noted Date [...] TIME 1 each Active UltiCare Short Pen Centuria 31G X 8 MM misc USE DIRECTED FOUR TIMES DAILY 100 each Active TRUEplus Lancets 33G miscIndications:T ype 2 diabetes mellitus with hyperlipidemia ([facility]/HCC) ([facility]) TEST BLOOD SUGAR TWICE DAILY 100 each Active Ventolin HFA 108 (90 Base) MCG/ACT inhalerIndication s:Mild persistent asthma without complication INHALE 2 PUFFS BY MOUTH EVERY 6 HOURS NEEDED FOR WHEEZING 18 g 1 Active Tirzepatide (Mounjaro) 7.5 MG/0.5ML solution auto-injectorIndi cations:Type 2 diabetes mellitus with hyperlipidemia (CMS/HCC) ([facility]) Inject 7.5 mg under the skin every [...] ons:Type 2 diabetes mellitus with hyperlipidemia (CMS/HCC) ([facility]) INJECT 60 UNITS SUBCUTANEOUSLY EVERY MORNING DIRECTED 15 mL 5 025 Active Continuous Glucose Sensor (FreeStyle Senia 3 Plus Sensor) miscIndications:T ype 2 diabetes mellitus with hyperlipidemia (CMS/HCC) ([facility]) 1 each every 14 (fourteen) days. 2 each 025 Active Continuous Glucose Occupational Safety Specialist (FreeStyle Senia 3 Beverly) deviceIndications :Type 2 diabetes mellitus with hyperlipidemia (CMS/HCC) ([facility]) 1 each every 14 (fourteen) days. 2 [...] capsule 025 2024 Active Continuous Blood Gluc Occupational Safety Specialist (FreeStyle Senia 2 Beverly) deviceIndications :Type 2 diabetes mellitus with hyperlipidemia (CMS/HCC) ([facility]) 1 each 5 (five) times a day. 1 each 023 2024 Discontinued Continuous Blood Gluc Sensor (FreeStyle Senia 2 Sensor) miscIndications:T ype 2 diabetes mellitus with hyperlipidemia (CMS/HCC) ([facility]) 1 each every 14 (fourteen) days. 6 [...] Description 12/02/2024 9:40 AM EST Office Visit [facility] [address] [place] [address] Musa Felton MD Post-traumatic wound infection (Primary Dx); Hypertension, unspecified type 11/20/[address] [facility] [address] [place] [address] Odilia Cota ANP Migraine without aura, not refractory 11/19/[address] [facility] [address] [place] [address] Ramon Calhoun MD Migraine without aura, not refractory 11/19/[address] [facility] [address] [place] [address] Odilia Cota ANP Migraine without aura, not refractory; Essential hypertension 11/18/2024 Refill [facility] [address] [place] [address] Twila Velez MD Migraine without aura, not refractory 11/18/[address] [facility] [address] [place] [address] Odilia Cota ANP Type 2 diabetes mellitus with hyperlipidemia ([facility]/HCC) ([facility]); Essential hypertension 11/15/2024 9:30 AM EST Clinical Support [address] [address] Gilda Danielson RN Type 2 diabetes mellitus with both eyes affected by mild nonproliferative retinopathy without macular edema, without long-term current use of insulin ([facility]) 11/15/2024 Travel 11/12/[address] [address] Odilia Cota ANP Durable Medical Equipment (Diabetic shoes) 11/11/[address] [address] Gilda Danielson RNeditor map 11/08/2024 11:15 AM EST Office Visit [address] [address] Odilia Cota ANP Type 2 diabetes mellitus with hyperlipidemia ([facility]/HCC) ([facility]) (Primary Dx); Chronic pain of both knees; Anxiety; Neuropathic pain; Numbness and tingling of both legs 11/08/2024 Travel 11/07/[address] [address] Maxine Ramirez MA chart prep 10/28/2024 Patient Outreach [address] [address] Odilia Cota ANP Pre-visit Planning (Pre visit planning unable to complete. ) 10/23/2024 9:00 AM EST Office Visit [facility] [address] [place] [address] Audrey Hale, OD Presbyopia of both eyes (Primary Dx) 10/23/2024 Travel 10/04/[address] [facility] [address] [place], [place] [phone] Odilia Cota ANP Type 2 diabetes mellitus with hyperlipidemia ([facility]/HCC) ([facility]) 09/26/[address] [facility] [address] [place], [place] [phone] Tyron Moya MA November recall from Last 3 [...] Description 12/09/2024 10:00 AM EDT Medication Management [facility] [address] [place] [address] Jakub Cheney, PharmD [address] [place] [address] 01/17/2025 10:00 AM EDT Office Visit [facility] [address] [place] [address] Geoffrey, Audrey, OD [address] [place] [address] 02/06/2025 11:00 AM EDT Office Visit [facility] [address] [place] [address] Odilia Cota, ANP [address] [place] [address] Health Maintenance Due Date Last Done Comments [...] AM EST Narrative 12/02/2024 10:57 AM EST ?[facility] ?[address] ?[place] [address] ?XRay Report ? Signed ? Patient: Clem Crockett ?MR#: M ?? [id number] ? : 1975 ?Acct:[id number] ? Age/Sex: 49 / M ?ADM Date: 12/02/24 ? Loc: HO.HHCX ? Attending Dr: Musa Felton MD ? Ordering Physician: MUSA FELTON MD ?? Date of Service: 12/02/24 ?? Procedure(s): XR finger LT min 2V ?? Accession Number(s): [id number] ? cc: MUSA FELTON MD ? EXAMINATION: [...] DD/ 1025 ? TD/TT: 12/02/24 1048 ? Cash Applications Associate: ? Procedure Note Donotrickeyinterpreter, Image - 12/02/2024 [facility] [address] [place] [address] XRay Report Signed Patient: Clem Crockett LMR#: M [id number] : 1975Acct:[id number] Age/Sex: 49 / MADM Date: 12/02/24 Loc: HO.HHCX Attending Dr: Musa Felton MD Ordering Physician: MUSA FELTON MD Date of Service: 12/02/24 Procedure(s): XR finger LT min 2V Accession Number(s): [id number] cc: MUSA FELTON MD EXAMINATION: XR FINGERS [...] 12/02/24 1054 DD/ 1025 TD/TT: 12/02/24 1048 Cash Applications Associate: Musa Felton MD IMG XR PROCEDURES Final Result * (ABNORMAL) POCT HGB A1C (11/08/2024 11:33 AM EST) Hemoglobin A1C 8.4(A) 4.0 - 6.0 % QC Media Lot # [id number] Lot# Expiration Date Blood 11/08/2024 11:3 3 AM EST [facility] MELISSA POINT OF CARE TEST ENTER/EDIT OR DERABLES Final Result * (ABNORMAL) POCT Glucose (11/08/2024 11:32 AM EST) Pathologist [facility] Glucose Blood, POC 217(A) 60 - 200 mg/dL QC Media Lot # [id number] Lot# Expiration Date 025 Blood Capillary blood specimen / Unknown 11/08/2024 11:32 AM EST [facility] Cota ANP POINT OF CARE TEST ENTER/EDIT OR DERABLES Final Result * (ABNORMAL) LIPID PANEL, STANDARD (12/04/2020 8:28 AM EST) [facility] Chol/HDLC Ratio 5.1(H) <5.0 (calc) [facility]OUNDATION [...] ?? Duglas MCLEOD et al. KENNETH. 2013;310(19): 6652-0727 ?? (http://education.HeiaHeia.com/faq/NYG634) Non-HDL Cholesterol 120 <130 mg/dL (calc) [facility]OUNDATION [...] ORDERABLES Bailee l Result Performing Organization Address [facility] de Phone Number [facility] [address] * ALBUMIN, RANDOM URINE W/CREATININE (06/25/2020 [...] ORDERABLES Bailee l Result Performing Organization Address [facility] de Phone Number [facility] [address] from Last 3 Months or Most Recently Relevant to Health Maintenance Insurance [facility] STANDARD Care Teams Hosiery Mender Relationship Specialty Start Date End Date Odilia Cota ANP [address] [place], [place] PCP - General Family Medicine 05/24/21 Jakub Cheney PharmD [address] [place], [place] Pharmacist Internal Medicine 01/23/24
--- OUTSIDE RECORDS SUMMARY | 2024-12-02 13:00 | XMS_ITS | Encounter Summary ---
Author Organization [employer] Address [address] [facility] 7t [place] [address] Care Team Providers Care Greens Laborer Name Role Phone Odilia Cota Primary Care Provider [phone] Jakub Cheney PharmD Unavailable [phone] Encounter Details Date Type Department Care Team (Late Contact Info) Description 11/22/2022 Orders Only [facility] [address] [place], [place] [phone] Melia Owen LPN Social History Tobacco Use [...] 10:00 AM EDT Medication Management [facility] [address] [place], [place] [phone] Jakub Cheney, PharmD 230 [place] [address] 01/17/2025 10:00 AM EDT Office Visit [facility] [address] [place], [place] [phone] Audrey Hale, OD [address] [place], [place] [phone] 02/06/2025 11:00 AM EDT Office Visit [facility] [address] [place], [place] [phone] Odilia Cota ANP [address] [place] [address] documented as of this encounter Visit Diagnoses Not on filedocumented in this encounter Care Teams Greens Laborer Relationship Specialty Start Date End Date Odilia Cota ANP [address] [place] [phone] PCP - General Family Medicine 05/24/21 Jakub Cheney, Maria EugeniaD [address] [place] [address] [phone] Pharmacist Internal Medicine 01/23/24 documented as of this encounter
--- OUTSIDE RECORDS SUMMARY | 2024-12-02 13:00 | XMS_ITS | Encounter Summary ---
Author Organization [employer] Address [address] [facility] [address] 7t [place] [address] Care Team Providers Care Cooky Packer Name Role Phone Odilia Cota MELISSA Primary Care Provider [phone] Jakub Cheney PharmD Unavailable [phone] Encounter Details Date Type Department Care Team [...] Description 12/09/2024 10:00 AM EDT Medication Management [facility] [address] [place] [address] Jakub Cheney PharmD 230 [place] [address] 01/17/2025 10:00 AM EDT Office Visit [facility] [address] [place] [address] Geoffrey, Audrey, OD 230 [place] [address] 02/06/2025 11:00 AM EDT Office Visit [facility] [address] [place] [address] Odilia Cota ANP [address] [place] [address] documented as of this encounter Goals Goal [...] documented as of this encounter Care Teams Cooky Packer Relationship Specialty Start Date End Date Odilia Cota ANP [address] [place] [address] PCP - General Family Medicine 05/24/21 Jakub Cheney, Maria EugeniaD [address] [place] [address] Pharmacist Internal Medicine 01/23/24 documented as of this encounter
== END 2024-12-02 11:19 | disposition home or self-care (01) ==
PROVIDERS: PCP Nurse Practitioner Primary Care; Referring Provider Emergency Medicine; Visit Provider Surgery
DX: L02.512 Cutaneous abscess of left hand (principal)
CPT/HCPCS: 10060; 99204

== ENCOUNTER 2024-12-09 10:39 | Outpatient (AMB) | payer MEDICAID, SELFPAY ==
--- NOTE | 2024-12-09 10:40 | MHC.OFFVIS ---
Intake Visit Reasons: I&d left thumb~ abscess Intake Note: Patient here s/p I&D on Lt thumb. Reports improvement with Bacitracin ointment. Patient c/o: no concerns. Washerette Machine Operator Required: No Accompanied by: Self / Same As Patient Allergies Sea Food Allergy (Mild, Uncoded 12/09/24 10:42) Anaphylaxis HPI Comments Details: Patient was to follow up status post I&D of left thumb abscess. He has had marked improvement of the symptoms. 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 Complete resolution of infection. Assessment & Plan Assessment & Plan (1) Status post incision and drainage: Code(s): Z98.890 - Other specified postprocedural states Category: Medical Plan Patient was been given local instructions, and will otherwise follow-up p.r.n.. All questions answered. Coding Level of Care Code Global (00857) Diagnoses Status post incision and drainage Z98.890
--- OUTSIDE RECORDS SUMMARY | 2024-12-09 12:01 | XMS_ITS | Encounter Summary ---
Author Organization [employer] Address [address] [facility] 7t [place] [address] Care Team Providers Care Machine Tech Name Role Phone Odilia Cota Primary Care Provider [phone] Jakub Cheney PharmD Unavailable Reason for Visit * Reason Onset Date Comments Durable Medical Equipment 11/12/2024 Diabet ic shoes Encounter Details Date Type Department Care Team (Late st Contact Info) Description 11/12/2024 Telephone [facility] [address] [place] [address] Odilia Cota ANP [address] [place] [address] Durable Medical Equipment (Diabetic shoes) Social History [...] them to contact Prosthetics and Orthotics at [phone]. * Telephone Encounter - Kailyn Murray - [...] Description 01/17/2025 10:00 AM EDT Office Visit [facility] [address] [place] [address] Audrey Hale, OD [address] [place] [address] 02/06/2025 11:00 AM EDT Office Visit [facility] [address] [place] [address] Odilia Cota ANP [address] [place] [address] documented as of this encounter Goals Goal [...] documented as of this encounter Care Teams Machine Tech Relationship Specialty Start Date End Date Odilia Cota ANP [address] [place] [address] PCP - General Family Medicine 05/24/21 Jakub Cheney PharmD [address] [place] [address] Pharmacist Internal Medicine 01/23/24 documented as of this encounter
--- OUTSIDE RECORDS SUMMARY | 2024-12-09 12:01 | XMS_ITS | Encounter Summary ---
Author Organization [employer] Address 75 [facility] 7t [place] [address] Care Team Providers Care Manager Floor Name Role Phone Odilia Cota Primary Care Provider [phone] Jakub Cheney PharmD Unavailable [phone] Reason for Visit * Reason Comments Med Refill Encounter Details Date Type Department Care Team ([facility] st Contact Info) Description 11/18/2024 Refill [facility] [address] [place] [address] Odilia Cota ANP 230 [place] [address] Type 2 diabetes mellitus with hyperlipidemia ([facility]/HCC) ([facility]); Essential hypertension Social History Tobacco Use Types [...] 10:00 AM EDT Office Visit [facility] [address] [place] [address] Geoffrey, Audrey, OD [address] [place] [address] 02/06/2025 11:00 AM EDT Office Visit [facility] [address] [place] [address] Odilia Cota, ANP [address] [place] [address] documented as of this encounter Goals Goal Patient Goal Type Associated Problems Recent Progress Patient-Stated? Author Blood Pressure < 140/90 Blood Pressure 151/106(12/02 9:29 AM EST) No Jakub Cheney PharmD Hemoglobin A1c < 7 Result Component 8.4( 11:33 AM EST) No Jakub Cheney PharmD documented as of this encounter Visit Diagnoses Diagnosis Type 2 diabetes mellitus with hyperlipidemia (CMS/HCC) ([facility]) Essential hypertension Unspecified essential hypertension documented in this encounter Additional Health Concerns Assessment Noted Time PHQ-9 Depression Total Score: 0 11/08/19 25 11:31 AM EST documented as of this encounter Care Teams Manager Floor Relationship Specialty Start Date End Date Odilia Cota ANP 230 [place] [address] PCP - General Family Medicine 05/24/21 Jakub Cheney PharmD [address] [place] [address] Pharmacist Internal Medicine 01/23/24 documented as of this encounter
--- OUTSIDE RECORDS SUMMARY | 2024-12-09 12:01 | XMS_ITS | Encounter Summary ---
Author Organization [employer] Address 75 [facility] 7t [place] [address] Care Team Providers Care Block Machine Operator Name Role Phone Odilia Cota Primary Care Provider [phone] Jakub Cheney PharmD Unavailable [phone] Encounter Details Date Type Department Care Team (Late Contact Info) Description 11/22/2022 Orders Only [facility] [address] [place], [place] [phone] Melia Owen LPN Social History Tobacco Use [...] 10:00 AM EDT Office Visit [facility] [address] [place] [address] Audrey Hale, OD [address] [place] [address] 02/06/2025 11:00 AM EDT Office Visit [facility] [address] [place], [place] [phone] Odilia Ctoa ANP [address] [place] [address] documented as of this encounter Visit Diagnoses Not on filedocumented in this encounter Care Teams Block Machine Operator Relationship Specialty Start Date End Date Odilia Cota ANP [address] [place] [address] PCP - General Family Medicine 05/24/21 Jakub Cheney, Alan [address] [place] [address] Pharmacist Internal Medicine 01/23/24 documented as of this encounter
--- OUTSIDE RECORDS SUMMARY | 2024-12-09 12:01 | XMS_ITS | Encounter Summary ---
Author Organization [employer] Address 75 [facility] 7t [place] [address] Care Team Providers Care Wood Cabinet Finisher Name Role Phone Odilia Cota Primary Care Provider [phone] Jakub Cheney PharmD Unavailable [phone] Encounter Details Date Type Department Care Team (Late Contact Info) Description 04/14/2023 Orders Only [facility] [address] [place], [place] [phone] Melia Owen LPN Social History Tobacco Use [...] [facility] [address] [place], [place] [phone] Audrey Hale, OD 230 [place] [address] 02/06/2025 11:00 AM EDT Office Visit [facility] [address] [place], [place] [phone] Odilia Cota ANP [address] [place] [address] documented as of this encounter Visit Diagnoses Not on filedocumented in this encounter Care Teams Wood Cabinet Finisher Relationship Specialty Start Date End Date Odilia Cota ANP [address] [place] [address] PCP - General Family Medicine 05/24/21 Jakub Cheney, Maria EugeniaD [address] [place] [address] Pharmacist Internal Medicine 01/23/24 documented as of this encounter
--- OUTSIDE RECORDS SUMMARY | 2024-12-09 12:01 | XMS_ITS | Encounter Summary ---
Author Organization [employer] Address [address] [facility] [address] [place] [address] Care Team Providers Care Commercial Relief Driver Name Role Phone Odilia Cota MELISSA Primary Care Provider [phone] Jakub Cheney PharmD Unavailable [phone] Reason for Visit * Reason Comments Med Refill Encounter Details Date Type Department Care Team ([facility] st Contact Info) Description 11/18/2024 Refill [facility] [address] [place] [address] Twila Velez MD [address] [place] [address] Migraine without aura, not refractory Social History [...] Description 01/17/2025 10:00 AM EDT Office Visit [facility] [address] [place] [address] Geoffrey, Audrey, OD [address] [place] [address] 02/06/2025 11:00 AM EDT Office Visit [facility] [address] [place] [address] Odilia Cota ANP [address] [place] [address] documented as of this encounter Goals Goal [...] documented as of this encounter Care Teams Commercial Relief Driver Relationship Specialty Start Date End Date Odilia Cota ANP [address] [place] [address] PCP - General Family Medicine 05/24/21 Jakub Cheney PharmD [address] [place] [address] Pharmacist Internal Medicine 01/23/24 documented as of this encounter
--- OUTSIDE RECORDS SUMMARY | 2024-12-09 12:01 | XMS_ITS | Encounter Summary ---
Author Organization [employer] Address 75 [facility] 7t [place] [address] Care Team Providers Care Medical Insurance Clerk Name Role Phone Beata Odilia TORRES Primary Care Provider [phone] Jakub Cheney PharmD Unavailable [phone] Reason for Visit * Reason Onset Date Comments Prior Authorization 11/11/2024 Encounter Details Date Type Department Care Team (Late st Contact Info) Description 11/11/2024 Telephone [facility] [address] [place] [address] Gilda Danielson RNlumber sorter machine Social History Tobacco Use Types Packs/Day Years [...] 3 CGM teaching tomorrow morning. Advised to oyster picker supplies from pharmacy prior to coming to appt tomorrow. Pt verbalized understanding and denied having any further questions or concerns at this time. Telephone call placed to pharmacy who states will get Sonja 3 ready for oyster picker now. * Telephone Encounter - Kailyn Murray - 11/14/2024 10:23 AM EST PA approvals received for Syapsee 3 reader and sensor. Scanned into media. [...] Description 01/17/2025 10:00 AM EDT Office Visit [facility] [address] [place] [address] Geoffrey, Audrey, OD [address] [place] [address] 02/06/2025 11:00 AM EDT Office Visit [facility] [address] [place] [address] Odilia Cota ANP [address] [place] [address] documented as of this encounter Goals Goal [...] documented as of this encounter Care Teams Medical Insurance Clerk Relationship Specialty Start Date End Date Odilia Cota ANP [address] [place] [address] PCP - General Family Medicine 05/24/21 Jakub Cheney PharmD [address] [place] [address], [place] [address] Pharmacist Internal Medicine 01/23/24 documented as of this encounter
--- OUTSIDE RECORDS SUMMARY | 2024-12-09 12:01 | XMS_ITS | Encounter Summary ---
Author Organization [employer] Address [address] [facility] [address] 7[address] [place] [address] Care Team Providers Care Supervisor Reinforced Steel Placing Name Role Phone Odilia Cota MELISSA Primary Care Provider Jakub Cheney PharmD Unavailable [phone] Encounter Details Date Type Department Care Team ([facility] Contact Info) Description 01/20/2023 Orders Only [facility] [address] [place], [place] [phone] Melia Owen LPN Social History Tobacco Use [...] Description 01/17/2025 10:00 AM EDT Office Visit [facility] [address] [place] [address] Audrey Hale, OD [address] [place] [address] 02/06/2025 11:00 AM EDT Office Visit [facility] 230 [place], [place] [phone] Odilia Cota ANP [address] [place] [address] documented as of this encounter Visit Diagnoses Not on filedocumented in this encounter Care Teams Supervisor Reinforced Steel Placing Relationship Specialty Start Date End Date Odilia Cota ANP [address] [place] [address] PCP - General Family Medicine 05/24/21 Jakub Cheney, Alan [address] [place] [address] Pharmacist Internal Medicine 01/23/24 documented as of this encounter
--- OUTSIDE RECORDS SUMMARY | 2024-12-09 12:01 | XMS_ITS | Encounter Summary ---
Author Organization [employer] Address 75 [facility] 7t [place] [address] Care Team Providers Care Forge Helper Name Role Phone Odilia Cota MELISSA Primary Care Provider [phone] Jakub Cheney PharmD Unavailable [phone] Reason for Referral * Consultation (STAT) - Closed Specialty Diagnoses / Procedures Referred By Contac t Referred To Contact General Surgery Diagnoses Post-traumatic wound infection Musa Abdalla MD [address] [place] [address] Phone: tel: fax: Perry Rodriguez MD [address] [place] [address] Phone: tel: fax: Referral ID Status Reason Start Date Expiration Date V isits Requested Visits Authorized [id number] Closed Specialty Services Required 12/02/2024 12/02/2025 6 6 Reason for Visit * Reason Comments finger infection Encounter Details Date Type Department Care Team (Late st Contact Info) Description 12/02/2024 9:40 AM EST Office Visit [facility] [address] [place] [address] Musa Abdalla MD [address] [place], [place] [phone] Post-traumatic wound infection (Primary Dx); Hypertension, unspecified [...] documented in this encounter Progress Notes * Musa Abdalla MD - 12/02/2024 9:40 AM EST Subjective Patient ID: Clem Kathleen is a 49 y.o. male. Claim Professional: Juan Antonio DOMINGUEZ 2 days ago was working with wood at home and a splinter entered left thumb overlying the extensor surface of MCP joint. He removed the splinter, and yesterday noted redness, pain, and pus drainage. No fever or chills. Right-handed. Last Tdap 03/01/2024. Lives with . Former smoker. Patient Active Problem List Diagnosis Atherosclerosis of coronary artery Low back pain Cubital tunnel syndrome Type 2 diabetes mellitus with hyperlipidemia ([facility]) ([facility]) Hyperlipidemia Hypertension Hypertriglyceridemia Migraine without aura, not refractory Numbness and tingling of both legs Pain in lower limb History of fracture Noncompliance with medication regimen Type 2 diabetes mellitus with both eyes affected by mild nonproliferative retinopathy without macular edema, without long-term current use of insulin ([facility]) Healthcare maintenance Chronic pain of both knees The following portions of the chart were reviewed this encounter and updated as appropriate: Review of Systems Constitutional: Negative for fever. Respiratory: Negative for shortness of breath. Cardiovascular: Negative for chest pain. Gastrointestinal: Negative for abdominal pain. Skin: Positive for wound. Negative for rash. Neurological: Negative for headaches. Objective Physical Exam Vitals and nursing note reviewed. Constitutional: Appearance: Normal appearance. HENT: Head: Normocephalic and atraumatic. Nose: Nose normal. Eyes: Conjunctiva/sclera: Conjunctivae normal. Pupils: Pupils are equal, round, and reactive to light. Pulmonary: Effort: Pulmonary effort is normal. Skin: General: Skin is warm and dry. Comments: Left thumb: Swelling, redness, tenderness, fluctuance, small open area overlying the extensor surface of the MCP joint. Full range of motion. Normal sensorimotor exam. Neurological: Mental Status: He is alert. Gait: Gait is intact. Psychiatric: Mood and Affect: Mood and affect normal. Behavior: Behavior normal. Procedures Assessment/Plan Diagnoses and all orders for this visit: Post-traumatic wound infection ?retained wood splinter with wound infection. Prescribed Duricef and doxycycline. X-rays will be done now in [facility]. I spoke with the office of [facility] general surgeons, and they kindly scheduled the patient to be seen in 1 hour. - XR Fingers 2+ Views Left; Future Hypertension, unspecified type Did not take his blood pressure meds today. States home BP readings have been in normal range. Advised to take meds when he returns home. Other orders - cefadroxil (Duricef) 500 MG capsule; Take 1 capsule (500 mg) by mouth 2 times daily for 7 days. - doxycycline (Vibramycin) 100 MG capsule; Take 1 capsule (100 mg) by mouth 2 times daily for 7 days. Take with at least 8 ounces (large glass) of water, do not lie down for 30 minutes after documented in this encounter Plan of Treatment Upcoming Encounters Date Type Department Care Team (Late st Contact Info) Description 01/17/2025 10:00 AM EDT Office Visit [facility] OPTOMETRY [address] [place] [address] Geoffrey, Audrey, OD [address] [place] [address] 02/06/2025 11:00 AM EDT Office Visit [facility] MEDICINE [address] [place] [address] Odilia Cota, MELISSA [address] [place] [address] Scheduled Referrals Name Type Priority Associated Diagnoses [...] AM EST Narrative 12/02/2024 10:57 AM EST ?[facility] ?[address] ?[place] [address] ?XRay Report ? Signed ? Patient: James KathleenRoe ?MR#: M ?? [id number] ? : 1975 ?Acct:[id number] ? Age/Sex: 49 / M ?ADM Date: 12/02/24 ? Loc: HO.HHCX ? Attending Dr: Musa Abdalla MD ? Ordering Physician: MUSA ABDALLA MD ?? Date of Service: 12/02/24 ?? Procedure(s): XR finger LT min 2V ?? Accession Number(s): [id number] ? cc: MUSA ABDALLA MD ? EXAMINATION: [...] DD/ 1025 ? TD/TT: 12/02/24 1048 ? Barrow Worker: ? Procedure Note Chemo Zheng - 12/02/2024 [facility] [address] [place] [address] XRay Report Signed Patient: Clem Crockett LMR#: [id number] : 1975Acct:[id number] Age/Sex: 49 / MADM Date: 12/02/24 Loc: HO.HHCX Attending Dr: Musa Abdalla MD Ordering Physician: MUSA ABDALLA MD Date of Service: 12/02/24 Procedure(s): XR finger LT min 2V Accession Number(s): [id number] cc: MUSA ABDALLA MD EXAMINATION: XR FINGERS [...] 12/02/24 1054 DD/ 1025 TD/TT: 12/02/24 1048 Barrow Worker: Musa Abdalla MD IMG XR PROCEDURES Final Result documented in this encounter Visit Diagnoses Diagnosis Post-traumatic wound infection- Primary Hypertension, unspecified type documented in this encounter Additional Health Concerns Assessment Noted Time PHQ-9 Depression Total Score: 0 11/08/19 11:31 AM EST documented as of this encounter Care Teams Forge Helper Relationship Specialty Start Date End Date Odilia Cota ANP [address] [place] [address] PCP - General Family Medicine 05/24/21 Jakub Cheney PharmD [address] [place] [address] Pharmacist Internal Medicine 01/23/24 documented as of this encounter
--- OUTSIDE RECORDS SUMMARY | 2024-12-09 12:01 | XMS_ITS | Encounter Summary ---
Author Organization [employer] Address 75 [facility] 7t [place] [address] Care Team Providers Care Rouge Sifter Name Role Phone Odilia Cota Primary Care Provider [phone] Jakub Cheney PharmD Unavailable [phone] Encounter Details Date Type Department Care Team (Late Contact Info) Description 12/27/[address] [facility] MED & PEDS [address] [place], [place] [phone] Melia Owen LPN Social History Tobacco Use [...] Description 01/17/2025 10:00 AM EDT Office Visit [facility] OPTOMETRY [address] [place] [address] Audrey Hale, OD [address] [place] [address] 02/06/2025 11:00 AM EDT Office Visit [facility] MEDICINE [address] [place], [place] [phone] Odilia Cota ANP [address] [place] [address] documented as of this encounter Visit Diagnoses Not on filedocumented in this encounter Care Teams Rouge Sifter Relationship Specialty Start Date End Date Odilia Cota ANP [address] [place] [address] PCP - General Family Medicine 05/24/21 Jakub Cheney, Alan [address] [place] [address] Pharmacist Internal Medicine 01/23/24 documented as of this encounter
--- OUTSIDE RECORDS SUMMARY | 2024-12-09 12:01 | XMS_ITS | Encounter Summary ---
Author Organization [employer] Address [address] [facility] [address] 7t [place] [address] Care Team Providers Care Assistant Produce Manager Name Role Phone Odilia Cota Primary Care Provider [phone] Jakub Cheney PharmD Unavailable Reason for Visit * Reason Comments Med Refill Encounter Details Date Type Department Care Team ([facility] st Contact Info) Description 11/25/[address] [facility] MEDICINE [address] [place] [address] Odilia Cota ANP [address] [place] [address] Shortness of breath Social History Tobacco Use [...] t he electric, gas, oil or water [employer] threatened to shut off services in your [...] 01/17/2025 10:00 AM EDT Office Visit [facility] OPTOMETRY [address] [place] [address] Audrey Hale, OD [address] [place] [address] 02/06/2025 11:00 AM EDT Office Visit [facility] MEDICINE [address] [place] [address] Odilia Cota ANP [address] [place] [address] documented as of this encounter Visit Diagnoses Diagnosis Shortness of breath documented in this encounter Care Teams Assistant Produce Manager Relationship Specialty Start Date End Date Odilia Cota ANP [address] [place] [address] PCP - General Family Medicine 05/24/21 Jakub Cheney, Alan [address] [place] [address] Pharmacist Internal Medicine 01/23/24 documented as of this encounter
--- OUTSIDE RECORDS SUMMARY | 2024-12-09 12:01 | XMS_ITS | Encounter Summary ---
Author Organization [employer] Address [address] [facility] [address] 7t [place] [address] Care Team Providers Care Diesel Locomotive Firer/Fireman Name Role Phone Odilia Cota ANP Primary Care Provider [phone] Jakub Cheney PharmD Unavailable [phone] Encounter Details Date Type Department Care Team (Late st Contact Info) Description 11/20/2024 Refill [facility] MEDICINE [address] [place] [address] Odilia Cota ANP [address] [place] [address] Migraine without aura, not refractory Social History [...] 01/17/2025 10:00 AM EDT Office Visit [facility] OPTOMETRY [address] [place] [address] Audrey Hale, OD [address] [place] [address] 02/06/2025 11:00 AM EDT Office Visit [facility] MEDICINE [address] [place] [address] Odilia Cota ANP [address] [place] [address] documented as of this encounter Goals Goal Patient Goal Type Associated Problems Recent Progress Patient-Stated? Author Blood Pressure < 140/90 Blood Pressure 151/106(12/02 9:29 AM EST) No Jakub Cheney PharmD Hemoglobin A1c < 7 Result Component 8.4( 5 11:33 AM EST) No Jakub Cheney PharmD documented as of this encounter Visit Diagnoses Diagnosis Migraine without aura, not refractory documented in this encounter Additional Health Concerns Assessment Noted Time PHQ-9 Depression Total Score: 0 11/08/19 25 11:31 AM EST documented as of this encounter Care Teams Diesel Locomotive Firer/Fireman Relationship Specialty Start Date End Date Odilia oCta ANP [address] [place] [address] PCP - General Family Medicine 05/24/21 Jakub Cheney PharmD [address] [place] [address] Pharmacist Internal Medicine 01/23/24 documented as of this encounter
--- OUTSIDE RECORDS SUMMARY | 2024-12-09 12:01 | XMS_ITS | Encounter Summary ---
Author Organization [employer] Address 75 [facility] 7t [place] [address] Care Team Providers Care Snowsport Instructor Name Role Phone Odilia Cota MELISSA Primary Care Provider [phone] Jakub Cheney PharmD Unavailable [phone] Reason for Visit * Reason Comments Med Refill Encounter Details Date Type Department Care Team ([facility] st Contact Info) Description 11/19/2024 Refill [facility] CHC MED & PEDS [address] [place] [address] Ramon Calhoun MD [address] [place] [address] Migraine without aura, not refractory Social History [...] Description 01/17/2025 10:00 AM EDT Office Visit [facility] OPTOMETRY [address] [place] [address] Geoffrey, Audrey, OD [address] [place] [address] 02/06/2025 11:00 AM EDT Office Visit [facility] MEDICINE [address] [place] [address] Odilia Cota ANP [address] [place] [address] documented as of this encounter Goals Goal [...] documented as of this encounter Care Teams Snowsport Instructor Relationship Specialty Start Date End Date Odilia Cota ANP [address] [place] [address] PCP - General Family Medicine 05/24/21 Jakub Cheney, Alan [address] [place] [address] Pharmacist Internal Medicine 01/23/24 documented as of this encounter
--- OUTSIDE RECORDS SUMMARY | 2024-12-09 12:01 | XMS_ITS | Encounter Summary ---
Author Organization [employer] Address [address] [facility] [address] [place] [address] Care Team Providers Care Team Assembly Line Machine Operator Name Role Phone Odilia Cota MELISSA Primary Care Provider Jakub Cheney PharmD Unavailable [phone] Encounter Details Date Type Department Care Team [...] Description 01/17/2025 10:00 AM EDT Office Visit [facility] OPTOMETRY [address] [place] [address] GeoffreyAudrey granados, OD [address] [place] [address] 02/06/2025 11:00 AM EDT Office Visit [facility] MEDICINE [address] [place] [address] Odilia Cota ANP [address] [place] [address] documented as of this encounter Goals Goal [...] documented as of this encounter Care Teams Team Assembly Line Machine Operator Relationship Specialty Start Date End Date Odilia Cota ANP [address] [place] [address] PCP - General Family Medicine 05/24/21 Jakub Cheney PharmD [address] [place] [address] Pharmacist Internal Medicine 01/23/24 documented as of this encounter
--- OUTSIDE RECORDS SUMMARY | 2024-12-09 12:01 | XMS_ITS | Encounter Summary ---
Author Organization [employer] Address [address] [facility] [address] 7[address] [place] [address] Care Team Providers Care Chimney Builder Helper Name Role Phone Odilia Cota Primary Care Provider [phone] Jakub Cheney PharmD Unavailable [phone] Encounter Details Date Type Department Care Team (Late st Contact Info) Description 11/19/2024 Refill [facility] MEDICINE [address] [place] [address] Odilia Cota ANP [address] [place] [address] Migraine without aura, not refractory; Essential hypertension [...] EDT Office Visit [facility] OPTOMETRY [address] [place] [address] GeoffreyAudrey granados, OD [address] [place] [address] 02/06/2025 11:00 AM EDT Office Visit [facility] MEDICINE [address] [place] [address] Odilia Cota ANP [address] [place] [address] documented as of this encounter Goals Goal [...] documented as of this encounter Care Teams Chimney Builder Helper Relationship Specialty Start Date End Date Odilia Cota ANP [address] [place] [address] PCP - General Family Medicine 05/24/21 Jakub Cheney PharmD [address] [place] [address] Pharmacist Internal Medicine 01/23/24 documented as of this encounter
--- OUTSIDE RECORDS SUMMARY | 2024-12-09 12:01 | XMS_ITS | Clinical Summary ---
Author Organization [facility] Address [address] [place] [address] Care Team Providers Care Brass Sorter Name Role Phone Unavailable Primary Care Provider Unavailabl e Social History Tobacco Use Types Packs/Day Years Used Date Smoking Tobacco: Never Assessed Sex and Gender Information Value Date Recorded Sex Assigned at Not on file Gender Identity Not on file Sexual Orientation Not on file Plan of Treatment Not on file
--- OUTSIDE RECORDS SUMMARY | 2024-12-09 12:01 | XMS_ITS | Encounter Summary ---
Author Organization [employer] Address 75 [facility] [address] [place] [address] Care Team Providers Care Direct Mail Coordinator Name Role Phone Odilia Cota MELISSA Primary Care Provider [phone] Jakub Cheney PharmD Unavailable [phone] Encounter Details Date Type Department Care Team (Late Contact Info) Description 09/12/2022 Abstract [facility] MEDICINE [address] [place] [address] Provider, MD Idris Social History Tobacco Use [...] Description 01/17/2025 10:00 AM EDT Office Visit [facility] OPTOMETRY [address] [place] [address] GeoffreyAudrey granados, OD [address] [place], [place] [phone] 02/06/2025 11:00 AM EDT Office Visit [facility] MEDICINE [address] [place] [address] Odilia Cota ANP [address] [place] [address] documented as of this encounter Visit Diagnoses Not on filedocumented in this encounter Care Teams Direct Mail Coordinator Relationship Specialty Start Date End Date Odilia Cota ANP [address] [place] [address] PCP - General Family Medicine 05/24/21 Jakub Cheney, Maria EugeniaD [address] [place] [address] Pharmacist Internal Medicine 01/23/24 documented as of this encounter
--- OUTSIDE RECORDS SUMMARY | 2024-12-09 12:01 | XMS_ITS | Encounter Summary ---
Author Organization [employer] Address [address] [facility] [address] 7[address] [place] [address] Care Team Providers Care Manager Benefit Name Role Phone Odilia Cota MELISSA Primary Care Provider [phone] Jakub Cheney PharmD Unavailable [phone] Reason for Visit * Reason Comments Med Refill Encounter Details Date Type Department Care Team ([facility] Contact Info) Description 01/20/[address] [facility] MEDICINE [address] [place], [place] [phone] Theresa Tony FNP [address] [place] [address] Social History Tobacco Use Types Packs/Day Years [...] Upcoming Encounters Date Type Department Care Team ([facility] Contact Info) Description 01/17/2025 10:00 AM EDT Office Visit [facility] OPTOMETRY [address] [place], [place] [phone] Audrey Hale, OD [address] [place] [address] 02/06/2025 11:00 AM EDT Office Visit [facility] MEDICINE [address] [place] [address] Odilia Cota ANP [address] [place] [address] documented as of this encounter Visit Diagnoses Not on filedocumented in this encounter Care Teams Manager Benefit Relationship Specialty Start Date End Date Odilia Cota ANP [address] [place] [address] PCP - General Family Medicine 05/24/21 Jakub Cheney, Maria EugeniaD [address] [place] [phone] Pharmacist Internal Medicine 01/23/24 documented as of this encounter
--- OUTSIDE RECORDS SUMMARY | 2024-12-09 12:01 | XMS_ITS | Clinical Summary ---
Author Organization [employer] Address [address] [facility] 7t [place] [address] Care Team Providers Care Boiler Or Engine Operator Name Role Phone Odilia Cota MELISSA Primary Care Provider [phone] Jakub Cheney PharmD Unavailable [phone] Allergies Active Allergy Reactions Criticality Noted Date [...] TIME 1 each Active UltiCare Short Pen [place] 31G X 8 MM misc USE DIRECTED FOUR TIMES DAILY 100 each Active TRUEplus Lancets 33G miscIndications:T ype 2 diabetes mellitus with hyperlipidemia ([facility]) ([facility]) TEST BLOOD SUGAR TWICE DAILY 100 each Active Ventolin HFA 108 (90 Base) MCG/ACT inhalerIndication s:Mild persistent asthma without complication INHALE 2 PUFFS BY MOUTH EVERY 6 HOURS NEEDED FOR WHEEZING 18 g 1 Active Tirzepatide (Mounjaro) 7.5 MG/0.5ML solution auto-injectorIndi cations:Type 2 diabetes mellitus with hyperlipidemia (CMS/HCC) ([facility]) Inject 7.5 mg under the [...] ons:Type 2 diabetes mellitus with hyperlipidemia (CMS/HCC) ([facility]) INJECT 60 UNITS SUBCUTANEOUSLY EVERY MORNING DIRECTED 15 mL 5 Active Continuous Glucose Sensor (FreeStyle Senai 3 Plus Sensor) miscIndications:T ype 2 diabetes mellitus with hyperlipidemia (CMS/HCC) ([facility]) 1 each every 14 (fourteen) days. 2 each 025 Active Continuous Glucose Aircraft Lay Out Worker (FreeStyle Senia 3 [place]) deviceIndications :Type 2 diabetes mellitus with hyperlipidemia (CMS/HCC) ([facility]) 1 each every 14 (fourteen) days. 2 each 025 Active metFORMIN XR (Glucophage-XR) 500 MG 24 hr tablet TAKE 2 TABLETS BY MOUTH TWICE DAILY IN THE MORNING AND EVENING WITH FOOD 360 tablet 025 Active aspirin (Aspirin Adult Low Strength) 81 MG EC tablet TAKE 1 TABLET BY MOUTH AT BEDTIME 90 tablet 025 Active amLODIPine (Norvasc) 5 MG tabletIndications :Essential hypertension TAKE 1 TABLET BY MOUTH EVERY MORNING 90 tablet 1 025 Active atorvastatin (Lipitor) 40 MG tablet TAKE 1 TABLET BY MOUTH AT BEDTIME 90 tablet 1 025 Active omeprazole (PriLOSEC) [address] [...] minutes after 14 capsule 025 2024 Active topiramate 50 MG tabletIndications :Migraine without [...] Description 12/02/2024 9:40 AM EST Office Visit [facility] [address] [place] [address] Musa Felton MD Post-traumatic wound infection (Primary Dx); Hypertension, unspecified type 11/20/2024 Refill [facility] [address] [place] [address] Odilia Cota ANP Migraine without aura, not refractory 11/19/2024 Refill [facility] [address] [place] [address] Ramon Calhoun MD Migraine without aura, not refractory 11/19/2024 Refill [facility] [address] [place] [address] Odilia Cota ANP Migraine without aura, not refractory; Essential hypertension 11/18/2024 Refill [facility] [address] [place] [address] Twila Velez MD Migraine without aura, not refractory 11/18/2024 Refill [facility] [address] [place] [address] Odilia Cota ANP Type 2 diabetes mellitus with hyperlipidemia ([facility]); Essential hypertension 11/15/2024 9:30 AM EST Clinical Support [address] [address] Gilda Danielson, RN Type 2 diabetes mellitus with both eyes affected by mild nonproliferative retinopathy without macular edema, without long-term current use of insulin (CMS/HCC) 11/15/2024 Travel 11/12/[address] [address] Odilia Cota ANP Durable Medical Equipment (Diabetic shoes) 11/11/[address] [address] Gilda Danielson RNfacility specialist 11/08/2024 11:15 AM EST Office Visit [address] [address] Odilia Cota ANP Type 2 diabetes mellitus with hyperlipidemia ([facility] ([facility]) (Primary Dx); Chronic pain of both knees; Anxiety; Neuropathic pain; Numbness and tingling of both legs 11/08/2024 Travel 11/07/[address] [address] Maxine Ramirez MA chart prep 10/28/2024 Patient Outreach [address] [address] Odilia Cota ANP Pre-visit Planning (Pre visit planning unable to complete. ) 10/23/2024 9:00 AM EST Office Visit [facility] [address] [place] [address] Geoffrey, Audrey, OD Presbyopia of both eyes (Primary Dx) 10/23/2024 Travel 10/04/2024 Refill [facility] [address] [place] [address] Odilia Cota ANP Type 2 diabetes mellitus with hyperlipidemia [facility] 09/26/[address] [address] Tyron Moya [place] November recall from Last [...] preservative free 07/30/2024,08/10/2016 Moderna Covid-19 Vaccine 12+ 12/24/2021,12/12/19,11/13/2020 Pfizer Covid-19 Vaccine 12+ 08/12/2024 Pneumococcal Conjugate [...] [facility] [address] [place] [address] Audrey Hale, OD [address] [place] [address] 02/06/2025 11:00 AM EDT Office Visit [facility] [address] [place] [address] Odilia Cota, ANP [address] [place] [address] Health Maintenance Due Date Last Done Comments [...] AM EST Narrative 12/02/2024 10:57 AM EST ?[facility] ?[address] ?[place] [address] ?XRay Report ? Signed ? Patient: Ramirez Kathleen,Roe ?MR#: [id number] ?? [id number] ? : 1975 ?Acct:[id number] ? Age/Sex: 49 / M ?ADM Date: 12/02/24 ? Loc: HO.HHCX ? Attending Dr: Musa Felton MD ? Ordering Physician: MUSA FELTON MD ?? Date of Service: 12/02/24 ?? Procedure(s): XR finger LT min 2V ?? Accession Number(s): [id number] ? cc: MUSA FELTON MD ? EXAMINATION: [...] DD/ 1025 ? TD/TT: 12/02/24 1048 ? Flute Grinder: ? Procedure Note Chemo Zheng - 12/02/[address] [address] XRay Report Signed Patient: Clem Crockett LMR#: M [id number] : 1975Acct:[id number] Age/Sex: 49 / MADM Date: 12/02/24 Loc: .HHX Attending Dr: Musa Felton MD Ordering Physician: MUSA FELTON MD Date of Service: 12/02/24 Procedure(s): XR finger LT min 2V Accession Number(s): [id number] cc: MUSA FELTON MD EXAMINATION: XR FINGERS [...] 12/02/24 1054 DD/ 1025 TD/TT: 12/02/24 1048 Flute Grinder: Musa Felton MD IMG XR PROCEDURES Final Result * (ABNORMAL) POCT HGB A1C (11/08/2024 11:33 AM EST) Hemoglobin A1C 8.4(A) 4.0 - 6.0 % QC Media Lot # [id number] Lot# Expiration Date Blood 11/08/2024 11:3 3 AM EST Odilia TORRES POINT OF CARE TEST ENTER/EDIT OR DERABLES Final Result * (ABNORMAL) POCT Glucose (11/08/2024 11:32 AM EST) Glucose Blood, POC 217(A) 60 - 200 mg/dL QC Media Lot # [id number] Lot# Expiration Date ,025 Blood Capillary blood specimen / Unknown 11/08/2024 [...] ?? Duglas MCLEOD et al. KENNETH. 2013;310(19): 7260-6405 ?? (http://education.Security Innovation/faq/CYQ321) Non-HDL Cholesterol 120 <130 mg/dL (calc) FOUNDATION [...] Lipidol. 2015;9:129-169. ?? 12/04/2020 8:28 AM EST us Historical Provider LAB BLOOD ORDERABLES Bailee zepeda Result [facility] [address] * ALBUMIN, RANDOM URINE W/CREATININE (06/25/2020 [...] LAB SYSTEM 06/25/2020 10:4 5 AM EDT us Historical Provider LAB URINE ORDERABLES Bailee zepeda Result [facility] [address] from Last 3 Months or Most Recently Relevant to Health Maintenance [place] [address] [address] [place] [address] STANDARD Care Teams Boiler Or Engine Operator Relationship Specialty Start Date End Date Odilia Cota ANP [address] [place], [place] [phone] PCP - General Family Medicine 05/24/21 Jakub Cheney PharmD [address] [place], [place] [phone] Pharmacist Internal Medicine 01/23/24
--- OUTSIDE RECORDS SUMMARY | 2024-12-09 12:01 | XMS_ITS | Encounter Summary ---
Author Organization [employer] Address [address] [facility] [address] 7t [place] [address] Care Team Providers Care Inventory Analyst Name Role Phone Odilia Cota Primary Care Provider [phone] Jakub Cheney PharmD Unavailable [phone] Encounter Details Date Type Department Care Team (Late Contact Info) Description 09/12/2022 Orders Only [facility] [address] [place], [place] [phone] Odilia Cota ANP [address] [place] [address] Social History Tobacco Use Types Packs/Day Years [...] Upcoming Encounters Date Type Department Care Team ([facility] Contact Info) Description 01/17/2025 10:00 AM EDT Office Visit [facility] [address] [place] [address] Audrey Hale, OD [address] [place] [address] 02/06/2025 11:00 AM EDT Office Visit [facility] [address] [place] [address] Odilia Cota ANP [address] [place] [address] documented as of this encounter Visit Diagnoses Not on filedocumented in this encounter Care Teams Inventory Analyst Relationship Specialty Start Date End Date Odilia Cota ANP [address] [place] [phone] PCP - General Family Medicine 05/24/21 Jakub Cheney, Maria EugeniaD [address] [place] [phone] Pharmacist Internal Medicine 01/23/24 documented as of this encounter
--- OUTSIDE RECORDS SUMMARY | 2024-12-09 12:01 | XMS_ITS | Encounter Summary ---
Author Organization [employer] Address [address] [facility] [address] [place] [address] Care Team Providers Care Securities Underwriter Name Role Phone Odilia Cota MELISSA Primary Care Provider [phone] Jakub Cheney PharmD Unavailable [phone] Encounter Details Date Type Department Care Team ([facility] Contact Info) Description 02/28/2023 Orders Only [facility] [address] [place] [address] Vianney Nevarez LPN Social History Tobacco Use [...] Upcoming Encounters Date Type Department Care Team ([facility] Contact Info) Description 01/17/2025 10:00 AM EDT Office Visit [facility] [address] [place] [address] Audrey Hale, OD [address] [place] [address] 02/06/2025 11:00 AM EDT Office Visit [facility] [address] [place] [address] Odilia Cota ANP [address] [place] [address] documented as of this encounter Visit Diagnoses Not on filedocumented in this encounter Care Teams Securities Underwriter Relationship Specialty Start Date End Date Odilia Cota ANP [address] [place] [phone] PCP - General Family Medicine 05/24/21 Jakub Cheney, Alan [address] [place] [phone] Pharmacist Internal Medicine 01/23/24 documented as of this encounter
--- OUTSIDE RECORDS SUMMARY | 2024-12-09 12:01 | XMS_ITS | Encounter Summary ---
Author Organization [employer] Address [address] [facility] 7t [place] [address] Care Team Providers Care Senior Software Quality Engineer Name Role Phone Odilia Cota MELISSA Primary Care Provider [phone] Jakub Cheney PharmD Unavailable [phone] Reason for Visit * Reason Comments CGM initial visit Encounter Details Date Type Department Care Team (Latest Contact Info) Description 11/15/2024 9:30 AM EST Clinical Support [facility] [address] [place] [address] Gilda Danielson RN Type 2 diabetes mellitus with both eyes affected by mild nonproliferative retinopathy without macular edema, without long-term current use of insulin ([facility]) Social History Tobacco Use Types Packs/Day Years [...] on file. Preferred language for medical information: Hide Examiner needed: Yes. Burkinan translation by BRIAN Casanova CGM device: CGM DEVICE: Protenus Senia 3 Clem Kathleen brought in CGM [...] help adhesion to skin: Simpatch, available on [employer], Torbat Skin Tac, Skin-Prep Protective Barrier Wipe, [...] only the electrical equipment provided by the aircraft charter dispatcher. Do not use if you are on [...] [facility] [address] [place], [place] [phone] Geoffrey, Audrey, OD [address] [place] [address] 02/06/2025 11:00 AM EDT Office Visit [facility] [address] [place] [address] Odilia Cota ANP [address] [place] [address] documented as of this encounter Goals Goal [...] edema, without long-term current use of insulin ([facility]) documented in this encounter Additional Health Concerns Assessment Noted Time PHQ-9 Depression Total Score: 0 11/08/19 25 11:31 AM EST documented as of this encounter Care Teams Senior Software Quality Engineer Relationship Specialty Start Date End Date Odilia Cota ANP [address] [place] [id number] PCP - General Family Medicine 05/24/21 Jakub Cheney PharmD [address] [place] [phone] Pharmacist Internal Medicine 01/23/24 documented as of this encounter
== END 2024-12-09 10:48 | disposition home or self-care (01) ==
PROVIDERS: Visit Provider Surgery
DX: Z98.890 Other specified postprocedural states (principal)
CPT/HCPCS: 99024

== ENCOUNTER → 2024-12-09 10:39 | Outpatient (BNVA) | payer MEDICAID, SELFPAY | PROVIDERS: Visit Provider Surgery | DX: Z09 Encounter for follow-up examination after completed treatment for conditions other than malignant neoplasm (principal); Z98.890 Other specified postprocedural states | CPT/HCPCS: 99212 ==

== ENCOUNTER 2024-12-10 09:04 | Outpatient (AMB) | payer MEDICAID, SELFPAY ==
--- NOTE | 2024-12-10 09:21 | A.OFFVIS_ITS ---
Vital Signs 12/10/24 09:36 Height 6 ft Weight 202 lb 13.204 oz BMI 27.5 BP 102/80 Blood Pressure Location Rt brachial Position Sitting Pulse 86 Pulse Source Pulse Oximeter Pulse Oximetry (%) 98 Oxygen Delivery Method Room Air Intake Visit Reasons: Colonoscopy Screening Intake Note: NEW PATIENT for initial colo screening Chief Complaint; Pt denies any GI concerns at this time. FMHx of stomach cancer reported. No previous hx of colo. Oyster Harvester Required: Yes Oyster Harvester Services: Oyster Harvester Present Oyster Harvester Name: MARSHALL WALKER + Ronny ([id number]) Information Interpreted: clinical only Accompanied by: Self / Same As Patient Allergies seafood Allergy (Severe, Verified 12/10/24 09:22) Anaphylaxis HPI HPI Colonoscopy Screening: Details: 49 year old?male with past medical history of hypertension, CAD, asthma, diabetes, GERD, hyperlipidemia is here today for pre colonoscopy screening.? Patient was sent to us by his PCP.? This is his first colonoscopy screening.? Patient denies any gastrointestinal symptoms in the past or at present.? Denies any personal or family history of gastrointestinal disease, colon polyps, or CRC.? Denies history of difficulty with sedation or anesthesia in the past.? Negative for history of sleep apnea.? Denies any history of cardiac, renal, pulmonary, or hepatic disease.?? No history of infectious? diseases like hepatitis A, B, C, HIV or tuberculosis.? 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 Review of Systems Const Denies weight gain and Denies weight loss ENT Reports no additional complaints, Denies dysphagia and Denies odynophagia Card Reports no additional complaints Resp Reports no additional complaints GI Denies abdominal pain, Denies belching, Denies melena, Denies bloating, Denies change in bowel habits, Denies dysphagia, Denies excessive flatus, Denies dyspepsia, Denies heartburn, Denies diarrhea, Denies loose stools, Denies nausea, Denies odynophagia and Denies vomiting Reports no additional complaints Musc Reports no additional complaints Neuro Reports no additional complaints Psych Reports no additional complaints Endo Reports no additional complaints Physical Exam Vital Signs: Last Vital Signs Pulse 86 12/10/24 09:36 BP 102/80 12/10/24 09:36 Pulse Ox 98 12/10/24 09:36 Oxygen Delivery Method Room Air 12/10/24 09:36 BMI result Body Mass Index 27.5 Const General: healthy appearing, no acute distress and well developed Nutritional Appearance: well nourished Orientation/consciousness: patient oriented x3 Resp Effort & Inspection: normal respiratory effort, able to speak in complete sentences, no tracheal deviation and symmetric chest movement Auscultation: clear to auscultation bilaterally Cardio Rate: regular rate GI Inspection: Yes normal to inspection and No distended Palpation (GI): Soft to palpation, not firm, nontender and No hepatosplenomegaly present Auscultation: normal bowel sounds General: Yes no CVA tenderness Back/Spine/Pelvis Back: no CVA tenderness Skin General skin exam: elasticity normal, turgor normal and dry skin Neuro General: patient oriented x3 Psych Appearance: grossly normal Mental Status: mental status grossly normal Assessment & Plan Assessment & Plan (1) Screen for colon cancer: Code(s): Z12.11 - Encounter for screening for malignant neoplasm of colon Plan Patient denies any GI, cardiac or respiratory symptoms.? Denies any issues with anesthesia in the past.? Denies any history of sleep apnea.? No history infectious diseases in the past or present.? On low-dose aspirin. ? No family or personal history of colon cancer or polyps.? Patient denies melena, hematochezia , unintentional weight loss or ribbon like stools.? Discussed at length the pre- procedure,? prep, diet & medications as well as what to expect prior, during and after the procedure.?? Stressed the importance of good bowel prep.? Recommended the use of Vaseline or Calmoseptine OTC & baby wipes with bowel movements to promote comfort.? ?Patient verbalizes understanding and agrees to plan of care.? He was given the opportunity to ask questions and all questions answered.? We will see him after the procedure.? Medications: New bisacodyl (Dulcolax (bisacodyl)) take 4 tabs at noon the day before your colonoscopy 20 mg (4 x 5 mg) PO ONCE 1 day 4 tabs 0RF constipation Z12.11 - Encounter for screening for malignant neoplasm of colon polyethylene glycol 3350 (Miralax) As directed by gastroenterology department at [facility] 238 grams PO ONCE 238 grams 0RF Z12.11 - Encounter for screening for malignant neoplasm of colon Coding Level of Care Code New Pt Level 3 (47668) Diagnoses Screen for colon cancer Z12.11 Time Spent (min) 40 Comment 30 minutes spent with patient and additional 10 minutes spent reviewing his records
[2024-12-10 09:36] VITALS: BP 102/80; PULSE 86; O2SAT 98; BMI 27.5
--- OUTSIDE RECORDS SUMMARY | 2024-12-10 10:05 | XMS_ITS | Encounter Summary ---
Author Organization [employer] Address [address] [facility] 7t [place] [address] Care Team Providers Care Endo Tech Name Role Phone Odilia Cota MELISSA Primary Care Provider [phone] Jakub Cheney PharmD Unavailable [phone] Encounter Details Date Type Department Care Team [...] Description 01/17/2025 10:00 AM EDT Office Visit [facility] [address] [place] [address] GeoffreyAudrey granados, OD [address] [place] [address] 02/06/2025 11:00 AM EDT Office Visit [facility] [address] [place] [address] Odilia Cota ANP [address] [place] [address] documented as of this encounter Goals Goal [...] documented as of this encounter Care Teams Endo Tech Relationship Specialty Start Date End Date Odilia Cota ANP [address] [place] [address] PCP - General Family Medicine 05/24/21 Jakub Cheney PharmD [address] [place] [phone] Pharmacist Internal Medicine 01/23/24 documented as of this encounter
--- OUTSIDE RECORDS SUMMARY | 2024-12-10 10:05 | XMS_ITS | Encounter Summary ---
Author Organization [employer] Address [address] [facility] [address] [place] [address] Care Team Providers Care Carton Gluing Machine Operator Name Role Phone Odilia Cota MELISSA Primary Care Provider Jakub Cheney PharmD Unavailable [phone] Reason for Visit * Reason Comments CGM initial visit Encounter Details Date Type Department Care Team (Latest Contact Info) Description 11/15/2024 9:30 AM EST Clinical Support [facility] [address] [place] [address] Gilda Danielson RN Type 2 diabetes mellitus with both eyes affected by mild nonproliferative retinopathy without macular edema, without long-term current use of insulin ([facility]) Social History Tobacco Use Types Packs/Day [...] on file. Preferred language for medical information: Sheriff Sergeant needed: Yes. Bhutanese translation by BRIAN Casanova CGM device: CGM DEVICE: orderbolt Senia 3 Clem Kathleen brought in CGM [...] help adhesion to skin: Simpatch, available on [employer], Torbat Skin Tac, Skin-Prep Protective Barrier Wipe, [...] only the electrical equipment provided by the hand winder. Do not use if you are on [...] Description 01/17/2025 10:00 AM EDT Office Visit [facility] [address] [place], [place] [phone] Geoffrey, Audrey, OD [address] [place] [address] 02/06/2025 11:00 AM EDT Office Visit [facility] [address] [place] [address] Odilia Cota ANP [address] [place] [address] documented as of this encounter Goals Goal [...] edema, without long-term current use of insulin ([facility]) documented in this encounter Additional Health Concerns Assessment Noted Time PHQ-9 Depression Total Score: 0 11/08/19 25 11:31 AM EST documented as of this encounter Care Teams Carton Gluing Machine Operator Relationship Specialty Start Date End Date Odilia Cota ANP [address] [place] [phone] PCP - General Family Medicine 05/24/21 Jakub Cheney PharmD [address] [place] [address] Pharmacist Internal Medicine 01/23/24 documented as of this encounter
--- OUTSIDE RECORDS SUMMARY | 2024-12-10 10:05 | XMS_ITS | Encounter Summary ---
Author Organization [employer] Address [address] [facility] [address] 7[address] [place] [address] Care Team Providers Care Retention Specialist Name Role Phone Odilia Cota ANP Primary Care Provider [phone] Jakub Cheney PharmD Unavailable [phone] Encounter Details Date Type Department Care Team (Late st Contact Info) Description 11/20/2024 Refill [facility] [address] [place] [address] Odilia Cota ANP [address] [place] [address] Migraine without aura, not refractory Social History [...] Description 01/17/2025 10:00 AM EDT Office Visit [facility] [address] [place] [address] Audrey Hale, OD [address] [place] [address] 02/06/2025 11:00 AM EDT Office Visit [facility] [address] [place] [address] Odilia Cota ANP [address] [place] [address] documented as of this encounter Goals Goal [...] documented as of this encounter Care Teams Retention Specialist Relationship Specialty Start Date End Date Odilia Cota ANP [address] [place] [address] PCP - General Family Medicine 05/24/21 Jakub Cheney PharmD [address] [place] [address] Pharmacist Internal Medicine 01/23/24 documented as of this encounter
--- OUTSIDE RECORDS SUMMARY | 2024-12-10 10:05 | XMS_ITS | Clinical Summary ---
Author Organization [employer] Address 75 [facility] 7t [place] [address] Care Team Providers Care Box Office Agent Name Role Phone Odilia Cota MELISSA Primary Care Provider [phone] Jakub Cheney PharmD Unavailable [phone] Allergies Active Allergy Reactions Criticality Noted Date [...] TIME 1 each Active UltiCare Short Pen [place] 31G X 8 MM misc USE DIRECTED FOUR TIMES DAILY 100 each Active TRUEplus Lancets 33G miscIndications:T ype 2 diabetes mellitus with hyperlipidemia ([facility]/HCC) ([facility]) TEST BLOOD SUGAR TWICE DAILY 100 each Active Ventolin HFA 108 (90 Base) MCG/ACT inhalerIndication s:Mild persistent asthma without complication INHALE 2 PUFFS BY MOUTH EVERY 6 HOURS NEEDED FOR WHEEZING 18 g 1 Active Tirzepatide (Mounjaro) 7.5 MG/0.5ML solution auto-injectorIndi cations:Type 2 diabetes mellitus with hyperlipidemia (CMS/HCC) ([facility]) Inject 7.5 mg under the skin every [...] ons:Type 2 diabetes mellitus with hyperlipidemia (CMS/HCC) ([facility]) INJECT 60 UNITS SUBCUTANEOUSLY EVERY MORNING DIRECTED 15 mL 5 025 Active Continuous Glucose Sensor (FreeStyle Senia 3 Plus Sensor) miscIndications:T ype 2 diabetes mellitus with hyperlipidemia (CMS/HCC) ([facility]) 1 each every 14 (fourteen) days. 2 each 025 Active Continuous Glucose Traffic Control Supervisor (FreeStyle Senia 3 [place]) deviceIndications :Type 2 diabetes mellitus with hyperlipidemia (CMS/HCC) ([facility]) 1 each every 14 (fourteen) days. 2 [...] EVERY DAY 90 tablet 1 025 Active topiramate 50 MG tabletIndications :Migraine [...] MORNING 90 tablet 1 024 2024 Discontinued cefadroxil (Duricef) 500 MG capsule Take 1 capsule (500 mg) by mouth 2 times daily for 7 days. 14 capsule 025 2024 doxycycline (Vibramycin) 100 MG capsule Take 1 capsule (100 mg) by mouth 2 times daily for 7 days. Take with at least 8 ounces (large glass) of water, do not lie down for 30 minutes after 14 capsule 025 2024 Active Problems Problem Noted Date Diagnosed Date [...] Description 12/02/2024 9:40 AM EST Office Visit [facility] [address] [place] [address] Musa Felton MD Post-traumatic wound infection (Primary Dx); Hypertension, unspecified type 11/20/2024 Refill [facility] [address] [place] [address] Odilia Cota ANP Migraine without aura, not refractory 11/19/2024 Refill [facility] [address] [place] [address] Ramon Calhoun MD Migraine without aura, not refractory 11/19/2024 Refill [facility] [address] [place] [address] Odilia Cota ANP Migraine without aura, not refractory; Essential hypertension 11/18/2024 Refill [facility] [address] [place] [address] Twila Veelz MD Migraine without aura, not refractory 11/18/2024 Refill [facility] [address] [place] [address] Odilia Cota ANP Type 2 diabetes mellitus with hyperlipidemia ([facility]/HCC) ([facility]); Essential hypertension 11/15/2024 9:30 AM EST Clinical Support [facility] [address] [place] [address] Gilda Danielson, RN Type 2 diabetes mellitus with both eyes affected by mild nonproliferative retinopathy without macular edema, without long-term current use of insulin (CMS/HCC) 11/15/2024 Travel 11/12/[address] [address] Odilia Cota ANP Durable Medical Equipment (Diabetic shoes) 11/11/[address] [address] Gilda Danielson RNgoldbeater 11/08/2024 11:15 AM EST Office Visit [address] [address] Odilia Cota ANP Type 2 diabetes mellitus with hyperlipidemia ([facility]/HCC) ([facility]) (Primary Dx); Chronic pain of both knees; Anxiety; Neuropathic pain; Numbness and tingling of both legs 11/08/2024 Travel 11/07/[address] [address] Maxine Ramirez MA chart prep 10/28/2024 Patient Outreach [address] [address] Odilia Cota ANP Pre-visit Planning (Pre visit planning unable to complete. ) 10/23/2024 9:00 AM EST Office Visit [facility] [address] [place] [address] Geoffrey, Audrey, OD Presbyopia of both eyes (Primary Dx) 10/23/2024 Travel 10/04/2024 Refill [facility] [address] [place] [address] Odilia Cota ANP Type 2 diabetes mellitus with hyperlipidemia (CMS/HCC) ([facility]/HCC) 09/26/2024 Telephone [facility] [address] [place] [address] Tyron Moya MA November recall from Last [...] Description 01/17/2025 10:00 AM EDT Office Visit [facility] [address] [place] [address] Audrey Hale, OD [address] [place] [address] 02/06/2025 11:00 AM EDT Office Visit [facility] [address] [place] [address] Odilia Cota, ANP [address] [place] [address] Health Maintenance Due Date Last Done Comments [...] Type 2 diabetes mellitus with hyperlipidemia (CMS/HCC) ([facility]) POCT GLUCOSE Routine 11/08/2024 11:32 AM EST Type 2 diabetes mellitus with hyperlipidemia (CMS/HCC) ([facility]) LIPID PANEL, STANDARD Routine 12/04/2020 8:28 AM EST ALBUMIN, RANDOM URINE W/CREATININE Routine 06/25/2020 10:45 AM EDT from Last 3 Months or Most Recently Relevant to Health Maintenance Results * XR Fingers 2+ Views Left (12/02/2024 10:25 AM EST) Anatomical Region Laterality Modality Upper Extremities, Fingers Left Radio graphic Imaging 12/02/2024 10:2 5 AM EST Narrative 12/02/2024 10:57 AM EST ?[facility] ?[address] ?[place] [address] ?XRay Report ? Signed ? Patient: Ramirez Kathleen,Roe ?MR#: M ?? [id number] ? : 1975 ?Acct:[id number] ? Age/Sex: 49 / M ?ADM Date: 12/02/24 ? Loc: HO.HHCX ? Attending Dr: Musa Felton MD ? Ordering Physician: MUSA FELTON MD ?? Date of Service: 12/02/24 ?? Procedure(s): XR finger LT min 2V ?? Accession Number(s): [id number] ? cc: MUSA FELTON MD ? EXAMINATION: [...] DD/ 1025 ? TD/TT: 12/02/24 1048 ? Counc[employer]: ? Procedure Note Chemo Zheng - 12/02/[address] [address] XRay Report Signed Patient: Clem Crockett LMR#: M [id number] : 1975Acct:[id number] Age/Sex: 49 / MADM Date: 12/02/24 [facility] Att[facility] Dr: Musa Felton MD Ordering Physician: MUSA FELTON MD Date of Service: 12/02/24 Procedure(s): XR finger LT min 2V Accession Number(s): [id number] cc: MUSA FELTON MD EXAMINATION: XR FINGERS [...] 12/02/24 1054 DD/ 1025 TD/TT: 12/02/24 1048 Counc[employer]or [employer]: Musa Felton MD IMG XR PROCEDURES Final [...] Unknown 11/08/2024 11:32 AM EST us Odilia TORRES POINT OF [...] ?? Duglas [facility] et al. KENNETH. 2013;310(19): 8603-9570 ?? (http://education.Placed/faq/ISA793) Non-HDL Cholesterol 120 <130 mg/dL (calc) FOUNDATION [...] Provider LAB BLOOD ORDERABLES Bailee zepeda Result [facility] [address] * ALBUMIN, RANDOM URINE W/CREATININE (06/25/2020 [...] Creatinine, Urine 96 20 - 320 mg/dL [facility] 06/25/2020 10:4 5 AM EDT us Historical Provider LAB URINE ORDERABLES Bailee zepeda Result Performing Organization Address City/State/[facility] Co de Phone Number [facility] [address] from Last 3 Months or Most Recently Relevant to Health Maintenance [place] [address] [place] [address] STANDARD Care Teams Box Office Agent Relationship Specialty Start Date End Date Odilia Cota ANP [address] [place] [address] PCP - General Family Medicine 05/24/21 Jakub Cheney, Alan [address] [place], [place] [phone] Pharmacist Internal Medicine 01/23/24
--- OUTSIDE RECORDS SUMMARY | 2024-12-10 10:06 | XMS_ITS | Encounter Summary ---
Author Organization [employer] Address [address] [facility] [address] 7t [place] [address] Care Team Providers Care Law Enforcement Officer Name Role Phone Odilia Cota Primary Care Provider Jakub Cheney PharmD Unavailable [phone] Reason for Visit * Reason Comments Med Refill Encounter Details Date Type Department Care Team ([facility] st Contact Info) Description 11/25/2023 Refill [facility] [address] [place] [address] Odilia Cota ANP [address] [place] [address] Shortness of breath Social History Tobacco Use [...] t he electric, gas, oil or water [employer] threatened to shut off services in your [...] Description 01/17/2025 10:00 AM EDT Office Visit [facility] [address] [place] [address] Audrey Hale, OD [address] [place] [address] 02/06/2025 11:00 AM EDT Office Visit [facility] [address] [place] [address] Odilia Cota ANP [address] [place] [address] documented as of this encounter Visit Diagnoses Diagnosis Shortness of breath documented in this encounter Care Teams Law Enforcement Officer Relationship Specialty Start Date End Date Odilia Cota ANP [address] [place] [address] PCP - General Family Medicine 05/24/21 Jakub Cheney, Alan [address] [place] [address] Pharmacist Internal Medicine 01/23/24 documented as of this encounter
--- OUTSIDE RECORDS SUMMARY | 2024-12-10 10:06 | XMS_ITS | Clinical Summary ---
Author Organization [facility] Address [address] [place] [address] Care Team Providers Care Charrer Name Role Phone Unavailable Primary Care Provider Unavailabl e Social History Tobacco Use Types Packs/Day Years Used Date Smoking Tobacco: Never Assessed Sex and Gender Information Value Date Recorded Sex Assigned at Not on file Gender Identity Not on file Sexual Orientation Not on file Plan of Treatment Not on file
--- OUTSIDE RECORDS SUMMARY | 2024-12-10 10:06 | XMS_ITS | Encounter Summary ---
Author Organization [employer] Address [address] [facility] 7t [place] [address] Care Team Providers Care Engineering Analyst Name Role Phone Odilia Cota Primary Care Provider [phone] Jakub Cheney PharmD Unavailable [phone] Encounter Details Date Type Department Care Team (Late Contact Info) Description 11/22/2022 Orders Only [facility] [address] [place], [place] [phone] Melia Owen LPN Social History Tobacco Use [...] Description 01/17/2025 10:00 AM EDT Office Visit [facility] [address] [place] [address] Audrey Hale, OD [address] [place] [address] 02/06/2025 11:00 AM EDT Office Visit [facility] [address] [place], [place] [phone] Odilia Cota ANP [address] [place] [address] documented as of this encounter Visit Diagnoses Not on filedocumented in this encounter Care Teams Engineering Analyst Relationship Specialty Start Date End Date Odilia Cota ANP [address] [place] [address] PCP - General Family Medicine 05/24/21 Jakub Cheney, Alan [address] [place] [address] Pharmacist Internal Medicine 01/23/24 documented as of this encounter
--- OUTSIDE RECORDS SUMMARY | 2024-12-10 10:06 | XMS_ITS | Encounter Summary ---
Author Organization [employer] Address 75 [facility] 7[address] [place] [address] Care Team Providers Care Waste Water Plant Operator Name Role Phone Odilia Cota MELISSA Primary Care Provider Jakub Cheney PharmD Unavailable [phone] Reason for Referral * Consultation (STAT) - Closed Specialty Diagnoses / Procedures Referred By Contac t Referred To Contact General Surgery Diagnoses Post-traumatic wound infection Musa Abdalla MD [address] [place] [address] Phone: tel: fax: Perry Rodriguez MD [address] [place] [address] Phone: tel: fax: Referral ID Status Reason Start Date Expiration Date V isits Requested Visits Authorized [id number] Closed Specialty Services Required 12/02/2024 12/02/2025 6 6 Reason for Visit * Reason Comments finger infection Encounter Details Date Type Department Care Team (Late st Contact Info) Description 12/02/2024 9:40 AM EST Office Visit [facility] [address] [place] [address] Musa Abdalla MD [address] [place], [place] [phone] Post-traumatic wound infection (Primary Dx); Hypertension, unspecified [...] Clem Kathleen is a 49 y.o. male. 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: Juan Antonio DOMINGUEZ 2 days ago was [...] syndrome Type 2 diabetes mellitus with hyperlipidemia ([facility]) ([facility]) Hyperlipidemia Hypertension Hypertriglyceridemia Migraine without aura, not refractory Numbness and tingling of both legs Pain in lower limb History of fracture Noncompliance with medication regimen Type 2 diabetes mellitus with both eyes affected by mild nonproliferative retinopathy without macular edema, without long-term current use of insulin ([facility]) Healthcare maintenance Chronic pain of both knees [...] doxycycline. X-rays will be done now in [facility]. I spoke with the office of [facility] general surgeons, and they kindly scheduled the [...] Description 01/17/2025 10:00 AM EDT Office Visit [facility] [address] [place] [address] Geoffrey, Audrey, OD [address] [place] [address] 02/06/2025 11:00 AM EDT Office Visit [facility] [address] [place] [address] Odilia Cota, MELISSA [address] [place] [address] Scheduled Referrals Name Type Priority Associated Diagnoses [...] AM EST Narrative 12/02/2024 10:57 AM EST ?[facility] ?[address] ?[place] [address] ?XRay Report ? Signed ? Patient: James KathleenRoe ?MR#: M ?? [id number] ? : 1975 ?Acct:[id number] ? Age/Sex: 49 / M ?ADM Date: 12/02/24 ? Loc: HO.HHCX ? Attending Dr: Musa Abdalla MD ? Ordering Physician: MUSA ABDALLA MD ?? Date of Service: 12/02/24 ?? Procedure(s): XR finger LT min 2V ?? Accession Number(s): [id number] ? cc: MUSA ABDALLA MD ? EXAMINATION: [...] DD/ 1025 ? TD/TT: 12/02/24 1048 ? Database Dba: ? Procedure Note Chemo Zheng - 12/02/2024 [facility] [address] [place] [address] XRay Report Signed Patient: Clem Crockett LMR#: M [id number] : 1975Acct:[id number] Age/Sex: 49 / MADM Date: 12/02/24 Loc: HO.HHCX Attending Dr: Musa Abdalla MD Ordering Physician: MUSA ABDALLA MD Date of Service: 12/02/24 Procedure(s): XR finger LT min 2V Accession Number(s): [id number] cc: MUSA ABDALLA MD EXAMINATION: XR FINGERS [...] 12/02/24 1054 DD/ 1025 TD/TT: 12/02/24 1048 Database Dba: Musa Abdalla MD IMG XR PROCEDURES Final Result documented in this encounter Visit Diagnoses Diagnosis Post-traumatic wound infection- Primary Hypertension, unspecified type documented in this encounter Additional Health Concerns Assessment Noted Time PHQ-9 Depression Total Score: 0 11/08/19 11:31 AM EST documented as of this encounter Care Teams Waste Water Plant Operator Relationship Specialty Start Date End Date Odilia Cota ANP [address] [place] [address] PCP - General Family Medicine 05/24/21 Jakub Cheney PharmD [address] [place] [address] Pharmacist Internal Medicine 01/23/24 documented as of this encounter
--- OUTSIDE RECORDS SUMMARY | 2024-12-10 10:06 | XMS_ITS | Encounter Summary ---
Author Organization [employer] Address 75 [facility] 7[address] [place] [address] Care Team Providers Care Automat Watcher Name Role Phone Odilia Cota MELISSA Primary Care Provider Jakub Cheney PharmD Unavailable [phone] Encounter Details Date Type Department Care Team (Late Contact Info) Description 09/12/2022 Abstract [facility] [address] [place] [address] Provider, MD Idris Social History Tobacco Use [...] Description 01/17/2025 10:00 AM EDT Office Visit [facility] [address] [place] [address] GeoffreyAudrey granados, OD [address] [place], [place] [phone] 02/06/2025 11:00 AM EDT Office Visit [facility] [address] [place] [address] Odilia Cota ANP [address] [place] [address] documented as of this encounter Visit Diagnoses Not on filedocumented in this encounter Care Teams Automat Watcher Relationship Specialty Start Date End Date Odilia Cota ANP [address] [place] [address] PCP - General Family Medicine 05/24/21 Jakub Cheney, Maria EugeniaD [address] [place] [address] Pharmacist Internal Medicine 01/23/24 documented as of this encounter
--- OUTSIDE RECORDS SUMMARY | 2024-12-10 10:06 | XMS_ITS | Encounter Summary ---
Author Organization [employer] Address [address] [facility] [address] 7t [place] [address] Care Team Providers Care Gasket Notcher Name Role Phone Odilia Cota Primary Care Provider [phone] Jakub Cheney PharmD Unavailable Encounter Details Date Type Department Care Team (Late Contact Info) Description 09/12/2022 Orders Only [facility] [address] [place], [place] [phone] Odilia Cota ANP [address] [place] [address] Social History Tobacco Use Types Packs/Day Years [...] Upcoming Encounters Date Type Department Care Team ([facility] Contact Info) Description 01/17/2025 10:00 AM EDT Office Visit [facility] [address] [place] [address] Audrey Hale, OD [address] [place] [address] 02/06/2025 11:00 AM EDT Office Visit [facility] [address] [place] [address] Odilia Cota ANP [address] [place] [address] documented as of this encounter Visit Diagnoses Not on filedocumented in this encounter Care Teams Gasket Notcher Relationship Specialty Start Date End Date Odilia Cota ANP [address] [place] [phone] PCP - General Family Medicine 05/24/21 Jakub Cheney, Maria EugeniaD [address] [place] [phone] Pharmacist Internal Medicine 01/23/24 documented as of this encounter
--- OUTSIDE RECORDS SUMMARY | 2024-12-10 10:06 | XMS_ITS | Encounter Summary ---
Author Organization [employer] Address 75 [facility] 7[place] [address] Care Team Providers Care Security Monitor Name Role Phone Odilia Cota MELISSA Primary Care Provider [phone] Jakub Cheney PharmD Unavailable [phone] Encounter Details Date Type Department Care Team ([facility] Contact Info) Description 02/28/2023 Orders Only [facility] [address] [place] [address] Vianney Nevarez LPN Social History Tobacco Use [...] Upcoming Encounters Date Type Department Care Team ([facility] Contact Info) Description 01/17/2025 10:00 AM EDT Office Visit [facility] [address] [place] [address] Audrey Hale, OD [address] [place] [address] 02/06/2025 11:00 AM EDT Office Visit [facility] [address] [place] [address] Odilia Cota ANP [address] [place] [address] documented as of this encounter Visit Diagnoses Not on filedocumented in this encounter Care Teams Security Monitor Relationship Specialty Start Date End Date Odilia Cota ANP [address] [place] [address] PCP - General Family Medicine 05/24/21 Jakub Cheney, Alan [address] [place] [address] Pharmacist Internal Medicine 01/23/24 documented as of this encounter
--- OUTSIDE RECORDS SUMMARY | 2024-12-10 10:06 | XMS_ITS | Encounter Summary ---
Author Organization [employer] Address [address] [facility] [address] 7t [place] [address] Care Team Providers Care Outcomes Manager Name Role Phone Odilia Cota Primary Care Provider [phone] Jakub Cheney PharmD Unavailable Encounter Details Date Type Department Care Team (Late st Contact Info) Description 11/19/2024 Refill [facility] [address] [place] [address] Odilia Cota ANP [address] [place] [address] Migraine without aura, not refractory; Essential hypertension [...] Office Visit [facility] [address] [place] [address] GeoffreyAudrey granados, OD [address] [place] [address] 02/06/2025 11:00 AM EDT Office Visit [facility] [address] [place] [address] Odilia Cota ANP [address] [place] [address] documented as of this encounter Goals Goal [...] documented as of this encounter Care Teams Outcomes Manager Relationship Specialty Start Date End Date Odilia Coat ANP [address] [place] [address] PCP - General Family Medicine 05/24/21 Jakub Cheney PharmD [address] [place] [address] Pharmacist Internal Medicine 01/23/24 documented as of this encounter
--- OUTSIDE RECORDS SUMMARY | 2024-12-10 10:06 | XMS_ITS | Encounter Summary ---
Author Organization [employer] Address [address] [facility] [address] 7t [place] [address] Care Team Providers Care Team Cdl Driver Name Role Phone Odilia Cota MELISSA Primary Care Provider [phone] Jakub Cheney PharmD Unavailable [phone] Reason for Visit * Reason Comments Med Refill Encounter Details Date Type Department Care Team ([facility] Contact Info) Description 01/20/2023 Refill [facility] [address] [place], [place] [phone] Theresa Tony FNP [address] [place] [address] Social History Tobacco Use Types Packs/Day Years [...] Upcoming Encounters Date Type Department Care Team ([facility] Contact Info) Description 01/17/2025 10:00 AM EDT Office Visit [facility] [address] [place], [place] [phone] Audrey Hale, OD 230 [place] [address] 02/06/2025 11:00 AM EDT Office Visit [facility] [address] [place] [address] Odilia Cota ANP [address] [place] [address] documented as of this encounter Visit Diagnoses Not on filedocumented in this encounter Care Teams Team Cdl Driver Relationship Specialty Start Date End Date Odilia Cota ANP [address] [place] [address] PCP - General Family Medicine 05/24/21 Jakub Cheney, Maria EugeniaD [address] [place] [address] [phone] Pharmacist Internal Medicine 01/23/24 documented as of this encounter
--- OUTSIDE RECORDS SUMMARY | 2024-12-10 10:06 | XMS_ITS | Encounter Summary ---
Author Organization [employer] Address [address] [facility] 7t [place] [address] Care Team Providers Care Plant Engineer Name Role Phone Odilia Cota Primary Care Provider Jakub Cheney PharmD Unavailable [phone] Reason for Visit * Reason Comments Med Refill Encounter Details Date Type Department Care Team ([facility] st Contact Info) Description 11/18/2024 Refill [facility] MEDICINE [address] [place] [address] Odilia Cota ANP [address] [place] [address] Type 2 diabetes mellitus with hyperlipidemia ([facility]/HCC) ([facility]); Essential hypertension Social History Tobacco Use Types [...] 01/17/2025 10:00 AM EDT Office Visit [facility] OPTOMETRY [address] [place] [address] Geoffrey, Audrey, OD [address] [place] [address] 02/06/2025 11:00 AM EDT Office Visit [facility] MEDICINE [address] [place] [address] Odilia Cota, ANP [address] [place] [address] documented as of this encounter Goals Goal Patient Goal Type Associated Problems Recent Progress Patient-Stated? Author Blood Pressure < 140/90 Blood Pressure 151/106(12/02 9:29 AM EST) No Jakub Cheney PharmD Hemoglobin A1c < 7 Result Component 8.4( 11:33 AM EST) No Jakub Cheney PharmD documented as of this encounter Visit Diagnoses Diagnosis Type 2 diabetes mellitus with hyperlipidemia (CMS/HCC) ([facility]) Essential hypertension Unspecified essential hypertension documented in this encounter Additional Health Concerns Assessment Noted Time PHQ-9 Depression Total Score: 0 11/08/19 25 11:31 AM EST documented as of this encounter Care Teams Plant Engineer Relationship Specialty Start Date End Date Odilia Cota ANP [address] [place] [address] PCP - General Family Medicine 05/24/21 Jakub Cheney PharmD [address] [place] [address] Pharmacist Internal Medicine 01/23/24 documented as of this encounter
--- OUTSIDE RECORDS SUMMARY | 2024-12-10 10:06 | XMS_ITS | Encounter Summary ---
Author Organization [employer] Address [address] [facility] [address] [place] [address] Care Team Providers Care Returned Goods Repairer Name Role Phone Odilia Cota MELISSA Primary Care Provider [phone] Jakub Cheney PharmD Unavailable [phone] Reason for Visit * Reason Comments Med Refill Encounter Details Date Type Department Care Team ([facility] st Contact Info) Description 11/18/2024 Refill [facility] MED & PEDS [address] [place] [address] Twila Velez MD [address] [place] [address] Migraine without aura, not refractory Social History [...] Description 01/17/2025 10:00 AM EDT Office Visit [facility] OPTOMETRY [address] [place] [address] Geoffrey, Audrey, OD [address] [place] [address] 02/06/2025 11:00 AM EDT Office Visit [facility] MEDICINE [address] [place] [address] Odilia Cota ANP [address] [place] [address] documented as of this encounter Goals Goal [...] documented as of this encounter Care Teams Returned Goods Repairer Relationship Specialty Start Date End Date Odilia Cota ANP [address] [place] [address] PCP - General Family Medicine 05/24/21 Jakub Cheney PharmD [address] [place] [address] Pharmacist Internal Medicine 01/23/24 documented as of this encounter
--- OUTSIDE RECORDS SUMMARY | 2024-12-10 10:06 | XMS_ITS | Encounter Summary ---
Author Organization [employer] Address [address] [facility] 7t [place] [address] Care Team Providers Care Sales Professional Bilingual Name Role Phone Odilia Cota Primary Care Provider [phone] Jakub Cheney PharmD Unavailable [phone] Encounter Details Date Type Department Care Team (Late Contact Info) Description 04/14/2023 Orders Only [facility] CHC MED & PEDS [address] [place], [place] [phone] Melia Owen LPN Social History Tobacco Use [...] Visit [facility] OPTOMETRY [address] [place], [place] [phone] Audrey Hale, OD [address] [place] [address] 02/06/2025 11:00 AM EDT Office Visit [facility] MEDICINE [address] [place], [place] [phone] Odilia Cota ANP [address] [place] [address] documented as of this encounter Visit Diagnoses Not on filedocumented in this encounter Care Teams Sales Professional Bilingual Relationship Specialty Start Date End Date Odilia Cota ANP [address] [place] [address] PCP - General Family Medicine 05/24/21 Jakub Cheney, Maria EugeniaD [address] [place] [phone] Pharmacist Internal Medicine 01/23/24 documented as of this encounter
--- OUTSIDE RECORDS SUMMARY | 2024-12-10 10:06 | XMS_ITS | Encounter Summary ---
Author Organization [employer] Address [address] [facility] 7t [place] [address] Care Team Providers Care Vegetable Thinner Name Role Phone Odilia Cota Primary Care Provider [phone] Jakub Cheney PharmD Unavailable [phone] Reason for Visit * Reason Onset Date Comments Durable Medical Equipment 11/12/2024 Diabet ic shoes Encounter Details Date Type Department Care Team (Late st Contact Info) Description 11/12/2024 Telephone [facility] MEDICINE [address] [place] [address] Odilia Cota ANP [address] [place] [address] Durable Medical Equipment (Diabetic shoes) Social History [...] them to contact [facility] at [phone]. * Telephone Encounter - Kailyn Murray - [...] 10:00 AM EDT Office Visit [facility] OPTOMETRY [address] [place] [address] Audrey Hale, OD [address] [place] [address] 02/06/2025 11:00 AM EDT Office Visit [facility] MEDICINE [address] [place] [address] Odilia Cota ANP [address] [place] [address] documented as of this encounter Goals Goal [...] documented as of this encounter Care Teams Vegetable Thinner Relationship Specialty Start Date End Date Odilia Cota ANP [address] [place] [address] PCP - General Family Medicine 05/24/21 Jakub Cheney PharmD [address] [place] [address] Pharmacist Internal Medicine 01/23/24 documented as of this encounter
--- OUTSIDE RECORDS SUMMARY | 2024-12-10 10:06 | XMS_ITS | Encounter Summary ---
Author Organization [employer] Address [address] [facility] [address] 7[address] [place] [address] Care Team Providers Care Locate Technician Name Role Phone Odilia Cota MELISSA Primary Care Provider [phone] Jakub Chenye PharmD Unavailable [phone] Encounter Details Date Type Department Care Team ([facility] Contact Info) Description 01/20/2023 Orders Only [facility] CHC MED & PEDS [address] [place], [place] [phone] Melia Owen LPN Social History Tobacco Use [...] Upcoming Encounters Date Type Department Care Team ([facility] Contact Info) Description 01/17/2025 10:00 AM EDT Office Visit [facility] OPTOMETRY [address] [place] [address] Audrey Hale, OD [address] [place] [address] 02/06/2025 11:00 AM EDT Office Visit [facility] MEDICINE [address] [place], [place] [phone] Odilia Cota ANP [address] [place] [address] documented as of this encounter Visit Diagnoses Not on filedocumented in this encounter Care Teams Locate Technician Relationship Specialty Start Date End Date Odilia Cota ANP [address] [place] [address] PCP - General Family Medicine 05/24/21 Jakub Cheney, Alan [address] [place] [phone] Pharmacist Internal Medicine 01/23/24 documented as of this encounter
--- OUTSIDE RECORDS SUMMARY | 2024-12-10 10:06 | XMS_ITS | Encounter Summary ---
Author Organization [employer] Address [address] [facility] 7t [place] [address] Care Team Providers Care Tool Distributor Name Role Phone Odilia Cota MELISSA Primary Care Provider Jakub Cheney PharmD Unavailable [phone] Reason for Visit * Reason Comments Med Refill Encounter Details Date Type Department Care Team ([facility] st Contact Info) Description 11/19/2024 Refill [facility] CHC MED & PEDS [address] [place] [address] Ramon Calhoun MD [address] [place] [address] Migraine without aura, not refractory Social History [...] [facility] OPTOMETRY [address] [place] [address] Geoffrey, Audrey, OD [address] [place] [address] 02/06/2025 11:00 AM EDT Office Visit [facility] MEDICINE [address] [place] [address] Odilia Cota ANP [address] [place] [address] documented as of this encounter Goals Goal [...] documented as of this encounter Care Teams Tool Distributor Relationship Specialty Start Date End Date Odilia Cota ANP [address] [place] [address] PCP - General Family Medicine 05/24/21 Jakub Cheney, Alan [address] [place] [address] Pharmacist Internal Medicine 01/23/24 documented as of this encounter
--- OUTSIDE RECORDS SUMMARY | 2024-12-10 10:06 | XMS_ITS | Encounter Summary ---
Author Organization [employer] Address [address] [facility] 7t [place] [address] Care Team Providers Care Precision Assembly Inspector Name Role Phone Odilia Cota Primary Care Provider [phone] Jakub Cheney PharmD Unavailable Encounter Details Date Type Department Care Team (Late Contact Info) Description 12/27/2022 Orders Only [facility] CHC MED & PEDS [address] [place], [place] [phone] Melia Owen LPN Social History Tobacco Use [...] Description 01/17/2025 10:00 AM EDT Office Visit [facility] OPTOMETRY [address] [place] [address] Audrey Hale, OD [address] [place] [address] 02/06/2025 11:00 AM EDT Office Visit [facility] MEDICINE [address] [place], [place] [phone] Odilia Cota ANP [address] [place] [address] documented as of this encounter Visit Diagnoses Not on filedocumented in this encounter Care Teams Precision Assembly Inspector Relationship Specialty Start Date End Date Odilia Cota ANP [address] [place] [address] PCP - General Family Medicine 05/24/21 Jakub Cheney, Alan [address] [place] [address] Pharmacist Internal Medicine 01/23/24 documented as of this encounter
--- OUTSIDE RECORDS SUMMARY | 2024-12-10 10:06 | XMS_ITS | Encounter Summary ---
Author Organization [employer] Address [address] [facility] 7t [place] [address] Care Team Providers Care Ski Top Trimmer Name Role Phone Beata Odilia TORRES Primary Care Provider Jakub Cheney PharmD Unavailable [phone] Reason for Visit * Reason Onset Date Comments Prior Authorization 11/11/2024 Encounter Details Date Type Department Care Team (Late st Contact Info) Description 11/11/2024 Telephone [facility] MEDICINE [address] [place] [address] Gilda Danielson RNlicensed club manager Social History Tobacco Use Types Packs/Day Years [...] 3 CGM teaching tomorrow morning. Advised to slat pickler supplies from pharmacy prior to coming to appt tomorrow. Pt verbalized understanding and denied having any further questions or concerns at this time. Telephone call placed to pharmacy who states will get Sonja 3 ready for slat pickler now. * Telephone Encounter - Kailyn Murray - 11/14/2024 10:23 AM EST PA approvals received for [employer] 3 reader and sensor. Scanned into media. [...] 01/17/2025 10:00 AM EDT Office Visit [facility] OPTOMETRY [address] [place] [address] Geoffrey, Audrey, OD [address] [place] [address] 02/06/2025 11:00 AM EDT Office Visit [facility] MEDICINE [address] [place] [address] Odilia Cota ANP [address] [place] [address] documented as of this encounter Goals Goal [...] documented as of this encounter Care Teams Ski Top Trimmer Relationship Specialty Start Date End Date Odilia Cota ANP [address] [place] [address] PCP - General Family Medicine 05/24/21 Jakub Cheney PharmD [address] [place] [address], [place] [address] Pharmacist Internal Medicine 01/23/24 documented as of this encounter
== END 2024-12-10 10:50 | disposition home or self-care (01) ==
LOC: HO.HGI 09:05
PROVIDERS: PCP Nurse Practitioner Primary Care; Referring Provider Nurse Practitioner Primary Care; Visit Provider Nurse Practitioner Family
DX: Z01.818 Encounter for other preprocedural examination (principal); Z12.11 Encounter for screening for malignant neoplasm of colon
CPT/HCPCS: 99202

== ENCOUNTER → 2024-12-10 09:04 | Outpatient (BNVA) | payer MEDICAID, SELFPAY | PROVIDERS: PCP Nurse Practitioner Primary Care; Referring Provider Nurse Practitioner Primary Care; Visit Provider Nurse Practitioner Family | DX: Z12.11 Encounter for screening for malignant neoplasm of colon (principal) | CPT/HCPCS: 99212 ==